=== PATIENT | female | born 1965 | race Caucasian/White ===

== ENCOUNTER 2023-05-14 08:55 | Outpatient (OUT) | payer OTHER, SELFPAY ==
[2023-05-14 09:44] LABS: BUN Creatinine Ratio 18.1; Calcium 8.3 mg/dL (8.5-10.1); Carbon Dioxide 23.5 mmol/L (21.0-32.0); Chloride 103 mmol/L (98-107); Estimated GFR (African America >60 (>=60); Estimated GFR (Non-African Ame >60 (>=60); Glucose 133 mg/dL (74-106); Potassium 5.5 mmol/L (3.5-5.1); Sodium 136 mmol/L (136-145)
== END 2023-05-14 08:56 | disposition home or self-care (01) ==
LOC: LAB 08:57
PROVIDERS: PCP Internal Medicine; Visit Provider Physician Assistant
DX: E87.1 Hypo-osmolality and hyponatremia (principal)
CPT/HCPCS: 36415; 80048

== ENCOUNTER 2023-05-28 08:38 | Outpatient (OUT) | payer OTHER, SELFPAY ==
[2023-05-28 10:20] LABS: BUN Creatinine Ratio 15.2; Calcium 9.3 mg/dL (8.5-10.1); Carbon Dioxide 26.6 mmol/L (21.0-32.0); Chloride 97 mmol/L (98-107); Estimated GFR (African America >60 (>=60); Estimated GFR (Non-African Ame >60 (>=60); Glucose 103 mg/dL (74-106); Potassium 4.6 mmol/L (3.5-5.1); Sodium 132 mmol/L (136-145)
== END 2023-05-28 08:39 | disposition home or self-care (01) ==
LOC: LAB 08:40
PROVIDERS: PCP Internal Medicine; Visit Provider Physician Assistant
DX: E87.5 Hyperkalemia (principal)
CPT/HCPCS: 36415; 80048

== ENCOUNTER 2023-07-17 18:45 | Emergency (ER) | payer OTHER, SELFPAY ==
[2023-07-17] VITALS (18 sets, daily range): BP systolic 165–214; BP diastolic 75–99; PULSE 72–87; RESP 14–25; TEMP 37; O2SAT 96–99; BMI 39.1
--- NOTE | 2023-07-17 19:21 | ECG_ITS ---
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
--- NOTE | 2023-07-17 19:23 | CT_ITS ---
The [address] [address] Patient Name: TERRANCE KAPADIA MRN: [id number] date: 1965 Sex: F Assigned Patient Location: ER Current Patient Location: ER Accession/Order Number: [id number] Exam Date: 07/17/2023 20:08 Report Date: 07/17/2023 20:26 At the request of: BHUMIKA LOBATO Procedure: CT head/brain wo con EXAMINATION: CT head/brain wo con HISTORY: Hypertension/headache - TECHNIQUE: CT head without contrast. All CT scans at this facility use dose modulation, iterative reconstruction, and/or weight based dosing when appropriate to reduce radiation dose to as low as reasonably achievable. COMPARISON: None. RESULT: Post-operative change: None. Acute change: No evidence of an acute intracranial process. Hemorrhage: No evidence of acute intracranial hemorrhage. Mass Lesion / Mass Effect: No evidence of an intracranial mass or extraaxial fluid collection. No significant mass effect. Chronic change: Scattered patchy foci of low attenuation are present within supratentorial white matter which is a nonspecific finding but likely represents mild microvascular ischemia. Atherosclerotic calcification of the carotid siphons and vertebrobasilar arteries. Parenchyma: Mild generalized volume loss. Ventricles: Ventricular enlargement concordant with the degree of parenchymal volume loss. Other: The calvarium, skull base, imaged paranasal sinuses, mastoids, orbits and extracranial soft tissues are unremarkable. CT/CT head/brain wo con IMPRESSION: 1. No acute intracranial abnormality; no acute infarct, intracranial hemorrhage or extra-axial collection. 2. Chronic microvascular ischemia and involutional changes. Electronically authenticated by: SHWETA BALBUENA Date: 07/17/2023 20:26
--- NOTE | 2023-07-17 19:25 | ED_ITS ---
HPI - General Adult General Chief complaint: Recheck/Abnormal Lab/Rx Stated complaint: HIGH BLOOD PRESSURE Time Seen by Provider: 07/17/23 19:11 Source: patient Mode of arrival: walk-in Limitations: no limitations History of Present Illness HPI narrative: patient is a 58-year-old female who presents to the Emergency Room for continued elevated blood pressure. Patient states for the last four days she has noticed increasing blood pressures, headache and blurry vision. She saw her PCP yesterday, outpatient labs showed hyponatremia. Patient was treated with [place] for pain in the left knee and low back and her PCP believed was the cause of her elevated blood pressure. She takes multiple blood pressure medications, none of these were adjusted in light of the high blood pressures. She did make her PCP aware yesterday of the headache and blurry vision. No other medications prior to arrival. She denies any loss of vision, chest pain, shortness of breath, upper respiratory symptoms. Related Data Home Medications Medication Instructions Recorded Confirmed alendronate 70 mg tablet 70 mg PO .weekly 07/17/23 07/17/23 amlodipine 5 mg tablet 5 mg PO DAILY 07/17/23 07/17/23 aspirin 325 mg tablet 325 mg PO DAILY 07/17/23 07/17/23 cholecalciferol (vitamin D3) 125 5,000 unit PO DAILY 07/17/23 07/17/23 mcg (5,000 unit) capsule clonidine HCl 0.1 mg tablet 0.3 mg PO Q8H 07/17/23 07/17/23 ferrous sulfate 325 mg (65 mg 325 mg PO DAILY 07/17/23 07/17/23 iron) tablet (FeroSul) folic acid 1 mg tablet 1 mg PO DAILY 07/17/23 07/17/23 hydrocodone 5 mg-acetaminophen 325 1 tab PO Q6H PRN pain 07/17/23 07/17/23 mg tablet levothyroxine 150 mcg tablet 150 mcg PO DAILY 07/17/23 07/17/23 losartan 100 mg tablet 100 mg PO DAILY 07/17/23 07/17/23 mecobalamin (vitamin B12) 1,000 1,000 mcg PO DAILY 07/17/23 07/17/23 mcg disintegrating tablet,sublingual omeprazole 40 mg capsule,delayed 40 mg PO DAILY 07/17/23 07/17/23 release oxycodone-acetaminophen 5 mg-325 1 tab PO Q6H PRN pain 07/17/23 07/17/23 mg tablet rosuvastatin 20 mg tablet 20 mg PO DAILY 07/17/23 07/17/23 tizanidine 4 mg tablet 4 mg PO Q8H 07/17/23 07/17/23 triamterene 37.5 1 tab PO DAILY 07/17/23 07/17/23 mg-hydrochlorothiazide 25 mg tablet venlafaxine 150 mg 150 mg PO DAILY 07/17/23 07/17/23 capsule,extended release 24 hr zolpidem 10 mg tablet 10 mg PO DAILY 07/17/23 07/17/23 Previous Rx's Medication Instructions Recorded ketorolac 10 mg tablet 10 mg PO TID PRN pain #6 tabs 07/17/23 ondansetron 4 mg disintegrating 4 mg PO Q6H PRN nausea and 07/17/23 tablet vomiting #12 tabs Allergies Allergy/AdvReac Type Severity Reaction Status Date / Time No Known Drug Allergies Allergy Verified 07/17/23 18:59 Review of Systems ROS Constitutional Denies: fever or chills Eyes Reports: change in vision and blurry vision Ears, nose, mouth, and throat Denies: throat pain Cardiovascular Denies: chest pain Respiratory Denies: shortness of breath or cough Gastrointestinal Reports: nausea; Denies: vomiting Musculoskeletal Reports: back pain and extremity pain Integumentary/Breast Denies: rash Neurological Reports: headache; Denies: numbness in extremities or weakness in extremities Endocrine Denies: excessive urination [facility] Social History Smoking status: Former smoker Exam Narrative Exam Narrative: Gen.: Awake, alert, in no distress; sitting upright with no photophobia Head: Normocephalic, atraumatic ENT: Moist mucous membranes; no nuchal rigidity or meningismus Respiratory: No respiratory distress, lungs clear bilaterally Cardio: Regular rate and rhythm Extremities: Moves extremities equally Psych: Normal mood and affect Neuro: No focal neuro deficit Skin: Warm, dry, intact Constitutional Vital Signs, click to edit/add: Last Vital Signs Temp 98.6 F 07/17/23 18:52 Pulse 73 07/17/23 20:45 Resp 15 07/17/23 20:45 BP 184/92 H 07/17/23 20:45 Pulse Ox 97 07/17/23 21:10 O2 Del Method Room Air 07/17/23 18:52 Course Vital Signs Vital signs: Vital Signs Temperature 98.6 F 07/17/23 18:52 Pulse Rate 87 07/17/23 18:52 Respiratory Rate 18 07/17/23 18:52 Blood Pressure 214/94 H 07/17/23 18:52 Pulse Oximetry 99 07/17/23 18:52 Oxygen Delivery Method Room Air 07/17/23 18:52 Temperature 98.6 F 07/17/23 18:52 Pulse Rate 73 07/17/23 20:45 Respiratory Rate 15 07/17/23 20:45 Blood Pressure 184/92 H 07/17/23 20:45 Pulse Oximetry 97 07/17/23 21:10 Oxygen Delivery Method Room Air 07/17/23 18:52 Medical Decision Making MDM Narrative Medical decision making narrative: patient medicated with IV fluids, Reglan, Benadryl, labetalol, Vasotec with improvement of blood pressure and headache. She has no focal neuro deficits in the Emergency Room, no EKG changes and CT of the brain is unremarkable. Blood pressure is 170/78 at reevaluation. Patient is on multiple medications for blood pressure, we'll defer to PCP for adjustment of these medications. She does have an upcoming appointment this week. Return to the Emergency Room if symptoms change or worsen. Medical Records Medical records reviewed: Yes I reviewed the patient's medical records Lab Data Lab results reviewed: Yes I reviewed the patient's lab results Labs: Lab Results 07/17/23 Range/Units 19:33 WBC 6.2 (4.0-11.0) 10^3/uL RBC 4.87 (4.20-5.40) 10^6/uL Hgb 14.5 (12.0-16.0) g/dL Hct 41.2 (36.0-48.0) % MCV 84.6 (81.0-99.0) fL MCH 29.8 (26.7-34.0) pg MCHC 35.2 (29.9-35.2) g/dL RDW 13.7 (11.0-15.0) % Plt Count 248 (150-450) 10^3/uL MPV 8.7 L (9.5-13.5) fL Neut % (Auto) 70.7 (43.0-75.0) % Lymph % (Auto) 18.0 L (20.5-60.0) % [place] % (Auto) 10.3 (1.7-12.0) % Eos % (Auto) 0.5 L (0.9-7.0) % Baso % (Auto) 0.3 (0.2-2.0) % Neut # (Auto) 4.4 (1.4-6.5) 10^3/uL Lymph # (Auto) 1.1 L (1.2-3.8) 10^3/uL [place] # (Auto) 0.6 (0.3-0.8) 10^3/uL Eos # (Auto) 0.0 (0.0-0.7) 10^3/uL Baso # (Auto) 0.0 (0.0-0.1) 10^3/uL Abs Immat Gran (auto) 0.01 (0.00-0.03) 10^3/uL Imm/Tot Granulo (auto) 0.2 (0.0-0.5) % Sodium 133 L (136-145) mmol/L Potassium 3.6 (3.5-5.1) mmol/L Chloride 100 (98-107) mmol/L Carbon Dioxide 23.3 (21.0-32.0) mmol/L Anion Gap 13.3 BUN 8.0 (7.0-18.0) mg/dL Creatinine 0.81 (0.55-1.02) mg/dL Est GFR ( Amer) >60 (>=60) Est GFR (Non-Af Amer) >60 (>=60) BUN/Creatinine Ratio 9.9 Glucose 115 H (74-106) mg/dL Calcium 8.5 (8.5-10.1) mg/dL Total Bilirubin 0.3 (0.2-1.0) mg/dL AST 26 (15-37) U/L ALT 47 (14-59) U/L Alkaline Phosphatase 72 (46-116) U/L Troponin I High Sens 10.7 (4.0-51.3) pg/mL Total Protein 7.7 (6.4-8.2) g/dL Albumin 4.1 (3.4-5.0) g/dL Globulin 3.6 g/dL Albumin/Globulin Ratio 1.1 ECG Data Attestation: I personally reviewed and interpreted this ECG as follows: (normal sinus rhythm at a rate of eighty-one, no acute ST elevation. Minimal ST depression noted, no ectopy. EKG reviewed by attending physician) Discharge Plan Discharge Chief Complaint: Recheck/Abnormal Lab/Rx Clinical Impression: Headache, Hypertension Patient Disposition: Home, Self-Care Time of Disposition Decision: 20:38 Condition: Good Prescriptions / Home Meds: New ketorolac 10 mg tablet 10 mg PO TID PRN (Reason: pain) Qty: 6 0RF ondansetron 4 mg tablet,disintegrating 4 mg PO Q6H PRN (Reason: nausea and vomiting) Qty: 12 0RF No Action alendronate 70 mg tablet 70 mg PO .weekly Rx Instructions: 30 min. before first meal amlodipine 5 mg tablet 5 mg PO DAILY aspirin 325 mg tablet 325 mg PO DAILY cholecalciferol (vitamin D3) 125 mcg (5,000 unit) capsule 5,000 unit PO DAILY clonidine HCl 0.1 mg tablet 0.3 mg PO Q8H ferrous sulfate [FeroSul] 325 mg (65 mg iron) tablet 325 mg PO DAILY folic acid 1 mg tablet 1 mg PO DAILY hydrocodone-acetaminophen 5-325 mg tablet 1 tab PO Q6H PRN (Reason: pain) Hold Instructions: discontinued levothyroxine 150 mcg tablet 150 mcg PO DAILY losartan 100 mg tablet 100 mg PO DAILY mecobalamin (vitamin B12) 1,000 mcg tablet,disintegrating 1,000 mcg PO DAILY omeprazole 40 mg capsule,delayed release(DR/EC) 40 mg PO DAILY oxycodone-acetaminophen 5-325 mg tablet 1 tab PO Q6H PRN (Reason: pain) rosuvastatin 20 mg tablet 20 mg PO DAILY tizanidine 4 mg tablet 4 mg PO Q8H triamterene-hydrochlorothiazid 37.5-25 mg tablet 1 tab PO DAILY zolpidem 10 mg tablet 10 mg PO DAILY venlafaxine 150 mg capsule,extended release 24hr 150 mg PO DAILY Instructions: Acute Headache (ED), Hypertension (ED) Stand Alone Forms: Portal Instructions Referrals: KIERSTEN BRISCOE [Primary Care Provider] - 1 week Discharge Date/Time: 07/17/23 20:58
[2023-07-17] MEDS: ENALAPRILAT DIHYDRATE 1.25 MG/ML VIAL IV (19:38)
[2023-07-17] MEDS: DIPHENHYDRAMINE HCL 50 MG/ML (1ML) VIAL 12.5 MG IV (19:38)
[2023-07-17] MEDS: METOCLOPRAMIDE HCL 10 MG/2 ML VIAL IVP (19:38)
[2023-07-17] MEDS: LABETALOL HCL 20 MG/4 ML SYRINGE 10 MG IVP (19:38)
[2023-07-17 19:53] LABS: Basophils Percent Auto 0.3 % (0.2-2.0); Eosinophils Percent Auto 0.5 % (0.9-7.0); Hematocrit 41.2 % (36.0-48.0); Hemoglobin 14.5 g/dL (12.0-16.0); Immature Granulocytes Abs Auto 0.01 10^3/uL (0.00-0.03); Immature Granulocytes Pct Auto 0.2 % (0.0-0.5); Lymphocytes Absolute Auto 1.1 10^3/uL (1.2-3.8); Mean Corpuscular HGB Conc 35.2 g/dL (29.9-35.2); Mean Corpuscular Hemoglobin 29.8 pg (26.7-34.0); Mean Corpuscular Volume 84.6 fL (81.0-99.0); Mean Platelet Volume 8.7 fL (9.5-13.5); Monocytes Absolute Auto 0.6 10^3/uL (0.3-0.8); Monocytes Percent Auto 10.3 % (1.7-12.0); Neutrophils Absolute Auto 4.4 10^3/uL (1.4-6.5); Neutrophils Percent Auto 70.7 % (43.0-75.0); Platelet Count 248 10^3/uL (150-450); Red Blood Count 4.87 10^6/uL (4.20-5.40); Red Cell Distribution Width 13.7 % (11.0-15.0); White Blood Count 6.2 10^3/uL (4.0-11.0)
[2023-07-17 19:58] LABS: Alanine Aminotransferase 47 U/L (14-59); Albumin Globulin Ratio 1.1; Albumin Level 4.1 g/dL (3.4-5.0); Alkaline Phosphatase 72 U/L (46-116); Anion Gap 13.3; Aspartate Amino Transferase 26 U/L (15-37); BUN Creatinine Ratio 9.9; Bilirubin Total 0.3 mg/dL (0.2-1.0); Calcium 8.5 mg/dL (8.5-10.1); Carbon Dioxide 23.3 mmol/L (21.0-32.0); Chloride 100 mmol/L (98-107); Estimated GFR (African America >60 (>=60); Estimated GFR (Non-African Ame >60 (>=60); Globulin 3.6 g/dL; Glucose 115 mg/dL (74-106); Potassium 3.6 mmol/L (3.5-5.1); Sodium 133 mmol/L (136-145); Total Protein 7.7 g/dL (6.4-8.2)
[2023-07-17 20:01] LABS: Troponin I High Sensitivity 10.7 pg/mL (4.0-51.3)
== END 2023-07-17 20:58 | disposition home or self-care (01) ==
PROVIDERS: Physician Assistant; Emergency Provider Internal Medicine; PCP Internal Medicine
DX: I10 Essential (primary) hypertension (principal); R51.9 Headache, unspecified; Z79.899 Other long term (current) drug therapy; Z79.82 Long term (current) use of aspirin; Z79.890 Hormone replacement therapy; Z87.891 Personal history of nicotine dependence
CPT/HCPCS: 36415; 70450; 80053; 84484; 85025; 93005; 96374; 96375; 99285

== ENCOUNTER 2023-10-30 14:36 | Outpatient (OUT) | payer OTHER, SELFPAY ==
--- NOTE | 2023-10-30 15:04 | MM_ITS ---
Patient Name: TERRANCE KAPADIA MR#: [id number] : 1965 Exam Date: 10/30/2023 Ordering Doctor: DR KIERSTEN BRISCOE M.D. RADIOLOGY REPORT PROCEDURE: MM TOMOSYNTHESIS SCREENING BI COMPARISON: MG MAMM SCREEN 3D [facility] CAD, 10/26/2022. MG MAMM SCREEN 3D [facility] CAD, 09/16/2021. MG MAMM SCREEN [facility] W CAD, 05/27/2020. MG MAMM [facility] SCRN W CAD DIG, 12/01/2008. INDICATIONS: screening Calculator Name NCI Breast Cancer Risk Assessment Tool 5 Year Breast Cancer Risk 1.90% Lifetime Breast Cancer Risk 11.10% Personal Breast Cancer No Personal Ovarian Cancer No Treatments None Family Cancers Grandmother-maternal with liver cancer at age ~66. LOCATION: [facility] BREAST COMPOSITION: Scattered areas fibroglandular density. FINDINGS: DIAGNOSTIC CATEGORY 2--BENIGN FINDING: RIGHT BREAST: No significant suspicious finding. Stable, chronic small mass versus lymph node anterior lower-inner quadrant. No significant change has occurred. LEFT BREAST: No significant suspicious finding. Stable, chronic small asymmetry within upper central breast with adjacent biopsy marker clip. No significant change has occurred. RECOMMENDATIONS: ROUTINE MAMMOGRAM AND CLINICAL EVALUATION IN 12 MONTHS. PLEASE NOTE: A NORMAL MAMMOGRAM DOES NOT EXCLUDE THE POSSIBILITY OF BREAST CANCER. A CLINICALLY SUSPICIOUS PALPABLE LUMP SHOULD BE BIOPSIED. Dictated by: Constantin Mclaughlin M.D. on 10/31/2023 at 14:16 Approved by: Constantin Mclaughlin M.D. on 10/31/2023 at 14:23
== END 2023-10-30 14:37 | disposition home or self-care (01) ==
LOC: MAMMO 14:36
PROVIDERS: PCP Internal Medicine; Visit Provider Internal Medicine
DX: Z12.31 Encounter for screening mammogram for malignant neoplasm of breast (principal); Z80.8 Family history of malignant neoplasm of other organs or systems
CPT/HCPCS: 77063; 77067

== ENCOUNTER 2024-01-02 09:22 | Outpatient (OUT) | payer OTHER, SELFPAY ==
--- NOTE | 2024-01-02 09:30 | US_ITS ---
[address] [address] Patient Name: TERRANCE KAPADIA MRN: [id number] date: 1965 Sex: F Assigned Patient Location: US Current Patient Location: US Accession/Order Number: [id number] Exam Date: 01/02/2024 09:32 Report Date: 01/02/2024 10:27 At the request of: MAKENZIE LANDRUM Procedure: US renal doppler EXAM: US renal doppler HISTORY: uncontrolled hypertension COMPARISON: None. TECHNIQUE: Grayscale, color and Doppler FINDINGS: The right kidney is normal in size and cortical echotexture with lobular contour measuring 12.8 x 4.9 x 4.9 cm. The cortex is thinned measuring 0.6 cm. No solid cortical mass, hydronephrosis or obstructing nephrolithiasis Right renal arteries: Proximal renal artery: 198/46 cm/s Mid renal artery: 137/36 cm/s Distal renal artery: 138/31 cm/s Superior arcuate: 52/16 cm/s Mid arcuate: 57/16 cm/s Inferior arcuate: 33/15 cm/s The left kidney is normal in size and cortical echotexture with lobular contour measuring 12.1 x 5.8 x 5.1 cm. The cortex is thinned measuring 0.9 cm. No solid cortical mass, hydronephrosis or obstructing nephrolithiasis Left renal arteries: Proximal renal artery: 126/25 cm/s Mid renal artery: 74/19 cm/s Distal renal artery: 60/16 cm/s Superior arcuate: 31/12 cm/s Mid arcuate: 40/10 cm/s Inferior arcuate: 46/13 cm/s Urinary bladder volume 45 mL Flow velocity in the aorta: 90/22 cm/s US/US renal doppler IMPRESSION: Elevated flow velocity in the right renal artery, consider renovascular hypertension Electronically authenticated by: MARIAH SAUCEDA Date: 01/02/2024 10:27
--- OUTSIDE RECORDS SUMMARY | 2024-01-02 09:40 | XMS_ITS | CCD ---
Author Name Unknown Address [address] [place] [address] Organization [facility] Care Team Providers Care Supervisor Gear Repair Name Role Phone NITO JEONG Primary Care Unavailable EBRAHEIM, LELE Admitting Unavailable NITO JEONG Referring Unavailable EBRAHEIM, LELE Attending Unavailable EBRAHEIM, LELE Attending Unavailable NITO JEONG Primary Care Unavailable EBHEIMGIANLUCAIL Admitting Unavailable NITO JEONG Referring Unavailable EBHEIMLELE Attending Unavailable NITO JEONG Referring Unavailable NITO JEONG Primary Care Unavailable EBRAHEIM, LELE Admitting Unavailable HEMMER, MISTY M Admitting Unavailable ZIEBER, DR TRUPTI Vicente Consulting Unavailable JEONG, DR BURCH Primary Care Unavailable HEMMERMISTY Attending Unavailable HEMMERMISTY Consulting Unavailable HEMMERMISTY Attending Unavailable HEMMERMISTY Consulting Unavailable HEMMER MISTY M Admitting Unavailable RACHNA, DR BURCH Primary Care Unavailable HEMMISTY LIU Attending Unavailable HEMALEXA MISTY M Admitting Unavailable RACHNA, DR BURCH Primary Care Unavailable RACHNA, DR BURCH Consulting Unavailable HEMMISTY LIU Consulting Unavailable MISC, DR VILLALTA Admitting Unavailable JEONG, DR BURCH Primary Care Unavailable MISC, DR VILLALTA Attending Unavailable MISC, DR VILLALTA Consulting Unavailable HEMMISTY LIU Attending Unavailable RACHNA, DR BURCH Primary Care Unavailable ZIEBER, DR TRUPTI Vicente Consulting Unavailable HEMMER, MISTY M Admitting Unavailable HEMMER MISTY M Consulting Unavailable HOBBSALICIA Attending Unavailable HOBBS, ALICIA Attending Unavailable HOBBS, ALICIA Attending Unavailable HOBBS, ALICIA Attending Unavailable FENG JOSE Referring Unavailable CHRIS SOLANO Referring Unavailable PETER, ALICIA Admitting Unavailable HOBBS, ALICIA Attending Unavailable CHRIS SOLANO Referring Unavailable HOBBS, CHRISTNINAER Referring Unavailable HOBBS, CHRISTNINAER Referring Unavailable HOBBS, CHRISTOPHER Referring Unavailable HOBBS, CHRISTOPHER Referring Unavailable PETER, CHRISTNINAER Referring Unavailable CHRIS SOLANO Attending Unavailable SELF, REFERRED Referring Unavailable HOBBS, ALICIA Attending Unavailable PETER, ERINER Referring Unavailable CHRIS SOLANO Attending Unavailable NITO JEONG Attending Unavailable MISTY LANDRUM Attending Unavailable MISTY LANDRUM Attending Unavailable NITO JEONG Attending Unavailable Nito Jeong MD Unavailable Nito Jeong MD Primary Care Provider [phone] Medications Current Medications Medication Drug Class(es) Dates Sig (Normalized) Sig (Original) alendronic acid 70 mg oral tablet (3 sources) Bisphosphonate Start: 3 alendronate (Fosamax) 70 MG tablet Indications: Osteoporosis of multiple sites (CMS/HCC) TAKE 1 TABLET BY MOUTH 30 MINUTES BEFORE first meal once a week 12 tablet 3 08/10/2023 Active amLODIPine 10 mg oral tablet (3 sources) Dihydropyridine Calcium Channel Yunier Start: 4 End: 5 take 1 tablet by mouth in the morning amLODIPine (Norvasc) 10 MG tablet Indications: Essential hypertension (CMS/HCC) Take 1 tablet (10 mg) by mouth in the morning. 30 tablet 11 11/26/2023 11/25/2024 Active calcium carbonate 500 mg oral tablet (3 sources) take 1 tablet by mouth twice daily at mealtime calcium carbonate (Os-Yang) 1250 (500 Ca) MG tablet Take 1,250 mg by mouth every 12 (twelve) hours. 1 tablet with meals twice daily. 0 Active carvedilol 25 mg oral tablet (3 sources) alpha-Adrenergic Yunier, beta-Adrenergic Yunier Start: 4 take 1 tablet by mouth in the morning carvedilol (Coreg) 25 MG tablet Indications: Essential hypertension (CMS/HCC) Take 1 tablet (25 mg) by mouth in the morning and 1 tablet (25 mg) in the evening. Take with meals. 60 tablet 2 11/15/2023 Active cholecalciferol 0.025 mg oral tablet (3 sources) Vitamin D take 1 tablet by mouth once daily cholecalciferol (Vitamin D3) 25 MCG (1000 UT) tablet Take 1,000 Units by mouth 1 (one) time each day at the same time. 0 Active ferrous sulfate 325 mg oral tablet (3 sources) Start: 3 take 1 tablet by mouth in the morning ferrous sulfate (FeroSul) 325 (65 Fe) MG tablet Indications: Abnormality of red blood cells Take 1 tablet (325 mg) by mouth in the morning. 90 tablet 3 05/21/2023 Active folic acid 1 mg oral tablet (3 sources) take 1 tablet by mouth in the morning folic acid (Folvite) 1 MG tablet Take 1,000 mcg by mouth in the morning. 0 Active hydroCHLOROthiazide 25 mg / olmesartan medoxomil 40 mg oral tablet (3 sources) Thiazide Diuretic, Angiotensin 2 Receptor Yunier Start: 3 End: 4 take 1 tablet by mouth in the morning olmesartan-hydroCHL OROthiazide (Benicar HCT) 40-25 MG tablet Indications: Essential hypertension (CMS/HCC) Take 1 tablet by mouth in the morning. 30 tablet 11 11/02/2023 11/01/2024 Active ibuprofen 800 mg oral tablet (3 sources) Nonsteroidal Anti-inflammatory Drug Start: 4 take 1 tablet by mouth in the morning, then take 1 tablet by mouth in the evening, then take 1 tablet by mouth at bedtime ibuprofen 800 MG tablet Indications: Lumbar radiculopathy Take 1 tablet (800 mg) by mouth in the morning and 1 tablet (800 mg) in the evening and 1 tablet (800 mg) before bedtime. 270 tablet 3 11/26/2023 Active levothyroxine sodium 0.15 mg oral tablet (3 sources) l-Thyroxine Start: 3 take 1 tablet by mouth once daily levothyroxine (Synthroid, Levoxyl) 150 MCG tablet Indications: Hypothyroidism, unspecified (CMS/HCC) TAKE 1 TABLET BY MOUTH EVERY DAY 90 tablet 3 10/22/2023 Active mecobalamin 1 mg sublingual tablet (3 sources) Start: 3 take 1 tablet under the tongue once daily B-12, Methylcobalamin, 1000 MCG sublingual tablet Indications: B12 deficiency DISSOLVE 1 (ONE) TABLET UNDER THE TONGUE ONCE DAILY 90 tablet 3 04/23/2023 Active omeprazole 40 mg delayed release oral capsule (3 sources) Proton Pump Inhibitor Start: 3 take 1 capsule by mouth once daily omeprazole (PriLOSEC) [address] capsule Indications: Gastroesophageal reflux disease, unspecified whether esophagitis present TAKE 1 CAPSULE BY MOUTH DAILY 90 capsule 3 07/12/2023 Active ondansetron 4 mg disintegrating oral tablet (1 source) Serotonin-3 Receptor Antagonist Start: 4 End: 4 take 1 tablet by mouth every eight hours as needed for nausea and vomiting and nausea and nausea ondansetron ODT (Zofran-ODT) 4 MG disintegrating tablet Indications: Nausea Take 1 tablet (4 mg) by mouth every 8 (eight) hours if needed for nausea or vomiting for up to 7 days 21 tablet 0 12/13/2023 12/20/2023 Active rosuvastatin calcium 20 mg oral tablet (3 sources) HMG-CoA Reductase Inhibitor Start: 3 take 1 tablet by mouth in the morning rosuvastatin (Crestor) 20 MG tablet Indications: Mixed hyperlipidemia (CMS/HCC) Take 1 tablet (20 mg) by mouth in the morning. 100 tablet 3 08/15/2023 Active spironolactone 25 mg oral tablet (3 sources) Aldosterone Antagonist Start: 4 take 1 tablet by mouth in the morning spironolactone (Aldactone) 25 MG tablet Indications: Essential hypertension (CMS/HCC) Take 1 tablet (25 mg) by mouth in the morning. 30 tablet 2 12/12/2023 Active Start: 12-12-2023 take 1 tablet by jesse th in the morning spironolactone (Aldactone) 25 MG tablet Indications: Essential hypertension (CMS/HCC) Take 1 tablet (25 mg) by mouth in the morning. 30 tablet 2 12/12/2023 Active tiZANidine 4 mg oral tablet (3 sources) Central alpha-2 Adrenergic Agonist take 1 tablet by mouth in the morning, then take 1 tablet by mouth in the evening, then take 1 tablet by mouth at bedtime tiZANidine (Zanaflex) 4 MG tablet Take 4 mg by mouth in the morning and 4 mg in the evening and 4 mg before bedtime. 0 Active traMADol hydrochloride 50 mg oral tablet (5 sources) Opioid Agonist Start: 4 take 2 tablets by mouth every six hours for pain traMADol (Ultram) 50 MG tablet Indications: Pain Take 2 tablets (100 mg) by mouth every 6 (six) hours if needed for moderate pain 240 tablet 0 12/12/2023 Active Start: 12-12-2023 take 2 tablets by mo uth every six hours for pain traMADol (Ultram) 50 MG tablet Indications: Pain Take 2 tablets (100 mg) by mouth every 6 (six) hours if needed for moderate pain 240 tablet 0 12/12/2023 Active Start: 10-08-2023 End: 12-12-2023 take 2 tablets by mouth every six hours for pain traMADol (Ultram) 50 MG tablet Indications: Pain Take 2 tablets (100 mg) by mouth every 6 (six) hours if needed for moderate pain 240 tablet 1 10/08/2023 12/12/2023 Discontinued (Reorder) 24 hr venlafaxine 150 mg extended release oral capsule (3 sources) Serotonin and Norepinephrine Reuptake Inhibitor Start: 10-22-2023 take 2 capsules by mouth once daily at mealtime venlafaxine XR (Effexor XR) 150 MG 24 hr capsule Indications: Generalized anxiety disorder (CMS/HCC) TAKE 2 CAPSULES BY MOUTH EVERY DAY WITH FOOD 180 capsule 3 10/22/2023 Active zolpidem tartrate 10 mg oral tablet (3 sources) gamma-Aminobutyric Acid-ergic Agonist Start: 11-26-2023 zolpidem (Ambien) 10 MG tablet Indications: Insomnia, unspecified Take 1 tablet (10 mg) by mouth as needed at bedtime for sleep 30 tablet 2 11/26/2023 Active Problems Active Problems Problem Classification Problem Date Documented Date Episodic/Chronic Anxiety disorders (3 sources) Generalized anxiety disorder; Translations: [Generalized anxiety disorder] Onset: 04-13-2023 04-13-2023 Chronic Disorders of lipid metabolism (3 sources) Mixed hyperlipidemia; Translations: [Mixed hyperlipidemia] Onset: 04-13-2023 04-13-2023 Chronic Esophageal disorders (3 sources) Gastroesophageal reflux disease; Translations: [Gastro-esophageal reflux disease without esophagitis] Onset: 04-13-2023 04-13-2023 Chronic Essential hypertension (7 sources) Hypertensive disorder; Translations: [Essential (primary) hypertension] Onset: 04-13-2023 12-12-2023 Chronic Immunizations and screening for infectious disease (2 sources) Needs influenza immunization; Translations: [Encounter for immunization] 12-12-2023 Episodic Joint disorders and dislocations; trauma-related (3 sources) Traumatic arthropathy-knee; Translations: [Traumatic arthropathy, left knee] Onset: 04-13-2023 04-13-2023 Chronic Miscellaneous mental health disorders (5 sources) Primary insomnia; Translations: [Primary insomnia] Onset: 04-13-2023 12-12-2023 Chronic Mood disorders (3 sources) Depressive disorder; Translations: [Depressive disorder] Onset: 04-13-2023 04-13-2023 Chronic Nausea and vomiting (1 source) Nausea; Translations: [Nausea] 12-13-2023 Episodic Nonspecific chest pain (2 sources) Chest pain; Translations: [Chest pain, unspecified] 12-12-2023 Episodic Osteoporosis (6 sources) Osteoporosis; Translations: [Age-related osteoporosis without current pathological fracture] Onset: 09-19-2021 04-13-2023 Chronic Other diseases of bladder and urethra (3 sources) Overactive bladder; Translations: [Overactive bladder] Onset: 04-13-2023 04-13-2023 Chronic Other hereditary and degenerative nervous system conditions (3 sources) Restless legs; Translations: [Restless legs syndrome] Onset: 04-13-2023 04-13-2023 Chronic Other inflammatory condition of skin (3 sources) Lupus erythematosus; Translations: [Discoid lupus erythematosus] Onset: 04-13-2023 04-13-2023 Chronic Other nervous system disorders (3 sources) Chronic pain; Translations: [Other chronic pain] Onset: 04-13-2023 04-13-2023 Chronic Other nervous system disorders (3 sources) Peripheral nerve disease ; Translations: [Polyneuropathy, unspecified] Onset: 04-13-2023 04-13-2023 Chronic Other nutritional; endocrine; and metabolic disorders (3 sources) Obese class II; Translations: [Obesity, unspecified] Onset: 04-13-2023 04-13-2023 Chronic Other nutritional; endocrine; and metabolic disorders (3 sources) Metabolic syndrome X; Translations: [Metabolic syndrome X] Onset: 04-13-2023 04-13-2023 Chronic Residual codes; unclassified (4 sources) Obstructive sleep apnea (adult) (pediatric); Translations: [OBSTRUCTIVE SLEEP APNEA] Onset: 12-20-2022 Chronic Residual codes; unclassified (1 source) Obstructive sleep apnea syndrome; Translations: [Obstructive sleep apnea (adult) (pediatric)] Onset: 12-20-2022 12-12-2023 Chronic Spondylosis; intervertebral disc disorders; other back problems (6 sources) Arthropathy of lumbar facet joint; Translations: [Spondylosis without myelopathy or radiculopathy, lumbar region] Onset: 04-13-2023 04-13-2023 Chronic Thyroid disorders (3 sources) Hypothyroidism; Translations: [Hypothyroidism, unspecified] Onset: 04-13-2023 04-13-2023 Chronic Unclassified (3 sources) COUGH, UNSPECIFIED; Translations: [COUGH, UNSPECIFIED] Onset: 01-05-2023 Past or Other Problems Problem Classification Problem Date Documented Da te Episodic/Chronic Coma; stupor; and brain damage (5 sources) Daytime somnolence; Translations: [Somnolence] Onset: 05-14-2023 12-12-2023 Episodic Diabetes mellitus without complication (3 sources) Impaired fasting glycemia; Translations: [Impaired fasting glucose] Onset: 04-13-2023 04-13-2023 Episodic Fluid and electrolyte disorders (7 sources) Hypo-osmolality and hyponatremia; Translations: [Hyponatremia] Onset: 03-28-2023 Episodic Fracture of lower limb (9 sources) Displaced comminuted fracture of left patella, subsequent encounter for closed fracture with delayed healing; Translations: [Displaced osteochondral fracture of left patella, subsequent encounter for closed fracture with routine healing] Onset: 07-21-2022 Episodic Nutritional deficiencies (3 sources) Cobalamin deficiency; Translations: [Deficiency of other specified B group vitamins] Onset: 04-13-2023 04-13-2023 Episodic Other acquired deformities (3 sources) Spondylolysis; Translations: [Spondylolysis, lumbar region] Onset: 04-13-2023 04-13-2023 Episodic Other acquired deformities (3 sources) Acquired spondylolisthesis; Translations: [Spondylolisthesis, site unspecified] Onset: 12-25-2016 07-16-2023 Episodic Other connective tissue disease (3 sources) Muscle pain; Translations: [Myalgia, unspecified site] Onset: 05-14-2023 05-14-2023 Episodic Other gastrointestinal disorders (3 sources) Stool DNA-based colorectal cancer screening positive; Translations: [Other fecal abnormalities] Onset: 04-13-2023 04-13-2023 Episodic Other gastrointestinal disorders (3 sources) Abnormal feces; Translations: [Other fecal abnormalities] Onset: 08-07-2019 07-16-2023 Episodic Other hematologic conditions (3 sources) Red blood cell finding; Translations: [Other abnormality of red blood cells] Onset: 04-13-2023 04-13-2023 Episodic Other lower respiratory disease (3 sources) Snoring; Translations: [Snoring] Onset: 05-14-2023 05-14-2023 Episodic Other non-traumatic joint disorders (2 sources) Pain in left knee; Translations: [Pain in left knee] Onset: 09-19-2022 Episodic Other nutritional; endocrine; and metabolic disorders (3 sources) Excessive thirst; Translations: [Polydipsia] Onset: 04-13-2023 04-13-2023 Episodic Other screening for suspected conditions (not mental disorders or infectious disease) (7 sources) Encounter for screening mammogram for malignant neoplasm of breast; Translations: [Mammography abnormal] Onset: 10-26-2022 Episodic Residual codes; unclassified (1 source) Family history of malignant neoplasm of other organs or systems; Translations: [FAM HX MALIG NEOPLASM OTH ORGN/SYS] Onset: 11-02-2022 Episodic Residual codes; unclassified (2 sources) Pain, unspecified; Translations: [Pain, unspecified] Onset: 02-12-2023 Episodic Residual codes; unclassified (3 sources) Insomnia; Translations: [Insomnia, unspecified] Onset: 04-13-2023 04-13-2023 Episodic Spondylosis; intervertebral disc disorders; other back problems (8 sources) Lumbar radiculopathy; Translations: [Radiculopathy, lumbar region] Onset: 04-13-2023 12-12-2023 Episodic Unclassified (1 source) COUGH, UNSPECIFIED; Translations: [COUGH, UNSPECIFIED] Onset: 01-01-2023 Results Test Name Value Interpretation Reference Range Facility Follow-Upon 08-29-2023 Follow-Up [id number] Jenni Khan 1965 F Date Provider Department Center 08/29/2023 WendieALICIA HOBBS [facility] Family History Problem Relation Age of Onset Anesthesia problems Mother Diabetes Mother Hypertension Mother Hyperlipidemia Mother Diabetes Father Hyperlipidemia Father Hypertension Father Family Status - Relation Status Age at Mother Alive Father Alive Level of Service:49194 [place] OFFICE/OUTPATIENT ESTABLISHED LOW MDM 20-29 MIN (GC) Reason for Visit and Comments: Follow-up [[id number]] [facility] Orders Onlyon 05-28-2023 Orders Only [id number] Jenni Khan 1965 Provider Department Center 05/28/202347267-ZCVACFIPBENJAMIN MACHADO [facility] Family History Problem Relation Age of Onset Anesthesia problems Mother Diabetes Mother Hypertension Mother Hyperlipidemia Mother Diabetes Father Hyperlipidemia Father Hypertension Father Family Status - Relation Status Age at Mother Alive Father Alive [facility] 36on 05-25-2023 36 Patient called in wanting to know if pain med can be sent in for her. Patient using [facility] in [place]. She is requesting gabapentin or tylenol 3 pain Normal [facility] Follow-Upon 05-25-2023 Follow-Up [id number] Jenni Khan 1965 Date Provider Department Center 05/25/2023 ALICIA ROOT MP Family History Problem Relation Age of Onset Anesthesia problems Mother Diabetes Mother Hypertension Mother Hyperlipidemia Mother Diabetes Father Hyperlipidemia Father Hypertension Father Family Status - Relation Status Age at Mother Alive Father Alive Level of Service:92381 [place] OFFICE/OUTPATIENT ESTABLISHED LOW MDM 20-29 MIN (GC) Reason for Visit and Comments: Follow-up [[id number]] [facility] Telephoneon 05-25-2023 Telephone [id number] Jenni Khan 1965 Provider Department Center 05/25/2023 ALICIA ROOT MP Family History Problem Relation Age of Onset Anesthesia problems Mother Diabetes Mother Hypertension Mother Hyperlipidemia Mother Diabetes Father Hyperlipidemia Father Hypertension Father Family Status - Relation Status Age at Mother Alive Father Alive [facility] OSMOLALITYon 04-03-2023 Osmolality [Osmolality] 274 mosm/kg Critically low 275-295 [facility] Comment on above: Performed By: #### O SMO #### [facility] [address] [place] [address] Dr. Celena Schroeder OSMOLALITY URINEon 3 Osmolality, Urine 525 mOsmol/kg Normal [facility] Comment on above: Result Comment: 24 h r : 300 - 900 Random: 50 - 1400 After 12hr fluid restriction: >850 Performed By: #### O SMOU #### [facility] [address] [address] [address] Celena Schroeder CREATININEon 03-28-2023 Creatinine [Mass/Vol] 0.99 mg/dL Normal 0.55-1.02 [facility] Comment on above: Performed By: #### C CON, NA #### [facility] [address] [address] [address] Celena Schroeder EGFR-AF BELGIAN >60 Normal >=60 [facility] Comment on above: Performed By: #### C CON, NA #### [facility] [address] [place] [address] Dr. Celena Schroeder EGFR-NON AF BELGIAN 58 mL/min/1.73m2 Critically low >=60 [facility] Comment on above: Performed By: #### C CON, NA #### [facility] [address] [address] [address] Celena Schroeder CREATININE URINEon 3 URINE CREAT 109.39 mg/dL Normal 20.00-300.00 [facility] Comment on above: Performed By: #### C REAU #### [facility] [address] [address] [address] Celena Schroeder NAon 03-28-2023 Sodium [Moles/Vol] 133 mmol/L Critically low 136-145 [facility] Comment on above: Performed By: #### C CON, NA #### [facility] [address] [place] [address] Dr. Celena Schroeder SODIUM RANDOM URINEon 2022 Sodium (U) [Moles/Vol] 51 mmol/L Normal 30-90 [facility] Comment on above: Performed By: #### N AU #### [facility] [address] [place] [address] Dr. Celena Schroeder Office Visiton 03-23-2023 Follow-up visit [id number] Bill,Jenni S 1965 Date Provider Department Center 03/23/2023 ALICIA ROOT MP OR[facility] MP[facility]THO Family History Problem Relation Age of Onset Anesthesia problems Mother Diabetes Mother Hypertension Mother Hyperlipidemia Mother Diabetes Father Hyperlipidemia Father Hypertension Father Family Status - Relation Status Age at Mother Alive Father Alive Level of Service:25734 [place] POSTOP FOLLOW UP VISIT RELATED TO ORIGINAL PX (GC) Reason for Visit and Comments: Follow-up [[id number]] [facility] 36on 03-19-2023 36 Patient wants a refi ll just to last her until her appt Sunday. [facility] Orders Onlyon 03-19-2023 Orders Only [id number] Bill,Jenni S 1965 Date Provider Department Center 03/19/2023 NORMA RODARTE MP ORTHO MPORTHO Family History Problem Relation Age of Onset Anesthesia problems Mother Diabetes Mother Hypertension Mother Hyperlipidemia Mother Diabetes Father Hyperlipidemia Father Hypertension Father Family Status - Relation Status Age at Mother Alive Father Alive [facility] Orders Onlyon 03-07-2023 Orders Only [id number] Bill,Jenni S 1965 Date Provider Department Center 03/07/2023 [facility] Problem Relation Age of Onset Anesthesia problems Mother Diabetes Mother Hypertension Mother Hyperlipidemia Mother Diabetes Father Hyperlipidemia Father Hypertension Father Family Status - Relation Status Age at Mother Alive Father Alive [facility] Telephoneon 03-07-2023 Telephone [id number] Bill,Jenni S 1965 Date Provider Department Center 03/07/2023 83NISH ORELLANA MP ORTHO MPORTHO Family History Problem Relation Age of Onset Anesthesia problems Mother Diabetes Mother Hypertension Mother Hyperlipidemia Mother Diabetes Father Hyperlipidemia Father Hypertension Father Family Status - Relation Status Age at Mother Alive Father Alive Reason for Visit and Comments: Follow-up [[id number]] - Patient called in wanting refill of norco. [facility] uses [facility] [place], [place]. [facility] Orders Onlyon 02-28-2023 Orders Only [id number] Bill,Jenni S 1965 F Date Provider Department Center 02/28/20232003-ALEXIS PATHAK [facility] PAT OR Medical C Family History Problem Relation Age of Onset Anesthesia problems Mother Diabetes Mother Hypertension Mother Hyperlipidemia Mother Diabetes Father Hyperlipidemia Father Hypertension Father Family Status - Relation Status Age at Mother Alive Father Alive [facility] Orders Onlyon 02-26-2023 Orders Only [id number] BillJenni S 1965 Provider Department Center 02/26/2023 ALICIA ROOT [facility] Family History Problem Relation Age of Onset Anesthesia problems Mother Diabetes Mother Hypertension Mother Hyperlipidemia Mother Diabetes Father Hyperlipidemia Father Hypertension Father Family Status - Relation Status Age at Mother Alive Father Alive [facility] Telephoneon 02-26-2023 Telephone [id number] Bill,Jenni S 1965 Provider Department Center 02/26/2023 ALICIA ROOT MP ORTHO MPORTHO Family History Problem Relation Age of Onset Anesthesia problems Mother Diabetes Mother Hypertension Mother Hyperlipidemia Mother Diabetes Father Hyperlipidemia Father Hypertension Father Family Status - Relation Status Age at Mother Alive Father Alive Reason for Visit and Comments: Med Refill [[id number]] - Pt is requesting a refill on [place]. Pharmacy [facility] [phone] [facility] Office Visiton 02-23-2023 Follow-up visit [id number] Bill,Jenni S 1965 Provider Department Center 02/23/2023 ALICIA ROOT MP ORTH[facility] MPORTMERCY Family History Problem Relation Age of Onset Anesthesia problems Mother Diabetes Mother Hypertension Mother Hyperlipidemia Mother Diabetes Father Hyperlipidemia Father Hypertension Father Family Status - Relation Status Age at Mother Alive Father Alive Level of Service:67007 [place] POSTOP FOLLOW UP VISIT RELATED TO ORIGINAL PX (GC) Reason for Visit and Comments: Follow-up [[id number]] [facility] 36on 02-21-2023 36 Resident called in. [facility] Orders Onlyon - Orders Only [id number] Bill,Jenni S 1965 Provider Department Center 02/21/2023 [id number] WEAVER MP ORTHO MPORTHO Family History Problem Relation Age of Onset Anesthesia problems Mother Diabetes Mother Hypertension Mother Hyperlipidemia Mother Diabetes Father Hyperlipidemia Father Hypertension Father Family Status - Relation Status Age at Mother Alive Father Alive [facility] 36on 02-20-2023 36 Patient called into the office requesting pain meds . [facility] 29on 02-12-2023 29 Addendum created 02/12/23 1421 by Tova Tam MD Review and Sign - Signed [facility] HPon 02-12-2023 HP History Of Present Illness Jenni Khan is a 58 y.o. female presenting with left patellar nounion. Past Medical History She has a past medical history of Anxiety, Arthritis, Depression, High cholesterol, Hypertension, Joint pain, and Pneumonia (01/01/2023). Surgical History She has a past surgical history that includes Knee surgery (Left); Hysterectomy; Ankle surgery (Left); and Cholecystectomy. Social History She reports that she has never smoked. She has never used smokeless tobacco. She reports that she does not drink alcohol and does not use drugs. Family History Family History Problem Relation Name Age of Onset Anesthesia problems Mother Diabetes Mother Hypertension Mother Hyperlipidemia Mother Diabetes Father Hyperlipidemia Father Hypertension Father Allergies Patient has no known allergies. Medications No medications prior to admission. Review of Systems Last Recorded Vitals Visit Vitals BP (!) 143/114 Pulse 88 Temp 36.1 ???C (97 ???F) Resp 24 Ht 1.651 m (5' 5 ) Wt 110 kg (242 lb 4.6 oz) SpO2 95% BMI 40.32 kg/m??? OB Status Postmenopausal Smoking Status Never BSA 2.25 m??? Physical Exam Relevant Lab Results Lab Results Component Value Date NA 136 12/22/2022 K 4.8 12/22/2022 CL 105 12/22/2022 CO2 26 12/22/2022 BUN 20 12/22/2022 CREATININE 0.82 12/22/2022 GLUCOSE 92 12/22/2022 CALCIUM 8.8 12/22/2022 ANIONGAP 10 12/22/2022 EGFR 80.2 12/22/2022 BCR 24.39 12/22/2022 Full motion. Skin intact. Pain to palpation. Relevant Imaging Results XR knee 1 or 2 views left Narrative: XR KNEE 1-2 VIEWS LEFT 03/23/2023 10:43 AM CLINICAL INDICATIONS: Patellar fracture follow-up COMPARISON: 02/23/2023 FINDINGS: Redemonstration of patellar fracture with plate and screw fixation as well as long screw. No interval change to hardware or fracture alignment. Suprapatellar soft tissue swelling. Redemonstration of chronic changes to the superior fibula. Developing region of osteopenia in the proximal tibia with surrounding sclerosis, increased from the prior exam, most clearly seen on the lateral view. Unchanged small increased fragment of the left patella laterally. Impression: No interval change to internally fixated patella fracture. Developing focal osteopenia with surrounding sclerosis of the proximal tibia. May represent healing nondisplaced fracture. Approved by:Renaldo Dewitt03/24/2023 1:30 PM. I, Kevin Tyler,have reviewed the image(s) and agree with the findings in this report. Electronically signed: Kevin Tyler. Assessment/Plan Active Problems: There are no active Hospital Problems. Patellar nonunion repair with autograft. 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 Priority Lab ID 1 Patella Bone TISSUE CULTURE AND ANAEROBIC CULTURE Alicia Hobbs MD 02/12/23 0825 Routine [id number], [id number] Description: NON-UNION SITE Implants Type Name Action Serial No. Plate ADAPT-PLATE,2.7M,12 HOLE,97M - [id number] Implanted Screw SCREW,CORTEX,2.7M,T8,22 M - [id number] Implanted Screw SCREW,2.7M,T8,48M - [id number] Implanted Screw SCREW,LOCKING,2.7M,16M - [id number] Implanted Screw SCREW,SLF-TPNG,CORTEX,2 .7M,10M - [id number] Implanted Staff: Drum Sprayer: Ruby Lovelace RN Scrub Person: Ann Jamil CST Indications: Jenni Khan is an 57 y.o. female who is having surgery for a right Procedure Details: The patient was seen in the preoperative area. The risks, benefits, complications, treatment options, non-operative alternatives, expected recovery and outcomes were discussed with the patient. The possibilities of reaction to medication, pulmonary aspiration, injury to surrounding structures, bleeding, recurrent infection, the need for additional procedures, failure to diagnose a condition, and creating a complication requiring transfusion or operation were discussed with the patient. The patient concurred with the proposed plan, giving informed consent. The site of surgery was properly noted/marked if necessary per policy. The patient has been actively warmed in preoperative area. Preoperative antibiotics have been ordered and given within 1 hours of incision. Venous thrombosis prophylaxis have been ordered including unilateral sequential compression device Patient was brought back to the operating room placed under excellent general anesthesia and then placed supine on the operating room table with a nonsterile tourniquet on the left thigh and an ipsilateral hip bump. The left lower extremity was then prepped and draped in usual sterile fashion, preoperative timeout was performed using 2 separate patient identifiers and the left knee was again confirmed by all surgeons. We began by exsanguinating the limb and inflating the tourniquet, and subsequently made an incision over her previous scar. After creating medial and lateral retinacular flaps we made an incision down through the tissue over top of the previous plate and developed flaps there as well. We are able to remove the plate without difficulty, and used x-ray to confirm that all screws and the plate were removed. At this time we began taking down her nonunion and used intraoperative fluoroscopy with an osteotome and a curette to debride all fibrous tissue in the fracture site. Once we confirmed this had good bleeding bone on both sides of the fracture and both medially and laterally, we began contouring her plate to fit over top of the patella. We turned attention to the anterior lateral tibia and made a small incision over Gurdy's tubercle and then created a window in the bone with the osteotome and subsequently harvested a large amount of proximal tibia cancellous bone graft. Once satisfied, we packed the bone graft into the fracture site deep just anterior to the cartilage, and then secured our plate over top. Then we placed lag screws going from inferior to superior and superior to inferior through the contoured ends of the 2.7 mm adaptation plate and had good compression by technique with excellent purchase of thse screws. After this the remainder of the holes were filled with a combination of cortical and locking screws, taking care to avoid the articular surface. Once happy with her fixation, we packed the remainder of the bone graft around the plate and deep into the fracture nonunion site after irrigating both wounds with normal saline. We then closed the cortical window on the anterior lateral tibia with an 0 Vicryl, as well as the retinacular tissue over the plate. The remainder the wounds were closed in a layered fashion, a sterile dressing was applied, and the patient was awoken from general anesthesia without complication. She was placed in a hinged knee brace and given a polar care. All counts were correct at the end of the case Findings: Patellar nonunion with intact miguel angel (more content not included)... Normal [facility] POCT GLUCOSE METER UNSOLICIT ED RESULTSon 02-12-2023 Glucose [Mass/Vol] 156 mg/dL High 70-105 [facility] Comment on above: Result Comment: [email or web address] Performed By: #### L [id number] ####[facility] ([facility])[address] [place] [address] Glucose [Mass/Vol] 97 mg/dL Normal 70-105 [facility] Comment on above: Result Comment: [email or web address] Performed By: #### L [id number] ####[facility] ([facility])[address] [place] [address] TISSUE CULTUREon 02-12-2023 Bacteria identified Cx Nom (Unsp spec) No growth at 5 days Normal [facility] Comment on above: Order Comment: Pre-o p diagnosis:s82.042k Performed By: #### L [id number] ####[facility] ([facility])[address] [place] [address] GRAM STAIN RESULT Normal [facility] Comment on above: Order Comment: Pre-o p diagnosis:s82.042k Result Comment: No p olymorphonuclear leukocytes seen No organisms seen Performed By: #### L [id number] ####[facility] ([facility])[address] [place] [address] MRSA NARES #1on 02-11-2023 MRSA NARES #1 Isolate 1 Staphylococcus aureus (MSSA) Light growth of ORGANISM 1 Staphylococcus aureus (MSSA) ANTIBIOTIC M.I.C RX STATUS Oxacillin <=0.25 S F Normal [facility] Comment on above: Performed By: #### M [id number] #### [facility] [address] [address] [address] Celena Schroeder 36on 02-07-2023 36 LVM to call let bala ent know that she needs it and the order was in the chart. Normal [facility] 36on 01-22-2023 36 Patient agreed. She will repeat MRSA swab at [facility] before the surgery. Normal [facility] Telephoneon 01-22-2023 Telephone [id number] Jenni Khan 1965 F Date Provider Department Center 01/22/2023 ALICIA ROOT MP ORTHO MPORTHO Family History Problem Relation Age of Onset Anesthesia problems Mother Diabetes Mother Hypertension Mother Hyperlipidemia Mother Diabetes Father Hyperlipidemia Father Hypertension Father Family Status - Relation Status Age at Mother Alive Father Alive [facility] 36on 01-19-2023 36 Patient left a messa ge she needs to reschedule her surgery at least one week out because her daughter is having a surgery and she needs to be able to help with the baby. I told her I would get a new date from you Sunday when you are back in town. Normal [facility] Anesthesiaon 01-08-2023 Anesthesia [id number] Jenni Khan 1965 F Date Provider Department Center 01/08/2023[facility] OR OR Medical C Family History Problem Relation Age of Onset Anesthesia problems Mother Diabetes Mother Hypertension Mother Hyperlipidemia Mother Diabetes Father Hyperlipidemia Father Hypertension Father Family Status - Relation Status Age at Mother Alive Father Alive Normal [facility] 36on 01-05-[address] Rosado's (anesiology) patient's surgery will be post poned for now due to recent lab testing and chest XR. Patient verbalized understanding. Normal [facility] Orders Onlyon 01-02-2023 Orders Only [id number] Jenni Khan Ruby 1965 F Date Provider Department Center 01/02/20232003-ALEXIS PATHAK [facility] PAT OR Medical C Family History Problem Relation Age of Onset Anesthesia problems Mother Diabetes Mother Hypertension Mother Hyperlipidemia Mother Diabetes Father Hyperlipidemia Father Hypertension Father Family Status - Relation Status Age at Mother Alive Father Alive Normal [facility] RESPIRATORY PANEL PLUSon Adenovirus Not detected Normal NOT DETECTED [facility] Comment on above: Performed By: #### R SPLUS #### [facility] [address] [place] [address] Dr. Celena Schroeder B. Parapertusis Not detected Normal NOT DETECTED [facility] Comment on above: Performed By: #### R SPLUS #### [facility] [address] [place] [address] Dr. Celena Doran. Pertussis Not detected Normal NOT DETECTED [facility] Comment on above: Performed By: #### R SPLUS #### [facility] [address] [place] [address] Dr. Celena Schroeder Chlamydia Pneumoniae Not detected Normal NOT DETECTED [facility] Comment on above: Performed By: #### R SPLUS #### [facility] [address] [place] [address] Dr. Celena Schroeder Coronavirus 229E Not detected Normal NOT DETECTED [facility] Comment on above: Performed By: #### R SPLUS #### [facility] [address] [place] [address] Dr. Celena Schroeder Coronavirus HKU1 Not detected Normal NOT DETECTED [facility] Comment on above: Performed By: #### R SPLUS #### [facility] [address] [place] [address] Dr. Celena Schroeder Coronavirus NL63 Not detected Normal NOT DETECTED [facility] Comment on above: Performed By: #### R SPLUS #### [facility] [address] [place] [address] Dr. Celena Schroeder Coronavirus OC43 Not detected Normal NOT DETECTED [facility] Comment on above: Performed By: #### R SPLUS #### [facility] [address] [address] [address] Celena Schroeder Influenza A H1 Not detected Normal NOT DETECTED [facility] Comment on above: Performed By: #### R SPLUS #### [facility] [address] [place] [address] Dr. Celena Schroeder Influenza A H1 2009 Not detected Normal NOT DETECTED [facility] Comment on above: Performed By: #### R SPLUS #### [facility] [address] [place] [address] Dr. Celena Schroeder Influenza A H3 Not detected Normal NOT DETECTED [facility] Comment on above: Performed By: #### R SPLUS #### [facility] [address] [place] [address] Dr. Celena Schroeder Influenza B Not detected Normal NOT DETECTED The [place] Comment on above: Performed By: #### R SPLUS #### [facility] [address] [place] [address] Dr. Celena Schroeder Metapneumovirus Detected Abnormal NOT DETECTED [facility] Comment on above: Performed By: #### R SPLUS #### [facility] [address] [place] [address] Dr. Celena Schroeder Mycoplas. Pneumoniae Not detected Normal NOT DETECTED [facility] Comment on above: Performed By: #### R SPLUS #### [facility] [address] [place] [address] Dr. Celena Schroeder Parainfluenza 1 Not detected Normal NOT DETECTED [facility] Comment on above: Performed By: #### R SPLUS #### [facility] [address] [place] [address] Dr. Celena Schroeder Parainfluenza 2 Not detected Normal NOT DETECTED [facility] Comment on above: Performed By: #### R SPLUS #### [facility] [address] [place] [address] Dr. Celena Schroeder Parainfluenza 3 Not detected Normal NOT DETECTED [facility] Comment on above: Performed By: #### R SPLUS #### [facility] [address] [place] [address] Dr. Celena Schroeder Parainfluenza 4 Not detected Normal NOT DETECTED [facility] Comment on above: Performed By: #### R SPLUS #### [facility] [address] [place] [address] Dr. Celena Schroeder Rhino/Enterovirus Not detected Normal NOT DETECTED [facility] Comment on above: Performed By: #### R SPLUS #### [facility] [address] [place] [address] Dr. Celena Schroeder RP2 Header 1 RESPIRATORY PANEL: VIRUSES Normal [facility] Comment on above: Performed By: #### R SPLUS #### [facility] [address] [place] [address] Dr. Celena Schroeder RP2 Header 2 RESPIRATORY PANEL: BACTERIA Normal [facility] Comment on above: Performed By: #### R SPLUS #### [facility] [address] [place] [address] Dr. Celena Schroeder RSV Not detected Normal NOT DETECTED [facility] Comment on above: Performed By: #### R SPLUS #### [facility] [address] [place] [address] Dr. Celena Schroeder SARS-CoV-2 (COVID-19) RNA AUTUMN+probe Ql (Unsp spec) Not detected Normal NOT DETECTED [facility] Comment on above: Performed By: #### R SPLUS #### [facility] [address] [place] [address] Dr. Celena Schroeder XR CHEST 2 Von 01-01-2023 XR CHEST 2 V EXAMINATION: XR CHES T 2 V HISTORY: Cough , preadmission testing COMPARISON: No relevant comparison available. FINDINGS: LUNGS: Subtle patchy opacities within left lung base. VASCULATURE: No increased pulmonary vasculature. PLEURA: No pneumothorax, effusion, or pleural thickening. CARDIAC: No cardiomegaly or cardiac silhouette abnormality. MEDIASTINUM: No visible mass or adenopathy. BONES: No fracture or visible bone lesion. OTHER: Negative. IMPRESSION: 1. Trace amount of left basilar atelectasis versus infiltrates. Electronically authenticated by: TRUPTI MCLAUGHLIN Date: 2023-01-01 14:56 Normal [facility] 36on 12-29-2022 36 c Normal [facility] C-REACTIVE PROTEINon 023 C REACTIVE PROTEIN (MG/L) IN SER/PLAS 2.6 mg/L Normal 0.0-7.0 [facility] Comment on above: Performed By: #### L [id number] ####[facility] ([facility])[address] [place] [address] CBC WITH AUTO DIFFERENTIALon 12-22-2022 Basophils (Bld) [#/Vol] 0.04 10*3/uL Normal 0.00-0.20 [facility] Comment on above: Performed By: #### L [id number] ####[facility] ([facility])[address] [place] [address] Basophils/100 WBC (Bld) 0.6 % Normal 0.0-1.0 [facility] Comment on above: Performed By: #### L [id number] ####[facility] ([facility])[address] [place] [address] Eosinophils (Bld) [#/Vol] 0.08 10*3/uL Normal 0.00-0.50 [facility] Comment on above: Performed By: #### L [id number] ####[facility] ([facility])[address] [place] [address] Eosinophils/100 WBC (Bld) 1.2 % Normal 0.0-6.0 [facility] Comment on above: Performed By: #### L [id number] ####[facility] ([facility])[address] [place] [address] Erythrocyte distribution width (RBC) [Ratio] 13.5 % Normal 11.5-15.0 [facility] Comment on above: Performed By: #### L [id number] ####[facility] ([facility])[address] [place] [address] ERYTHROCYTE MEAN CORPUSCULAR HEMOGLOBIN CONCENTRATION (G/DL) BY AUTOMATED 34.0 g/dL Normal 32.0-35.0 [facility] Comment on above: Performed By: #### L [id number] ####[facility] ([facility])[address] [place] [address] Hematocrit (Bld) [Volume fraction] 43.2 % Normal 36.0-48.0 [facility] Comment on above: Performed By: #### L [id number] ####[facility] ([facility])[address] [place] [address] Hemoglobin (Bld) [Mass/Vol] 14.7 g/dL Normal 12.0-15.0 [facility] Comment on above: Performed By: #### L [id number] ####[facility] ([facility])[address] [place] [address] Immature granulocytes (Bld) [#/Vol] 0.02 10*3/uL Normal 0.00-0.20 [facility] Comment on above: Performed By: #### L [id number] ####[facility] ([facility])[address] [place] [address] Immature granulocytes/100 WBC (Bld) 0.3 % Normal 0.0-1.0 [facility] Comment on above: Performed By: #### L [id number] ####[facility] ([facility])[address] [place] [address] Lymphocytes (Bld) [#/Vol] 1.53 10*3/uL Normal 1.20-4.00 [facility] Comment on above: Performed By: #### L [id number] ####[facility] ([facility])[address] [place] [address] Lymphocytes/100 WBC (Bld) 23.8 % Normal 20.0-45.0 [facility] Comment on above: Performed By: #### L [id number] ####[facility] ([facility])[address] [place] [address] MCH (RBC) [Entitic mass] 30.3 pg Normal 27.0-33.0 [facility] Comment on above: Performed By: #### L [id number] ####[facility] ([facility])[address] [place] [address] MCV (RBC) [Entitic vol] 89.1 fL Normal 82.0-98.0 [facility] Comment on above: Performed By: #### L [id number] ####[facility] ([facility])[address] [place] [address] Monocytes (Bld) [#/Vol] 0.74 10*3/uL Normal 0.10-1.00 [facility] Comment on above: Performed By: #### L [id number] ####[facility] ([facility])[address] [place] [address] Monocytes/100 WBC (Bld) 11.5 % Normal 5.0-12.0 [facility] Comment on above: Performed By: #### L [id number] ####[facility] ([facility])[address] [place] [address] Neutrophils (Bld) [#/Vol] 4.03 10*3/uL Normal 1.60-7.60 [facility] Comment on above: Performed By: #### L [id number] ####[facility] ([facility])[address] [place] [address] Neutrophils/100 WBC (Bld) 62.6 % Normal 40.0-72.0 [facility] Comment on above: Performed By: #### L [id number] ####[facility] ([facility])[address] [place] [address] NRBC (PER 100 WBCS) BY AUTOMATED COUNT 0.0 % Normal 0.0-0.0 [facility] Comment on above: Performed By: #### L [id number] ####[facility] ([facility])[address] [place] [address] PLATELETS (10*3/UL) IN BLOOD AUTOMATED COUNT 278 10*3/uL Normal 150-400 [facility] [facility] Comment on above: Performed By: #### L [id number] ####[facility] ([facility])[address] [place] [address] RBC (Bld) [#/Vol] 4.85 10*6/uL Normal 3.80-5.00 [facility] Comment on above: Performed By: #### L [id number] ####[facility] ([facility])[address] [place] [address] WBC (Bld) [#/Vol] 6.44 10*3/uL Normal 4.00-10.60 [facility] Comment on above: Performed By: #### L [id number] ####[facility] ([facility])[address] [place] [address] COMPREHENSIVE METABOLIC PANE Beltran 12-22-2022 Albumin [Mass/Vol] 4.3 g/dL Normal 3.5-5.7 [facility] Comment on above: Performed By: #### L [id number] ####[facility] ([facility])[address] [place] [address] ALP [Catalytic activity/Vol] 66 U/L Normal 34-104 [facility] Comment on above: Performed By: #### L [id number] ####[facility] ([facility])[address] [place] [address] ALT [Catalytic activity/Vol] 47 U/L Normal 7-52 [facility] Comment on above: Performed By: #### L [id number] ####[facility] ([facility])[address] [place] [address] Anion gap [Moles/Vol] 10 mmol/L Normal 7-20 [facility] Comment on above: Performed By: #### L [id number] ####[facility] ([facility])[address] [place] [address] AST [Catalytic activity/Vol] 30 U/L Normal 13-39 [facility] Comment on above: Performed By: #### L [id number] ####[facility] ([facility])[address] [place] [address] Bilirubin [Mass/Vol] 0.3 mg/dL Normal 0.3-1.0 [facility] Comment on above: Performed By: #### L [id number] ####[facility] ([facility])[address] [place] [address] Calcium [Mass/Vol] 8.8 mg/dL Normal 8.6-10.3 [facility] Comment on above: Performed By: #### L [id number] ####[facility] ([facility])[address] [place] [address] Chloride [Moles/Vol] 105 mmol/L Normal 98-107 [facility] Comment on above: Performed By: #### L [id number] ####[facility] ([facility])[address] [place] [address] CO2 [Moles/Vol] 26 mmol/L Normal 21-31 [facility] Comment on above: Performed By: #### L [id number] ####[facility] ([facility])[address] [place] [address] Creatinine [Mass/Vol] 0.82 mg/dL Normal 0.60-1.20 [facility] Comment on above: Performed By: #### L [id number] ####[facility] ([facility])[address] [place] [address] GLOMERULAR FILTRATION RATE ML/MIN/1.73 SQ M.PREDICTED 80.2 mL/min/1.73m*2 Normal >60.0 [facility] Comment on above: Result Comment: The [facility]???s estimated glomerular filtration rate (eGFR) will no longer include consideration of race in its calculation. The National Kidney Foundation???s eGFR Task Force developed new recommendations for the estimation of the glomerular filtration rate in the [place] They recommend immediate implementation of the new equation refit without the race variable in all laboratories because the calculation does not include race. In addition to not including race in the calculation and reporting, it included diversity in its development, and has acceptable performance characteristics and potential consequences that do not disproportionately affect any one group of individuals. Performed By: #### L [id number] ####[facility] ([facility])[address] [place] [address] Glucose [Mass/Vol] 92 mg/dL Normal 70-100 [facility] Comment on above: Performed By: #### L [id number] ####[facility] ([facility])[address] [place] [address] Potassium [Moles/Vol] 4.8 mmol/L Normal 3.5-5.1 [facility] Comment on above: Performed By: #### L [id number] ####[facility] ([facility])[address] [place] [address] Protein [Mass/Vol] 7.4 g/dL Normal 6.0-8.3 [facility] Comment on above: Performed By: #### L [id number] ####[facility] ([facility])[address] [place] [address] Sodium [Moles/Vol] 136 mmol/L Normal 136-145 [facility] Comment on above: Performed By: #### L [id number] ####[facility] ([facility])[address] [place] [address] Urea nitrogen [Mass/Vol] 20 mg/dL Normal 7-25 [facility] Comment on above: Performed By: #### L [id number] ####[facility] ([facility])[address] [place] [address] UREA NITROGEN/CREATININE (MASS RATIO) IN SER/PLAS 24.39 Normal [facility] Comment on above: Performed By: #### L [id number] ####[facility] ([facility])[address] [place] [address] Follow-Upon 12-22-2022 Follow-Up [id number] Jenni Khan 1965 F Date Provider Department Center 12/22/2022 421-ALICIA HOBBS MP ORTHO MPORTHO Family History Problem Relation Age of Onset Anesthesia problems Mother Diabetes Mother Hypertension Mother Hyperlipidemia Mother Diabetes Father Hyperlipidemia Father Hypertension Father Family Status - Relation Status Age at Mother Alive Father Alive Level of Service:44219 [place] OFFICE/OUTPATIENT ESTABLISHED MOD MDM 30-39 MIN (57,GC) Reason for Visit and Comments: Follow-up [368926] Normal [facility] Labon 12-22-2022 Lab [id number] Jenni Khan 1965 F Date Provider Department Center 12/22/2022 2244-[facility] MP LAB RESOURCE MP DRAW Medical Pavi Family History Problem Relation Age of Onset Anesthesia problems Mother Diabetes Mother Hypertension Mother Hyperlipidemia Mother Diabetes Father Hyperlipidemia Father Hypertension Father Family Status - Relation Status Age at Mother Alive Father Alive Normal [facility] MRSA/MSSA DNA NASALon 2022 MRSA DNA Negative Normal Negative, Invalid [facility] Comment on above: Performed By: #### L [id number] ####[facility] ([facility])[address] [place] [address] MSSA DNA Positive Abnormal Negative, Invalid [facility] Comment on above: Performed By: #### L [id number] ####[facility] ([facility])[address] [place] [address] SEDIMENTATION RATEon 023 SEDIMENTATION RATE, ERYTHROCYTE 7 mm/hr Normal <=20 [facility] Comment on above: Performed By: #### L [id number] ####[facility] ([facility])[address] [place] [address] VITAMIN D 25 HYDROXYon 12-22 CALCIDIOL (25 [place] VITAMIN D3) (NG/ML) IN SER/PLAS 30.9 ng/mL Normal 30.0-80.0 [facility] Comment on above: Result Comment: >80. 0 Toxicity possible Performed By: #### L [id number] ####[facility] ([facility])[address] [facility] [place] [place] [address] [place] KNEE LEFT WO IV CONTRASTo n 12-11-2022 CT KNEE LEFT WO IV CONTRAST CT KNEE LEFT WO IV CONTRAST 12/11/2022 5:28 PM CLINICAL INDICATIONS: Pain. Comminuted patellar fracture with nonunion. Knee pain. Prior surgery TECHNIQUE: Multidetector CT axial slices were obtained without IV contrast. Multiplanar reformats, MIP, volume rendered 3-D images were generated on a separate workstation and reviewed to further define anatomy and possible pathology. All CT scans at this facility use dose modulation, iterative reconstruction, and/or weight based dosing when appropriate to reduce radiation dose to as low as reasonably achievable COMPARISON: 11/24/2022 FINDINGS: Known history of the comminuted patellar fracture with nonunion. Imaging findings are not confirmed. There is nonunion along the lateral patellar fracture superiorly. There is also horizontal fracture extending through the mid patella with nonunion. Multiple inferior orthopedic screws appear to extend posterior to the articular surface cortex. Given the location these are of uncertain significance. No remodeling of the femur is appreciated. There is moderately large joint effusion noted. The quadriceps and patellar tendons are intact. The patellar tendon does appear to be quite thickened and compatible with tendinosis. Continued follow-up with orthopedics is suggested. Chronic changes in the distal femur are noted. No superimposed new femoral or proximal tibial fracture is appreciated. Given the presence of the knee effusion if there is concern for infection consider aspiration. 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 Please for to the above report for full description of findings Electronically signed: Dianne Lo. Normal [facility] Office Visiton 11-24-2022 Follow-up visit [id number] Jenni Khan 1965 F Date Provider Department Center 11/24/2022 490-CHRIS SOLANO MP ORTHO MPORTHO No family history on file Level of Service:53312 [place] OFFICE/OUTPATIENT ESTABLISHED LOW MDM 20-29 MIN Reason for Visit and Comments: Follow-up [[id number]] - Left knee with xr Normal [facility] MG MAMM SCREEN 3D MALCOM CADon 10-26-2022 MG MAMM SCREEN 3D MALCOM CAD Patient: JENNI KHAN. Exam Date: 10/26/2022 : 1965 Gender:F Ordering : DR MISTY LANDRUM PA Admission #: [id number] Family : Order #: [id number] CLICK HERE TO VIEW EXAM RADIOLOGY REPORT PROCEDURE: MAMMOGRAM SCREENING 3D BILATERAL CAD COMPARISON: MG MAMM SCREEN 3D MALCOM CAD, 09/16/2021. MG MAMM SCREEN MALCOM W CAD, 05/27/2020. INDICATIONS: Screening mammography Calculator Name NCI Breast Cancer Risk Assessment Tool 5 Year Breast Cancer Risk 1.80% Lifetime Breast Cancer Risk 11.40% Personal Breast Cancer No Personal Ovarian Cancer No Treatments None Family Cancers Grandmother-maternal with liver cancer at age 66. LOCATION: [facility] BREAST COMPOSITION: Scattered areas fibroglandular density. FINDINGS: DIAGNOSTIC CATEGORY 2--BENIGN FINDING: RIGHT BREAST: No significant suspicious finding. Stable, chronic small nodule versus lymph node within the anterior lower-inner quadrant. No significant change has occurred. LEFT BREAST: No significant suspicious finding. Stable small asymmetry with adjacent biopsy marker clip within upper inner quadrant. No significant change has occurred. RECOMMENDATIONS: ROUTINE MAMMOGRAM AND CLINICAL EVALUATION IN 12 MONTHS. PLEASE NOTE: A NORMAL MAMMOGRAM DOES NOT EXCLUDE THE POSSIBILITY OF BREAST CANCER. A CLINICALLY SUSPICIOUS PALPABLE LUMP SHOULD BE BIOPSIED. Dictated by: Trupti Mclaughlin M.D. on 10/26/2022 at 15:32 Approved by: Trupti Mclaughlin M.D. on 10/26/2022 at 15:34 Normal [facility] Follow-Upon 09-19-2022 Follow-Up [id number] Jenni Khan 1965 F Date Provider Department Center 09/19/2022 490-CHRIS SOLANO MP No family history on file Level of Service:87827 [place] OFFICE/OUTPATIENT ESTABLISHED LOW MDM 20-29 MIN Reason for Visit and Comments: Follow-up [898745] - Left knee follow up with review of xray Normal [facility] Orders Onlyon 09-18-2022 Orders Only [id number] Jenni Khan 1965 F Date Provider Department Center 09/18/2022 792-SHIRIN JACKSON MP ORTHO MPORTHO No family history on file Normal [facility] KNEE LEFT 1 OR 2 VWSon 06-19 KNEE LEFT 1 OR 2 VWS [facility] Department of Radiology [address] [place] [id number] ===== Patient Name: JENNI KHAN : 1965 Sex: F Age: Race: White Pt. Location: 84 Patient Status: O Ordered Date: 06/19/2022 10:00:00 AM Completed Date: 06/19/2022 10:09 AM Requesting Provider: LELE FORREST Attending Provider: LELE FORREST Report Copy To: Signs & Symptoms: Z48.89 Encounter for other specified surgical aftercare I10 History: Cecilia Comments: evauate Exam: KNEE LEFT 1 OR 2 VWS ===== KNEE LEFT 1 OR 2 VWS 06/19/2022 10:09 AM CLINICAL INDICATIONS: Z48.89 Encounter for other specified surgical aftercare I10 TECHNOLOGIST COMMENTS: s/p surgery 2 weeks ago QUESTION FOR THE RADIOLOGIST: evauate PROTOCOL: AP(PA) and Lateral views were obtained. COMPARISON: June 07, 2022 FINDINGS: Postoperative appearance of a fracture fixation of the comminuted patellar with a appropriate alignment of the major fragments and appropriate positioning of the patella within the patellofemoral articulation. IMPRESSION: Postoperative fixation in appropriate alignment/positioning of the fragmented patella fracture.. Electronically signed: Chepe Eldridge. Transcribed by: [email or web address], User Resident: Electronically Signed by: CHEPE ELDRIDGE @ 06/19/2022 03:06 PM Normal [facility] Comment on above: Order Comment: johnny magdaleno *ANAEROBIC CULTUREon 022 *ANAEROBIC CULTURE Clinical Report: (D) Specimen/Source: TISSUE/INTRAOP SPEC Collected: 06/07/2022 12:47 Status: Final Last Updated: 06/12/2022 08:57 (1) #1 LEFT PATELLA NONUNION CULT RES (Final) No Anaerobes Isolated 5 Days Normal [facility] Comment on above: Order Comment: #1 LE FT PATELLA NONUNION Performed By: #### 3 0312 #### [facility] [address] [place] [address], [facility] *TISSUE CULTUREon 06-07-2022 *TISSUE CULTURE Clinical Report: (D) Specimen/Source: TISSUE/INTRAOP SPEC Collected: 06/07/2022 12:47 Status: Final Last Updated: 06/12/2022 07:58 (1) #1 LEFT PATELLA NONUNION GRAM (Final) Rare Polys No Bacteria Seen CULT RES (Final) No Growth Day 5 Normal [facility] Comment on above: Order Comment: #1 LE FT PATELLA NONUNION Performed By: #### 3 0338 #### [facility] [address] [place] [address], [facility] BASIC METABOLIC PANELon 08 Calcium [Mass/Vol] 8.6 mg/dL Normal 8.6-10.3 [facility] Comment on above: Order Comment: No: D o not add to previous draw Performed By: #### 0 0071 ####[facility] [facility] [place] [address], [place] Chloride [Moles/Vol] 105 mmol/L Normal 98-107 [facility] Comment on above: Order Comment: No: D o not add to previous draw Performed By: #### 0 0071 ####[facility] [place] [address], [place] CO2 [Moles/Vol] 23 mmol/L Normal 21-31 [facility] Comment on above: Order Comment: No: D o not add to previous draw Performed By: #### 0 0071 ####[facility] [place] [address], [place] Creatinine [Mass/Vol] 0.72 mg/dL Normal 0.60-1.20 [facility] Comment on above: Order Comment: No: D o not add to previous draw Performed By: #### 0 0071 ####[facility] GFR/1.73 sq M.predicted among non-blacks MDRD (S/P/Bld) [Vol rate/Area] mL/min/{1.73_m2} Normal >60 [facility] Comment on above: Order Comment: No: D o not add to previous draw Result Comment: The [facility]'s estimated glomerular filtration rate (eGFR) will no longer include consideration of race in its calculation. The National Kidney Foundation's eGFR Task Force developed new recommendations for the estimation of the glomerular filtration rate in the [place] They recommend immediate implementation of the new equation refit without the race variable in all laboratories because the calculation does not include race. In addition to not including race in the calculation and reporting, it included diversity in its development, and has acceptable performance characteristics and potential consequences that do not disproportionately affect any one group of individuals. Performed By: #### 0 0071 ####[facility] [place] [address], [facility] Glucose [Mass/Vol] 104 mg/dL High 70-100 [facility] Comment on above: Order Comment: No: D o not add to previous draw Performed By: #### 0 0071 ####[facility] [place] [address], [facility] Potassium [Moles/Vol] 4.3 mmol/L Normal 3.5-5.1 [facility] Comment on above: Order Comment: No: D o not add to previous draw Performed By: #### 0 0071 ####[facility] [place] [address], [facility] Sodium [Moles/Vol] 134 mmol/L Low 136-145 [facility] Comment on above: Order Comment: No: D o not add to previous draw Performed By: #### 0 0071 ####[facility] Urea nitrogen [Mass/Vol] 11 mg/dL Normal 7-25 [facility] Comment on above: Order Comment: No: D o not add to previous draw Performed By: #### 0 0071 ####[facility] [place], [place] [address] [place] [address] KNEE LEFT 1 OR 2 [facility] 06-07 KNEE LEFT 1 OR 2 VWS [facility] Department of Radiology [address] [place] [address] ===== Patient Name: JENNI KHAN : 1965 Sex: F Age: Race: White Pt. Location: OUTP Patient Status: O Ordered Date: 06/06/2022 7:20:00 AM Completed Date: 06/07/2022 02:17 PM Requesting Provider: LELE FORREST Attending Provider: LELE FORREST Report Copy To: Signs & Symptoms: REVISION ORIF LT PATELLA History: Comments: REVISION ORIF LT PATELLA Exam: KNEE LEFT 1 OR 2 S ===== KNEE LEFT 1 OR 2 VWS 06/07/2022 2:17 PM CLINICAL INDICATIONS: REVISION ORIF LT PATELLA TECHNOLOGIST COMMENTS: 138 seconds of fluoro time with Dr. Forrest for ORIF left patella with bone graft from the femur QUESTION FOR THE RADIOLOGIST: REVISION ORIF LT PATELLA PROTOCOL: AP(PA) and Lateral views were obtained. COMPARISON: 04/26/2022 IMPRESSION: Fluoroscopy time is 138 seconds. Total of 14 images are submitted for review. These document placement of a plate and screw fixation as definitive fracture treatment of the patella. Please for any questions or concerns related to the procedure to the performing service Electronically signed: Dianne Lo. Transcribed by: [email or web address], User Resident: Electronically Signed by: DIANNE LO @ 06/08/2022 09:14 AM Normal [facility] Comment on above: Order Comment: IRINA ION ORIF LT PATELLA Operative Reporton 2 Operative Report MR#: [id number] 2 [facility] Pt. Name: Jenni Khan Room #: 6AB [id number] Discharge Date: Birthdate: 1965 OPERATIVE REPORT DATE OF SURGERY: 06/07/2022 SURGEON: Lele Forrest M.D. ASSISTANTS: 1. Randy Torres M.D. 2. Ronald Bautista M.D. PREOPERATIVE DIAGNOSIS: Left patella fracture with failure of fixation. POSTOPERATIVE DIAGNOSIS: Left patella fracture with failure of fixation. PROCEDURE PERFORMED: 1. Open reduction and internal fixation of left patella fracture. 2. Bone graft harvest from left distal femur. 3. Removal of left patella hardware. ANESTHESIA: General. BLOOD LOSS: Minimal. FLUIDS: Per anesthesia record. SPECIMENS: Soft tissue sent to pathology of the left patella. COMPLICATIONS: None. IMPLANTS: Arthrex patella hook plate with corresponding locking screws. INDICATIONS: The patient is a 57-year-old female known to the Orthopedic Service after undergoing a left patella minimally invasive screw fixation. Of note, the patient had a fracture in February, and followed up 2 months late to have this fixed. Surgery was attempted in a minimally invasive fashion to avoid all risks, and the patient went on to fail due to poor bone quality, and multiple other comorbidities. The patient was seen back in clinic, and risks and benefits were discussed. The patient elected to proceed with the procedure as mentioned above. PROCEDURE IN DETAIL: The patient was met in the preoperative area. Informed consent was obtained. At this time, all appropriate risks and benefits were discussed with the patient including, but not limited to infection, bleeding, pain, damage to surrounding structures, nonunion, malunion, revision surgery, failure of hardware, and anesthesia risks, and intraoperative fracture. The patient was taken back to the operative suite where general anesthesia was smoothly induced. The patient's left lower extremity was prepped and draped in standard sterile fashion. Appropriate surgical time-out was completed to confirm patient, procedure, laterality using 2 patient identifiers. We began our procedure by exsanguinating the left lower extremity, inflating the tourniquet to 300 mmHg. We began by making a standard midline incision over the left knee. Sharp knife was used for this. We then used Bovie electrocautery to carry ourselves down to the nonunion site. This fibrous tissue was then removed and which we encountered the screws. The screws were removed in their entirety as well, and the fracture was opened. All remaining fibrous tissue was removed and sent to pathology for cultures. The bone ends of the patella were freshened in attempts to have increase the chance of union. At this time, we then directed our attention to obtaining the distal femoral bone graft and [facility] bone graft harvest system was used, and biplanar fluoroscopy was used to confirm appropriate location of the grafting instrument. Once an appropriate amount of bone graft was taken, we then returned our attention to the patella fracture. A large Milligan clamp was placed in the superior and inferior portions of the patella, and the fracture was reduced. We then placed 2 K-wires across this fracture, and attempt to hold this reduction. Multiple attempts were made to obtain appropriate alignment of the cartilage surface so there was a large bony void present. Thus, reduction was difficult. After we felt we had appropriate reduction with K-wires. We then placed our large Arthrex patella plate over top and screwed it into position with corresponding locking screws. In an attempt for additional fixation, tension band construct was attempted, but we felt that given the compromise of the soft tissue anteriorly with the prominent hardware, we elected to remove this tension band after it was placed. Biplanar fluoroscopy was then taken to confirm appropriate fracture reduction, plate placement, and screw length. The wound was then copiously irrigated with Betadine and normal saline. The wound was closed using 0 Vicryl, 2-0 Vicryl, and 3-0 Novafil for the skin. The wounds were dressed with Xeroform, 4 x 4 fluffs, and an Phoenix wrap. The patient was then placed into a locked hinge knee brace and awoken from local general anesthesia, and transferred. The patient was transferred to the PACU for recovery. The patient tolerated procedure well. The patient will return to the floor to receive IV antibiotics. The patient will remain in strict nonweightbearing, and no bending to the left lower extremity. Dr. Forrest was present for all critical portions of the case and made all critical decisions regarding the patient's care. Electronically Signed by: Lele Forrest M.D. 06/14/2022 04:13 P Lele Forrest M.D. I was present for the delgadillo and critical portions and I was otherwise immediately available to as (more content not included)... Normal The [facility] TYPE AND SCREENon 06-07-2022 ABO INTERPRETATION A Normal The [facility] [place] Comment on above: Performed By: #### 6 [id number] #### [facility] [address] [place] [address], [facility] RH INTERPRETATION Positive Normal The [facility] Comment on above: Performed By: #### 6 2586 #### [facility] [address] [place] [address], [place] BASIC METABOLIC PANELon 08-0 Calcium [Mass/Vol] 8.7 mg/dL Normal 8.6-10.3 The [facility] [place] Comment on above: Order Comment: No: D o not add to previous draw Performed By: #### 0 0071 ####[facility] [place] [address], [place] Chloride [Moles/Vol] 103 mmol/L Normal 98-107 The [facility] Comment on above: Order Comment: No: D o not add to previous draw Performed By: #### 0 0071 ####[facility] [place] [address], [place] CO2 [Moles/Vol] 23 mmol/L Normal 21-31 The [facility] Comment on above: Order Comment: No: D o not add to previous draw Performed By: #### 0 0071 ####[facility] [facility] [place] [address], [facility] Creatinine [Mass/Vol] 0.80 mg/dL Normal 0.60-1.20 The [facility] Comment on above: Order Comment: No: D o not add to previous draw Performed By: #### 0 0071 ####[facility] [facility] [place] [address], [facility] GFR/1.73 sq M.predicted among non-blacks MDRD (S/P/Bld) [Vol rate/Area] mL/min/{1.73_m2} Normal >60 The [facility] Comment on above: Order Comment: No: D o not add to previous draw Result Comment: The [facility]'s estimated glomerular filtration rate (eGFR) will no longer include consideration of race in its calculation. The National Kidney Foundation's eGFR Task Force developed new recommendations for the estimation of the glomerular filtration rate in the [place] They recommend immediate implementation of the new equation refit without the race variable in all laboratories because the calculation does not include race. In addition to not including race in the calculation and reporting, it included diversity in its development, and has acceptable performance characteristics and potential consequences that do not disproportionately affect any one group of individuals. Performed By: #### 0 0071 ####[facility] [facility] [place] [address], [facility] Glucose [Mass/Vol] 83 mg/dL Normal 70-100 The [facility] [place] Comment on above: Order Comment: No: D o not add to previous draw Performed By: #### 0 0071 ####[facility] [facility] [place] [address], [facility] Potassium [Moles/Vol] 5.1 mmol/L Normal 3.5-5.1 The [facility] Comment on above: Order Comment: No: D o not add to previous draw Performed By: #### 0 0071 ####[facility] [facility] [place] [address], [facility] Sodium [Moles/Vol] 132 mmol/L Low 136-145 The [facility] [place] Comment on above: Order Comment: No: D o not add to previous draw Performed By: #### 0 0071 ####[facility] [facility] [place] [address], [facility] Urea nitrogen [Mass/Vol] 13 mg/dL Normal 7-25 The [facility] Comment on above: Order Comment: No: D o not add to previous draw Performed By: #### 0 0071 ####[facility] CBC COMPLETE BLOOD COUNTon 0 06-06-2022 Erythrocyte distribution width (RBC) [Ratio] 13.6 % Normal 11.5-15.0 [facility] Comment on above: Order Comment: No: D o not add to previous draw Performed By: #### 5 0608 #### [facility] [address] [place] [address], [facility] Hematocrit (Bld) [Volume fraction] 40.0 % Normal 36.0-45.0 The [facility] Comment on above: Order Comment: No: D o not add to previous draw Performed By: #### 5 0608 #### [facility] [address] [place] [address], [facility] Hemoglobin (Bld) [Mass/Vol] 13.7 g/dL Normal 12.0-15.0 The [facility] Comment on above: Order Comment: No: D o not add to previous draw Performed By: #### 5 0608 #### [facility] [address] [place] [id number], [facility] MCH (RBC) [Entitic mass] 30.2 pg Normal 27.0-33.0 The [facility] Comment on above: Order Comment: No: D o not add to previous draw Performed By: #### 5 0608 #### [facility] [address] MCHC (RBC) [Mass/Vol] 34.3 g/dL Normal 32.0-35.0 The [facility] Comment on above: Order Comment: No: D o not add to previous draw Performed By: #### 5 0608 #### [facility] [address] [place] [address], [facility] MCV (RBC) [Entitic vol] 88.1 fL Normal 82.0-98.0 The [facility] Comment on above: Order Comment: No: D o not add to previous draw Performed By: #### 5 0608 #### [facility] [address] Nucleated RBC/100 WBC (Bld) [Ratio] 0 % Normal 0-0 The [facility] Comment on above: Order Comment: No: D o not add to previous draw Performed By: #### 5 0608 #### [facility] [address] [place] [address], [facility] PLAT CNT 254 10*3/uL Normal 150-400 The [facility] Comment on above: Order Comment: No: D o not add to previous draw Performed By: #### 5 0608 #### [facility] [address] [facility] [place] [address], [facility] RBC (Bld) [#/Vol] 4.54 10*6/uL Normal 3.80-5.00 The [facility] Comment on above: Order Comment: No: D o not add to previous draw Performed By: #### 5 0608 #### [facility] [address] [place] [address], [facility] WBC (Bld) [#/Vol] 6.22 10*3/uL Normal 4.00-10.60 The [facility] Comment on above: Order Comment: No: D o not add to previous draw Performed By: #### 5 0608 #### [facility] [address] [facility]. [address] *MRSA/MSSA DNA NASALon 06-05 *MRSA/MSSA DNA NASAL Clinical Report: (D ) Specimen: NASAL SWAB Collected: 06/05/2022 11:22 Status: Final Last Updated: 06/05/2022 20:26 MSSA DNA (Final) Methicillin Susceptible Staphylococcus aureus DNA Detected MRSA DNA (Final) Negative Normal The [facility] Comment on above: Performed By: #### 3 1595 #### [facility] [address] [facility]. [address] APTTon 06-05-2022 aPTT Coag (Bld) [Time] 30.3 s Normal 25.0-35.0 The [facility] Comment on above: Result Comment: ALL RESULTS MUST BE INTERPRETED WITH RESPECT TO BLOOD DRAWING ARTIFACT OR DILUTION ERROR OF ANTICOAGULANT AT THE TIME OF SAMPLING. THE APTT SHOULD NOT BE USED TO MONITOR UNFRACTIONATED HEPARIN THERAPY, THIS LABORATORY NO LONGER HAS AN ESTABLISHED THERAPEUTIC RANGE BASED ON THE APTT. IT IS RECOMMENDED THAT THE UFH - HEPARIN ASSAY (ANTI-XA ACTIVITY) BE USED FOR THIS PURPOSE. Performed By: #### 5 9451, [id number] ####[facility] BASIC METABOLIC PANELon Calcium [Mass/Vol] 8.4 mg/dL Low 8.6-10.3 The [facility] [place] Comment on above: Performed By: #### 0 0071, [id number] ####[facility] [facility] [place] [address], [facility] Chloride [Moles/Vol] 101 mmol/L Normal 98-107 The [facility] Comment on above: Performed By: #### 0 0071, 63975 ####[facility] [facility] [place] [address], [facility] CO2 [Moles/Vol] 22 mmol/L Normal 21-31 The [facility] Comment on above: Performed By: #### 0 70, ####[facility] [place] [address], [facility] Creatinine [Mass/Vol] 0.81 mg/dL Normal 0.60-1.20 The [facility] Comment on above: Performed By: #### 0 007, [id number] ####[facility] [place] [address], [facility] GFR/1.73 sq M.predicted among non-blacks MDRD (S/P/Bld) [Vol rate/Area] mL/min/{1.73_m2} Normal >60 The [facility] Comment on above: Result Comment: The [facility]'s estimated glomerular filtration rate (eGFR) will no longer include consideration of race in its calculation. The National Kidney Foundation's eGFR Task Force developed new recommendations for the estimation of the glomerular filtration rate in the [place] They recommend immediate implementation of the new equation refit without the race variable in all laboratories because the calculation does not include race. In addition to not including race in the calculation and reporting, it included diversity in its development, and has acceptable performance characteristics and potential consequences that do not disproportionately affect any one group of individuals. Performed By: #### 0 70, ####[facility] [place] [address], [facility] Glucose [Mass/Vol] 104 mg/dL High 70-100 [facility] Comment on above: Performed By: #### 0 70, ####[facility] [facility] [place] [address], [facility] Potassium [Moles/Vol] 4.8 mmol/L Normal 3.5-5.1 The [facility] Comment on above: Performed By: #### 0 70, ####[facility] [place] [address], [facility] Sodium [Moles/Vol] 129 mmol/L Low 136-145 The [facility] Comment on above: Performed By: #### 0 0071, [id number] ####[facility] Urea nitrogen [Mass/Vol] 13 mg/dL Normal 7-25 [facility] Comment on above: Performed By: #### 0 0071, [id number] ####[facility] CBC W/DIFFon 06-05-2022 ABS IMM GRANS 0.0 10*3/uL Normal 0.0-0.2 The [facility] Comment on above: Performed By: #### 5 0103 #### [facility] [address] [place] [address], [facility] ABS NEUTROPHILS 4.9 10*3/uL Normal 1.6-7.6 The [facility] Comment on above: Performed By: #### 5 102 #### [facility] [address] [place] [address], [facility] Basophils (Bld) [#/Vol] 0.0 10*3/uL Normal 0.0-0.2 The [facility] Comment on above: Performed By: #### 5 3 #### [facility] [address] [place] [address], [facility] Basophils/100 WBC (Bld) 0.3 % Normal 0.0-1.0 The [facility] Comment on above: Performed By: #### 5 3 #### [facility] [address] [facility] [place] [address], [facility] Eosinophils (Bld) [#/Vol] 0.1 10*3/uL Normal 0.0-0.5 The [facility] Comment on above: Performed By: #### 5 102 #### [facility] [address] [facility] [place] [address], [facility] Eosinophils/100 WBC (Bld) 1.0 % Normal 0.0-6.0 The [facility] Comment on above: Performed By: #### 5 0103 #### [facility] [address] [facility] [address] Erythrocyte distribution width (RBC) [Ratio] 13.2 % Normal 11.5-15.0 The [facility] Comment on above: Performed By: #### 5 0103 #### [facility] [address] [place] [address], [facility] Hematocrit (Bld) [Volume fraction] 41.0 % Normal 36.0-45.0 The [facility] Comment on above: Performed By: #### 5 0103 #### [facility] [address] [facility] [address] Hemoglobin (Bld) [Mass/Vol] 13.6 g/dL Normal 12.0-15.0 The [facility] Comment on above: Performed By: #### 5 0103 #### [facility] [address] [facility] [place] [address], [facility] IMMATURE GRANS 0.4 % Normal 0.0-1.0 The [facility] Comment on above: Performed By: #### 5 0103 #### [facility] [address] [facility] [address], [facility] Lymphocytes (Bld) [#/Vol] 1.3 10*3/uL Normal 1.2-4.0 The [facility] Comment on above: Performed By: #### 5 0103 #### [facility] [address] [facility] [place] [address], [facility] Lymphocytes/100 WBC (Bld) 18.7 % Low 20.0-45.0 The [facility] Comment on above: Performed By: #### 5 3 #### [facility] [address] [place] [address], [facility] MCH (RBC) [Entitic mass] 29.5 pg Normal 27.0-33.0 The [facility] Comment on above: Performed By: #### 5 0103 #### [facility] [address] [facility] [place] [address], [facility] MCHC (RBC) [Mass/Vol] 33.2 g/dL Normal 32.0-35.0 The [facility] Comment on above: Performed By: #### 5 0103 #### [facility] [address] [facility] [place] [address], [facility] MCV (RBC) [Entitic vol] 88.9 fL Normal 82.0-98.0 The [facility] Comment on above: Performed By: #### 5 0103 #### [facility] [address] [facility] [place] [address], [facility] Monocytes (Bld) [#/Vol] 0.7 10*3/uL Normal 0.1-1.0 The [facility] Comment on above: Performed By: #### 5 0103 #### [facility] [address] [facility] [place] [address], [facility] MONOS 9.7 % Normal 5.0-12.0 The [facility] Comment on above: Performed By: #### 5 0103 #### [facility] [address] [facility] [place] [address], [facility] Neutrophils/100 WBC (Bld) 69.9 % Normal 40.0-72.0 The [facility] Comment on above: Performed By: #### 5 0103 #### [facility] [address] [facility] [place] [address], [facility] Nucleated RBC/100 WBC (Bld) [Ratio] 0 % Normal 0-0 The [facility] Comment on above: Performed By: #### 5 3 #### [facility] [address] [place] [address], [facility] PLAT CNT 263 10*3/uL Normal 150-400 The [facility] Comment on above: Performed By: #### 5 0103 #### [facility] [address] [facility] [address] RBC (Bld) [#/Vol] 4.61 10*6/uL Normal 3.80-5.00 The [facility] Comment on above: Performed By: #### 5 0103 #### [facility] [address] [facility] [place] [address], [facility] WBC (Bld) [#/Vol] 6.99 10*3/uL Normal 4.00-10.60 The [facility] Comment on above: Performed By: #### 5 0103 #### [facility] [address] POC SARS COV2 IDon 2 SARS-CoV-2 (COVID-19) RNA AUTUMN+probe Ql (Unsp spec) Negative Normal NEGATIVE The [facility] Comment on above: Result Comment: ID N OW COVID-19 assay performed on the ID NOW Instrument is a rapid molecular in vitro diagnostic test utilizing an isothermal nucleic acid amplification technology intended for the qualitative detection of nucleic acid from the SARS-CoV-2 virus in direct anterior nasal (nasal), nasopharyngeal or throat swabs from individuals who are suspected of COVID-19 by their healthcare provider within the first seven days of the onset of symptoms. Testing is limited to laboratories certified under the Clinical Laboratory Improvement Amendments of 1988 (CLIA), 42 U.S.C. ???263a,that meet the requirements to perform high, moderate, or waived complexity tests. The ID NOW COVID-19 assay is also authorized for use at the Point of Care (POC), i.e., in patient care settings operating under a CLIA Certificate of Waiver, Certificate of Compliance, or Certificate of Accreditation. Performed By: #### 3 1921 #### [facility] [address] PROTHROMBIN TIMEon 2 INR Coag (PPP) [Relative time] 0.97 {INR} Normal 0.91-1.16 The [facility] Comment on above: Result Comment: ACCC P RECOMMENDED INR FOR WARFARIN THERAPY ------- ------- CONDITION INR PROPHYLAXIS OF VENOUS THROMBOSIS 2-3 (HIGH-RISK SURGERY) TREATMENT OF VENOUS THROMBOSIS 2-3 TREATMENT OF PULMONARY EMBOLISM 2-3 PREVENTION OF SYSTEMIC EMBOLISM: 2-3 ACUTE MYOCARDIAL INFARCTION TISSUE HEART VALVES VALVULAR HEART DISEASE ATRIAL FIBRILLATION RECURRENT SYSTEMIC EMBOLISM MECHANICAL HEART VALVE 2.5-3.5 FROM: ORAL ANTICOAGULANTS. MECHANISM OF ACTION, CLINICAL EFFECTIVENESS, AND OPTIMAL THERAPEUTIC RANGE. CHEST 1995;108:231S-246S. Performed By: #### 5 6101, [id number] ####[facility] PT Coag (PPP) [Time] 12.9 s Normal 12.3-14.8 The [facility] Comment on above: Result Comment: ALL RESULTS MUST BE INTERPRETED WITH RESPECT TO BLOOD DRAWING ARTIFACT OR DILUTION ERROR OF ANTICOAGULANT AT THE TIME OF SAMPLING. Performed By: #### 5 6101, [id number] ####[facility] VITAMIN D 25-HYDROXYon 06-05 VITAMIN D 25-OH 23.9 ng/mL Low 30.0-80.0 The [facility] Comment on above: Result Comment: >80. 0 Toxicity possible Performed By: #### 0 0071, 20172 ####[facility] KNEE LEFT 1 OR 2 VWSon 04-26 KNEE LEFT 1 OR 2 S [facility] Department of Radiology [address] [place] [address] ===== Patient Name: JENNI KHAN : 1965 Sex: F Age: Race: White Pt. Location: Patient Status: O Ordered Date: 04/26/2022 9:55:00 AM Completed Date: 04/26/2022 10:24 AM Requesting Provider: LELE FORREST Attending Provider: LELE FORREST Report Copy To: NITO JEONG Signs & Symptoms: Z48.89 Encounter for other specified surgical aftercare I10 History: Cecilia Comments: Exam: KNEE LEFT 1 OR 2 VWS ===== KNEE LEFT 1 OR 2 VWS 04/26/2022 10:24 AM CLINICAL INDICATIONS: Z48.89. Pain. Encounter for other specified surgical aftercare I10 TECHNOLOGIST COMMENTS: History of left knee surgery 04/14/2022. Ortho follow up. PROTOCOL: AP(PA) and Lateral views were obtained. COMPARISON: 04/14/2022 IMPRESSION: Abnormal study. The patellar fracture components have changed in position. The inferior pole is inferiorly displaced. The alignment of the patella has changed since the fluoroscopic images. The screws themselves appear stable. Continued follow-up with orthopedics is required. No callus is seen Electronically signed: Dianne Lo. Transcribed by: [email or web address], User Resident: Electronically Signed by: DIANNE LO @ 04/26/2022 04:24 PM Normal The [facility] Operative Reporton 06-13-202 2 Operative Report MR#: [id number] S [facility] Pt. Name: Jenni Khan Room #: 0C Discharge 04/14/2022 Date: Birthdate: 1965 OPERATIVE REPORT DATE OF SURGERY: 04/14/2022 SURGEON: Lele Forrest M.D. ASSISTANTS: 1. Randy Torres MD. 2. Nilo Ruiz MD. 3. Ronald Mcmahon MD. PREOPERATIVE DIAGNOSIS: Left patella fracture. POSTOPERATIVE DIAGNOSIS: Left patella fracture. PROCEDURE PERFORMED: Closed reduction and minimal screw fixation of left patella fracture. ANESTHESIA: General. BLOOD LOSS: Minimal. FLUIDS: Per anesthesia record. SPECIMENS: None. COMPLICATIONS: None. IMPLANTS: Three 3.5 cannulated [employer] screws. INDICATIONS: The patient is a 57-year-old female, who arrived in the clinic, complains of left knee pain. The patient was 1st seen by her PCP and told that she sprained her knee and was told to follow up with Ortho in some time. Pain persisted that she came to our clinic and x-rays were taken that demonstrated a patella fracture. Risks and benefits were discussed. The patient elected to proceed with the procedure as mentioned above. PROCEDURE IN DETAIL: The patient was met in preoperative area. Informed consent obtained. Appropriate surgical site was marked. All questions raised by the patient were answered by attending physician as well as assistants present. Patient was taken back to the operative suite with left lower extremity had a nonsterile tourniquet applied. General anesthesia was smoothly induced. The patient's left lower extremity was then prepped and draped in standard sterile fashion. Appropriate surgical time-out was completed to confirm patient, procedure, laterality using 2-patient identifiers. We began our procedure by exsanguinating the left lower extremity, inflated the tourniquet to 300 mmHg. We then brought in biplanar fluoroscopy to assess the location of the fracture within the patella, a K-wire was inserted from the distal aspect of the distal pole of the patella part way into the distal fragment, and then this was joysticked into position and then the K-wire was passed to the proximal piece reducing the fracture. A large Milligan clamp was then used to increase the rigidity of our reduction as additional K-wires were passed. Upon passing, 3 total K-wires with the use of biplanar fluoroscopy were then inserted. Our cannulated screws over top of these via poke hole incisions. Once this was done, the K-wires were removed and biplanar fluoroscopy was taken to confirm appropriate fracture reduction as well as no evidence of screws that were too long or screw penetrance into the joint itself. The wound was then copiously irrigated with Betadine and normal saline. The wound was closed using 3-0 Novafil. The wound was dressed with Xeroform, 4 x 4 fluffs, and an Phoenix wrap. The patient was placed into a hinged knee brace locked in extension. The patient was awoken from general anesthesia, transferred to PACU for recovery. Patient tolerated the procedure well. PLAN: Patient discharged home today with appropriate pain medication as well as DVT prophylaxis. The patient will follow up in clinic in 10-[address] Forrest was present for all critical portions of the case and made all critical decisions regarding the patient's care. Electronically Signed by: Lele Forrest M.D. 04/25/2022 05:42 P Lele Forrest M.D. I was present for the delgadillo and critical portions and I was otherwise immediately available to assist. Date Dict: 04/16/2022/07:36 P/Randy Torres MD Date Trans: 04/16/2022 11:01 P/tamika [id number] cc: Nito Jeong M.D. [address] [place] [address] [place] [facility] KNEE LEFT 1 OR 2 [facility] 04-14 KNEE LEFT 1 OR 2 [facility] Department of Radiology [address] [place] [id number] ===== Patient Name: JENNI KHAN : 1965 Sex: F Age: Race: White Pt. Location: OUTP Patient Status: D Ordered Date: 04/14/2022 11:00:00 AM Completed Date: 04/14/2022 03:28 PM Requesting Provider: LELE FORREST Attending Provider: LELE FORREST Report Copy To: Signs & Symptoms: ORIF LEFT PATELLA History: Comments: ORIF LEFT PATELLA Exam: KNEE LEFT 1 OR 2 VWS ===== KNEE LEFT 1 OR 2 VWS CLINICAL INFORMATION: left knee patellar ORIF with Dr. Forrest. Fluoro time:47.1s Dose:2.63mGy 8 Images sent. ORIF LEFT PATELLA. COMPARISON: None. IMPRESSION: * Intraoperative fluoroscopy provided to the clinical service. Electronically signed: Nic Avalos. Transcribed by: [email or web address], User Resident: Electronically Signed by: NIC AVALOS @ 04/16/2022 06:51 PM Normal [facility] Comment on above: Order Comment: ORIF LEFT PATELLA POC GLUCOSE LABon 04-14-2022 Glucose [Mass/Vol] 87 mg/dL Normal 70-100 [facility] Comment on above: Performed By: #### [id number] #### [facility] [address] [place] [address], [facility] Comprehensive Metabolic Pane beltran 11-15-2021 Albumin [Mass/Vol] 4.8 g/dL Normal 3.6-5.1 Silke diaz [employer] [facility] Comment on above: Performed By: #### L IPD, CMP #### [facility] [address] [place], [place] [id number] Albumin/Globulin [Mass ratio] 1.9 {ratio} Normal 1.0-2.5 [facility] Comment on above: Performed By: #### L IPD, CMP #### [facility] [address] [place], [place] [id number] ALP [Catalytic activity/Vol] 135 U/L High 35-119 [facility] Specialist Comment on above: Performed By: #### L IPD, CMP #### [facility] [address] [place], [place] [id number] ALT [Catalytic activity/Vol] 38 U/L High 6-33 [facility] Specialist Comment on above: Result Comment: 10/05 Female reference range changed. Performed By: #### L IPD, CMP #### [facility] [address] [place], [place] [id number] Anion gap [Moles/Vol] 20 mmol/L Normal 12-20 [facility] Specialist Comment on above: Result Comment: Effe ctive 11/10/2019 reference range changed. Performed By: #### L IPD, CMP #### [facility] [address], [place] [id number] AST [Catalytic activity/Vol] 20 U/L Normal 9-34 [facility] Comment on above: Performed By: #### L IPD, CMP #### [facility] [address], [place] [id number] Bilirubin [Mass/Vol] 0.44 mg/dL Normal 0.30-1.20 [facility] Comment on above: Performed By: #### L IPD, CMP #### [facility] [address] [place], [place] [id number] BUN/CREA 23 Ratio High 6-22 [facility] Comment on above: Performed By: #### L IPD, CMP #### [facility] [address], [place] [id number] Calcium [Mass/Vol] 9.4 mg/dL Normal 8.6-10.2 [facility] Comment on above: Performed By: #### L IPD, CMP #### [facility] [address], [place] [id number] Chloride [Moles/Vol] 100 mmol/L Normal 98-107 [facility] Comment on above: Performed By: #### L IPD, CMP #### [facility] [address], [place] [id number] CO2 [Moles/Vol] 18 mmol/L Low 20-31 [facility] Specialist Comment on above: Performed By: #### L IPD, CMP #### [facility] [address], [place] [id number] Creatinine [Mass/Vol] 0.9 mg/dL Normal 0.6-1.4 [facility] Specialist Comment on above: Performed By: #### L IPD, CMP #### [facility] [address], [place] [id number] eGFRAA 79 mL/min/1.73m2 Normal >60 [facility] Comment on above: Performed By: #### L IPD, CMP #### [facility] [address] [place], [place] [id number] eGFRNAA 65 mL/min/1.73m2 Normal >60 [facility] Specialist Comment on above: Performed By: #### L IPD, CMP #### [facility] [address] [place], [place] [id number] Globulin (S) [Mass/Vol] 2.5 g/dL Normal 1.9-3.7 [facility] Comment on above: Performed By: #### L IPD, CMP #### [facility] [address] [place], [place] [id number] Glucose [Mass/Vol] 126 mg/dL High 65-99 [facility] Comment on above: Result Comment: For FASTING Glucose --- ADA reference ranges: Normal 65-99 mg/dl Prediabetes 100-125 Diabetes >/= 126 Performed By: #### L IPD, CMP #### [facility] [address] [place], [place] [id number] Potassium [Moles/Vol] 5.2 mmol/L Normal 3.5-5.5 [facility] Comment on above: Performed By: #### L IPD, CMP #### [facility] [address], [place] [id number] Protein [Mass/Vol] 7.3 g/dL Normal 6.1-8.1 [facility] Comment on above: Performed By: #### L IPD, CMP #### [facility] [address], [place] [id number] Sodium [Moles/Vol] 133 mmol/L Low 135-146 [facility] Comment on above: Performed By: #### L IPD, CMP #### [facility] [address], [place] [id number] Urea nitrogen [Mass/Vol] 21 mg/dL Normal 7-25 [facility] Specialist Comment on above: Performed By: #### L IPD, CMP #### [facility] [address] [place], [place] [id number] Lipid Panelon 11-15-2021 Cholesterol [Mass/Vol] 150 mg/dL Normal 125-200 [facility] Comment on above: Result Comment: Low risk < 200mg/dL Borderline risk 201-239 mg/dl High risk > or equal to 240 Performed By: #### L IPD, CMP #### [facility] [address] [place], [place] [id number] Cholesterol in HDL [Mass/Vol] 37 mg/dL Low >40 [facility] Specialist Comment on above: Result Comment: High Cardiovascular Risk HDL <40 mg/dL Low Cardiovascular Risk HDL > or equal to 60 mg/dl Performed By: #### L IPD, CMP #### [facility] [address] [place], [place] [id number] Cholesterol in LDL [Mass/Vol] 66 mg/dL Normal [facility] Comment on above: Result Comment: LDL ATP III CLASSIFICATION LDL less than 100 mg/dl Optimal LDL 100-129 mg/dl Near or above optimal LDL 130-159 Borderline high LDL 160-189 High LDL greater than 189 mg/dl Very High Performed By: #### L IPD, CMP #### [facility] [address] [place], [place] [id number] Cholesterol in VLDL [Mass/Vol] 47 mg/dL Normal [facility] Comment on above: Performed By: #### L IPD, CMP #### [facility] [address] [place], [place] [id number] Cholesterol.total/Ch olesterol in HDL [Mass ratio] 4 {ratio} Normal [facility] Comment on above: Performed By: #### L IPD, CMP #### [facility] [address], [place] [id number] Triglyceride [Mass/Vol] 237 mg/dL High 30-150 [facility] Comment on above: Result Comment: TRIG ATPIII CLASSIFICATIONS TRIG less than 150 mg/dl Normal TRIG 150-199 mg/dl Borderline High TRIG 200-500 mg/dl High TRIG greather than 500 mg/dl Very High Performed By: #### L IPD, CMP #### [facility] [address], [place] [id number] Vital Signs Date Time Vital Sign Value Performing Clinician Faci lity 12-12-2023 09:36-0500 Body mass index (BMI) [Ratio] 39.9 kg/m2 Misty Hemmer PA Work Phone: [facility] 12-12-2023 09:36-0500 Body weight 108.77 kg Misty Hemmer PA Work Phone: [facility] 12-12-2023 09:36-0500 Diastolic blood pressure 94 mm[Hg] Misty Hemmer PA Work Phone: [facility] 12-12-2023 09:36-0500 Heart rate 78 /min Misty Hemmer PA Work Phone: [facility] 12-12-2023 09:36-0500 Respiratory rate 16 /min Misty Hemmer PA Work Phone: [facility] 12-12-2023 09:36-0500 SaO2% (BldA) [Mass fraction] 99 % Misty Hemmer PA Work Phone: [facility] 12-12-2023 09:36-0500 Systolic blood pressure 162 mm[Hg] Misty Hemmer PA Work Phone: [facility] Healthcare Encounters Encounter Date Encounter Type Care Provider Facility Start: 12-13-2023 Telephone encounter Micaela moody HATCH BOSS Work Phone: [facility] Comment on above: Med Refill Start: 12-12-2023 End: 12-12-2023 ambulatory MISTY LANDRUM Not Available Start: 12-12-2023 End: 12-12-2023 Office outpatient visit 25 minutes Misty Landrum PA Work Phone: [facility] Comment on above: Uncontrolled hyperte nsion (CMS/HCC) (Primary Dx); Need for immunization against influenza; Essential hypertension (CMS/HCC); Chest pain, unspecified type; Lumbar radiculopathy; Primary insomnia; Daytime somnolence Start: 11-15-2023 End: 11-15-2023 ambulatory MISTY LANDRUM Not Available Start: 10-31-2023 End: 10-31-2023 ambulatory NITO JEONG Not Available Start: 10-08-2023 End: 10-08-2023 ambulatory NITO JEONG Not Available Start: 08-29-2023 End: 08-30-2023 ambulatory [facility] Start: 05-25-2023 End: 05-26-2023 ambulatory [facility] Start: 03-28-2023 End: 03-29-2023 ambulatory MISTY LANDRUM Facility:[facility] Start: 03-23-2023 End: 03-24-2023 ambulatory [facility] Start: 02-23-2023 End: 02-24-2023 ambulatory [facility] Start: 02-17-2023 Encounter for preprocedural laboratory examination DR DOCTOR BUSTILLO [facility] Start: 02-12-2023 ambulatory [facility] Start: 02-12-2023 End: 02-13-2023 ambulatory [facility] Start: 02-12-2023 End: 02-12-2023 ambulatory [facility] Start: 02-12-2023 End: 02-12-2023 Encounter for preprocedural laboratory examination [facility] Start: 02-08-2023 End: 02-09-[address] DOCTOR BUSTILLO Facility:[facility] Start: 02-08-2023 End: 02-09-2023 Encounter for preprocedural laboratory examination DR DOCTOR BUSTILLO Facility:[facility] Start: 01-01-2023 End: 01-02-2023 ambulatory MISTY LANDRUM Facility:[facility] Start: 12-[facility]-2022 [facility] Start: 12-22-2022 [facility] Start: 12-20-2022 End: 12-21-2022 ambulatory MISTY LANDRUM Facility:[facility] Start: 12-11-2022 End: 12-12-2022 ambulatory [facility] Start: 11-24-2022 End: 11-25-2022 ambulatory [facility] Start: 10-26-2022 End: 10-27-2022 ambulatory MISTY LANDRUM Facility:[facility] Start: 09-19-2022 End: 09-20-2022 ambulatory [facility] Start: 06-06-2022 End: 06-09-2022 ambulatory NITO JEONG Facility:[facility] Start: 05-12-2022 ambulatory Facility:Neela FERNANDES Start: 05-11-2022 ambulatory Facility:Neela FERNANDES Start: 04-26-2022 End: 05-01-2022 ambulatory LELE EBABDI Facility:[facility] Start: 04-14-2022 End: 04-15-2022 ambulatory LELE EBSEAN Facility:[facility] Procedures Date Procedure Procedure Detail Performing Clinician Start: 10-31-2023 Mammography Misty WILKERSON Work Phone: Start: 05-14-2023 H/O: hysterectomy History of hystere ctomy Misty WILKERSON Work Phone: Start: 06-07-2022 Antibody screen NITO JEONG Comment on above: Performed By: #### 6 [id number] #### [address] Start: 11-18-2019 Colonoscopy Misty WILKERSON Work Phone: Plan of Treatment Date Care Activity Detail Author Start: 11-18-2029 Screening for malignant neoplasm of colon [facility] Start: 10-31-2024 Screening for malignant neoplasm of breast Mammogram [facility] Start: 01-10-2024 End: 01-10-2024 Patient encounter procedure 01/10/2024 8:00 AM EST Office Visit [facility] [address] [facility] [address] [place] [id number] Misty Landrum PA [address] [facility] [address] [place] [address] [facility] Start: 12-19-2023 End: 12-12-2024 Basic metabolic 1998 panel - Serum or Plasma Basic metabolic panel Lab Routine Uncontrolled hypertension (CMS/HCC) Expected: 12/19/2023 (Approximate), Expires: 12/12/2024 [facility] Comment on above: Expected: 12/19/2023 (Approximate), Expires: 12/12/2024 Start: 12-14-2023 Medicare Annual Wellness (AWV) Medicare Annual Wellness (AWV) [facility] Start: 12-12-2023 End: 12-12-2024 US.doppler Renal artery Vascular US renal artery duplex complete Imaging Routine Uncontrolled hypertension (CMS/HCC) Expected: 12/12/2023, Expires: 12/12/2024 [facility] Work Phone: Comment on above: Expected: 12/12/2023 , Expires: 12/12/2024 Start: 07-26-2022 Screening for malignant neoplasm of colon FIT-DNA [facility] Start: 1965 Screening for malignant neoplasm of colon [facility] Immunizations Immunization Date Immunization Notes Care Provider Fa cility 12-12-2023 influenza, injectabl e, quadrivalent, preservative free Misty Hemalexa WILKERSON Work Phone: [facility] 10-18-2022 influenza, injectabl e, quadrivalent, preservative free Misty WILKERSON Work Phone: [facility] 09-05-2021 influenza, injectabl e, quadrivalent, contains preservative Misty Hemmer ROCK Work Phone: [facility] Payers Date Payer Category Payer Unknown [employer] [id number] 2023-Present [address] [place] [id number] 2020 Medicare [id number] 1965 Unknown [id number] 1965 Unknown [id number] 1965 Unknown [id number] 1965 Unknown [id number] 1965 Unknown [id number] 1965 Unknown [id number] 1965 Unknown [id number] 1965 Unknown [id number] [id number] 1965 Unknown [id number] [id number] 1965 Unknown [id number] [id number] 1965 Unknown [id number] [id number] 1965 Unknown [id number] [id number] 1965 Unknown [id number] 1965 Unknown [id number] Social History Date Type Detail Facility Start: 04-04-2023 Tobacco smoking status VAIS Never sm oked tobacco [facility] Start: 04-04-2023 Tobacco use and exposure Smoke less tobacco non-user [facility] Start: 12-12-2023 Alcohol intake Lifetime non-d antonietta (finding) [facility] Start: 07-15-2023 End: 12-12-2023 History of Social function [facility] Start: 07-15-2023 End: 12-12-2023 Humiliation, Afraid, Rape, and Kick questionnaire [HARK] [facility] Within the last year , have you been afraid of your partner or ex-partner? No [facility] Are you now , , , , never or living with a partner? [facility] How often to you hav e a drink containing alcohol? Never [facility] How many standard dr inks containing alcohol do you have on a typical day? Patient does not drink [facility] How hard is it for y ou to pay for the very basics like food, housing, medical care, and heating Not very hard [facility] Do you feel stress - tense, restless, nervous, or anxious, or unable to sleep at night because your mind is troubled all the time - these days [OSQ] To some extent [facility] (I/We) worried wheth er (my/our) food would run out before (I/we) got money to buy more. Sometimes true [facility] Start: 1965 Sex Assigned At Not on file [facility] Clinical Notes 09-18-2022 to 12-13-2023 Telephone Encounter - ROCK Horn - 12/13/2023 6:10 PM ESTTelephone Encounter - ROCK Horn - 12/13/2023 6:10 PM ESTTelephone Encounter - Micaela Wise LPN - 12/13/2023 4:00 PM EST Note Date & Type Note Facility 12-13-2023 Telephone encounter Note Abi sent. [facility] 12-13-2023 Miscellaneous Notes Abi sent. Pt is requesting a refill of her nausea meds. I do not see that she was ever on any meds for nausea. documented in this encounter [facility] 12-13-2023 Telephone encounter Note Pt is requesting a refill of her nausea meds. I do not see that she was ever on any meds for nausea. [facility] 12-12-2023 History of Presen t illness Narrative Subjective Patient ID: Jenni Khan is a 58 y.o. female who presents for follow up hypertension. Jenni is present today for follow up hypertension. Denies SOB, chest pain, blurry vision. Admits to headaches, nausea, chest heaviness off and on. Does check her BP's at home and running in the 160's/90's. She is currently on Olmesartan/hydrochlorothiazide and at her last o/v her Coreg was increased to 25 mg BID. Current Outpatient Medications on File Prior to Visit Medication Sig Dispense Refill alendronate (Fosamax) 70 MG tablet TAKE 1 TABLET BY MOUTH 30 MINUTES BEFORE first meal once a week 12 tablet 3 amLODIPine (Norvasc) 10 MG tablet Take 1 tablet (10 mg) by mouth in the morning. 30 tablet 11 B-12, Methylcobalamin, 1000 MCG sublingual tablet DISSOLVE 1 (ONE) TABLET UNDER THE TONGUE ONCE DAILY 90 tablet 3 calcium carbonate (Os-Yang) 1250 (500 Ca) MG tablet Take 1,250 mg by mouth every 12 (twelve) hours. 1 tablet with meals twice daily. carvedilol (Coreg) 25 MG tablet Take 1 tablet (25 mg) by mouth in the morning and 1 tablet (25 mg) in the evening. Take with meals. 60 tablet 2 cholecalciferol (Vitamin D3) 25 MCG (1000 UT) tablet Take 1,000 Units by mouth 1 (one) time each day at the same time. ferrous sulfate (FeroSul) 325 (65 Fe) MG tablet Take 1 tablet (325 mg) by mouth in the morning. 90 tablet 3 folic acid (Folvite) 1 MG tablet Take 1,000 mcg by mouth in the morning. ibuprofen 800 MG tablet Take 1 tablet (800 mg) by mouth in the morning and 1 tablet (800 mg) in the evening and 1 tablet (800 mg) before bedtime. 270 tablet 3 levothyroxine (Synthroid, Levoxyl) 150 MCG tablet TAKE 1 TABLET BY MOUTH EVERY DAY 90 tablet 3 olmesartan-hydroCHLOROthiazide (Benicar HCT) 40-25 MG tablet Take 1 tablet by mouth in the morning. 30 tablet 11 omeprazole (PriLOSEC) [address] capsule TAKE 1 CAPSULE BY MOUTH DAILY 90 capsule 3 rosuvastatin (Crestor) 20 MG tablet Take 1 tablet (20 mg) by mouth in the morning. 100 tablet 3 tiZANidine (Zanaflex) 4 MG tablet Take 4 mg by mouth in the morning and 4 mg in the evening and 4 mg before bedtime. venlafaxine XR (Effexor XR) 150 MG 24 hr capsule TAKE 2 CAPSULES BY MOUTH EVERY DAY WITH FOOD 180 capsule 3 zolpidem (Ambien) 10 MG tablet Take 1 tablet (10 mg) by mouth as needed at bedtime for sleep 30 tablet 2 [DISCONTINUED] traMADol (Ultram) 50 MG tablet Take 2 tablets (100 mg) by mouth every 6 (six) hours if needed for moderate pain 240 tablet 1 No current facility-administered medications on file prior to visit. No Known Allergies Social History Tobacco Use Smoking status: Never Smokeless tobacco: Never Substance Use Topics Alcohol use: Never Drug use: Never Family History Problem Relation Name Age of Onset Hypertension Mother Diabetes Mother Hypertension Father Diabetes Father Hypertension Maternal Grandmother Heart disease Maternal Grandmother Cancer Maternal Grandmother Hypertension Paternal Grandmother Heart disease Paternal Grandmother Liver cancer Paternal Grandfather Hypertension Paternal Grandfather Heart disease Paternal Grandfather Diabetes Paternal Grandfather Heart disease Sibling Cancer Sibling Past Medical History: Diagnosis Date Anxiety Arthritis Chronic low back pain Depression (CMS/HCC) Disease of thyroid gland (CMS/HCC) Fibromyalgia BROOKE (generalized anxiety disorder) (CMS/HCC) GERD (gastroesophageal reflux disease) Hypothyroidism (CMS/HCC) Insomnia Left patella fracture 04/2022 Lupus erythematosus (CMS/HCC) OAB (overactive bladder) Osteoarthritis of lumbar spine Osteoporosis (CMS/HCC) Past Surgical History: Procedure Laterality Date CHOLECYSTECTOMY 2007 COLONOSCOPY 2017 FOOT SURGERY Left 2004 HYSTERECTOMY 2009 KNEE SURGERY Left 02/12/2023 LUMBAR SPINE SURGERY 06/10/2020 Lumbar JANE's LUMBAR SPINE SURGERY 01/21/2019 Lumbar EPI OTHER SURGICAL HISTORY malcom L5 JANE's x3 09/23/2020 , 12/16/2020 and 03/08/2021 OTHER SURGICAL HISTORY 01/19/2020 L4-L5 JANE PATELLA FRACTURE SURGERY 06/07/2022 PATELLA SURGERY 04/14/2022 closed reduction and minimal screew fixation LT patella FX TOTAL KNEE ARTHROPLASTY 11/07/2022 left knee removal and replacement oh hardware Visit Vitals BP (!) 162/94 Pulse 78 Resp 16 Wt 239 lb 12.8 oz SpO2 99% BMI 39.90 kg/m Smoking Status Never BSA 2.24 m Review of Systems Constitutional: Positive for fatigue. Negative for chills and fever. Respiratory: Positive for shortness of breath. Negative for cough and wheezing. Cardiovascular: Positive for chest pain. Negative for palpitations and leg swelling. Gastrointestinal: Positive for nausea. Negative for abdominal pain, constipation, diarrhea and vomiting. Skin: Negative for rash. Psychiatric/Behavioral: Positive for sleep disturbance. Objective Physical Exam Constitutional: General: She is not in acute distress. Appearance: She is well-developed. She is obese. HENT: Head: Normocephalic and atraumatic. Eyes: General: No scleral icterus. Conjunctiva/sclera: Conjunctivae normal. Cardiovascular: Rate and Rhythm: Normal rate and regular rhythm. Heart sounds: Normal heart sounds. No murmur heard. Pulmonary: Effort: Pulmonary effort is normal. No respiratory distress. Breath sounds: Normal breath sounds. No wheezing, rhonchi or rales. Skin: General: Skin is warm and dry. Neurological: General: No focal deficit present. Mental Status: She is alert and oriented to person, place, and time. Psychiatric: Mood and Affect: Mood normal. Behavior: Behavior normal. Assessment/Plan Diagnoses and all orders for this visit: Uncontrolled hypertension (CMS/HCC) - Vascular US renal artery duplex complete; Future - Ambulatory referral to Cardiology; Future Will begin work up for potential secondary causes of her continued elevated BP. Renal US ordered. Will also provide pt with referral to Cardiology for further evaluation/work up. Need for immunization against influenza - influenza, injectable, quadrivalent, PF free ([id number]) (Fluzone / Fluarix / Alluria / Flulaval Quadrivalent) Provided pt with flu shot today, she tolerated this well. Essential hypertension (CMS/HCC) - spironolactone (Aldactone) 25 MG tablet; Take 1 tablet (25 mg) by mouth in the morning. BP remains elevated. Start Spironolactone. Continue other meds as prescribed. Will recheck BMP in 1-2 weeks to recheck electrolytes and kidney functions. Chest pain, unspecified type - Ambulatory referral to Cardiology; Future Pt has family h/o heart disease and has been having intermittent chest pain (unchanged) and uncontrolled BP. Referral placed to Cardiology. Lumbar radiculopathy - traMADol (Ultram) 50 MG tablet; Take 2 tablets (100 mg) by mouth every 6 (six) hours if needed for moderate pain Medication choice and dosage is appropriate for patient's current medical conditions. Patient will continue to be required to be seen in our office at least every three months for monitoring. At each follow up visit I will reassess the patient's need for the medication. Patient is to have this medication prescribed only through this office. Failure to follow the rules and regulations will result in tapering and discontinuation of medications if applicable. Patient verbalized understanding. OARRS Report was reviewed for this patient. Primary insomnia Currently on Ambien without significant benefit. Await sleep study results. May need to consider alternative medication. Daytime somnolence Called [facility] to request results of previous sleep study. If pt has sleep apnea that is uncontrolled, likely contributing to her elevated BP. Follow up in about 4 weeks (around 01/09/2024) for Hypertension. documented in this encounter 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 She localizes pain over the patella and over the medial and lateral joint line, she states this is not improved since last time that she was seen in the clinic. She is not currently in physical therapy, she has stopped taking ibuprofen per our recommendation and continue take Tylenol for pain control. She feels pain is worse with weightbearing. She is here for routine postoperative follow-up. Relevant past history includes prior left patella fracture ORIF with index procedure back in April [address] Forrest. This underwent revision ORIF in June 2022. She then had to undergo second revision on 02/12/2023 with harvest of the tibial autograft and revision ORIF with Dr. Hobbs. 05/25/23 Patient is presenting for evaluation of left patella fracture nonunion s/p multiple revision surgeries with most recent being 02/12/2023, now 3 months out. Patient states she was doing well up until approximately a few weeks ago when she started having a sharp burning sensation overlying the left patella. She is not taking anything for the pain. She is doing home PT and working on strength and range of motion. Denies numbness and tingling distal extremity. Denies any issues with the incision. 03/23/23 Jenni Khan is a 58 y.o. female presenting for evaluation of left patella fracture nonunion s/p multiple revision surgeries, most recently on 02/12/23, now 6 weeks out. Patient has been doing well. She continues to wear the hinged knee brace when ambulating, but she has been working more on the ROM. She has not done formal PT due to cost but has been doing exercises at home with her nieces who are nurses. She does report some tightness both medially and laterally but feels that her range of motion has been improving. Reports good and bad days with pain depending on her activity level. She takes Kelliher as needed. Denies any numbness and tingling. Denies any issues with the incision. Review of Systems unremarkable aside from what is noted in HPI Patient History Past Surgical History: Procedure Laterality Date ANKLE SURGERY Left CHOLECYSTECTOMY HYSTERECTOMY KNEE SURGERY Left Past Medical History: Diagnosis Date Anxiety Arthritis Depression High cholesterol Hypertension Joint pain Pneumonia 01/01/2023 Objective General: Body mass index is 39.11 kg/m???. No acute distress, comfortable Respiratory: Unlabored breathing with normal rate, no cough Cardiovascular: Warm well perfused extremities Psych: Appropriate mood behavior Focused examination of the left lower extremity: Incision over anterior knee doing well without any erythema, swelling, or drainage. TTP overlying patella and the medial and lateral joint line. Demonstrates active knee ROM from 0 to 120 degrees without discomfort. Motor intact in TA, GSC, EHL, FHL. 5/5 strength with knee extension. Sensation tact light touch in DP, SP, and tibial nerves distributions. Warm and well-perfused distally. Imaging personally reviewed: X-rays of the left knee obtained today 08/29/23 demonstrate maintained alignment of the left patella fracture with intact hardware. No evidence of hardware loosening or failure. Joint space narrowing noted in both lateral and medial compartments. Fracture line still clearly evident posteriorly but anteriorly there actually does appear to be some consolidation. Imaging was reviewed and interpreted by me, and findings were reviewed with the patient. Assessment/Plan Jenin Khan is a 58 y.o. year old female with Closed displaced comminuted fracture of left patella with delayed healing, subsequent encounter. s/p multiple revision surgeries with most recent being 02/12/2023 -Discussed with patient that though clinically she is still having pain from both her revised patellar fracture as well as her concomitant chronic arthritis, radiographically, she actually is still showing signs of slow healing of the anterior portion of her fracture line. Thus we would still like to give this some time to heal before we consider more advanced diagnostic measures. She is agreeable to that. -Did recommend some physical therapy to help with pain modalities as well as stretching and strengthening, she declined at this time and would like to just continue with home exercises. -Agree with continuing to hold off on the ibuprofen or any NSAIDs and continue with Tylenol for pain control. -Return to clinic in 3 months with repeat x-rays of the left knee at that time. If patient continues to have no consolidation of the posterior fracture line, at that point we will initiate a metabolic work-up and likely obtain a CT scan of the left knee. She is agreeable to that plan. -The patient understands and agrees to the management plan, and all patient questions have been answered to his/her satisfa (more content not included)... [facility] 05-25-2023 Note Orthopedic Surgery Subjective L patella nonunion 05/25/23 Patient is presenting for evaluation of left patella fracture nonunion s/p multiple revision surgeries with most recent being 02/12/2023, now 3 months out. Patient states she was doing well up until approximately a few weeks ago when she started having a sharp burning sensation overlying the left patella. She is not taking anything for the pain. She is doing home PT and working on strength and range of motion. Denies numbness and tingling distal extremity. Denies any issues with the incision. 03/23/23 Jenni Khan is a 58 y.o. female presenting for evaluation of left patella fracture nonunion s/p multiple revision surgeries, most recently on 02/12/23, now 6 weeks out. Patient has been doing well. She continues to wear the hinged knee brace when ambulating, but she has been working more on the ROM. She has not done formal PT due to cost but has been doing exercises at home with her nieces who are nurses. She does report some tightness both medially and laterally but feels that her range of motion has been improving. Reports good and bad days with pain depending on her activity level. She takes Kelliher as needed. Denies any numbness and tingling. Denies any issues with the incision. Review of Systems unremarkable aside from what is noted in HPI Patient History Past Surgical History: Procedure Laterality Date ANKLE SURGERY Left CHOLECYSTECTOMY HYSTERECTOMY KNEE SURGERY Left Past Medical History: Diagnosis Date Anxiety Arthritis Depression High cholesterol Hypertension Joint pain Pneumonia 01/01/2023 Objective General: There is no height or weight on file to calculate BMI. No acute distress, comfortable Respiratory: Unlabored breathing with normal rate, no cough Cardiovascular: Warm well perfused extremities Psych: Appropriate mood behavior Focused examination of the left lower extremity: Incision over anterior knee doing well without any erythema, swelling, or drainage. TTP overlying patella. Demonstrates active knee ROM from 0 to 120 degrees without discomfort. Motor intact in TA, GSC, EHL, FHL. 5/5 strength with knee extension. Sensation tact light touch in DP, SP, and tibial nerves distributions. Warm and well-perfused distally. Imaging personally reviewed: X-rays of the left knee obtained today demonstrate maintained alignment of the left patella fracture with intact hardware. No evidence of hardware loosening or failure. Fracture line still clearly evident. Assessment/Plan Jenni Khan is a 58 y.o. year old female with Closed displaced osteochondral fracture of left patella with routine healing. s/p multiple revision surgeries with most recent being 02/12/2023. - Discontinue Motrin, Tylenol as needed for pain - Continue working on left knee ROM and home exercises. Pt will call for formal PT referral. - Continue taking calcium and vitamin D3 supplementation. - Follow up in clinic in 3 months with repeat x-rays of the left knee at that time. We will consider comprehensive metabolic work-up at this time if apparent non-union. Facundo Nino MD Orthopaedic Surgery PGY-2 [facility] 05/25/23 11:00 AM [facility] 03-23-2023 Note Orthopedic Surgery Subjective Follow-up of the Left Knee 03/23/23 Jenni Khan is a 58 y.o. female presenting for evaluation of left patella fracture nonunion s/p multiple revision surgeries, most recently on 02/12/23, now 6 weeks out. Patient has been doing well. She continues to wear the hinged knee brace when ambulating, but she has been working more on the ROM. She has not done formal PT due to cost but has been doing exercises at home with her nieces who are nurses. She does report some tightness both medially and laterally but feels that her range of motion has been improving. Reports good and bad days with pain depending on her activity level. She takes Kelliher as needed. Denies any numbness and tingling. Denies any issues with the incision. Review of Systems unremarkable aside from what is noted in HPI Patient History Past Surgical History: Procedure Laterality Date ANKLE SURGERY Left CHOLECYSTECTOMY HYSTERECTOMY KNEE SURGERY Left Past Medical History: Diagnosis Date Anxiety Arthritis Depression High cholesterol Hypertension Joint pain Pneumonia 01/01/2023 Objective General: Body mass index is 39.11 kg/m???. No acute distress, comfortable Respiratory: Unlabored breathing with normal rate, no cough Cardiovascular: Warm well perfused extremities Psych: Appropriate mood behavior Focused examination of the left lower extremity: Incision over anterior knee doing well without any erythema, swelling, or drainage. Nontender to palpation throughout knee and lower leg. Demonstrates active knee ROM from 0 to 120 degrees without discomfort. Motor intact in TA, GSC, EHL, FHL. 5/5 strength with knee extension. Sensation tact light touch in DP, SP, and tibial nerves distributions. Warm and well-perfused distally. Imaging personally reviewed: X-rays of the left knee obtained today demonstrate maintained alignment of the left patella fracture with intact hardware. No evidence of hardware loosening or failure. Assessment/Plan Jenni Khan is a 58 y.o. year old female with Closed comminuted fracture of patella with nonunion, left Closed displaced osteochondral fracture of left patella with routine healing - OK to discontinue hinged knee brace at home. Recommend continuing to wear when out in public. - Continue working on left knee ROM and home exercises. - Continue taking calcium and vitamin D3 supplementation. - Follow up in clinic in 2 months with repeat x-rays of the left knee at that time. Bebe Phillips MD Orthopaedic Surgery Resident, PGY-2 By using the attestations below, the signing clinician agrees that I have read and verify that the documentation has been personally reviewed by me and ensure that the documentation accurately reflects the encounter. Office Visit Attestation GC: I personally saw this patient on the day of the encounter, performed the delgadillo portion(s) of the service and participated in the management and confirm the resident's documentation. Please note there may be an additional personal documentation from me. [facility] 02-23-2023 Note Orthopedic Surgery Subjective 02/12/2023 Patellar revision ORIF, with patellar plating - Left, Removal, Hardware, Patella - Left, and Proximal tibia bone graft - Left 02/23/23 Jenni presents today for first postoperative visit, she states that she has had some trouble with pain since surgery and has been taking Kelliher with mild relief. Denies any wound concerns or trouble with her incisions, and has been compliant with weightbearing restrictions and her hinged knee brace. No other complaints or concerns today. Patient History Past Surgical History: Procedure Laterality Date ANKLE SURGERY Left CHOLECYSTECTOMY HYSTERECTOMY KNEE SURGERY Left Past Medical History: Diagnosis Date Anxiety Arthritis Depression High cholesterol Hypertension Joint pain Pneumonia 01/01/2023 Objective Exam: - Incision clean, dry, and intact. No drainage or erythema - Reasonable post-surgical ROM, swelling, and tenderness - Sensation grossly intact distally - Brisk capillary refill Assessment/Plan Jenni Khan is a 57 y.o. year old female s/p Patellar revision ORIF, with patellar plating - Left, Removal, Hardware, Patella - Left, and Proximal tibia bone graft - Left (02/12/2023) -We discussed clinical and radiographic findings, overall were happy with her fixation but we will plan on keeping her locked in extension during weightbearing - Begin PT for PROM, ok to be 0-30 degrees and advance 10 degrees every week. -Return to clinic in 4 weeks with repeat x-rays of the left knee. Rene Ruiz MD Orthopedic Surgery, PGY-5 02/23/23 11:18 AM By using the attestations below, the signing clinician agrees that I have read and verify that the documentation has been personally reviewed by me and ensure that the documentation accurately reflects the encounter. GC: I personally saw this patient on the day of the encounter, performed the delgadillo portion(s) of the service and participated in the management and confirm the resident's documentation. Please note there may be an additional personal documentation from me. [facility] 02-12-2023 Note Patient: Jenni jonas Procedure Summary Date: 02/12/23 Room / Location: [facility] OPERATING ROOM 05 / [facility] Operating Room Anesthesia Start: 738 Anesthesia Stop: 1024 Procedures: Patellar revision ORIF, with patellar plating (Left: Knee) Removal, Hardware, Patella (Left: Knee) Proximal tibia bone graft (Left: Knee) Diagnosis: Closed displaced comminuted fracture of left patella with nonunion (s82.042k) Surgeons: Alicia Hobbs MD Responsible Provider: Tova Tam MD Anesthesia Type: general ASA Status: 3 Anesthesia Type: general Vitals Value Taken Time BP 175/75 02/12/23 1043 Temp 36.8 ???C (98.2 ???F) 02/12/23 1015 Pulse 82 02/12/23 1043 Resp 24 02/12/23 1043 SpO2 94 % 02/12/23 1043 Anesthesia Post Evaluation Patient location during evaluation: PACU Patient participation: complete - patient participated Level of consciousness: awake and alert Pain management: adequate Multimodal analgesia pain management approach Airway patency: patent Cardiovascular status: acceptable and stable Respiratory status: acceptable, room air, nonlabored ventilation and spontaneous ventilation Hydration status: acceptable Comments: Pt acceptable for discharge from PACU No notable events documented. [facility] 02-12-2023 Note Peripheral Block Patient location during procedure: pre-op Start time: 02/12/2023 7:14 AM End time: 02/12/2023 7:30 AM Reason for block: at surgeon's request and post-op pain management Staffing Performed: anesthesiologist and resident/BOTTOM PAINTER/CAA Anesthesiologist: Tova Tam MD Resident/BOTTOM PAINTER: Brannon Mooney MD Preanesthetic Checklist Completed: patient identified, IV checked, site marked, risks and benefits discussed, surgical consent, monitors and equipment checked, pre-op evaluation and timeout performed Peripheral Block Patient position: supine Prep: ChloraPrep Patient monitoring: continuous pulse ox Block type: adductor canal block Laterality: left Injection technique: single-shot Guidance: ultrasound guided Local infiltration: bupivicaine Infiltration strength: 0.5 % Dose: 30 mL Needle Needle gauge: 21 G Needle length: 4 in Needle localization: ultrasound guidance Medications Administered Bupivacaine HCl (Marcaine) 0.5 % (5 mg/mL) injection, 150 mg Assessment Injection assessment: negative aspiration for heme, no paresthesia on injection and incremental injection Heart rate change: no Slow fractionated injection: yes [facility] 02-12-2023 Note Airway Date/Time: 02/12/2023 7:44 AM Urgency: elective General Information and Staff Patient location during procedure: OR Anesthesiologist: Tova Tam MD Resident/BOTTOM PAINTER/CAA: Brannon Mooney MD Performed: other anesthesia staff and anesthesiologist Learner assisted: Giuliano Sellers Indications and Patient Condition Indications for airway management: anesthesia Spontaneous Ventilation: absent Sedation level: deep Preoxygenated: yes Mask difficulty assessment: 2 - vent by mask + OA or adjuvant +/- NMBA Final Airway Details Final airway type: endotracheal airway Successful airway: ETT Cuffed: yes Successful intubation technique: video laryngoscopy Facilitating devices/methods: intubating stylet Endotracheal tube insertion site: oral Blade: Marino Blade size: #3 ETT size (mm): 7.5 Cormack-Lehane Classification: grade I - full view of glottis Placement verified by: chest auscultation and capnometry Measured from: lips ETT to lips (cm): 23 Number of attempts at approach: 1 Number of other approaches attempted: 0 [facility] 02-12-2023 Note Subjective Pain about left patella. Had one fall since being seen last. No other acute issues. Objective Patient Vitals for the past 24 hrs: BP Temp Temp src Pulse Resp SpO2 Height Weight 02/12/23 0559 (!) 185/83 36.1 ???C (97 ???F) Temporal 78 16 100 % 1.651 m (5' 5 ) 110 kg (242 lb 4.6 oz) Physical Exam Lab Results Component Value Date NA 136 12/22/2022 K 4.8 12/22/2022 CL 105 12/22/2022 ANIONGAP 10 12/22/2022 BUN 20 12/22/2022 CREATININE 0.82 12/22/2022 CALCIUM 8.8 12/22/2022 Lab Results Component Value Date BILITOT 0.3 12/22/2022 ALKPHOS 66 12/22/2022 AST 30 12/22/2022 ALT 47 12/22/2022 PROT 7.4 12/22/2022 ALBUMIN 4.3 12/22/2022 Lab Results Component Value Date WBC 6.44 12/22/2022 RBC 4.85 12/22/2022 HGB 14.7 12/22/2022 HCT 43.2 12/22/2022 MCV 89.1 12/22/2022 MCH 30.3 12/22/2022 MCHC 34.0 12/22/2022 RDW 13.5 12/22/2022 NEUTOPHILPCT 62.6 12/22/2022 LYMPHOPCT 23.8 12/22/2022 MONOPCT 11.5 12/22/2022 EOSPCT 1.2 12/22/2022 BASOPCT 0.6 12/22/2022 NEUTROABS 4.03 12/22/2022 LYMPHSABS 1.53 12/22/2022 MONOSABS 0.74 12/22/2022 EOSABS 0.08 12/22/2022 BASOSABS 0.04 12/22/2022 PLT 278 12/22/2022 NRBC 0.0 12/22/2022 No results found for this or any previous visit from the past 1 day. Nutrition Screen Assessment/Plan Active Problems: There are no active Hospital Problems. Plan for revision ORIF today with proximal tibia bone graft NPO Consented Marked [facility] 02-12-2023 Note Patient: Jenni jonas Procedure Information Date/Time: 02/12/23729 Procedures: Patellar revision ORIF, with patellar plating (Left: Knee) Removal, Hardware, Patella (Left: Knee) Proximal tibia bone graft (Left: Knee) - C-ARM / 2.5 hours / [facility] / Synthes MINI NON LOCKING SET, NOTIFIED 02/08 ARACELI, ARTHREX PLATE AND SCREWS IN, NEED T10 SCREWDRIVER, HAVE CANNULATED SCREWS AVAILABLE Location: [facility] OPERATING ROOM 05 / [facility] Operating Room Surgeons: Alicia Hobbs MD Relevant Problems Anesthesia (within normal limits) Cardio Did not take her blood pressure medication this morning (+) Essential hypertension Endo (+) Hypothyroidism Nervous (+) Restless legs Endocrine/Metabolic (+) Obesity Other (+) Depressive disorder (+) Generalized anxiety disorder Clinical information reviewed: Tobacco Allergies Meds Med Hx Surg Hx OB Status Fam Hx Soc Hx Physical Exam Airway Mallampati: I TM distance: >3 FB Neck ROM: full Cardiovascular - normal exam Rhythm: regular Rate: normal Dental - normal exam (+) upper dentures Comments: Missing multiple teeth throughout. Partial upper dentures Pulmonary - normal exam Abdominal (+) obese Anesthesia Plan ASA 3 general (GETA with standard ASA monitoring. Pre op adductor canal block) The patient is not a current smoker. Patient was previously instructed to abstain from smoking on day of procedure. Patient did not smoke on day of procedure. intravenous induction Postoperative administration of opioids is intended. Trial extubation is planned. Anesthetic plan and risks discussed with patient. Use of blood products discussed with patient who consented to blood products. Plan discussed with attending. Additional Equipment Requests [facility] 12-22-2022 Note Subjective 12/22/22 Jenni Khan is a 57 y.o. year old female with a PMH of hypothyroidism, HTN, and a closed comminuted left patellar fracture s/p ORIF with revision. She presents with worsening left knee pain since she underwent ORIF of her left patella in 06/2022. Pain is throbbing and radiates to her left medial lower leg. 8/10 in severity. She takes motrin that provides no relief. She has been using a bone stimulator for several months. Denies fever, chills, tingling, or numbness. She does not smoke and has no history of diabetes or infection. 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 04/26/2022: ORIF left patella performed by Dr. Forrest 06/07/2022: ORIF left patella and bone graft harvest from distal femur due to loss of reduction. Performed by Dr. Forrest Patient History Past Surgical History: Procedure Laterality Date ANKLE SURGERY Left CHOLECYSTECTOMY HYSTERECTOMY KNEE SURGERY Left Past Medical History: Diagnosis Date High cholesterol Hypertension Objective General: Body mass index is 39.11 kg/m???. In noticeable pain, no acute distress Respiratory: Unlabored breathing with normal rate, no cough Cardiovascular: Warm well perfused extremities Psych: Appropriate mood and behavior Left knee Well healed surgical scar over anterior knee Tenderness over patella, and medial joint line. No erythema or swelling ROM: ROM limited d/t pain knee flexion to 75 degrees Knee extension to 5 degrees Imagin11/24/2022 CT knee left wo IV contrast FINDINGS: Known history of the comminuted patellar fracture with nonunion. Imaging findings are not confirmed. There is nonunion along the lateral patellar fracture superiorly. There is also horizontal fracture extending through the mid patella with nonunion. Multiple inferior orthopedic screws appear to extend posterior to the articular surface cortex. Given the location these are of uncertain significance. No remodeling of the femur is appreciated. There is moderately large joint effusion noted. The quadriceps and patellar tendons are intact. The patellar tendon does appear to be quite thickened and compatible with tendinosis. Continued follow-up with orthopedics is suggested. Chronic changes in the distal femur are noted. No superimposed new femoral or proximal tibial fracture is appreciated. Given the presence of the knee effusion if there is concern for infection consider aspiration. 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 Please for to the above report for full description of findings Electronically signed: Dianne Lo. Assessment/Plan Jenni Khan is a 57 y.o. year old female who presents with pain in the left knee. She sustained a left closed comminuted patellar fracture in 2021. She originally underwent ORIF in April 2022. A second revision ORIF was done in June 2022 due to loss of reduction and hardware failure. CT from 11/2022 demonstrated nonunion with multiple orthopedic screws extending through the posterior patella. There are no clinical signs of infection. Patient will undergo revision of the left patella with bone grafting and screw placement secured by cerclage wire to obtain compression. Bone graft will be obtained from the proximal left tibia possibly with [employer]itus system. Patient will undergo a nerve block prior to the procedure due to experiencing severe pain after prior surgery. - Labs: CRP, ESR, CBC w/ diff, CMP, Vit D, MRSA/MSSA DNA nasal - Schedule surgical revision of left patella plating and screws with proximal left tibia bone graft - Nerve block prior to procedure Gareth Palomo, MS3 [facility] 11-24-2022 Note Date of Surgery: ENOC E OF SURGERY: 06/07/2022 SURGEON: Lele Forrest M.D. ASSISTANTS: 1. Randy Torres M.D. 2. Ronald Bautista M.D. PREOPERATIVE DIAGNOSIS: Left patella fracture with failure of fixation. POSTOPERATIVE DIAGNOSIS: Left patella fracture with failure of fixation. PROCEDURE PERFORMED: 1. Open reduction and internal fixation of left patella fracture. 2. Bone graft harvest from left distal femur. 3. Removal of left patella hardware. ANESTHESIA: General. BLOOD LOSS: Minimal. FLUIDS: Per anesthesia record. SPECIMENS: Soft tissue sent to pathology of the left patella. COMPLICATIONS: None. IMPLANTS: Arthrex patella hook plate with corresponding locking screws. Location: left Quality: dull Severity: mild Context: dressing maintained clean, dry, intact Alleviating Factors: rest Aggravating Factors: movement of surgical site Associated Symptoms: no fever; no chills Notes: Jenni presents today reports anterior knee pain, worse with activity, better with rest. Pain is 7/10, aching, constant. She has been using a bone stimulator, for approximately 1 month. Knee Musculoskeletal Exam Gait Antalgic: left Limp: left Inspection Left Erythema: none Effusion: none Edema: none Ecchymosis: none Palpation Left Increased warmth: none Tenderness: present Lateral joint line: mild Medial joint line: mild Patella: moderate Range of Motion Left Active extension: 0 Active flexion: 105 Strength Left Extension: 5/5. Flexion: 5/5. Neurovascular Left Dorsalis pedis: 2+ Capillary refill: brisk General Constitutional: well-developed and well-nourished Psychiatric: normal mood and affect and no acute distress Neurological: alert and oriented x3 Skin: intact 1. Left knee pain, unspecified chronicity - XR knee 3 views left; Future 2. Closed comminuted fracture of patella with nonunion, left - CT knee left wo IV contrast; Future Plan: CT scan to evaluate healing of patella fracture F/U with Dr Hobbs after CT [facility] 09-19-2022 Note Date of Surgery: ENOC E OF SURGERY: 06/07/2022 SURGEON: Lele Forrest M.D. ASSISTANTS: 1. Randy Torres M.D. 2. Ronald Bautista M.D. PREOPERATIVE DIAGNOSIS: Left patella fracture with failure of fixation. POSTOPERATIVE DIAGNOSIS: Left patella fracture with failure of fixation. PROCEDURE PERFORMED: 1. Open reduction and internal fixation of left patella fracture. 2. Bone graft harvest from left distal femur. 3. Removal of left patella hardware. ANESTHESIA: General. BLOOD LOSS: Minimal. FLUIDS: Per anesthesia record. SPECIMENS: Soft tissue sent to pathology of the left patella. COMPLICATIONS: None. IMPLANTS: Arthrex patella hook plate with corresponding locking screws. Location: left Quality: dull Severity: mild Context: dressing maintained clean, dry, intact Alleviating Factors: rest Aggravating Factors: movement of surgical site Associated Symptoms: no fever; no chills Notes: Presents today in wheelchair she is now walking and performing Rom exercises. Pain is 5/10, aching, intermittent, better with rest worse with activity. Knee Musculoskeletal Exam Gait Antalgic: left Limp: left Inspection Left Erythema: none Effusion: none Edema: none Ecchymosis: none Palpation Left Increased warmth: none Tenderness: present Lateral joint line: mild Medial joint line: mild Patella: mild Range of Motion Left Active extension: 0 Active flexion: 105 Strength Left Extension: 5/5. Flexion: 5/5. Neurovascular Left Dorsalis pedis: 2+ Capillary refill: brisk General Constitutional: well-developed and well-nourished Psychiatric: normal mood and affect and no acute distress Neurological: alert and oriented x3 Skin: intact Plan: Seek insurance approval for bone stim Ok for WBAT F/U 6 wks repeat xrays [facility] 09-18-2022 Note Left Xr left knee [facility] Evaluation note Diagnosis Uncontrolled hypertension (CMS/HCC)- Primary Need for immunization against influenza Need for prophylactic vaccination and inoculation against influenza Essential hypertension (CMS/HCC) Unspecified essential hypertension Chest pain, unspecified type Lumbar radiculopathy Thoracic or lumbosacral neuritis or radiculitis, unspecified Primary insomnia Persistent disorder of initiating or maintaining sleep Daytime somnolence [facility] Diagnosis Nausea- Primary Nausea alone documented [facility] this encounter [facility]ative)* Consultation (Routine) - Pending Review Specialty Diagnoses / Procedures Referred By Marley blanco Referred To Contact Cardiology Diagnoses Uncontrolled hypertension (CMS/HCC) Chest pain, unspecified type Procedures [place] OFFICE/OUTPATIENT [facility] 60 MINUTES Misty Landrum PA [address] [facility] [address] [place] [address] Saw Billings MD [address] [place] [address] Referral ID Status Reason Start Date Expiration Date Visits Requested Visits Authorized [id number] Pending Review Specialty Services Required 12/12/2023 06/09/2024 1 1 [facility] Summary Purpose Family History No Family History Records FoundNo Family History Records FoundNo Family History Records FoundNo Family History Records FoundNo Family History Records FoundNo Family History Records Found Advance Directives No Advanced Directives Records FoundNo Advanced Directives Records FoundNo Advanced Directives Records FoundNo Advanced Directives Records FoundNo Advanced Directives Records FoundNo Advanced Directives Records Found Reason for Referral Specialty Diagnoses / Procedures Referred By Contac t Referred To Contact Diagnoses Nausea Misty Landrum PA [address] [facility] [address] [place] [address] Referral ID Status Reason Start Date Expiration Date Visits Re quested Visits Authorized [id number] Closed 1 1 Additional Source Comments INFORMATION SOURCE (unrecogn ized section and content) DATE CREATED AUTHOR 11/16/2021 [facility] Special[facility] DATE CREATED AUTHOR AUTHOR'S ORGANIZ ATION 05/23/2022 [facility] DATE CREATED AUTHOR AUTHOR'S ORGANIZ ATION 06/29/2022 [facility] DATE CREATED AUTHOR AUTHOR'S ORGANIZ ATION 04/13/2023 [facility] DATE CREATED AUTHOR AUTHOR'S ORGANIZ ATION 08/31/2023 [facility] DATE CREATED AUTHOR AUTHOR'S ORGANIZ ATION 12/13/2023 [facility] EPIC Care Teams (unrecognized sec tion and content) [employer]visor [employer] Relationship Specialty Start Date End Date Nito Jeong MD [address] [facility] [address] [place] [address] PCP - Devoted 11/05/21 Nito Jeong MD [address] [facility] [address] [place] [id number] PCP - General Internal Medicine 05/14/23 [employer] Relationship Specialty Start Date End Date Nito Jeong MD [address] [facility] [address] [place] [address] PCP - Devoted 11/05/21 Nito Jeong MD [address] [facility] [address] [place] [address] PCP - General Internal Medicine 05/14/23 Reason for Visit (unrecogniz ed section and content) Reason Onset Date Comments Med Refill 12/13/2023 FOR RECORDS PERTAINING TO PATIENTS WHO ARE OR HAVE BEEN ENROLLED IN A CHEMICAL DEPENDENCY/SUBSTANCEABUSE PROGRAM, SOME INFORMATION MAY BE OMITTED. This clinical summary was aggregated from multiple sources. Caution should be exercised in using it in the provision of clinical care. This summary normalizes information from multiple sources, and as a consequence, information in this document may materially change the coding, format and clinical context of patient data. In addition, data may be omitted in some cases. CLINICAL DECISIONS SHOULD BE BASED ON THE PRIMARY CLINICAL RECORDS. [email or web address] provides no warranty or guarantee of the accuracy or completeness of information in this document.
== END 2024-01-02 09:23 | disposition home or self-care (01) ==
LOC: US 09:22
PROVIDERS: PCP Physician Assistant; Visit Provider Physician Assistant
DX: I10 Essential (primary) hypertension (principal)
CPT/HCPCS: 76775; 93975

== ENCOUNTER 2024-01-14 09:04 | Outpatient (OUT) | payer OTHER, SELFPAY ==
--- OUTSIDE RECORDS SUMMARY | 2024-01-14 09:08 | XMS_ITS | CCD ---
Author Name Unknown Address [address] [place] [address] Organization [facility] Care Team Providers Care Vault Manager Name Role Phone NITO JEONG Primary Care Unavailable EBRAHEIM, LELE Admitting Unavailable NITO JEONG Referring Unavailable EBRAHEIM, LELE Attending Unavailable EBRAHEIM, LELE Attending Unavailable NITO JEONG Primary Care Unavailable EBRAHEIM, LELE Admitting Unavailable NITO JEONG Referring Unavailable EBRAHEIM, LELE Attending Unavailable NITO JEONG Referring Unavailable NITO JEONG Primary Care Unavailable EBRAHEIM, LELE Admitting Unavailable HEMMER MISTY M Admitting Unavailable ZIEBER, DR TRUPTI Vicente Consulting Unavailable RACHNA, DR BURCH Primary Care Unavailable HEMMISTY LIU Attending Unavailable HEMMERMISTY Consulting Unavailable HEMMISTY LIU Attending Unavailable HEMMERMISTY Consulting Unavailable DIALLO MISTY M Admitting Unavailable RACHNA, DR BURCH Primary Care Unavailable MISTY LANDRUM Attending Unavailable MISTY LANDRUM Admitting Unavailable RACHNA, DR BURCH Primary Care Unavailable DR NITO JEONG Consulting Unavailable HEMALEXA MISTY M Consulting Unavailable MISC, DR VILLALTA Admitting Unavailable RACHNA, DR BURCH Primary Care Unavailable MISC, DR VILLALTA Attending Unavailable MISC, DR VILLALTA Consulting Unavailable MISTY LANDRUM Attending Unavailable RACHNA, DR BURCH Primary Care Unavailable ZIEBER, DR TRUPTI Vicente Consulting Unavailable HEMMER, MISTY M Admitting Unavailable HEMMER MISTY M Consulting Unavailable GREENALICIA Attending Unavailable GREEN, ALICIA Attending Unavailable GREEN, ALICIA Attending Unavailable GREEN, ALICIA Attending Unavailable FENG JOSE Referring Unavailable CHRIS SOLANO Referring Unavailable ALICIA GREEN Admitting Unavailable GREEN, CHRISTOPHER Attending Unavailable CHRIS SOLANO Referring Unavailable GREEN, CHRISTOPHER Referring Unavailable GREEN, CHRISTOPHER Referring Unavailable GREEN, CHRISTOPHER Referring Unavailable GREEN, CHRISTOPHER Referring Unavailable GREEN, CHRISTOPHER Referring Unavailable CHRIS SOLANO Attending Unavailable SELF, REFERRED Referring Unavailable GREEN, CHRISTOPHER Attending Unavailable GREEN, CHRISTOPHER Referring Unavailable CHRIS SOLANO Attending Unavailable Nito Jeong MD Unavailable Nito Jeong MD Primary Care Provider [phone] Unavailable Primary Care Provider UnavailMisty Ellison Primary Care Provider [phone] NITO JEONG Attending Unavailable MISTY LANDRUM Attending Unavailable NITO JEONG Attending Unavailable MISTY LANDRUM Attending Unavailable MISTY LANDRUM Attending Unavailable Medications Current Medications Medication Drug Class(es) Dates [...] oral tablet (5 sources) Opioid Agonist Start: take 2 tablets by mouth every six [...] Interpretation Reference Range Facility Follow-Upon 08-29-2023 Follow-Up [id number] Jenni Kapadia 1965 F Date Provider Department Center 08/29/2023 ALICIA ROOT MP Family History Problem Relation Age of Onset Anesthesia problems Mother Diabetes Mother Hypertension Mother Hyperlipidemia Mother Diabetes Father Hyperlipidemia Father Hypertension Father Family Status - Relation Status Age at Mother Alive Father Alive Level of Service:88119 [place] OFFICE/OUTPATIENT ESTABLISHED LOW MDM 20-29 MIN (GC) Reason for Visit and Comments: Follow-up [009062] Normal [facility] Orders Onlyon 05-28-2023 Orders Only [id number] Jenni Kapadia 1965 F Date Provider Department Center 05/28/202373846-KZRRZMJIBENJAMIN MACHADO MP Family History Problem Relation Age of Onset Anesthesia problems Mother Diabetes Mother Hypertension Mother Hyperlipidemia Mother Diabetes Father Hyperlipidemia Father Hypertension Father Family Status - Relation Status Age at Mother Alive Father Alive [facility] 36on 05-25-2023 36 Patient called in wanting to know if pain med can be sent in for her. Patient using [facility] in [place]. She is requesting gabapentin or tylenol 3 pain Normal [facility] Follow-Upon 05-25-2023 Follow-Up [id number] Jenni Kapadia 1965 Provider Department Center 05/25/2023 ALICIA ROOT MP Family History Problem Relation Age of Onset Anesthesia problems Mother Diabetes Mother Hypertension Mother Hyperlipidemia Mother Diabetes Father Hyperlipidemia Father Hypertension Father Family Status - Relation Status Age at Mother Alive Father Alive Level of Service:40334 SC OFFICE/OUTPATIENT ESTABLISHED LOW MDM 20-29 MIN (GC) Reason for Visit and Comments: Follow-up [[id number]] [facility] Telephoneon 05-25-2023 Telephone [id number] Jenni Kapadia 1965 Date Provider Department Center 05/25/2023 ALICIA ROOT MP Family History Problem Relation Age of Onset Anesthesia problems Mother Diabetes Mother Hypertension Mother Hyperlipidemia Mother Diabetes Father Hyperlipidemia Father Hypertension Father Family Status - Relation Status Age at Mother Alive Father Alive Normal [facility] OSMOLALITYon 04-03-2023 Osmolality [Osmolality] 274 mosm/kg Critically low 275-295 [facility] Comment on above: Performed By: #### O SMO #### [facility] [address] [address] [address] Celena Schroeder OSMOLALITY URINEon 3 Osmolality, Urine 525 mOsmol/kg Normal [facility] Comment on above: Result Comment: 24 h r : 300 - 900 Random: 50 - 1400 After 12hr fluid restriction: >850 Performed By: #### O SMOU #### [facility] [address] [place] [address] Dr. Celena Schroeder CREATININEon 03-28-2023 Creatinine [Mass/Vol] 0.99 mg/dL Normal 0.55-1.02 [facility] Comment on above: Performed By: #### C CON, NA #### [facility] [address] [place] [address] Dr. Celena Schroeder EGFR-AF CENTRAL AFRICAN >60 Normal >=60 [facility] Comment on above: Performed By: #### C CON, NA #### [facility] [address] [place] [address] Dr. Celena Schroeder EGFR-NON AF CENTRAL AFRICAN 58 mL/min/1.73m2 Critically low >=60 [facility] Comment on above: Performed By: #### C CON, NA #### [facility] [address] [place] [address] Dr. Celena Schroeder CREATININE URINEon 3 URINE CREAT 109.39 mg/dL Normal 20.00-300.00 [facility] Comment on above: Performed By: #### C REAU #### [facility] [address] [place] [address] Dr. Celena Schroeder NAon 03-28-2023 Sodium [Moles/Vol] 133 mmol/L Critically low 136-145 [facility] Comment on above: Performed By: #### C CON, NA #### [facility] [address] [place] [address] Dr. Celena Schroeder SODIUM RANDOM URINEon 2022 Sodium (U) [Moles/Vol] 51 mmol/L Normal 30-90 [facility] Comment on above: Performed By: #### N AU #### [facility] [address] [address] [address] Celena Schroeder Office Visiton 03-23-2023 Follow-up visit [id number] Kang,Jenni S 1965 Provider Department Center 03/23/2023 ALICIA ROOT ORTHO MPORTHO Family History Problem Relation Age of Onset Anesthesia problems Mother Diabetes Mother Hypertension Mother Hyperlipidemia Mother Diabetes Father Hyperlipidemia Father Hypertension Father Family Status - Relation Status Age at Mother Alive Father Alive Level of Service:51916 [place] POSTOP FOLLOW UP VISIT RELATED TO ORIGINAL PX (GC) Reason for Visit and Comments: Follow-up [[id number]] [facility] 36on 03-19-2023 36 Patient wants a refi ll just to last her until her appt Sunday. Normal [facility] Orders Onlyon 03-19-2023 Orders Only [id number] KangJenni S 1965 Provider Department Center 03/19/2023 45224-MTWPIGNORMA WEAVER MP ORTHO MPORTHO Family History Problem Relation Age of Onset Anesthesia problems Mother Diabetes Mother Hypertension Mother Hyperlipidemia Mother Diabetes Father Hyperlipidemia Father Hypertension Father Family Status - Relation Status Age at Mother Alive Father Alive Normal [facility] Orders Onlyon 03-07-2023 Orders Only [id number] Kang,Jenni S 1965 Provider Department Center 03/07/2023 ALICIA ROOT [facility] Family History Problem Relation Age of Onset Anesthesia problems Mother Diabetes Mother Hypertension Mother Hyperlipidemia Mother Diabetes Father Hyperlipidemia Father Hypertension Father Family Status - Relation Status Age at Mother Alive Father Alive Normal [facility] Telephoneon 03-07-2023 Telephone [id number] Kang,Jenni S 1965 Date Provider Department Center 03/07/2023 83Juliette-NISH SETH ORTHO MPORTHO Family History Problem Relation Age of Onset Anesthesia problems Mother Diabetes Mother Hypertension Mother Hyperlipidemia Mother Diabetes Father Hyperlipidemia Father Hypertension Father Family Status - Relation Status Age at Mother Alive Father Alive Reason for Visit and Comments: Follow-up [388393] - Patient called in wanting refill of norco. [facility] [place], [place]. Normal [facility] Orders Onlyon 02-28-2023 Orders Only [id number] Kang,Jenni S 1965 Provider Department Center 02/28/20232003-ALEXIS PATHAK [facility] Family History Problem Relation Age of Onset Anesthesia problems Mother Diabetes Mother Hypertension Mother Hyperlipidemia Mother Diabetes Father Hyperlipidemia Father Hypertension Father Family Status - Relation Status Age at Mother Alive Father Alive [facility] Orders Onlyon 02-26-2023 Orders Only [id number] Kang,Jenni S 1965 Provider Department Center 02/26/2023 ALICIA ROOT [facility] Family History Problem Relation Age of Onset Anesthesia problems Mother Diabetes Mother Hypertension Mother Hyperlipidemia Mother Diabetes Father Hyperlipidemia Father Hypertension Father Family Status - Relation Status Age at Mother Alive Father Alive [facility] Telephoneon 02-26-2023 Telephone [id number] Kang,Jenni S 1965 Provider Department Center 02/26/2023 ALICIA ROOT ORTHO MPORTHO Family History Problem Relation Age of Onset Anesthesia problems Mother Diabetes Mother Hypertension Mother Hyperlipidemia Mother Diabetes Father Hyperlipidemia Father Hypertension Father Family Status - Relation Status Age at Mother Alive Father Alive Reason for Visit and Comments: Med Refill [[id number]] - Pt is requesting a refill [place]. Pharmacy [facility] [phone] [facility] Office Visiton 02-23-2023 Follow-up visit [id number] Kang,Jenni S 1965 Provider Department Center 02/23/2023 ALICIA ROOT ORTHO MPORTHO Family History Problem Relation Age of Onset Anesthesia problems Mother Diabetes Mother Hypertension Mother Hyperlipidemia Mother Diabetes Father Hyperlipidemia Father Hypertension Father Family Status - Relation Status Age at Mother Alive Father Alive Level of Service:42377 [place] POSTOP FOLLOW UP VISIT RELATED TO ORIGINAL PX (GC) Reason for Visit and Comments: Follow-up [[id number]] [facility] 36on 02-21-2023 36 Resident called in. [facility] Orders Onlyon 02-21-2023 Orders Only [id number] Kang,Jenni S 1965 F Date Provider Department Center 02/21/2023 [id number]-HHITZMNORMA GARCIA ORTHO MPORTHO Family History Problem Relation Age of Onset Anesthesia problems Mother Diabetes Mother Hypertension Mother Hyperlipidemia Mother Diabetes Father Hyperlipidemia Father Hypertension Father Family Status - Relation Status Age at Mother Alive Father Alive [facility] 36on 02-20-2023 36 Patient called into the office requesting pain meds . [facility] 29on 02-12-2023 29 Addendum created 02/12/23 1421 by Tova Tam MD Review and Sign - Signed [facility] HPon 02-12-2023 HP History Of Present Illness Jenni Kapadia is a 58 y.o. female presenting with [...] Problems. Patellar nonunion repair with autograft. 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 Priority Lab ID 1 Patella Bone TISSUE CULTURE AND ANAEROBIC CULTURE Alicia Green MD 02/12/23 0825 Routine [id number], [id number] Description: NON-UNION SITE Implants Type Name Action Serial No. Plate ADAPT-PLATE,2.7M,12 HOLE,97M - [id number] Implanted Screw SCREW,CORTEX,2.7M,T8,22 M - [id number] Implanted Screw SCREW,2.7M,T8,48M - [id number] Implanted Screw SCREW,LOCKING,2.7M,16M - [id number] Implanted Screw SCREW,SLF-TPNG,CORTEX,2 .7M,10M - [id number] Implanted Staff: Geothermal Operations Engineer: Ruby Lovelace RN Scrub Person: Ann Jamil CST Indications: Jenni Kapadia is an 57 y.o. female who is [...] miguel angel (more content not included)... Normal [facility] POCT GLUCOSE METER UNSOLICIT ED RESULTSon 02-12-2023 Glucose [Mass/Vol] 156 mg/dL High 70-105 [facility] Comment on above: Result Comment: [email or web address] Performed By: #### L [id number] ####[facility] ([employer])[address] [place] [address] Glucose [Mass/Vol] 97 mg/dL Normal 70-105 [facility] Comment on above: Result Comment: jhag eman Performed By: #### L [id number] ####[facility] ([employer])[address] [place] [address] TISSUE CULTUREon 02-12-2023 Bacteria identified Cx Nom (Unsp spec) No growth at 5 days Normal [facility] Comment on above: Order Comment: Pre-o p diagnosis:s82.042k Performed By: #### L [id number] ####[facility] ([facility])[address] [place] [address] GRAM STAIN RESULT Normal [facility] Comment on above: Order Comment: Pre-o p diagnosis:s82.042k Result Comment: No p olymorphonuclear leukocytes seen No organisms seen Performed By: #### L [id number] ####[facility] ([facility])[address] [place] [address] MRSA NARES #1on 02-11-2023 MRSA NARES #1 Isolate 1 Staphylococcus aureus (MSSA) Light growth of ORGANISM 1 Staphylococcus aureus (MSSA) ANTIBIOTIC M.I.C RX STATUS Oxacillin <=0.25 S F Normal [facility] Comment on above: Performed By: #### M RSAN1 #### [facility] [address] [address] [address] Celena Schroeder 36on 02-07-2023 36 LVM to call let bala ent know that she needs it and the order was in the chart. [facility] 36on 01-22-2023 36 Patient agreed. She will repeat MRSA swab at [facility] before the surgery. [facility] Telephoneon 01-22-2023 Telephone [id number] Jenni Kapadia 1965 F Date Provider Department Center 01/22/2023 ALICIA ROOT MP ORTHO MPORTHO Family History Problem Relation Age of Onset Anesthesia problems Mother Diabetes Mother Hypertension Mother Hyperlipidemia Mother Diabetes Father Hyperlipidemia Father Hypertension Father Family Status - Relation Status Age at Mother Alive Father Alive [facility] 36on 01-19-2023 36 Patient left a messa ge she needs to reschedule her surgery at least one week out because her daughter is having a surgery and she needs to be able to help with the baby. I told her I would get a new date from you Sunday when you are back in town. Normal [facility] Anesthesiaon 01-08-2023 Anesthesia [id number] Kang,Jenni S 1965 F Date Provider Department Center 01/08/2023 BRANNON CARIAS [facility] Medical C Family History Problem Relation Age of Onset Anesthesia problems Mother Diabetes Mother Hypertension Mother Hyperlipidemia Mother Diabetes Father Hyperlipidemia Father Hypertension Father Family Status - Relation Status Age at Mother Alive Father Alive Normal [facility] 36on 01-05-[address] Rosado's (anesiology) patient's surgery will be post poned for now due to recent lab testing and chest XR. Patient verbalized understanding. Normal [facility] Orders Onlyon 01-02-2023 Orders Only [id number] Kang,Jenni S 1965 F Date Provider Department Center 01/02/2023 ALEXIS DOVE [facility] Medical C Family History Problem Relation Age of Onset Anesthesia problems Mother Diabetes Mother Hypertension Mother Hyperlipidemia Mother Diabetes Father Hyperlipidemia Father Hypertension Father Family Status - Relation Status Age at Mother Alive Father Alive Normal [facility] RESPIRATORY PANEL PLUSon Adenovirus Not detected Normal NOT DETECTED [facility] Comment on above: Performed By: #### R SPLUS #### [facility] [address] [place] [address] Dr. Celena Dougherty Parapertusis Not detected Normal NOT DETECTED [facility] Comment on above: Performed By: #### R SPLUS #### [facility] [address] [place] [address] Dr. Celena Dougherty Pertussis Not detected Normal NOT DETECTED The [facility] Comment on above: Performed By: #### R SPLUS #### [facility] [address] [address] [address] Celena Schroeder Chlamydia Pneumoniae Not detected Normal NOT DETECTED [facility] Comment on above: Performed By: #### R SPLUS #### [facility] [address] [place] [address] Dr. Celena Schroeder Coronavirus 229E Not detected Normal NOT DETECTED [facility] Comment on above: Performed By: #### R SPLUS #### [facility] [address] [place] [address] Dr. Celena Schroeder Coronavirus HKU1 Not detected Normal NOT DETECTED [facility] Comment on above: Performed By: #### R SPLUS #### [facility] [address] [place] [address] Dr. Celena Schroeder Coronavirus NL63 Not detected Normal NOT DETECTED [facility] Comment on above: Performed By: #### R SPLUS #### [facility] [address] [place] [address] Dr. Celena Schroeder Coronavirus OC43 Not detected Normal NOT DETECTED [facility] Comment on above: Performed By: #### R SPLUS #### [facility] [address] [place] [address] Dr. Celena Schroeder Influenza A H1 Not detected Normal NOT DETECTED The [facility] Comment on above: Performed By: #### R SPLUS #### [facility] [address] [place] [address] Dr. Celena Schroeder Influenza A H1 2009 Not detected Normal NOT DETECTED [facility] Comment on above: Performed By: #### R SPLUS #### [facility] [address] [place] [address] Dr. Celena Schroeder Influenza A H3 Not detected Normal NOT DETECTED [facility] Comment on above: Performed By: #### R SPLUS #### [facility] [address] [place] [address] Dr. Celena Schroeder Influenza B Not detected Normal NOT DETECTED The [facility] Comment on above: Performed By: #### R SPLUS #### [facility] [address] [place] [address] Dr. Celena Schroeder Metapneumovirus Detected Abnormal NOT DETECTED [facility] Comment on above: Performed By: #### R SPLUS #### [facility] [address] [place] [address] Dr. Celena Schroeder Mycoplas. Pneumoniae Not detected Normal NOT DETECTED [facility] Comment on above: Performed By: #### R SPLUS #### [facility] [address] [place] [address] Dr. Celena Schroeder Parainfluenza 1 Not detected Normal NOT DETECTED [facility] Comment on above: Performed By: #### R SPLUS #### [facility] [address] [place] [address] Dr. Celena Schroeder Parainfluenza 2 Not detected Normal NOT DETECTED [facility] Comment on above: Performed By: #### R SPLUS #### [facility] [address] [place] [address] Dr. Celena Schroeder Parainfluenza 3 Not detected Normal NOT DETECTED [facility] Comment on above: Performed By: #### R SPLUS #### [facility] [address] [place] [address] Dr. Celena Schroeder Parainfluenza 4 Not detected Normal NOT DETECTED [facility] Comment on above: Performed By: #### R SPLUS #### [facility] [address] [place] [address] Dr. Celena Schroeder Rhino/Enterovirus Not detected Normal NOT DETECTED [facility] Comment on above: Performed By: #### R SPLUS #### [facility] [address] [place] [address] Dr. Celena Schroeder RP2 Header 1 RESPIRATORY PANEL: VIRUSES Normal [facility] Comment on above: Performed By: #### R SPLUS #### [facility] [address] [place] [address] Dr. Celena Schroeder RP2 Header 2 RESPIRATORY PANEL: BACTERIA Normal [facility] Comment on above: Performed By: #### R SPLUS #### [facility] [address] [place] [address] Dr. Celena Schroeder RSV Not detected Normal NOT DETECTED [facility] Comment on above: Performed By: #### R SPLUS #### [facility] [address] [place] [address] Dr. Celena Schroeder SARS-CoV-2 (COVID-19) RNA AUTUMN+probe Ql (Unsp spec) Not detected Normal NOT DETECTED [facility] Comment on above: Performed By: #### R SPLUS #### [facility] [address] [place] [address] Dr. Celena Schroeder XR CHEST 2 Von [...] atelectasis versus infiltrates. Electronically authenticated by: TRUPTI REEVES Date: 2023-01-01 14:56 Normal [facility] 36on 12-29-2022 36 c Normal [facility] C-REACTIVE PROTEINon 023 C REACTIVE PROTEIN (MG/L) IN SER/PLAS 2.6 mg/L Normal 0.0-7.0 [facility] Comment on above: Performed By: #### L [id number] ####[facility] ([facility])[address] [place] [address] CBC WITH AUTO DIFFERENTIALon 12-22-2022 Basophils (Bld) [#/Vol] 0.04 10*3/uL Normal 0.00-0.20 [facility] Comment on above: Performed By: #### L [id number] ####[facility] ([facility])[address] [place] [address] Basophils/100 WBC (Bld) 0.6 % Normal 0.0-1.0 [facility] Comment on above: Performed By: #### L [id number] ####[facility] [place] [address] Eosinophils (Bld) [#/Vol] 0.08 10*3/uL Normal 0.00-0.50 [facility] Comment on above: Performed By: #### L [id number] ####[facility] ([facility])[address] [place] [address] Eosinophils/100 WBC (Bld) 1.2 % Normal 0.0-6.0 [facility] Comment on above: Performed By: #### L [id number] ####[facility] CENTER)[address] [place] [address] Erythrocyte distribution width (RBC) [Ratio] 13.5 % Normal 11.5-15.0 [facility] Comment on above: Performed By: #### L [id number] ####[facility] ([facility])[address] [place] [address] ERYTHROCYTE MEAN CORPUSCULAR HEMOGLOBIN CONCENTRATION (G/DL) BY AUTOMATED 34.0 g/dL Normal 32.0-35.0 [facility] Comment on above: Performed By: #### L [id number] ####[facility] ([facility])[address] [place] [address] Hematocrit (Bld) [Volume fraction] 43.2 % Normal 36.0-48.0 [facility] Comment on above: Performed By: #### L [id number] ####[facility] ([facility])[address] [place] [address] Hemoglobin (Bld) [Mass/Vol] 14.7 g/dL Normal 12.0-15.0 [facility] Comment on above: Performed By: #### L [id number] ####[facility] ([facility])[address] [place] [address] Immature granulocytes (Bld) [#/Vol] 0.02 10*3/uL Normal 0.00-0.20 [facility] Comment on above: Performed By: #### L [id number] ####[facility] [place] [address] Immature granulocytes/100 WBC (Bld) 0.3 % Normal 0.0-1.0 [facility] Comment on above: Performed By: #### L [id number] ####[facility] ([facility])[address] [place] [address] Lymphocytes (Bld) [#/Vol] 1.53 10*3/uL Normal 1.20-4.00 [facility] Comment on above: Performed By: #### L [id number] ####[facility] ([facility])[address] [place] [address] Lymphocytes/100 WBC (Bld) 23.8 % Normal 20.0-45.0 [facility] Comment on above: Performed By: #### L [id number] ####[facility] ([facility])[address] [place] [address] MCH (RBC) [Entitic mass] 30.3 pg Normal 27.0-33.0 [facility] Comment on above: Performed By: #### L [id number] ####[facility] ([facility])[address] [place] [address] MCV (RBC) [Entitic vol] 89.1 fL Normal 82.0-98.0 [facility] Comment on above: Performed By: #### L [id number] ####[facility] ([facility])[address] [place] [address] Monocytes (Bld) [#/Vol] 0.74 10*3/uL Normal 0.10-1.00 [facility] Comment on above: Performed By: #### L [id number] ####[facility] ([facility])[address] [place], [place] [address] Monocytes/100 WBC (Bld) 11.5 % Normal 5.0-12.0 [facility] Comment on above: Performed By: #### L [id number] ####[facility] ([facility])[address] [place] [address] Neutrophils (Bld) [#/Vol] 4.03 10*3/uL Normal 1.60-7.60 [facility] Comment on above: Performed By: #### L [id number] ####[facility] ([facility])[address] [place] [address] Neutrophils/100 WBC (Bld) 62.6 % Normal 40.0-72.0 [facility] Comment on above: Performed By: #### L [id number] ####[facility] ([facility])[address] [place] [address] NRBC (PER 100 WBCS) BY AUTOMATED COUNT 0.0 % Normal 0.0-0.0 [facility] Comment on above: Performed By: #### L [id number] ####[facility] ([facility])[address] [place] [address] PLATELETS (10*3/UL) IN BLOOD AUTOMATED COUNT 278 10*3/uL Normal 150-400 [facility] Comment on above: Performed By: #### L [id number] ####[facility] ([facility])[address] [place] [address] RBC (Bld) [#/Vol] 4.85 10*6/uL Normal 3.80-5.00 [facility] Comment on above: Performed By: #### L [id number] ####[facility] ([facility])[address] [place], [place] [address] WBC (Bld) [#/Vol] 6.44 10*3/uL Normal 4.00-10.60 [facility] Comment on above: Performed By: #### L [id number] ####[facility] ([facility])[address], [place] [address] COMPREHENSIVE METABOLIC PANE Beltran 12-22-2022 Albumin [Mass/Vol] 4.3 g/dL Normal 3.5-5.7 [facility] Comment on above: Performed By: #### L [id number] ####[facility] ([facility])[address] [place] [address] ALP [Catalytic activity/Vol] 66 U/L Normal 34-104 [facility] Comment on above: Performed By: #### L [id number] ####[facility] ([facility])[address] [place] [address] ALT [Catalytic activity/Vol] 47 U/L Normal 7-52 [facility] Comment on above: Performed By: #### L [id number] ####[facility] ([facility])[address] [place] [address] Anion gap [Moles/Vol] 10 mmol/L Normal 7-20 [facility] Comment on above: Performed By: #### L [id number] ####[facility] ([facility])[address] [place] [address] AST [Catalytic activity/Vol] 30 U/L Normal 13-39 [facility] Comment on above: Performed By: #### L [id number] ####[facility] ([facility])[address] [place] [address] Bilirubin [Mass/Vol] 0.3 mg/dL Normal 0.3-1.0 [facility] Comment on above: Performed By: #### L [id number] ####[facility] ([facility])[address] [place] [address] Calcium [Mass/Vol] 8.8 mg/dL Normal 8.6-10.3 [facility] Comment on above: Performed By: #### L [id number] ####[facility] ([facility])[address] [place] [address] Chloride [Moles/Vol] 105 mmol/L Normal 98-107 [facility] Comment on above: Performed By: #### L [id number] ####[facility] ([facility])[address] [place] [address] CO2 [Moles/Vol] 26 mmol/L Normal 21-31 [facility] Comment on above: Performed By: #### L [id number] ####[facility] ([facility])[address] [place] [address] Creatinine [Mass/Vol] 0.82 mg/dL Normal 0.60-1.20 [facility] Comment on above: Performed By: #### L [id number] ####[facility] ([facility])[address] [place] [address] GLOMERULAR FILTRATION RATE ML/MIN/1.73 SQ M.PREDICTED 80.2 mL/min/1.73m*2 Normal >60.0 [facility] Comment on above: Result Comment: The [facility]???s estimated glomerular filtration rate (eGFR) will no [...] of individuals. Performed By: #### L [id number] ####[facility] ([facility])[address] [place] [address] Glucose [Mass/Vol] 92 mg/dL Normal 70-100 [facility] Comment on above: Performed By: #### L [id number] ####[facility] ([facility])[address] [place] [address] Potassium [Moles/Vol] 4.8 mmol/L Normal 3.5-5.1 [facility] Comment on above: Performed By: #### L [id number] ####[facility] ([facility])[address] [place] [address] Protein [Mass/Vol] 7.4 g/dL Normal 6.0-8.3 [facility] Comment on above: Performed By: #### L [id number] ####[facility] ([facility])[address] [place] [address] Sodium [Moles/Vol] 136 mmol/L Normal 136-145 [facility] Comment on above: Performed By: #### L [id number] ####[facility] [place] [address] Urea nitrogen [Mass/Vol] 20 mg/dL Normal 7-25 [facility] Comment on above: Performed By: #### L [id number] ####[facility] ([facility])[address] [place] [address] UREA NITROGEN/CREATININE (MASS RATIO) IN SER/PLAS 24.39 Normal [facility] Comment on above: Performed By: #### L [id number] ####[facility] [place] [address] Follow-Upon 12-22-2022 Follow-Up [id number] Jenni Kapadia Ruby 1965 F Date Provider Department Center 12/22/2022 Wendie-ALICIA GREEN MP ORTHO MPORTHO Family History Problem Relation Age of Onset Anesthesia problems Mother Diabetes Mother Hypertension Mother Hyperlipidemia Mother Diabetes Father Hyperlipidemia Father Hypertension Father Family Status - Relation Status Age at Mother Alive Father Alive Level of Service:94313 SC OFFICE/OUTPATIENT ESTABLISHED MOD MDM 30-39 MIN (57,GC) Reason for Visit and Comments: Follow-up [369983] Normal [facility] Labon 12-22-2022 Lab [id number] Jenni Kapadia Ruby 1965 F Date Provider Department Center 12/22/2022 2244-[facility] MP LAB RESOURCE MP DRAW Medical Pavi Family History Problem Relation Age of Onset Anesthesia problems Mother Diabetes Mother Hypertension Mother Hyperlipidemia Mother Diabetes Father Hyperlipidemia Father Hypertension Father Family Status - Relation Status Age at Mother Alive Father Alive Normal [facility] MRSA/MSSA DNA NASALon 2022 MRSA DNA Negative Normal Negative, Invalid [facility] Comment on above: Performed By: #### L [id number] ####[facility] ([facility])[address] [place] [address] MSSA DNA Positive Abnormal Negative, Invalid [facility] Comment on above: Performed By: #### L [id number] ####[facility] ([facility])[address] [place] [address] SEDIMENTATION RATEon 023 SEDIMENTATION RATE, ERYTHROCYTE 7 mm/hr Normal <=20 [facility] Comment on above: Performed By: #### L [id number] ####[facility] ([facility])[address] [place] [address] VITAMIN D 25 HYDROXYon 12-22 CALCIDIOL (25 [place] VITAMIN D3) (NG/ML) IN SER/PLAS 30.9 ng/mL Normal 30.0-80.0 [facility] Comment on above: Result Comment: >80. 0 Toxicity possible Performed By: #### L [id number] ####[facility] ([facility]NY[facility])[address] [place] [address] CT KNEE LEFT WO IV CONTRASTo n [...] full description of findings Electronically signed: Dianne Lopez. Normal [facility] Office Visiton 11-24-2022 Follow-up visit [id number] Jenni Kapadia 1965 F Date Provider Department Center 11/24/2022 490-CHRIS SOLANO MP ORTHO MPORTHO No family history on file Level of Service:69850 SC OFFICE/OUTPATIENT ESTABLISHED LOW MDM 20-29 MIN Reason for Visit and Comments: Follow-up [065090] - Left knee with xr Normal [facility] MG MAMM SCREEN 3D MALCOM CADon 10-26-2022 MG MAMM SCREEN 3D MALCOM CAD Patient: KANG, JENNI Beltran. Exam Date: 10/26/2022 : 1965 Gender:F Ordering : DR MISTY LANDRUM PA Admission #: [id number] Family : Order #: [id number] CLICK HERE TO VIEW EXAM RADIOLOGY REPORT [...] with liver cancer at age 67. LOCATION: [facility] BREAST COMPOSITION: Scattered areas fibroglandular density. [...] LUMP SHOULD BE BIOPSIED. Dictated by: Trupti Reeves M.D. on 10/26/2022 at 15:32 Approved by: Trupti Reeves M.D. on 10/26/2022 at 15:34 Normal [facility] Follow-Upon 09-19-2022 Follow-Up [id number] Jenni Kapadia 1965 F Date Provider Department Center 09/19/2022 490-CHRIS SOLANO MP ORTHO MPORTHO No family history on file Level of Service:29520 SC OFFICE/OUTPATIENT ESTABLISHED LOW MDM 20-29 MIN Reason for Visit and Comments: Follow-up [439796] - Left knee follow up with review of xray Normal [facility] Orders Onlyon 09-18-2022 Orders Only [id number] Jenni Kapadia 1965 F Date Provider Department Center 09/18/2022 792-SHIRIN JACKSON MP ORTHO MPORTHO No family history on file Normal [facility] KNEE LEFT 1 OR 2 VWSon 06-19 [facility] [address] [place] [id number] ===== Patient Name: JENNI KAPADIA : 1965 Sex: F Age: Race: White Pt. Location: Patient Status: O Ordered Date: 06/19/2022 10:00:00 AM Completed Date: 06/19/2022 10:09 AM Requesting Provider: LELE FORREST Attending Provider: LLEE FORREST Report Copy To: Signs & Symptoms: Z48.89 Encounter for other specified surgical aftercare I10 History: [facility] Comments: aleah Exam: KNEE LEFT 1 OR 2 S ===== KNEE LEFT 1 OR 2 VWS 06/19/2022 10:09 AM CLINICAL INDICATIONS: Z48.89 Encounter for other specified surgical aftercare I10 TECHNOLOGIST COMMENTS: s/p surgery 2 weeks ago QUESTION FOR THE RADIOLOGIST: aleah PROTOCOL: AP(PA) and Lateral views were obtained. COMPARISON: June 07, 2022 FINDINGS: Postoperative appearance of a fracture fixation of the comminuted patellar with a appropriate alignment of the major fragments and appropriate positioning of the patella within the patellofemoral articulation. IMPRESSION: Postoperative fixation in appropriate alignment/positioning of the fragmented patella fracture.. Electronically signed: Chepe Eldridge. Transcribed by: [email or web address], User Resident: Electronically Signed by: CHEPE ELDRIDGE @ 06/19/2022 03:06 PM Normal [facility] Comment on above: Order Comment: johnny magdaleno *ANAEROBIC CULTUREon 022 *ANAEROBIC CULTURE Clinical Report: (D) Specimen/Source: TISSUE/INTRAOP SPEC Collected: 06/07/2022 12:47 Status: Final Last Updated: 06/12/2022 08:57 (1) #1 LEFT PATELLA NONUNION CULT RES (Final) No Anaerobes Isolated 5 Days Normal [facility] Comment on above: Order Comment: #1 LE FT PATELLA NONUNION Performed By: #### 3 0312 #### [facility] [address] *TISSUE CULTUREon 06-07-2022 *TISSUE CULTURE Clinical Report: (D) Specimen/Source: TISSUE/INTRAOP SPEC Collected: 06/07/2022 12:47 Status: Final Last Updated: 06/12/2022 07:58 (1) #1 LEFT PATELLA NONUNION GRAM (Final) Rare Polys No Bacteria Seen CULT RES (Final) No Growth Day 5 Normal [facility] Comment on above: Order Comment: #1 LE FT PATELLA NONUNION Performed By: #### 3 0338 #### [facility] [address] [place] [address], [facility] BASIC METABOLIC PANELon Calcium [Mass/Vol] 8.6 mg/dL Normal 8.6-10.3 [facility] Comment on above: Order Comment: No: D o not add to previous draw Performed By: #### 0 0071 ####[facility] [place] [address], [facility] Chloride [Moles/Vol] 105 mmol/L Normal 98-107 [facility] Comment on above: Order Comment: No: D o not add to previous draw Performed By: #### 0 0071 ####[facility] [place] [address], [facility] CO2 [Moles/Vol] 23 mmol/L Normal 21-31 [facility] Comment on above: Order Comment: No: D o not add to previous draw Performed By: #### 0 0071 ####[facility] [facility] [place] [address], [facility] Creatinine [Mass/Vol] 0.72 mg/dL Normal 0.60-1.20 [facility] Comment on above: Order Comment: No: D o not add to previous draw Performed By: #### 0 0071 ####[facility] [facility] [place] [address], [facility] GFR/1.73 sq M.predicted among non-blacks MDRD (S/P/Bld) [Vol rate/Area] mL/min/{1.73_m2} Normal >60 [facility] Comment on above: Order Comment: No: D o not add to previous draw Result Comment: [facility]'s estimated glomerular filtration rate (eGFR) will no [...] Performed By: #### 0 0071 ####[facility] [facility] [place] [address], [facility] Glucose [Mass/Vol] 104 mg/dL High 70-[address] [facility] Comment on above: Order Comment: No: D o not add to previous draw Performed By: #### 0 0071 ####[facility] [facility] [place] [address], [place] Potassium [Moles/Vol] 4.3 mmol/L Normal 3.5-5.1 [facility] Comment on above: Order Comment: No: D o not add to previous draw Performed By: #### 0 0071 ####[facility] [facility] [place] [address], [place] Sodium [Moles/Vol] 134 mmol/L Low 136-[address] [facility] Comment on above: Order Comment: No: D o not add to previous draw Performed By: #### 0 0071 ####[facility] [facility] [address], [facility] Urea nitrogen [Mass/Vol] 11 mg/dL Normal 7-25 [facility] Comment on above: Order Comment: No: D o not add to previous draw Performed By: #### 0 0071 ####[facility] [facility] [place] [address], [facility] KNEE LEFT 1 OR 2 VWSon 06-07 KNEE LEFT 1 OR 2 VWS [facility] Department of Radiology [address] [place] [id number] ===== Patient Name: JENNI KAPADIA : 1965 Sex: F Age: Race: White [...] to the performing service Electronically signed: Dianne Lopez. Transcribed by: [email or web address], User Resident: Electronically Signed by: DIANNE LOPEZ @ 06/08/2022 09:14 AM Normal [facility] Comment on above: Order Comment: IRINA ION ORIF LT PATELLA Operative Reporton Operative Report MR#: [id number] 2 [facility] Pt. Name: Jenni Kapadia Room #: 6AB [id number] Discharge Date: Birthdate: 1965 OPERATIVE REPORT DATE [...] obtaining the distal femoral bone graft and [employer] bone graft harvest system was used, and [...] as (more content not included)... Normal [facility] TYPE AND SCREENon 06-07-2022 ABO INTERPRETATION A Normal [facility] Comment on above: Performed By: #### 6 2586 #### [facility] [address] RH INTERPRETATION Positive Normal [facility] Comment on above: Performed By: #### 6 2586 #### [facility] [address] BASIC METABOLIC PANELon 08- Calcium [Mass/Vol] 8.7 mg/dL Normal 8.6-10.[address] [facility] Comment on above: Order Comment: No: D o not add to previous draw Performed By: #### 0 0071 ####[facility] Chloride [Moles/Vol] 103 mmol/L Normal 98-107 [facility] Comment on above: Order Comment: No: D o not add to previous draw Performed By: #### 0 0071 ####[facility] [facility] [place] [address], [facility] CO2 [Moles/Vol] 23 mmol/L Normal 21-31 [facility] Comment on above: Order Comment: No: D o not add to previous draw Performed By: #### 0 0071 ####[facility] [facility] [place] [address], [facility] Creatinine [Mass/Vol] 0.80 mg/dL Normal 0.60-1.20 [facility] Comment on above: Order Comment: No: D o not add to previous draw Performed By: #### 0 0071 ####[place] [address] [place] [address], [facility] GFR/1.73 sq M.predicted among non-blacks MDRD (S/P/Bld) [Vol rate/Area] mL/min/{1.73_m2} Normal >60 [facility] Comment on above: Order Comment: No: D o not add to previous draw Result Comment: [facility]'s estimated glomerular filtration rate (eGFR) will no [...] Performed By: #### 0 0071 ####[facility] [facility] [place] [address], [facility] Glucose [Mass/Vol] 83 mg/dL Normal 70-100 [facility] Comment on above: Order Comment: No: D o not add to previous draw Performed By: #### 0 0071 ####[facility] [facility] [place] [address], [facility] Potassium [Moles/Vol] 5.1 mmol/L Normal 3.5-5.1 [facility] Comment on above: Order Comment: No: D o not add to previous draw Performed By: #### 0 0071 ####[facility] [id number], [facility] Sodium [Moles/Vol] 132 mmol/L Low 136-[address] [facility] Comment on above: Order Comment: No: D o not add to previous draw Performed By: #### 0 0071 ####[facility] [place] [address], [facility] Urea nitrogen [Mass/Vol] 13 mg/dL Normal 7-25 [facility] Comment on above: Order Comment: No: D o not add to previous draw Performed By: #### 0 0071 ####[facility] [facility] CBC COMPLETE BLOOD COUNTon 0 - Erythrocyte distribution width (RBC) [Ratio] 13.6 % Normal 11.5-15.0 [facility] Comment on above: Order Comment: No: D o not add to previous draw Performed By: #### 5 0608 #### [facility] [address] [place] [id number], [facility] Hematocrit (Bld) [Volume fraction] 40.0 % Normal 36.0-45.0 [facility] Comment on above: Order Comment: No: D o not add to previous draw Performed By: #### 5 0608 #### [facility] [address] [place] [id number], [facility] Hemoglobin (Bld) [Mass/Vol] 13.7 g/dL Normal 12.0-15.0 [facility] Comment on above: Order Comment: No: D o not add to previous draw Performed By: #### 5 0608 #### [facility] [address] [place] [address], [facility] MCH (RBC) [Entitic mass] 30.2 pg Normal 27.0-33.0 [facility] Comment on above: Order Comment: No: D o not add to previous draw Performed By: #### 5 0608 #### [facility] [address] [place] [id number], [facility] MCHC (RBC) [Mass/Vol] 34.3 g/dL Normal 32.0-35.0 [facility] Comment on above: Order Comment: No: D o not add to previous draw Performed By: #### 5 0608 #### [facility] [address] [facility] [place] [address], [facility] MCV (RBC) [Entitic vol] 88.1 fL Normal 82.0-98.0 [facility] Comment on above: Order Comment: No: D o not add to previous draw Performed By: #### 5 0608 #### [facility] [address] [place] [address], [facility] Nucleated RBC/100 WBC (Bld) [Ratio] 0 % Normal 0-0 [facility] Comment on above: Order Comment: No: D o not add to previous draw Performed By: #### 5 0608 #### [facility] [address] [place] [id number], [facility] PLAT CNT 254 10*3/uL Normal 150-400 [facility] Comment on above: Order Comment: No: D o not add to previous draw Performed By: #### 5 0608 #### [facility] [address] [place] [id number], [facility] RBC (Bld) [#/Vol] 4.54 10*6/uL Normal 3.80-5.00 [facility] Comment on above: Order Comment: No: D o not add to previous draw Performed By: #### 5 0608 #### [facility] [address] [place] WBC (Bld) [#/Vol] 6.22 10*3/uL Normal 4.00-10.60 [facility] Comment on above: Order Comment: No: D o not add to previous draw Performed By: #### 5 0608 #### [facility] [address] *MRSA/MSSA DNA NASALon 06-05 *MRSA/MSSA DNA NASAL Clinical Report: (D ) Specimen: NASAL SWAB Collected: 06/05/2022 11:22 Status: Final Last Updated: 06/05/2022 20:26 MSSA DNA (Final) Methicillin Susceptible Staphylococcus aureus DNA Detected MRSA DNA (Final) Negative Normal [facility] Comment on above: Performed By: #### 3 1595 #### [facility] [address] APTTon 06-05-2022 aPTT Coag (Bld) [Time] 30.3 s Normal 25.0-35.0 [facility] Comment on above: Result Comment: ALL RESULTS [...] FOR THIS PURPOSE. Performed By: #### 5 6101, [id number] ####[facility] BASIC METABOLIC PANELon Calcium [Mass/Vol] 8.4 mg/dL Low 8.6-10.3 [facility] Comment on above: Performed By: #### 0 353, [id number] ####[facility] Chloride [Moles/Vol] 101 mmol/L Normal 98-107 [facility] Comment on above: Performed By: #### 0 70, ####[facility]3000 [facility] [place] [address], [facility] CO2 [Moles/Vol] 22 mmol/L Normal 21-31 [facility] Comment on above: Performed By: #### 0 70, ####[facility] [facility] [place] [address], [facility] Creatinine [Mass/Vol] 0.81 mg/dL Normal 0.60-1.20 [facility] Comment on above: Performed By: #### 0 70, ####[facility] [facility] [place] [address], [facility] GFR/1.73 sq M.predicted among non-blacks MDRD (S/P/Bld) [Vol rate/Area] mL/min/{1.73_m2} Normal >60 [facility] Comment on above: Result Comment: [facility]'s estimated glomerular filtration rate (eGFR) will no [...] Performed By: #### 0 70, ####[facility] [facility] [place] [address], [facility] Glucose [Mass/Vol] 104 mg/dL High 70-100 [facility] Comment on above: Performed By: #### 0 70, ####[facility] [facility] [place] [address], [facility] Potassium [Moles/Vol] 4.8 mmol/L Normal 3.5-5.1 [facility] Comment on above: Performed By: #### 0 70, [id number] ####[facility] [place] [address], [facility] Sodium [Moles/Vol] 129 mmol/L Low 136-145 [facility] Comment on above: Performed By: #### 0 70, 82557 ####[facility] Urea nitrogen [Mass/Vol] 13 mg/dL Normal 7-25 [facility] Comment on above: Performed By: #### 0 70, 55553 ####[facility] CBC W/DIFFon 06-05-2022 ABS IMM GRANS 0.0 10*3/uL Normal 0.0-0.2 [facility] Comment on above: Performed By: #### 5 102 #### [facility] 3000 [facility]. [address] ABS NEUTROPHILS 4.9 10*3/uL Normal 1.6-7.6 [facility] Comment on above: Performed By: #### 5 102 #### [facility] [address] [place] [address], [facility] Basophils (Bld) [#/Vol] 0.0 10*3/uL Normal 0.0-0.2 [facility] Comment on above: Performed By: #### 5 102 #### [facility] [address] [place] [address], [facility] Basophils/100 WBC (Bld) 0.3 % Normal 0.0-1.0 [facility] Comment on above: Performed By: #### 5 102 #### [facility] [address] [facility] [place] [address], [facility] Eosinophils (Bld) [#/Vol] 0.1 10*3/uL Normal 0.0-0.5 [facility] Comment on above: Performed By: #### 5 0103 #### [facility] [address] [facility] [place] [address], [facility] Eosinophils/100 WBC (Bld) 1.0 % Normal 0.0-6.0 [facility] Comment on above: Performed By: #### 5 0103 #### [facility] [address] [facility] [address] Erythrocyte distribution width (RBC) [Ratio] 13.2 % Normal 11.5-15.0 [facility] Comment on above: Performed By: #### 5 0103 #### [facility] [address] [facility] [place] [address], [facility] Hematocrit (Bld) [Volume fraction] 41.0 % Normal 36.0-45.0 [facility] Comment on above: Performed By: #### 5 0103 #### [facility] [address] [facility] [place] [address], [facility] Hemoglobin (Bld) [Mass/Vol] 13.6 g/dL Normal 12.0-15.0 [facility] Comment on above: Performed By: #### 5 0103 #### [facility] [address] [facility] [place] [address], [facility] IMMATURE GRANS 0.4 % Normal 0.0-1.0 The [facility] Comment on above: Performed By: #### 5 0103 #### [facility] [address] [facility] [place] [address], [facility] Lymphocytes (Bld) [#/Vol] 1.3 10*3/uL Normal 1.2-4.0 [facility] Comment on above: Performed By: #### 5 0103 #### [facility] [address] [place] [address], [facility] Lymphocytes/100 WBC (Bld) 18.7 % Low 20.0-45.0 [facility] Comment on above: Performed By: #### 5 0103 #### [facility] [address] [place] [address], [facility] MCH (RBC) [Entitic mass] 29.5 pg Normal 27.0-33.0 [facility] Comment on above: Performed By: #### 5 3 #### [facility] [address] [facility] [place] [address], [facility] MCHC (RBC) [Mass/Vol] 33.2 g/dL Normal 32.0-35.0 [facility] Comment on above: Performed By: #### 5 3 #### [facility] [address] [facility] [place] [address], [facility] MCV (RBC) [Entitic vol] 88.9 fL Normal 82.0-98.0 [facility] Comment on above: Performed By: #### 5 3 #### [facility] [address] [facility] [place] [address], [facility] Monocytes (Bld) [#/Vol] 0.7 10*3/uL Normal 0.1-1.0 [facility] Comment on above: Performed By: #### 5 3 #### [facility] [address] [facility] [place] [address], [facility] MONOS 9.7 % Normal 5.0-12.0 [facility] Comment on above: Performed By: #### 5 3 #### [facility] [address] [facility] [place] [address], [facility] Neutrophils/100 WBC (Bld) 69.9 % Normal 40.0-72.0 [facility] Comment on above: Performed By: #### 5 3 #### [facility] [address] [place] [address], [facility] Nucleated RBC/100 WBC (Bld) [Ratio] 0 % Normal 0-0 [facility] Comment on above: Performed By: #### 5 3 #### [facility] [address] [facility] [address], [facility] PLAT CNT 263 10*3/uL Normal 150-400 [facility] Comment on above: Performed By: #### 5 0103 #### [facility] 3000 [facility]. [address] RBC (Bld) [#/Vol] 4.61 10*6/uL Normal 3.80-5.00 [facility] Comment on above: Performed By: #### 5 0103 #### [facility] [address] [facility] [place] [address], [facility] WBC (Bld) [#/Vol] 6.99 10*3/uL Normal 4.00-10.60 [facility] Comment on above: Performed By: #### 5 0103 #### [facility] [address] POC SARS COV2 IDon 2 SARS-CoV-2 (COVID-19) RNA AUTUMN+probe Ql (Unsp spec) Negative Normal NEGATIVE [facility] Comment on above: Result Comment: ID N [...] By: #### 3 1921 #### [facility] [address] PROTHROMBIN TIMEon INR Coag (PPP) [Relative time] 0.97 {INR} Normal 0.91-1.16 [facility] Comment on above: Result Comment: [facility] P RECOMMENDED INR FOR WARFARIN THERAPY ------- [...] CHEST 1995;108:231S-246S. Performed By: #### 5 6101, [id number] ####[facility] PT Coag (PPP) [Time] 12.9 s Normal 12.3-14.8 [facility] Comment on above: Result Comment: ALL RESULTS MUST BE INTERPRETED WITH RESPECT TO BLOOD DRAWING ARTIFACT OR DILUTION ERROR OF ANTICOAGULANT AT THE TIME OF SAMPLING. Performed By: #### 5 6101, 20857 ####[facility] VITAMIN D 25-HYDROXYon 06-05 VITAMIN D 25-OH 23.9 ng/mL Low 30.0-80.0 [facility] Comment on above: Result Comment: >80. 0 Toxicity possible Performed By: #### 0 4891, 44774 ####[facility] [facility] [address] KNEE LEFT 1 OR 2 VWSon 04-26 KNEE LEFT 1 OR 2 VWS [facility] Department of Radiology [address] [place] [id number] ===== Patient Name: JENNI KAPADIA : 1965 Sex: F Age: Race: White Pt. Location: Patient Status: O Ordered Date: 04/26/2022 9:55:00 AM Completed Date: 04/26/2022 10:24 AM Requesting Provider: LELE FORREST Attending Provider: LELE FORREST Report Copy To: NITO JEONG Signs & Symptoms: Z48.89 Encounter for other specified surgical aftercare I10 History: [facility] Comments: Exam: KNEE LEFT 1 OR 2 S [...] No callus is seen Electronically signed: Dianne Lopez. Transcribed by: [email or web address], User Resident: Electronically Signed by: DIANNE LOPEZ @ 04/26/2022 04:24 PM Normal [facility] Operative Reporton 2 Operative Report MR#: [id number] S [facility] Pt. Name: Jenni Kapadia Room #: 0C Discharge 04/14/2022 Date: Birthdate: [...] Torres MD Date Trans: 04/16/2022 11:01 P/tamika [id number] cc: Nito Jeong M.D. 3 [facility] [address] Normal [facility] KNEE LEFT 1 OR 2 [facility] 04-14 KNEE LEFT 1 OR 2 [facility] Department of Radiology [address] [place] [id number] ===== Patient Name: JENNI KAPADIA : 1965 Sex: F Age: Race: White [...] to the clinical service. Electronically signed: Nic Allred. Transcribed by: [email or web address], User Resident: Electronically Signed by: NIC ALLRED @ 04/16/2022 06:51 PM Normal [facility] Comment on above: Order Comment: ORIF LEFT PATELLA POC GLUCOSE LABon 04-14-2022 Glucose [Mass/Vol] 87 mg/dL Normal 70-[address] [facility] Comment on above: Performed By: #### 8 5499 #### [facility] [address] [place] [address], [place] Comprehensive Metabolic Pane beltran 11-15-2021 Albumin [Mass/Vol] 4.8 g/dL Normal 3.6-5.1 Silke diaz [employer] Comment on above: Performed By: #### L IPD, CMP #### [facility] [address] [place], [place] [id number] Albumin/Globulin [Mass ratio] 1.9 {ratio} Normal 1.0-2.5 [facility] Comment on above: Performed By: #### L IPD, CMP #### [facility] [address] [place], [place] [id number] ALP [Catalytic activity/Vol] 135 U/L High 35-119 [facility] Comment on above: Performed By: #### L IPD, CMP #### [facility] [address] [place], [place] [id number] ALT [Catalytic activity/Vol] 38 U/L High 6-[address] [facility] Comment on above: Result Comment: 10/05 Female reference range changed. Performed By: #### L IPD, CMP #### [facility] [address] [place], [place] [id number] Anion gap [Moles/Vol] 20 mmol/L Normal 12-20 [facility] Comment on above: Result Comment: Effe ctive 11/10/2019 reference range changed. Performed By: #### L IPD, CMP #### [facility] [address] [place], [place] [id number] AST [Catalytic activity/Vol] 20 U/L Normal 9-34 [facility] Comment on above: Performed By: #### L IPD, CMP #### [facility] [address] [place], [place] [id number] Bilirubin [Mass/Vol] 0.44 mg/dL Normal 0.30-1.20 [facility] Comment on above: Performed By: #### L IPD, CMP #### [facility] [address] [place], [place] [id number] BUN/CREA 23 Ratio High 6-22 [facility] Comment on above: Performed By: #### L IPD, CMP #### [facility] [address] [place], [place] [id number] Calcium [Mass/Vol] 9.4 mg/dL Normal 8.6-10.2 [facility] Comment on above: Performed By: #### L IPD, CMP #### [facility] [address] [place], [place] [id number] Chloride [Moles/Vol] 100 mmol/L Normal 98-107 [facility] Comment on above: Performed By: #### L IPD, CMP #### [facility] [address] [place], [place] [id number] CO2 [Moles/Vol] 18 mmol/L Low 20-31 [facility] Comment on above: Performed By: #### L IPD, CMP #### [facility] [address] [place], [place] [id number] Creatinine [Mass/Vol] 0.9 mg/dL Normal 0.6-1.4 [facility] Comment on above: Performed By: #### L IPD, CMP #### [facility] [address] [place], [place] [id number] eGFRAA 79 mL/min/1.73m2 Normal >[address] [facility] Comment on above: Performed By: #### L IPD, CMP #### [facility] [address] [place], [place] [id number] eGFRNAA 65 mL/min/1.73m2 Normal >[address] [facility] Comment on above: Performed By: #### L IPD, CMP #### [facility] [address] [place], [place] [id number] Globulin (S) [Mass/Vol] 2.5 g/dL Normal 1.9-3.[address] [facility] Comment on above: Performed By: #### L IPD, CMP #### [facility] [address] [place], [place] [id number] Glucose [Mass/Vol] 126 mg/dL High 65-99 [facility] Comment on above: Result Comment: For FASTING Glucose --- ADA reference ranges: Normal 65-99 mg/dl Prediabetes 100-125 Diabetes >/= 126 Performed By: #### L IPD, CMP #### [facility] [address] [place], [place] [id number] Potassium [Moles/Vol] 5.2 mmol/L Normal 3.5-5.5 [facility] Comment on above: Performed By: #### L IPD, CMP #### [facility] [address] [place], [place] [id number] Protein [Mass/Vol] 7.3 g/dL Normal 6.1-8.1 Silke rn [employer] Comment on above: Performed By: #### L IPD, CMP #### [facility] [address] [place], [place] [id number] Sodium [Moles/Vol] 133 mmol/L Low 135-146 Silke rn [employer] Comment on above: Performed By: #### L IPD, CMP #### [facility] [address] [place], [place] [id number] Urea nitrogen [Mass/Vol] 21 mg/dL Normal 7-25 [facility] [employer] Comment on above: Performed By: #### L IPD, CMP #### [facility] [address] [place], [place] [id number] Lipid Panelon 11-15-2021 Cholesterol [Mass/Vol] 150 mg/dL Normal 125-200 [facility] [employer] Comment on above: Result Comment: Low risk < 200mg/dL Borderline risk 201-239 mg/dl High risk > or equal to 240 Performed By: #### L IPD, CMP #### [facility] [address] [place], [place] [id number] Cholesterol in HDL [Mass/Vol] 37 mg/dL Low >40 [facility] [employer] Comment on above: Result Comment: High Cardiovascular Risk HDL <40 mg/dL Low Cardiovascular Risk HDL > or equal to 60 mg/dl Performed By: #### L IPD, CMP #### [facility] [address] [place], [place] [id number] Cholesterol in LDL [Mass/Vol] 66 mg/dL Normal [facility] Special[facility] Comment on above: Result Comment: LDL ATP III CLASSIFICATION LDL less than 100 mg/dl Optimal LDL 100-129 mg/dl Near or above optimal LDL 130-159 Borderline high LDL 160-189 High LDL greater than 189 mg/dl Very High Performed By: #### L IPD, CMP #### [facility] [address] [place], [place] [id number] Cholesterol in VLDL [Mass/Vol] 47 mg/dL Normal [facility] [employer] Comment on above: Performed By: #### L IPD, CMP #### [facility] [address] [place], [place] [id number] Cholesterol.total/Ch olesterol in HDL [Mass ratio] 4 {ratio} Normal [facility] [employer] Comment on above: Performed By: #### L IPD, CMP #### [facility] [address] [place], [place] [id number] Triglyceride [Mass/Vol] 237 mg/dL High 30-150 [facility] [employer] Comment on above: Result Comment: TRIG ATPIII CLASSIFICATIONS TRIG less than 150 mg/dl Normal TRIG 150-199 mg/dl Borderline High TRIG 200-500 mg/dl High TRIG greather than 500 mg/dl Very High Performed By: #### L IPD, CMP #### [facility] [address] [place], [place] [id number] Vital Signs Date Time Vital Sign Value Performing Clinician Harpreet franklin 12-12-2023 09:36-0500 Body mass index (BMI) [Ratio] 39.9 kg/m2 Misty Hemmer PA Work Phone: [facility] 12-12-2023 09:36-0500 Body weight 108.77 kg Misty Hemmer PA Work Phone: [facility] 12-12-2023 09:36-0500 Diastolic blood pressure 94 mm[Hg] Misty Hemmer PA Work Phone: [facility] 12-12-2023 09:36-0500 Heart rate 78 /min Misty Hemmer PA Work Phone: [facility] 12-12-2023 09:36-0500 Respiratory rate 16 /min Misty Hemmer PA Work Phone: [facility] 12-12-2023 09:36-0500 SaO2% (BldA) [Mass fraction] 99 % Misty Hemmer PA Work Phone: [facility] 12-12-2023 09:36-0500 Systolic blood pressure 162 mm[Hg] Misty Hemmer PA Work Phone: [facility] Healthcare Encounters Encounter Date Encounter Type Care Provider Facility Start: 01-10-2024 End: 01-10-2024 ambulatory MISTY LANDRUM Not Available Start: 01-08-2024 Telephone encounter [facility] Start: 01-07-2024 Telephone encounter Rita [facility] Start: 01-02-2024 Telephone encounter [facility] Start: 12-13-2023 Telephone encounter Micaela moody [employer] ASSISTANT Work Phone: [facility] Comment on above: Med Refill Start: 12-12-2023 [...] Not Available Start: 08-29-2023 End: 08-30-2023 ambulatory [facility] Start: 05-25-2023 End: 05-26-2023 ambulatory [facility] Start: 03-28-2023 End: 03-29-2023 ambulatory MISTY LANDRUM Facility: Start: 03-23-2023 End: 03-24-2023 ambulatory [facility] Start: 02-23-2023 End: 02-24-2023 ambulatory [facility] Start: 02-17-2023 [facility]: 02-12-2023 ambulatory [facility] Start: 02-12-2023 End: 02-13-2023 ambulatory [facility] Start: 02-12-2023 End: 02-12-2023 ambulatory [facility] Start: 02-12-2023 End: 02-12-2023 Encounter for preprocedural laboratory examination [facility] Start: 02-08-2023 End: 02-09-[address] DOCTOR BUSTILLO Facility:[facility] Start: 02-08-2023 End: 02-09-2023 Encounter for preprocedural laboratory examination DR DOCTOR BUSTILLO Facility:[facility] Start: 01-01-2023 End: 01-02-2023 ambulatory MISTY LANDRUM Facility:[facility] Start: 12-22-2022 ambulatory [facility] Start: 12-22-2022 ambulatory [facility] Start: 12-20-2022 End: 12-21-2022 ambulatory MISTY LANDRUM Facility:[facility] Start: 12-11-2022 End: 12-12-2022 ambulatory [facility] Start: 11-24-2022 End: 11-25-2022 ambulatory [facility] Start: 10-26-2022 End: 10-27-2022 ambulatory MISTY LANDRUM Facility: Start: 09-19-2022 End: 09-20-2022 ambulatory [facility] Start: 06-06-2022 End: 06-09-2022 ambulatory NITO JEONG Facility:[facility] Start: 05-12-2022 ambulatory Facility:[facility]NA[facility] Start: 05-11-2022 ambulatory Facility:[facility]NAND[facility] Start: 04-26-2022 End: 05-01-2022 ambulatory LELE EBABDI Facility:[facility] Start: 04-14-2022 End: 04-15-2022 ambulatory LELE EBHEIM Facility:[facility] Procedures Date Procedure Procedure Detail Performing Clinician Start: 10-31-2023 Mammography Misty griffiths PA Work Phone: Start: 05-14-2023 H/O: hysterectomy History of hystere ctomy Misty WILKERSON Work Phone: Start: 06-07-2022 Antibody screen NITO JEONG Comment on above: Performed By: #### 6 2586 #### [facility] [address] [place] [address], [facility] Start: 11-18-2019 Colonoscopy Misty WILKERSON Work Phone: Plan of Treatment Date Care Activity Detail Author Start: 11-18-2029 Screening for malign ant neoplasm of colon [facility] Start: 10-31-2024 Screening for malign ant neoplasm of breast Mammogram [facility] Start: 01-10-2024 End: 01-10-2024 Patient encounter procedure 01/10/2024 8:00 AM EST Office Visit [facility] [address] [place] [place] [id number] Misty Landrum PA [address] [facility] [address] [place] [address] [facility] Start: 12-19-2023 End: 12-12-2024 Basic metabolic 1998 panel - Serum or Plasma Basic metabolic panel Lab Routine Uncontrolled hypertension (CMS/HCC) Expected: 12/19/2023 (Approximate), Expires: 12/12/2024 [facility] Comment on above: Expected: 12/19/2023 (Approximate), Expires: 12/12/2024 Start: 12-14-2023 Medicare Annual Well ness (AWV) Medicare Annual Wellness (AWV) [facility] Start: 12-12-2023 End: 12-12-2024 US.doppler Renal artery Vascular US renal artery duplex complete Imaging Routine Uncontrolled hypertension (CMS/HCC) Expected: 12/12/2023, Expires: 12/12/2024 [facility] Work Phone: Comment on above: Expected: 12/12/2023 , Expires: 12/12/2024 Start: 07-06-2023 Influenza vaccination Influenza Vacc ine [facility] Start: 07-26-2022 Screening for malign ant neoplasm of colon FIT-DNA [facility] Start: 02-26-2016 Administration of varicella zoster vaccine Zoster (Shingles) Vaccine (1 of 2) [facility] Start: 1987 Screening for malign ant neoplasm of cervix Pap Smear [facility] Start: 1985 DTaP,Tdap and Td Vac cines (1 - Tdap) DTaP,Tdap and Td Vaccines (1 - Tdap) [facility] Start: 02-26-1984 Adult BMI Screening Adult BMI Screen ing [facility] Start: 1978 Depression Screening Depression Scre ening [facility] Start: 1978 Tobacco Screening Tobacco Screening [facility] Start: 1966 Screening for malign ant neoplasm of colon [facility] Immunizations Immunization Date Immunization Notes Care Provider Fa cility 12-12-2023 influenza, injectabl e, quadrivalent, preservative free Misty WILKERSON Work Phone: [facility] 10-18-2022 influenza, injectabl e, quadrivalent, preservative free Misty WILKERSON Work Phone: [facility] 09-05-2021 influenza, injectabl e, quadrivalent, contains preservative Misty Hemalexa WILKERSON Work Phone: [facility] Payers Date Payer Category Payer Unknown [employer] [id number] 2023-Present [address] [place] [address] [id number] 2020 Medicare [id number] 2015 Medicare [employer] MEDICARE [employer] [id number] 2015-Present [phone] [address] [address] [place] [address] [id number] 1966 Unknown [id number] [id number] 1966 Unknown [id number] 2.16.840.1.823729.3.579.2.594 1966 Unknown [id number] 2.16.840.1.590014.3.579.2.647 1966 Unknown [id number] 2.16.840.1.286792.3.579.2.647 1966 Unknown [id number] 2.16.840.1.745459.3.579.2.647 1966 Unknown [id number] 2.16.840.1.387451.3.579.2.593 1966 Unknown [id number] 2.16.840.1.590220.3.579.2.593 1966 Unknown [id number] 2.16.840.1.412538.3.579.2.593 1966 Unknown [id number] 2.16.840.1.769899.3.579.2.593 1966 Unknown [id number] 2.16.840.1.591521.3.579.2.593 1966 Unknown [id number] 2.16.840.1.139961.3.579.2.1259 1966 Unknown [id number] 2.16.840.1.093777.3.579.2.1259 1966 Unknown [id number] 2.16.840.1.543390.3.579.2.1259 1966 Unknown [id number] 2.16.840.1.384636.3.579.2.1259 1966 Unknown [id number] 2.16.840.1.215306.3.579.2.1259 Social History Date Type Detail Facility Start: 04-04-2023 Tobacco smoking status [facility] Never smoked tobacco [facility] Start: 04-04-2023 Tobacco use and exposure Smokeless tobacco non-user [facility] Start: 12-12-2023 Alcohol intake Lifetime non-drinker (finding) [facility] Start: 12-16-2020 End: 07-15-2023 History of Social function [facility] Start: 12-16-2020 End: 07-15-2023 Humiliation, Afraid, Rape, and Kick questionnaire [HARK] [facility] Within the last year , have [...] 1965 Sex Assigned At Not on file [facility] Tobacco smoking stat [facility] Tobacco smoking consumption unknown [facility] Clinical Notes 09-18-2022 to 01-08-2024 Telephone Encounter - Rita Hussein - 01/08/2024 11:01 AM ESTTelephone Encounter - Rita Hussein - 01/08/2024 11:01 AM ESTTelephone Encounter - Rita Hussein - 01/07/2024 11:08 AM EST Note Date & Type Note Facility 01-08-2024 Miscellaneous Notes T/C to PCP office, spoke with Nery letting them know we have been unsuccessful in reaching the patient after four attempts and mailed a letter requesting she call to schedule her PPC appt. documented in this encounter [facility] 01-08-2024 Telephone encounter Note T/C to PCP office, spoke with Nery letting them know we have been unsuccessful in reaching the patient after four attempts and mailed a letter requesting she call to schedule her PPC appt. [facility] 01-07-2024 Miscellaneous Notes TC to pt to schedule [facility] PPC appt. Phone just rings and then goes to a busy signal. documented in this encounter [facility] 01-07-2024 Telephone encounter Note TC to pt to schedule [facility] PPC appt. Phone just rings and then goes to a busy signal. [facility] 01-02-2024 Miscellaneous Notes Referral received from Misty Landrum to schedule pt for a [facility] [facility] referral, phoned pt and phone just rings and then goes busy. documented in this encounter [facility] 01-02-2024 Telephone encounter Note Referral received from Misty Landrum to schedule pt for a [facility] referral, phoned pt and phone just rings and then goes busy. [facility] 12-13-2023 Telephone encounter Note Abi sent. [facility] 12-13-2023 Miscellaneous Notes Abi sent. Pt is requesting a refill of her nausea meds. I do not see that she was ever on any meds for nausea. documented in this encounter [facility] 12-13-2023 Telephone encounter Note Pt is requesting a refill of her nausea meds. I do not see that she was ever on any meds for nausea. [facility] 12-12-2023 History of Presen t illness Narrative Subjective Patient ID: Jenni Kapadia is a 58 y.o. female who presents [...] Past Surgical History: Procedure Laterality Date CHOLECYSTECTOMY 2008 COLONOSCOPY 2017 FOOT SURGERY Left 2004 HYSTERECTOMY [...] influenza - influenza, injectable, quadrivalent, PF free ([id number]) (Fluzone / Fluarix / Alluria / Flulaval [...] to consider alternative medication. Daytime somnolence Called [facility] to request results of previous sleep study. If pt has sleep apnea that is uncontrolled, likely contributing to her elevated BP. Follow up in about 4 weeks (around 01/09/2024) for Hypertension. documented in this encounter [facility] 08-29-2023 Note Orthopedic Surgery Subjective LEFT patella [...] tibial autograft and revision ORIF with Dr. Green. 05/25/23 Patient is presenting for evaluation of [...] any issues with the incision. 03/23/23 Jenni Kapadia is a 58 y.o. female presenting for [...] depending on her activity level. She takes [place] as needed. Denies any numbness and tingling. [...] findings were reviewed with the patient. Assessment/Plan Jenni Kapadia is a 58 y.o. year old female [...] to his/her satisfa (more content not included)... [facility] 05-25-2023 Note Orthopedic Surgery Subjective L patella [...] any issues with the incision. 03/23/23 Jenni Kapadia is a 58 y.o. female presenting for [...] depending on her activity level. She takes [place] as needed. Denies any numbness and tingling. [...] Fracture line still clearly evident. Assessment/Plan Jenni Kapadia is a 58 y.o. year old female [...] non-union. Facundo Nino MD Orthopaedic Surgery PGY-2 [facility] 05/25/23 11:00 AM [facility] 03-23-2023 Note Orthopedic Surgery Subjective Follow-up of the Left Knee 03/23/23 Jenni Kapadia is a 58 y.o. female presenting for [...] depending on her activity level. She takes [place] as needed. Denies any numbness and tingling. [...] of hardware loosening or failure. Assessment/Plan Jenni Kapadia is a 58 y.o. year old female [...] be an additional personal documentation from me. [facility] 02-23-2023 Note Orthopedic Surgery Subjective 02/12/2023 Patellar revision ORIF, with patellar plating - Left, Removal, Hardware, Patella - Left, and Proximal tibia bone graft - Left 02/23/23 Jenni presents today for first postoperative visit, she states that she has had some trouble with pain since surgery and has been taking [place] with mild relief. Denies any wound concerns [...] distally - Brisk capillary refill Assessment/Plan Jenni Kapadia is a 57 y.o. year old female [...] be an additional personal documentation from me. 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 [facility] 02-12-2023 Note Peripheral Block Patient location during procedure: pre-op Start time: 02/12/2023 7:14 AM End time: 02/12/2023 7:30 AM Reason for block: at surgeon's request and post-op pain management Staffing Performed: anesthesiologist and resident/TYPE DISK QUALITY CONTROL SUPERVISOR/CAA Anesthesiologist: Tova Tam MD Resident/TYPE DISK QUALITY CONTROL SUPERVISOR: Brannon Mooney MD Preanesthetic Checklist Completed: patient [...] rate change: no Slow fractionated injection: yes [facility] 02-12-2023 Note Airway Date/Time: 02/12/2023 7:44 AM Urgency: elective General Information and Staff Patient location during procedure: OR Anesthesiologist: Tova Tam MD Resident/TYPE DISK QUALITY CONTROL SUPERVISOR/CAA: Brannon Mooney MD Performed: other anesthesia staff [...] 1 Number of other approaches attempted: 0 [facility] 02-12-2023 Note Subjective Pain about left patella. [...] proximal tibia bone graft NPO Consented Marked [facility] 02-12-2023 Note Patient: Jenni jonas Procedure Information Date/Time: 02/12/23729 Procedures: Patellar revision ORIF, with patellar plating (Left: Knee) Removal, Hardware, Patella (Left: Knee) Proximal tibia bone graft (Left: Knee) - C-ARM / 2.5 hours / [facility] / Synthes MINI NON LOCKING SET, NOTIFIED / ARACELI, ARTHREX PLATE AND SCREWS IN, NEED T10 SCREWDRIVER, HAVE CANNULATED SCREWS AVAILABLE Location: [facility] OPERATING ROOM 05 / [facility] Operating Room Surgeons: Alicia Green MD Relevant Problems Anesthesia (within normal limits) [...] Plan discussed with attending. Additional Equipment Requests [facility] 12-22-2022 Note Subjective 12/22/22 Jenni Kapadia is a 57 y.o. year old female [...] full description of findings Electronically signed: Dianne Lopez. Assessment/Plan Jenni Kapadia is a 57 y.o. year old female [...] block prior to procedure Gareth Palomo, MS3 [facility] 11-24-2022 Note Date of Surgery: ENOC E [...] healing of patella fracture F/U with Dr Green after CT [facility] 09-19-2022 Note Date of Surgery: ENOC E [...] for WBAT F/U 6 wks repeat xrays [facility] 09-18-2022 Note Left Xr left knee [facility] Evaluation note Diagnosis Uncontrolled hypertension (CMS/HCC)- Primary [...] Nausea alone documented in this encounter [facility]InstructionsNot on filedocumented in this encounterProEast Liverpool City HospitalReason for referral (narrative)* Consultation (Routine) - Pending Review Specialty Diagnoses / Procedures Referred By Marley blanco Referred To Contact Cardiology Diagnoses Uncontrolled hypertension (CMS/HCC) Chest pain, unspecified type Procedures SC OFFICE/OUTPATIENT [facility] HIGH MDM 60 MINUTES Misty Landrum PA [address] [facility] [address] [place] [address] Saw Billings MD [address] [place] [address] Referral ID Status Reason Start Date Expiration Date Visits Requested Visits Authorized [id number] Pending Review Specialty Services Required 12/12/2023 06/09/2024 [...] Contact Diagnoses Nausea Misty Landrum PA [address] [facility] [address] [place] [address] Referral ID Status Reason Start Date Expiration Date Visits Re quested Visits Authorized [id number] Closed 1 1 Additional Source Comments INFORMATION SOURCE (unrecogn ized section and content) DATE CREATED AUTHOR 11/16/2021 [facility] dical Specialist DATE CREATED AUTHOR AUTHOR'S ORGANIZ ATION 05/23/2022 [facility] DATE CREATED AUTHOR AUTHOR'S ORGANIZ ATION 06/29/2022 [facility] DATE CREATED AUTHOR AUTHOR'S ORGANIZ ATION 04/13/2023 [facility] DATE CREATED AUTHOR AUTHOR'S ORGANIZ ATION 08/31/[address] [facility] DATE CREATED AUTHOR AUTHOR'S ORGANIZ ATION 01/11/2024 [facility] dical Specialists EPIC Care Teams (unrecognized sec tion and content) Vault Manager Relationship Specialty Start Date End Date Nito Jeong MD [address] [facility] [address] [place] [address] PCP - Devoted 11/05/21 Nito Jeong MD [address] [facility] [address] [place] [address] PCP - General Internal Medicine 05/14/23 Vault Manager Relationship Specialty Start Date End Date Nito Jeong MD [address] [facility] [address] [place] [address] PCP - [facility] 11/05/21 Nito Jeong MD [address] [facility] [address] [place] [address] PCP - General Internal Medicine 05/14/23 Vault Manager Relationship Specialty Start Date End Date Misty Landrum PA [address] [facility] [address] [place] [address] PCP - General Physician Concrete Pump Operator Helper 01/08/24 Reason for Visit (unrecogniz ed section and [...] BE BASED ON THE PRIMARY CLINICAL RECORDS. [employer] provides no warranty or guarantee of the accuracy or completeness of information in this document.
== END 2024-01-14 09:05 | disposition home or self-care (01) ==
LOC: SLEEP 09:04
PROVIDERS: PCP Physician Assistant; Visit Provider Physician Assistant
DX: G47.33 Obstructive sleep apnea (adult) (pediatric) (principal)
CPT/HCPCS: 95806

== ENCOUNTER 2024-09-05 12:53 | Outpatient (OUT) | payer OTHER, SELFPAY ==
--- OUTSIDE RECORDS SUMMARY | 2024-09-05 13:15 | XMS_ITS | CCD ---
Author Organization [facility] Care Team Providers Care Administration Dean Name Role Phone NITO JEONG Primary Care Unavailable EBRAHEIM, LELE Admitting Unavailable NITO JEONG Referring Unavailable EBRAHEIM, LELE Attending Unavailable EBRAHEIM, LELE Attending Unavailable NITO JEONG Primary Care Unavailable EBRAHEIM, LELE Admitting Unavailable NITO JEONG Referring Unavailable EBRAHEIM, LELE Attending Unavailable NITO JEONG Referring Unavailable NITO JEONG Primary Care Unavailable EBRAHEIM, LELE Admitting Unavailable HEMMISTY LIU M Admitting Unavailable ZIEBER, DR TRUPTI Vicente Consulting Unavailable JEONG, DR BURCH Primary Care Unavailable HEMMER, MISTY Person Attending Unavailable HEMMERMISTY Consulting Unavailable HEMMERMISTY Attending Unavailable HEMMERMISTY Consulting Unavailable HEMMER, MISTY M Admitting Unavailable JEONG, DR BURCH Primary Care Unavailable HEMMER, MISTY Person Attending Unavailable HEMMER, MISTY M Admitting Unavailable JEONG, DR BURCH Primary Care Unavailable JEONG, DR BURCH Consulting Unavailable HEMMERMISTY Consulting Unavailable MISC, DR VILLALTA Admitting Unavailable JEONG, DR BURCH Primary Care Unavailable MISC, DR VILLALTA Attending Unavailable MISC, DR VILLALTA Consulting Unavailable HEMMERMISTY Attending Unavailable JEONG, DR BURCH Primary Care Unavailable ZIEBER, DR TRUPTI Vicente Consulting Unavailable HEMMER, MISTY Raza Admitting Unavailable HEMMER, MISTY Person Consulting Unavailable GREEN, ALICIA Attending Unavailable GREEN, ALICIA Attending Unavailable GREEN, ALICIA Attending Unavailable GREEN, ALICIA Attending Unavailable FENG JOSE Referring Unavailable XIOMARACHRIS Referring Unavailable GREEN, ALICIA Admitting Unavailable GREEN, ALICIA Attending Unavailable XIOMARA, CHRIS Referring Unavailable GREEN, CHRISTNINAER Referring Unavailable GREEN, CHRISTNINAER Referring Unavailable GREEN, CHRISTNINAER Referring Unavailable GREEN, CHRISTNINAER Referring Unavailable GREEN, ALICIA Referring Unavailable CHRIS SOLANO Attending Unavailable SELF, REFERRED Referring Unavailable PETER, ALICIA Attending Unavailable PETER, ALICIA Referring Unavailable CHRIS SOLANO Attending Unavailable Nito Jeong MD Unavailable Nito Jeong MD Primary Care Provider [phone] Unavailable Primary Care Provider Unavailabl e Hemmer Misty WILKERSON Primary Care Provider Deena MCKENZIE Admitting Unavailable Deena MCKENZIE Attending Unavailable HEMMER, MISTY Primary Care Unavailable MADDY TRUJILLO Attending Unavailable HEMMERMISTY Referring Unavailable HEMMER, [facility] Primary Care Unavailable KATTAMADDY Vicente Attending Unavailable KATTARDAVIDRA R Referring Unavailable HEMMER, [facility] Primary Care Unavailable KATTARMADDY Attending Unavailable KATTARDAVIDRA R Referring Unavailable HEMMER, [facility] Primary Care Unavailable KATTAMADDY Vicente Attending Unavailable KATTARDAVIDRA R Referring Unavailable HEMMER, [facility] Primary Care Unavailable SAGETAMADDY Vicente Attending Unavailable SAGETARJADYNMADDY R Referring Unavailable HEMMER, [facility] Primary Care Unavailable URIEL ISBELL Referring Unavailable HEMMER, [facility] Primary Care Unavailable KATTARDAVIDRA Cinthia Attending Unavailable KATTAR MADDY R Referring Unavailable HEMMER, [facility] Primary Care Unavailable SAGETARMADDY Attending Unavailable SAGETARDAVIDRA R Referring Unavailable HEMMER, [facility] Primary Care Unavailable HEMMER, MISTY Referring Unavailable HEMMER, [facility] Primary Care Unavailable JAG ESCAMILLA Attending Unavailable HEMMISTY LIU Referring Unavailable HEMMER, MISTY Primary Care Unavailable NITO JEONG Attending Unavailable HEMMISYT LIU Attending Unavailable NITO JEONG Attending Unavailable HEMMISTY LIU Attending Unavailable HEMMISTY LIU Attending Unavailable HEMMISTY LIU Attending Unavailable HEMMISTY LIU Attending Unavailable HEMMISTY LIU Attending Unavailable Medications Current Medications Medication Drug Class(es) Dates Sig (Normalized) Sig (Original) acetaminophen 325 mg / HYDROcodone bitartrate 5 mg oral tablet (6 sources) Opioid Agonist Start: 08-14-2024 End: 09-18-2024 take 1 tablet by mouth every six hours for pain HYDROcodone-acetami nophen ([place]) 5-325 MG tablet Indications: Osteoarthritis of lumbosacral spine with radiculopathy Take 1 tablet by mouth every 6 (six) hours if needed for severe pain 120 tablet 08/19/2024 09/18/2024 Active alendronic acid 70 mg oral tablet (10 sources) Bisphosphonate Start: 08-10-2023 alendronate (Fosamax) 70 MG tablet Indications: Osteoporosis of multiple sites (CMS/HCC) TAKE 1 TABLET BY MOUTH 30 MINUTES BEFORE first meal once a week 12 tablet 3 08/10/2023 Active amLODIPine 10 mg oral tablet (10 sources) Dihydropyridine Calcium Channel Yunier Start: 11-26-2023 End: 11-25-2024 take 1 tablet by mouth in the morning amLODIPine (Norvasc) 10 MG tablet Indications: Essential hypertension (CMS/HCC) Take 1 tablet (10 mg) by mouth in the morning. 100 tablet 3 07/25/2024 Active aspirin 81 mg delayed release oral tablet (7 sources) Platelet Aggregation Inhibitor, Nonsteroidal Anti-inflammatory Drug Start: 05-30-2024 take 1 tablet by mouth in the morning aspirin (Aspirin Low Dose) 81 MG EC tablet Indications: Nonrheumatic aortic valve insufficiency Take 1 tablet (81 mg) by mouth in the morning. 90 tablet 3 05/30/2024 Active calcium carbonate 500 mg oral tablet (10 sources) take 1 tablet by mouth twice daily at mealtime calcium carbonate (Os-Yang) 1250 (500 Ca) MG tablet Take 1,250 mg by mouth every 12 (twelve) hours. 1 tablet with meals twice daily. Active carvedilol 25 mg oral tablet (10 sources) alpha-Adrenergic Yunier, beta-Adrenergic Yunier Start: 01-28-2024 take 1 tablet by mouth once daily at mealtime carvedilol (Coreg) 25 MG tablet Indications: Essential hypertension (CMS/HCC) take 1 tablet by mouth every morning and evening with meals 200 tablet 3 01/28/2024 Active Start: 11-15-2023 take 1 tablet by jesse th in the morning carvedilol (Coreg) 25 MG tablet Indications: Essential hypertension (CMS/HCC) Take 1 tablet (25 mg) by mouth in the morning and 1 tablet (25 mg) in the evening. Take with meals. 60 tablet 2 11/15/2023 Active cholecalciferol 0.025 mg oral tablet (10 sources) Vitamin D Start: 07-25-2024 take 1 tablet by mouth once daily cholecalciferol (Vitamin D3) 25 MCG (1000 UT) tablet Indications: Vitamin D deficiency Take 1 tablet (25 mcg) by mouth 1 (one) time each day at the same time 100 tablet 3 07/25/2024 Active take 1 tablet by mouth once jacqueline y cholecalciferol (Vitamin D3) 25 MCG (1000 UT) tablet Take 1,000 Units by mouth 1 (one) time each day at the same time. 0 Active cloNIDine hydrochloride 0.1 mg oral tablet (8 sources) Central alpha-2 Adrenergic Agonist Start: 07-25-2024 End: 08-19-2024 take 1 tablet by mouth in the morning cloNIDine (Catapres) 0.1 MG tablet Indications: Essential hypertension (CMS/HCC) Take 1 tablet (0.1 mg) by mouth in the morning and 1 tablet (0.1 mg) before bedtime. 180 tablet 3 08/19/2024 Active clopidogrel 75 mg oral tablet (7 sources) P2Y12 Platelet Inhibitor take 1 tablet by mouth in the morning clopidogrel (Plavix) 75 MG tablet Take 75 mg by mouth in the morning. Active famotidine 20 mg oral tablet (1 source) Histamine-2 Receptor Antagonist Start: 08-20-2024 take 1 tablet by mouth once daily famotidine (Pepcid) 20 MG tablet Indications: Gastroesophageal reflux disease without esophagitis Take 1 tablet (20 mg) by mouth Daily 30 tablet 1 08/20/2024 Active ferrous sulfate 325 mg oral tablet (10 sources) Start: 07-25-2024 take 1 tablet by mouth in the morning ferrous sulfate (FeroSul) 325 (65 Fe) MG tablet Indications: Abnormality of red blood cells Take 1 tablet (325 mg) by mouth in the morning. 180 tablet 1 07/25/2024 Active Start: 05-21-2023 take 1 tablet by jesse th in the morning ferrous sulfate (FeroSul) 325 (65 Fe) MG tablet Indications: Abnormality of red blood cells Take 1 tablet (325 mg) by mouth in the morning. 90 tablet 3 05/21/2023 Active folic acid 1 mg oral tablet (10 sources) Start: 07-25-2024 take 1 tablet by mouth once daily folic acid (Folvite) 1 MG tablet Indications: B12 deficiency Take 1 tablet (1,000 mcg) by mouth Daily 80 tablet 1 07/25/2024 Active take 1 tablet by mouth in the mo rning folic acid (Folvite) 1 MG tablet Take 1,000 mcg by mouth in the morning. 0 Active hydroCHLOROthiazide 25 mg / olmesartan medoxomil 40 mg oral tablet (10 sources) Thiazide Diuretic, Angiotensin 2 Receptor Yunier Start: 11-02-2023 End: 11-01-2024 take 1 tablet by mouth in the morning olmesartan-hydroCHLOROthiazide (BENIcar HCT) 40-25 MG tablet Indications: Essential hypertension (CMS/HCC) Take 1 tablet by mouth in the morning. 100 tablet 3 07/25/2024 Active ibuprofen 800 mg oral tablet (7 sources) Nonsteroidal Anti-inflammat ory Drug Start: 05-30-2024 End: 08-14-2024 take 1 tablet by mouth in the morning, then take 1 tablet by mouth in the evening, then take 1 tablet by mouth at bedtime ibuprofen 800 MG tablet Indications: Lumbar radiculopathy Take 1 tablet (800 mg) by mouth in the morning and 1 tablet (800 mg) in the evening and 1 tablet (800 mg) before bedtime. 270 tablet 3 05/30/2024 08/14/2024 Discontinued (Side effects) Start: 11-26-2023 take 1 tablet by jesse th in the morning, then take 1 tablet by mouth in the evening, then take 1 tablet by mouth at bedtime ibuprofen 800 MG tablet Indications: Lumbar radiculopathy Take 1 tablet (800 mg) by mouth in the morning and 1 tablet (800 mg) in the evening and 1 tablet (800 mg) before bedtime. 270 tablet 3 11/26/2023 Active levothyroxine sodium 0.2 mg oral tablet (9 sources) l-Thyroxine Start: 04-30-2024 take 1 tablet by mouth once daily levothyroxine (Synthroid) 200 MCG tablet Indications: Acquired hypothyroidism (CMS/HCC) Take 1 tablet (200 mcg) by mouth Daily 30 tablet 1 04/30/2024 Active Start: 10-22-2023 take 1 tablet by jesse th once daily levothyroxine (Synthroid, Levoxyl) 150 MCG tablet Indications: Hypothyroidism, unspecified (CMS/HCC) TAKE 1 TABLET BY MOUTH EVERY DAY 90 tablet 3 10/22/2023 Active mecobalamin 1 mg sublingual tablet (10 sources) Start: 07-25-2024 take 1 tablet under the tongue once daily B-12, Methylcobalamin, 1000 MCG sublingual tablet Indications: B12 deficiency Place 1 tablet under the tongue Daily 90 tablet 3 07/25/2024 Active Start: 04-23-2023 take 1 tablet under the tongue once daily B-12, Methylcobalamin, 1000 MCG sublingual tablet Indications: B12 deficiency DISSOLVE 1 (ONE) TABLET UNDER THE TONGUE ONCE DAILY 90 tablet 3 04/23/2023 Active nitroglycerin 0.4 mg sublingual tablet (7 sources) Nitrate Vasodilator Start: 03-27-2024 nitroglycerin (Nitrostat) 0.[address] 0.4 mg under the tongue every 5 (five) minutes if needed for chest pain ER if no resolution after third dose 03/27/2024 Active omeprazole 40 mg delayed release oral capsule (7 sources) Proton Pump Inhibitor Start: 05-30-2024 End: 08-14-2024 take 1 capsule by mouth once daily omeprazole (PriLOSEC) [address] capsule Indications: Gastroesophageal reflux disease, unspecified whether esophagitis present Take 1 capsule (40 mg) by mouth Daily Do not crush or chew. 90 capsule 3 05/30/2024 08/14/2024 Discontinued (Ineffective) Start: 07-12-2023 take 1 capsule by mo uth once daily omeprazole (PriLOSEC) [address] capsule Indications: Gastroesophageal reflux disease, unspecified whether esophagitis present TAKE 1 CAPSULE BY MOUTH DAILY 90 capsule 3 07/12/2023 Active ondansetron 4 mg disintegrating oral tablet (9 sources) Serotonin-3 Receptor Antagonist Start: 08-12-2024 End: 08-29-2024 take 1 tablet by mouth every eight hours for nausea ondansetron ODT (Zofran-ODT) 4 MG disintegrating tablet Indications: Nausea and vomiting, unspecified vomiting type Take 1 tablet (4 mg) by mouth every 8 (eight) hours if needed for nausea or vomiting for up to 7 days 21 tablet 08/22/2024 08/29/2024 Active Start: 12-13-2023 End: 12-20-2023 take 1 tablet by mouth every eight hours as needed for nausea and vomiting and nausea and nausea ondansetron ODT (Zofran-ODT) 4 MG disintegrating tablet Indications: Nausea Take 1 tablet (4 mg) by mouth every 8 (eight) hours if needed for nausea or vomiting for up to 7 days 21 tablet 0 12/13/2023 12/20/2023 Active pantoprazole 40 mg delayed release oral tablet (5 sources) Proton Pump Inhibitor Start: 08-14-2024 take 1 tablet by mouth before mealtime pantoprazole (Protonix) 40 MG EC tablet Indications: Gastroesophageal reflux disease without esophagitis Take 1 tablet (40 mg) by mouth in the morning. Take before meals. Do not crush, chew, or split.. 90 tablet 3 08/14/2024 Active pregabalin 150 mg oral capsule (7 sources) Start: 07-10-2024 take 1 capsule by mouth in the morning pregabalin (Lyrica) 150 MG capsule Indications: Other chronic pain Take 1 capsule (150 mg) by mouth in the morning and 1 capsule (150 mg) before bedtime. 60 capsule 2 07/10/2024 Active rosuvastatin calcium 20 mg oral tablet (10 sources) HMG-CoA Reductase Inhibitor Start: 07-25-2024 take 1 tablet by mouth once daily rosuvastatin (Crestor) 20 MG tablet Indications: Mixed hyperlipidemia (CMS/HCC) Take 1 tablet (20 mg) by mouth Daily 100 tablet 3 07/25/2024 Active Start: 08-15-2023 take 1 tablet by jesse th in the morning rosuvastatin (Crestor) 20 MG tablet Indications: Mixed hyperlipidemia (CMS/HCC) Take 1 tablet (20 mg) by mouth in the morning. 100 tablet 3 08/15/2023 Active spironolactone 25 mg oral tablet (3 sources) Aldosterone Antagonist Start: 12-12-2023 take 1 tablet by mouth in the [...] 12/12/2023 Active tiZANidine 4 mg oral tablet (10 sources) Central alpha-2 Adrenergic Agonist Start: 07-10-2024 take 1 tablet by mouth in the morning, then take 1 tablet by mouth in the evening, then take 1 tablet by mouth at bedtime tiZANidine (Zanaflex) 4 MG tablet Indications: Primary insomnia Take 1 tablet (4 mg) by mouth in the morning and 1 tablet (4 mg) in the evening and 1 tablet (4 mg) before bedtime. 360 tablet 3 07/10/2024 Active take 1 tablet by jesse th in the morning, then take 1 tablet by mouth in the evening, then take 1 tablet by mouth at bedtime tiZANidine (Zanaflex) 4 MG tablet Take 4 mg by mouth in the morning and 4 mg in the evening and 4 mg before bedtime. 0 Active traMADol hydrochloride 50 mg oral tablet (9 sources) Opioid Agonist Start: 07-25-2024 End: 08-14-2024 take 2 tablets by mouth every six hours for pain traMADol (Ultram) 50 MG tablet Indications: Pain Take 2 tablets (100 mg) by mouth every 6 (six) hours if needed for moderate pain 240 tablet 07/25/2024 08/14/2024 Discontinued (Ineffective) Start: 10-08-2023 End: 12-12-2023 take 2 tablets by mouth every six hours for pain traMADol (Ultram) 50 MG tablet Indications: Pain Take 2 tablets (100 mg) by mouth every 6 (six) hours if needed for moderate pain 240 tablet 0 12/12/2023 Active 24 hr venlafaxine 150 mg extended release oral capsule (10 sources) Serotonin and Norepinephrine Reuptake Inhibitor Start: 10-22-2023 take 2 capsules by mouth once daily at mealtime venlafaxine XR (Effexor XR) 150 MG 24 hr capsule Indications: Generalized anxiety disorder (CMS/HCC) TAKE 2 CAPSULES BY MOUTH EVERY DAY WITH FOOD 180 capsule 3 10/22/2023 Active zolpidem tartrate 10 mg oral tablet (10 sources) gamma-Aminobutyric Acid-ergic Agonist Start: 07-10-2024 zolpidem (Ambien) 10 MG tablet Indications: Insomnia, unspecified Take 1 tablet (10 mg) by mouth as needed at bedtime for sleep 30 tablet 2 07/10/2024 Active Start: 11-26-2023 zolpidem (Ambi en) 10 MG tablet Indications: Insomnia, unspecified Take 1 tablet (10 mg) by mouth as needed at bedtime for sleep 30 tablet 2 11/26/2023 Active Problems Active Problems Problem Classification Problem Date Documented Da te Episodic/Chronic Abdominal pain (2 sources) Epigastric pain; Translations: [Epigastric pain] 08-14-2024 Episodic Anxiety disorders (10 sources) Generalized anxiety disorder; Translations: [Generalized anxiety disorder] Onset: 3 04-13-2023 Chronic Conduction disorders (8 sources) Left bundle-branch block, unspecified; Translations: [Left bundle branch block] Onset: 4 04-14-2024 Chronic Coronary atherosclerosis and other heart disease (9 sources) Coronary arteriosclerosis; Translations: [Atherosclerotic heart disease of [place] coronary artery without angina pectoris] Onset: 4 04-14-2024 Chronic Coronary atherosclerosis and other heart disease (1 source) Presence of coronary angioplasty implant and graft; Translations: [Presence of coronary angioplasty implant and graft] Onset: Episodic Disorders of lipid metabolism (18 sources) Mixed hyperlipidemia; Translations: [Mixed hyperlipidemia] Onset: 3 04-13-2023 Chronic Esophageal disorders (12 sources) Gastroesophageal reflux disease; Translations: [Gastro-esophageal reflux disease without esophagitis] Onset: 3 04-13-2023 Chronic Essential hypertension (18 sources) Hypertensive disorder; Translations: [Essential (primary) hypertension] Onset: 3 12-12-2023 Chronic Headache; including migraine (7 sources) New daily persistent headache; Translations: [New daily persistent headache (NDPH)] Onset: 4 08-14-2024 Chronic Heart valve disorders (7 sources) Aortic incompetence, non-rheumatic ; Translations: [Nonrheumatic aortic (valve) insufficiency] Onset: 4 04-14-2024 Chronic Heart valve disorders (1 source) Cardiac murmur, unspecified; Translations: [Cardiac murmur, unspecified] Onset: 4 Episodic Immunizations and screening for infectious disease (2 sources) Needs influenza immunization; Translations: [Encounter for immunization] 12-12-2023 Episodic Joint disorders and dislocations; trauma-related (12 sources) Traumatic arthropathy-knee; Translations: [Traumatic arthropathy, left knee] Onset: 3 04-13-2023 Chronic Miscellaneous mental health disorders (12 sources) Primary insomnia; Translations: [Primary insomnia] Onset: 3 12-12-2023 Chronic Mood disorders (10 sources) Depressive disorder; Translations: [Depressive disorder] Onset: 3 04-13-2023 Chronic Nausea and vomiting (3 sources) Nausea; Translations: [Nausea] 12-13-2023 Episodic Osteoporosis (20 sources) Osteoporosis; Translations: [Age-related osteoporosis without current pathological fracture] Onset: 1 Resolved: 4 04-13-2023 Chronic Other circulatory disease (1 source) Peripheral vascular angioplasty status with implants and grafts; Translations: [Peripheral vascular angioplasty status with implants and grafts] Onset: 4 Chronic Other diseases of bladder and urethra (10 sources) Overactive bladder; Translations: [Overactive bladder] Onset: 3 04-13-2023 Chronic Other gastrointestinal disorders (2 sources) Dark stools; Translations: [Other fecal abnormalities] 08-14-2024 Episodic Other hereditary and degenerative nervous system conditions (10 sources) Restless legs; Translations: [Restless legs syndrome] Onset: 3 04-13-2023 Chronic Other inflammatory condition of skin (10 sources) Lupus erythematosus; Translations: [Discoid lupus erythematosus] Onset: 3 04-13-2023 Chronic Other lower respiratory disease (1 source) Shortness of breath; Translations: [Shortness of breath] Onset: 4 Episodic Other nervous system disorders (10 sources) Chronic pain; Translations: [Other chronic pain] Onset: 3 04-13-2023 Chronic Other nervous system disorders (10 sources) Peripheral nerve disease ; Translations: [Polyneuropathy, unspecified] Onset: 3 04-13-2023 Chronic Other nutritional; endocrine; and metabolic disorders (10 sources) Metabolic syndrome X; Translations: [Metabolic syndrome X] Onset: 3 04-13-2023 Chronic Other nutritional; endocrine; and metabolic disorders (7 sources) Severe obesity; Translations: [Class 3 severe obesity with serious comorbidity and body mass index (BMI) of 40.0 to 44.9 in adult] Onset: 4 07-15-2024 Chronic Other nutritional; endocrine; and metabolic disorders (2 sources) Obesity caused by energy imbalance; Translations: [Morbid (severe) obesity due to excess calories] 08-14-2024 Chronic Other nutritional; endocrine; and metabolic disorders (2 sources) Body mass index 40+ - severely obese; Translations: [Body mass index (BMI) 40.0-44.9, adult] 08-14-2024 Chronic Residual codes; unclassified (4 sources) Obstructive sleep apnea (adult) (pediatric); Translations: [OBSTRUCTIVE SLEEP APNEA] Onset: 3 Chronic Residual codes; unclassified (8 sources) Obstructive sleep apnea syndrome; Translations: [Obstructive sleep apnea (adult) (pediatric)] Onset: 3 12-12-2023 Chronic Residual codes; unclassified (1 source) Family history of ischemic heart disease and other diseases of the circulatory system; Translations: [Family history of ischemic heart disease and other diseases of the circulatory system] Onset: 4 Episodic Spondylosis; intervertebral disc disorders; other back problems (20 sources) Arthropathy of lumbar facet joint; Translations: [Spondylosis without myelopathy or radiculopathy, lumbar region] Onset: 3 04-13-2023 Chronic Thyroid disorders (10 sources) Hypothyroidism; Translations: [Hypothyroidism, unspecified] Onset: 3 04-13-2023 Chronic Unclassified (3 sources) COUGH, UNSPECIFIED; Translations: [COUGH, UNSPECIFIED] Onset: 3 Unclassified (1 source) Abnormal Stress test, Chest pain Onset: 4 Unclassified (1 source) New Patient Onset: 4 Past or Other Problems Problem Classification Problem Date Documented Da te Episodic/Chronic Coma; stupor; and brain damage (12 sources) Daytime somnolence; Translations: [Somnolence] Onset: 05-14-2023 12-12-2023 Episodic Diabetes mellitus without complication (10 sources) Impaired fasting glycemia; Translations: [Impaired fasting glucose] Onset: 04-13-2023 04-13-2023 Episodic Fluid and electrolyte disorders (14 sources) Hypo-osmolality and hyponatremia; Translations: [Hyponatremia] Onset: 03-28-2023 Episodic Fracture of lower limb (16 sources) Displaced comminuted fracture of left patella, subsequent encounter for closed fracture with delayed healing; Translations: [Displaced osteochondral fracture of left patella, subsequent encounter for closed fracture with routine healing] Onset: 07-21-2022 Resolved: 01-10-2024 Episodic Nonspecific chest pain (18 sources) Chest pain; Translations: [Chest pain, unspecified] Onset: 02-08-2024 12-12-2023 Episodic Nutritional deficiencies (10 sources) Cobalamin deficiency; Translations: [Deficiency of other specified B group vitamins] Onset: 04-13-2023 04-13-2023 Episodic Other acquired deformities (10 sources) Spondylolysis; Translations: [Spondylolysis, lumbar region] Onset: 04-13-2023 04-13-2023 Episodic Other acquired deformities (10 sources) Acquired spondylolisthesis; Translations: [Spondylolisthesis, site unspecified] Onset: 12-25-2016 07-16-2023 Episodic Other connective tissue disease (10 sources) Muscle pain; Translations: [Myalgia, unspecified site] Onset: 05-14-2023 05-14-2023 Episodic Other gastrointestinal disorders (10 sources) Stool DNA-based colorectal cancer screening positive; Translations: [Other fecal abnormalities] Onset: 04-13-2023 04-13-2023 Episodic Other gastrointestinal disorders (10 sources) Abnormal feces; Translations: [Other fecal abnormalities] Onset: 08-07-2019 Resolved: 01-10-2024 07-16-2023 Episodic Other hematologic conditions (10 sources) Red blood cell finding; Translations: [Other abnormality of red blood cells] Onset: 04-13-2023 04-13-2023 Episodic Other lower respiratory disease (10 sources) Snoring; Translations: [Snoring] Onset: 05-14-2023 05-14-2023 Episodic Other lower respiratory disease (7 sources) Dyspnea; Translations: [Shortness of breath] Onset: 02-08-2024 04-14-2024 Episodic Other non-traumatic joint disorders (2 sources) Pain in left knee; Translations: [Pain in left knee] Onset: 09-19-2022 Episodic Other nutritional; endocrine; and metabolic disorders (10 sources) Obese class II; Translations: [Obesity, unspecified] Onset: 04-13-2023 Resolved: 07-15-2024 04-13-2023 Chronic Other nutritional; endocrine; and metabolic disorders (10 sources) Excessive thirst; Translations: [Polydipsia] Onset: 04-13-2023 04-13-2023 Episodic Other screening for suspected conditions (not mental disorders or infectious disease) (20 sources) Encounter for screening mammogram for malignant neoplasm of breast; Translations: [Mammography abnormal] Onset: 10-26-2022 Episodic Residual codes; unclassified (1 source) Family history of malignant neoplasm of other organs or systems; Translations: [FAM HX MALIG NEOPLASM OTH ORGN/SYS] Onset: 11-02-2022 Episodic Residual codes; unclassified (2 sources) Pain, unspecified; Translations: [Pain, unspecified] Onset: 02-12-2023 Episodic Residual codes; unclassified (10 sources) Insomnia; Translations: [Insomnia, unspecified] Onset: 04-13-2023 04-13-2023 Episodic Residual codes; unclassified (7 sources) FH: premature coronary heart disease; Translations: [Family history of ischemic heart disease and other diseases of the circulatory system] Onset: 02-08-2024 04-14-2024 Episodic Spondylosis; intervertebral disc disorders; other back problems (20 sources) Lumbar radiculopathy; Translations: [Radiculopathy, lumbar region] Onset: 04-13-2023 12-12-2023 Episodic Unclassified (1 source) COUGH, UNSPECIFIED; Translations: [COUGH, UNSPECIFIED] Onset: 01-01-2023 Results Test Name Value Interpretation Reference Range Facility ACT Diatomaceous earth induc ed (Bld)on 03-03-2024 [facility]CHRN CLOT TIME LR >400 High 89-169 [facility] Comment on above: Performed By: #### 8 0658-8 #### [facility] ([id number]) [address] [place] [address] HMCHRN CLOT TIME LR 276 sec High 89-169 [facility] Comment on above: Performed By: #### 8 0658-8 #### [facility] ([id number]) [address] [place] [address] BASIC METABOLIC PANLon 02-27 Anion gap [Moles/Vol] 10 mmol/L Normal 5-15 [facility] Comment on above: Performed By: #### B SHANELLE CBCPaola #### [facility] ([id number]) [address] [place] [address] Calcium [Mass/Vol] 9.0 mg/dL Normal 8.5-10.5 [facility] Comment on above: Performed By: #### B DONNY TIMMONS #### [facility] ([id number]) [address] [facility] [address] [place] [address] Chloride [Moles/Vol] 103 mmol/L Normal 98-109 [facility] Comment on above: Performed By: #### B DONNY TIMMONS #### [facility] ([id number]) [address], [address] [place] [address] CO2 [Moles/Vol] 24 mmol/L Normal 22-32 [facility] Comment on above: Performed By: #### B DONNY TIMMONS #### [facility] ([id number]) [address] [place] [address] Creatinine [Mass/Vol] 0.70 mg/dL Normal 0.40-1.00 [facility] Comment on above: Result Comment: METH OD TRACEABLE TO IDMS STANDARD Performed By: #### B DONNY TIMMONS #### [facility] ([id number]) [address] [address] [place] [address] eGFR (CKD-EPI) NON-RACE DEPENDENT >90 Normal >59 [facility] Comment on above: Result Comment: Reported eGFR is based on the CKD-EPI 2020 equation that does not use a race coefficient. Performed By: #### B SHANELLE CBCA #### [facility] ([id number]) [address] [place] [address] Glucose [Mass/Vol] 118 mg/dL High 65-99 [facility] Comment on above: Performed By: #### B SHANELLE CBCA #### [facility] ([id number]) [address] [place] [address] Potassium [Moles/Vol] 4.5 mmol/L Normal 3.5-5.0 [facility] Comment on above: Performed By: #### B SHANELLE CBCA #### [facility] ([id number]) [address], [address] [place] [address] Sodium [Moles/Vol] 137 mmol/L Normal 134-146 [facility] Comment on above: Performed By: #### B SHANELLE CBCA #### [facility] ([id number]) [address] [place] [address] Urea nitrogen [Mass/Vol] 9 mg/dL Normal 5-23 [facility] Comment on above: Performed By: #### B SHANELLE CBCA #### [facility] ([id number]) [address] [place] [address] CBC AND AUTO DIFFon 04-25-20 24 ABSOLUTE BASOPHIL 0.0 X10E9/L Normal 0.0-0.2 [facility] Comment on above: Performed By: #### B SHANELLE CBCA #### [facility] ([id number]) [address], [address] [place] [address] ABSOLUTE NEUTROPHIL 3.5 X10E9/L Normal 1.5-6.6 [facility] Comment on above: Performed By: #### B SHANELLE, CBCA #### [facility] ([id number]) [address], [address] [place] [address] Basophils/100 WBC (Bld) 0.4 % Normal [facility] Comment on above: Performed By: #### B MP, CBCA #### [facility] ([id number]) [address] [facility] [address] [place] [address] Eosinophils (Bld) [#/Vol] 0.1 10*3/uL Normal 0.0-0.4 [facility] Comment on above: Performed By: #### B MP, CBCA #### [facility] ([id number]) [address] [facility] [address] [place] [address] Eosinophils/100 WBC (Bld) 1.0 % Normal [facility] Comment on above: Performed By: #### B MP, CBCA #### [facility] ([id number]) [address] [address] [place] [address] Erythrocyte distribution width (RBC) [Ratio] 13.7 % Normal 11.5-15.0 [facility] Comment on above: Performed By: #### B MP, CBCA #### [facility] ([id number]) [address] [address] [place] [address] Hematocrit (Bld) [Volume fraction] 38.2 % Normal 35-47 [facility] Comment on above: Performed By: #### B SHANELLE, CBCA #### [facility] ([id number]) [address] [address] [place] [address] Hemoglobin (Bld) [Mass/Vol] 12.9 g/dL Normal 11.7-15.5 [facility] Comment on above: Performed By: #### B MP, CBCA #### [facility] ([id number]) [address] [address] [place] [address] Lymphocytes (Bld) [#/Vol] 1.1 10*3/uL Normal 1.0-3.5 [facility] Comment on above: Performed By: #### B MP, CBCA #### [facility] ([id number]) [address] [place] [address] Lymphocytes/100 WBC (Bld) 20.2 % Normal [facility] Comment on above: Performed By: #### B MP, CBCA #### [facility] ([id number]) [address] [place] [address] MCH (RBC) [Entitic mass] 30.6 pg Normal 27-34 [facility] Comment on above: Performed By: #### B MP, CBCA #### [facility] ([id number]) [address], [address] [place] [address] MCHC (RBC) [Mass/Vol] 33.8 g/dL Normal 32-36 [facility] Comment on above: Performed By: #### B MP, CBCA #### [facility] ([id number]) [address] [place] [address] MCV (RBC) [Entitic vol] 91 fL Normal 80-100 [facility] Comment on above: Performed By: #### B MP, CBCA #### [facility] ([id number]) [address] [place] [address] Monocytes (Bld) [#/Vol] 0.8 10*3/uL Normal 0-0.9 [facility] Comment on above: Performed By: #### B MP, CBCA #### [facility] ([id number]) [address] [place] [address] Monocytes/100 WBC (Bld) 15.0 % Normal [facility] Comment on above: Performed By: #### B MP, CBCA #### [facility] ([id number]) [address] [place] [address] Neutrophils/100 WBC (Bld) 63.4 % Normal [facility] Comment on above: Performed By: #### B MP, CBCA #### [facility] ([id number]) [address] [place] [address] Platelet mean volume (Bld) [Entitic vol] 7.0 fL Normal 7-12 [facility] Comment on above: Performed By: #### B MP, CBCA #### [facility] ([id number]) [address] [address] Platelets (Bld) [#/Vol] 247 10*3/uL Normal 150-450 [facility] Comment on above: Performed By: #### B MP, CBCA #### [facility] ([id number]) [address] [address] [place] [address] RBC COUNT 4.21 X10E12/L Normal 3.80-5.20 [facility] Comment on above: Performed By: #### B MP, CBCA #### [facility] ([id number]) [address] [address] [place] [address] WBC (Bld) [#/Vol] 5.6 10*3/uL Normal 4.0-11.0 [facility] Comment on above: Performed By: #### B MP, CBCA #### [facility] ([id number]) [address] [facility] [address] [place] [address] Follow-Upon 08-29-2023 Follow-Up [id number] Jenni Kapadia 1965 Provider Department Center 08/29/2023 ALICIA ROOT MP ORTHO MPORTHO Family History Problem Relation Age of Onset Anesthesia problems Mother Diabetes Mother Hypertension Mother Hyperlipidemia Mother Diabetes Father Hyperlipidemia Father Hypertension Father Family Status - Relation Status Age at Mother Alive Father Alive Level of Service:20832 DE OFFICE/OUTPATIENT ESTABLISHED LOW MDM 20-29 MIN (GC) Reason for Visit and Comments: Follow-up [919411] Normal [facility] Orders Onlyon 05-28-2023 Orders Only [id number] Jenni Kapadia 1965 F Date Provider Department Center 05/28/202364302-MOKWQEKBBENJAMIN MACHADO MP ORTHO KATIUSKAHO Family History Problem Relation Age of Onset Anesthesia problems Mother Diabetes Mother Hypertension Mother Hyperlipidemia Mother Diabetes Father Hyperlipidemia Father Hypertension Father Family Status - Relation Status Age at Mother Alive Father Alive Normal [facility] 36on 05-25-2023 36 Patient called in wanting to know if pain med can be sent in for her. Patient using [facility] in [place] She is requesting gabapentin or tylenol 3 pain Normal [facility] Follow-Upon 05-25-2023 Follow-Up [id number] Jenni Kapadia S 1965 Date Provider Department Center 05/25/2023 ALICIA ROOT MP Family History Problem Relation Age of Onset Anesthesia problems Mother Diabetes Mother Hypertension Mother Hyperlipidemia Mother Diabetes Father Hyperlipidemia Father Hypertension Father Family Status - Relation Status Age at Mother Alive Father Alive Level of Service:11029 DE OFFICE/OUTPATIENT ESTABLISHED LOW MDM 20-29 MIN () Reason for Visit and Comments: Follow-up [357089] [facility] Telephoneon 05-25-2023 Telephone [id number] Jenni Kapadia S 1965 Provider Department Center 05/25/2023 ALICIA ROOT MP Family History Problem Relation Age of Onset Anesthesia problems Mother Diabetes Mother Hypertension Mother Hyperlipidemia Mother Diabetes Father Hyperlipidemia Father Hypertension Father Family Status - Relation Status Age at Mother Alive Father Alive Normal [facility] OSMOLALITYon 04-03-2023 Osmolality [Osmolality] 274 mosm/kg Critically low 275-295 [facility] Comment on above: Performed By: #### O SMO #### [facility] [address] [address] [address] Celena Schroeder OSMOLALITY URINEon Osmolality, Urine 525 mOsmol/kg [facility] Comment on above: Result Comment: 24 h r : 300 - 900 Random: 50 - 1400 After 12hr fluid restriction: >850 Performed By: #### O SMOU #### [facility] [address] [address] [address] Celena Schroeder CREATININEon 03-28-2023 Creatinine [Mass/Vol] 0.99 mg/dL Normal 0.55-1.02 [facility] Comment on above: Performed By: #### C CON, NA #### [facility] [address] [place] [address] Dr. Celena Schroeder EGFR-AF BELIZEAN >60 Normal >=60 [facility] Comment on above: Performed By: #### C CON, NA #### [facility] [address] [place] [address] Dr. Celena Schroeder EGFR-NON AF BELIZEAN 58 mL/min/1.73m2 Critically low >=60 [facility] Comment on above: Performed By: #### C CON, NA #### [facility] [address] [place] [address] Dr. Celena Schroeder CREATININE URINEon 3 URINE CREAT 109.39 mg/dL Normal 20.00-300.00 [facility] Comment on above: Performed By: #### Efraín OLIVARES #### [facility] [address] [place] [address] Dr. Celena Schroeder NAon 03-28-2023 Sodium [Moles/Vol] 133 mmol/L Critically low 136-145 [facility] Comment on above: Performed By: #### C CON, NA #### [facility] [address] [place] [address] Dr. Celena Schroeder SODIUM RANDOM URINEon 2022 Sodium (U) [Moles/Vol] 51 mmol/L Normal 30-90 [facility] Comment on above: Performed By: #### N AU #### [facility] [address] [place] [address] Dr. Celena Schroeder Office Visiton 03-23-2023 Follow-up visit [id number] Jenni Kapadia 1965 F Date Provider Department Center 03/23/2023 ALICIA ROOT MP ORTHO MPOHO Family History Problem Relation Age of Onset Anesthesia problems Mother Diabetes Mother Hypertension Mother Hyperlipidemia Mother Diabetes Father Hyperlipidemia Father Hypertension Father Family Status - Relation Status Age at Mother Alive Father Alive Level of Service:40590 DE POSTOP FOLLOW UP VISIT RELATED TO ORIGINAL PX (GC) Reason for Visit and Comments: Follow-up [[id number]] [facility] 36on 03-19-2023 36 Patient wants a refi ll just to last her until her appt Sunday. Normal [facility] Orders Onlyon 03-19-2023 Orders Only [id number] Bill,Jenni S 1965 F Date Provider Department Center 03/19/2023 [id number]-UZMWAGNORMA WEAVER MP ORTHO MPORTHO Family History Problem Relation Age of Onset Anesthesia problems Mother Diabetes Mother Hypertension Mother Hyperlipidemia Mother Diabetes Father Hyperlipidemia Father Hypertension Father Family Status - Relation Status Age at Mother Alive Father Alive [facility] Orders Onlyon 03-07-2023 Orders Only [id number] Bill,Jenni S 1965 Date Provider Department Center 03/07/2023 WendieALICIA GREEN [facility] [place] [facility] Family History Problem Relation Age of Onset Anesthesia problems Mother Diabetes Mother Hypertension Mother Hyperlipidemia Mother Diabetes Father Hyperlipidemia Father Hypertension Father Family Status - Relation Status Age at Mother Alive Father Alive [facility] Telephoneon 03-07-2023 Telephone [id number] Bill,Jenni S 1965 F Date Provider Department Center 03/07/2023 832-NISH SETH MP ORTHO MPORTHO Family History Problem Relation Age of Onset Anesthesia problems Mother Diabetes Mother Hypertension Mother Hyperlipidemia Mother Diabetes Father Hyperlipidemia Father Hypertension Father Family Status - Relation Status Age at Mother Alive Father Alive Reason for Visit and Comments: Follow-up [871230] - Patient called in wanting refill of norco. [facility] [place] [place]. Normal [facility] Orders Onlyon 02-28-2023 Orders Only [id number] Bill,Jenni S 1965 F Date Provider Department Center 02/28/2023 Rony-[facility] PATH[facility] Medical Family History Problem Relation Age of Onset Anesthesia problems Mother Diabetes Mother Hypertension Mother Hyperlipidemia Mother Diabetes Father Hyperlipidemia Father Hypertension Father Family Status - Relation Status Age at Mother Alive Father Alive [facility] Orders Onlyon 02-26-2023 Orders Only [id number] Bill,Jenni S 1965 F Date Provider Department Center 02/26/2023 421ALICIA GREEN [facility] [place] [facility] Family History Problem Relation Age of Onset Anesthesia problems Mother Diabetes Mother Hypertension Mother Hyperlipidemia Mother Diabetes Father Hyperlipidemia Father Hypertension Father Family Status - Relation Status Age at Mother Alive Father Alive [facility] Telephoneon 02-26-2023 Telephone [id number] Jenni Kapadia Ruby 1965 Provider Department Center 02/26/2023 ALICIA ROOT MP Family History Problem Relation Age of Onset Anesthesia problems Mother Diabetes Mother Hypertension Mother Hyperlipidemia Mother Diabetes Father Hyperlipidemia Father Hypertension Father Family Status - Relation Status Age at Mother Alive Father Alive Reason for Visit and Comments: Med Refill [[id number]] - Pt is requesting a refill on [place]. Pharmacy is [facility] [phone] [facility] Office Visiton 02-23-2023 Follow-up visit [id number] Vu Kapadiapaola Beltran 1965 Provider Department Center 02/23/2023 ALICIA ROOT MP Family History Problem Relation Age of Onset Anesthesia problems Mother Diabetes Mother Hypertension Mother Hyperlipidemia Mother Diabetes Father Hyperlipidemia Father Hypertension Father Family Status - Relation Status Age at Mother Alive Father Alive Level of Service:90848 DE POSTOP FOLLOW UP VISIT RELATED TO ORIGINAL PX (GC) Reason for Visit and Comments: Follow-up [412574] [facility] 36on 02-21-2023 36 Resident called in. [facility] Orders Onlyon 02-21-2023 Orders Only [id number] Vu Kapadiapaola Beltran 1965 Provider Department Center 02/21/2023 [id number]-NYLNQLNORMA WEAVER MP ORTHO JOSI Family History Problem Relation Age of Onset Anesthesia problems Mother Diabetes Mother Hypertension Mother Hyperlipidemia Mother Diabetes Father Hyperlipidemia Father Hypertension Father Family Status - Relation Status Age at Mother Alive Father Alive [facility] 36on 02-20-2023 36 Patient called into the office requesting pain meds . [facility] 29on 02-12-2023 29 Addendum created 02/12/23 1421 by Tova Tam MD Review and Sign - Signed [facility] HPon 02-12-2023 HP History Of [...] Problems. Patellar nonunion repair with autograft. 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 Priority Lab ID 1 Patella Bone TISSUE CULTURE AND ANAEROBIC CULTURE Alicia Green MD 02/12/23 0825 Routine [id number], [id number] Description: NON-UNION SITE Implants Type Name Action Serial No. Plate ADAPT-PLATE,2.7M,12 HOLE,97M - [id number] Implanted Screw SCREW,CORTEX,2.7M,T8,22 M - [id number] Implanted Screw SCREW,2.7M,T8,48M - [id number] Implanted Screw SCREW,LOCKING,2.7M,16M - [id number] Implanted Screw SCREW,SLF-TPNG,CORTEX,2 .7M,10M - [id number] Implanted Staff: Design Analyst: Ruby Lovelace RN Scrub Person: Ann Jamil, [facility] Indications: Jenni Kapadia is an 57 y.o. [...] miguel angel (more content not included)... Normal [facility] POCT GLUCOSE METER UNSOLICIT ED RESULTSon 02-12-2023 Glucose [Mass/Vol] 156 mg/dL High 70-105 [facility] Comment on above: Result Comment: [email or web address] Performed By: #### L [id number] ####[facility] ([address] [place] [address] Glucose [Mass/Vol] 97 mg/dL Normal 70-105 [facility] Comment on above: Result Comment: jhag eman Performed By: #### L [id number] ####[facility] ([facility] [place] [address] TISSUE CULTUREon 02-12-2023 Bacteria identified Cx Nom (Unsp spec) No growth at 5 days Normal [facility] Comment on above: Order Comment: Pre-o p diagnosis:s82.042k Performed By: #### L [id number] ####[facility] ([facility] [place] [address] GRAM STAIN RESULT Normal [facility] Comment on above: Order Comment: Pre-o p diagnosis:s82.042k Result Comment: No p olymorphonuclear leukocytes seen No organisms seen Performed By: #### L [id number] ####[facility] ([facility] [place] [address] MRSA NARES #1on 02-11-2023 MRSA NARES #1 Isolate 1 Staphylococcus aureus (MSSA) Light growth of ORGANISM 1 Staphylococcus aureus (MSSA) ANTIBIOTIC M.I.C RX STATUS Oxacillin <=0.25 S F Normal [facility] Comment on above: Performed By: #### M RSAN1 #### [facility] [address] [place], [place] [address] Dr. Celena Schroeder 3602-07-2023 36 LVM to call let bala ent know that she needs it and the order was in the chart. [facility] 3601-22-2023 36 Patient agreed. She will repeat MRSA swab at [facility] before the surgery. [facility] Telephoneon 01-22-2023 Telephone [id number] Jenni Kapadia 1965 F Date Provider Department Center 01/22/2023 ALICIA ROOT MP [facility] Family History Problem Relation Age of Onset Anesthesia problems Mother Diabetes Mother Hypertension Mother Hyperlipidemia Mother Diabetes Father Hyperlipidemia Father Hypertension Father Family Status - Relation Status Age at Mother Alive Father Alive [facility] 3601-19-2023 36 Patient left a messa ge she needs to reschedule her surgery at least one week out because her daughter is having a surgery and she needs to be able to help with the baby. I told her I would get a new date from you Sunday when you are back in town. [facility] Anesthesiaon 01-08-2023 Anesthesia [id number] Jenni Kapadia 1965 F Date Provider Department Center 01/08/2023 [facility] Family History Problem Relation Age of Onset Anesthesia problems Mother Diabetes Mother Hypertension Mother Hyperlipidemia Mother Diabetes Father Hyperlipidemia Father Hypertension Father Family Status - Relation Status Age at Mother Alive Father Alive [facility] 3601-05-[address] Rosado's (anesiology) patient's surgery will be post poned for now due to recent lab testing and chest XR. Patient verbalized understanding. [facility] Orders Onlyon 01-02-2023 Orders Only [id number] Jenni Kapadia 1965 F Date Provider Department Center 01/02/2023 Rony-[facility]IS PATHAK [facility] Medical C Family History Problem Relation Age of Onset Anesthesia problems Mother Diabetes Mother Hypertension Mother Hyperlipidemia Mother Diabetes Father Hyperlipidemia Father Hypertension Father Family Status - Relation Status Age at Mother Alive Father Alive Normal [facility] RESPIRATORY PANEL PLUSon Adenovirus Not detected Normal NOT DETECTED [facility] Comment on above: Performed By: #### R SPLUS #### [facility] [address] [place] [address] Dr. Celena Doran. Parapertusis Not detected Normal NOT DETECTED [facility] Comment on above: Performed By: #### R SPLUS #### [facility] [address] [place] [address] Dr. Celena Doran. Pertussis Not detected Normal NOT DETECTED The [facility] Comment on above: Performed By: #### R SPLUS #### [facility] [address] [place] [address] Dr. Celena Schroeder Chlamydia Pneumoniae Not detected Normal NOT DETECTED The [facility] Comment on above: Performed By: #### R SPLUS #### [facility] [address] [place] [address] Dr. Celena Schroeder Coronavirus 229E Not detected Normal NOT DETECTED The [facility] Comment on above: Performed By: #### R SPLUS #### [facility] [address] [place] [address] Dr. Celena Schroeder Coronavirus HKU1 Not detected Normal NOT DETECTED The [facility] Comment on above: Performed By: #### R SPLUS #### [facility] [address] [place] [address] Dr. Celena Schroeder Coronavirus NL63 Not detected Normal NOT DETECTED The [facility] Comment on above: Performed By: #### R SPLUS #### [facility] [address] [place] [address] Dr. Celena Schroeder Coronavirus OC43 Not detected Normal NOT DETECTED The [facility] Comment on above: Performed By: #### R SPLUS #### [facility] [address] [address] [address] Celena Schroeder Influenza A H1 Not detected Normal NOT DETECTED [facility] Comment on above: Performed By: #### R SPLUS #### [facility] [address] [place] [address] Dr. Celena Schroeder Influenza A H1 2009 Not detected Normal NOT DETECTED [facility] Comment on above: Performed By: #### R SPLUS #### [facility] [address] [address] [address] Celena Schroeder Influenza A H3 Not detected Normal NOT DETECTED The [facility] Comment on above: Performed By: #### R SPLUS #### [facility] [address] [place] [address] Dr. Celena Schroeder Influenza B Not detected Normal NOT DETECTED The [facility] Comment on above: Performed By: #### R SPLUS #### [facility] [address] [place] [address] Dr. Celena Schroeder Metapneumovirus Detected Abnormal NOT DETECTED The [facility] Comment on above: Performed By: #### R SPLUS #### [facility] [address] [place] [address] Dr. Celena Schroeder Mycoplas. Pneumoniae Not detected Normal NOT DETECTED The [facility] Comment on above: Performed By: #### R SPLUS #### [facility] [address] [place] [address] Dr. Celena Schroeder Parainfluenza 1 Not detected Normal NOT DETECTED [facility] Comment on above: Performed By: #### R SPLUS #### [facility] [address] [place] [address] Dr. Celena Schroeder Parainfluenza 2 Not detected Normal NOT DETECTED [facility] Comment on above: Performed By: #### R SPLUS #### [facility] [address] [place] [address] Dr. Celena Schroeder Parainfluenza 3 Not detected Normal NOT DETECTED [facility] Comment on above: Performed By: #### R SPLUS #### [facility] [address] [place] [address] Dr. Celena Schroeder Parainfluenza 4 Not detected Normal NOT DETECTED [facility] Comment on above: Performed By: #### R SPLUS #### [facility] [address] [address] [address] Celena Schroeder Rhino/Enterovirus Not detected Normal NOT DETECTED [facility] Comment on above: Performed By: #### R SPLUS #### [facility] [address] [address] [address] Celena Schroeder RP2 Header 1 RESPIRATORY PANEL: VIRUSES Normal [facility] Comment on above: Performed By: #### R SPLUS #### [facility] [address] [address] [address] Celena Schroeder RP2 Header 2 RESPIRATORY PANEL: BACTERIA Normal [facility] Comment on above: Performed By: #### R SPLUS #### [facility] [address] [place] [address] Dr. Celena Schroeder RSV Not detected Normal NOT DETECTED [facility] Comment on above: Performed By: #### R SPLUS #### [facility] [address] [place] [address] Dr. Celena Schroeder SARS-CoV-2 (COVID-19) RNA AUTUMN+probe Ql (Unsp spec) Not detected Normal NOT DETECTED [facility] Comment on above: Performed By: #### R SPLUS #### [facility] [address] [place] [address] Dr. Celena Schroeder XR CHEST 2 Von [...] by: TRUPTI REEVES Date: 2023-01-01 14:56 Normal [facility] 36on 12-29-2022 36 c Normal [facility] C-REACTIVE PROTEINon 023 C REACTIVE PROTEIN (MG/L) IN SER/PLAS 2.6 mg/L Normal 0.0-7.0 [facility] Comment on above: Performed By: #### L [id number] ####[facility] [place] [address] CBC WITH AUTO DIFFERENTIALon 12-22-2022 Basophils (Bld) [#/Vol] 0.04 10*3/uL Normal 0.00-0.20 [facility] Comment on above: Performed By: #### L [id number] ####[facility] ([facility])[address] [place] [address] Basophils/100 WBC (Bld) 0.6 % Normal 0.0-1.0 [facility] Comment on above: Performed By: #### L [id number] ####[facility] ([facility])[address] [place] [address] Eosinophils (Bld) [#/Vol] 0.08 10*3/uL Normal 0.00-0.50 [facility] Comment on above: Performed By: #### L [id number] ####[facility] ([facility])[address] [place] [address] Eosinophils/100 WBC (Bld) 1.2 % Normal 0.0-6.0 [facility] Comment on above: Performed By: #### L [id number] ####[facility] ([facility])[address] [place] [address] Erythrocyte distribution width (RBC) [Ratio] 13.5 % Normal 11.5-15.0 [facility] Comment on above: Performed By: #### L [id number] ####[facility] ([facility])[address] [place] [address] ERYTHROCYTE MEAN CORPUSCULAR HEMOGLOBIN CONCENTRATION (G/DL) BY AUTOMATED 34.0 g/dL Normal 32.0-35.0 [facility] Comment on above: Performed By: #### L [id number] ####[facility] ([facility])[address] [place] [address] Hematocrit (Bld) [Volume fraction] 43.2 % Normal 36.0-48.0 [facility] Comment on above: Performed By: #### L [id number] ####[facility] ([facility])[address] [place] [address] Hemoglobin (Bld) [Mass/Vol] 14.7 g/dL Normal 12.0-15.0 [facility] Comment on above: Performed By: #### L [id number] ####[facility] ([facility])[address] [place] [address] Immature granulocytes (Bld) [#/Vol] 0.02 10*3/uL Normal 0.00-0.20 [facility] Comment on above: Performed By: #### L [id number] ####[facility] ([facility])[address] [place] [address] Immature granulocytes/100 WBC (Bld) 0.3 % Normal 0.0-1.0 [facility] Comment on above: Performed By: #### L [id number] ####[facility] ([facility])[address] [place] [address] Lymphocytes (Bld) [#/Vol] 1.53 10*3/uL Normal 1.20-4.00 [facility] Comment on above: Performed By: #### L [id number] ####[facility] ([facility])[address] [place] [address] Lymphocytes/100 WBC (Bld) 23.8 % Normal 20.0-45.0 [facility] Comment on above: Performed By: #### L [id number] ####[facility] ([facility])[address] [place] [address] MCH (RBC) [Entitic mass] 30.3 pg Normal 27.0-33.0 [facility] Comment on above: Performed By: #### L [id number] ####[facility] ([facility])[address] [place] [address] MCV (RBC) [Entitic vol] 89.1 fL Normal 82.0-98.0 [facility] Comment on above: Performed By: #### L [id number] ####[facility] ([facility])[address] [place] [address] Monocytes (Bld) [#/Vol] 0.74 10*3/uL Normal 0.10-1.00 [facility] Comment on above: Performed By: #### L [id number] ####[facility] ([facility])[address] [place] [address] Monocytes/100 WBC (Bld) 11.5 % Normal 5.0-12.0 [facility] Comment on above: Performed By: #### L [id number] ####[facility] ([facility])[address] [place] [address] Neutrophils (Bld) [#/Vol] 4.03 10*3/uL Normal 1.60-7.60 [facility] Comment on above: Performed By: #### L [id number] ####[facility] ([facility])[address] [place] [address] Neutrophils/100 WBC (Bld) 62.6 % Normal 40.0-72.0 [facility] Comment on above: Performed By: #### L [id number] ####[facility] ([facility])[address] [place] [address] NRBC (PER 100 WBCS) BY AUTOMATED COUNT 0.0 % Normal 0.0-0.0 [facility] Comment on above: Performed By: #### L [id number] ####[facility] ([facility])[address] [place] [address] PLATELETS (10*3/UL) IN BLOOD AUTOMATED COUNT 278 10*3/uL Normal 150-400 [facility] Comment on above: Performed By: #### L [id number] ####[facility] ([facility])[address] [place] [address] RBC (Bld) [#/Vol] 4.85 10*6/uL Normal 3.80-5.00 [facility] Comment on above: Performed By: #### L [id number] ####[facility] ([facility])[address] [place] [address] WBC (Bld) [#/Vol] 6.44 10*3/uL Normal 4.00-10.60 [facility] Comment on above: Performed By: #### L [id number] ####[facility] ([facility])[address] [place] [address] COMPREHENSIVE METABOLIC PANE Beltran 12-22-2022 Albumin [Mass/Vol] 4.3 g/dL Normal 3.5-5.7 [facility] Comment on above: Performed By: #### L [id number] ####[facility] ([facility])[address] [place] [address] ALP [Catalytic activity/Vol] 66 U/L Normal 34-104 [facility] Comment on above: Performed By: #### L [id number] ####[facility] ([facility])[address] [place] [address] ALT [Catalytic activity/Vol] 47 U/L Normal 7-52 [facility] Comment on above: Performed By: #### L [id number] ####[facility] ([facility])[address] [place] [address] Anion gap [Moles/Vol] 10 mmol/L Normal 7-20 [facility] Comment on above: Performed By: #### L [id number] ####[facility] ([facility])[address] [place] [address] AST [Catalytic activity/Vol] 30 U/L Normal 13-39 [facility] Comment on above: Performed By: #### L [id number] ####[facility] ([facility])[address] [place] [address] Bilirubin [Mass/Vol] 0.3 mg/dL Normal 0.3-1.0 [facility] Comment on above: Performed By: #### L [id number] ####[facility] ([facility])[address] [place] [address] Calcium [Mass/Vol] 8.8 mg/dL Normal 8.6-10.3 [facility] Comment on above: Performed By: #### L [id number] ####[facility] ([facility])[address] [place] [address] Chloride [Moles/Vol] 105 mmol/L Normal 98-107 [facility] Comment on above: Performed By: #### L [id number] ####[facility] [place] [address] CO2 [Moles/Vol] 26 mmol/L Normal 21-31 [facility] Comment on above: Performed By: #### L [id number] ####[facility] [place] [address] Creatinine [Mass/Vol] 0.82 mg/dL Normal 0.60-1.20 [facility] Comment on above: Performed By: #### L [id number] ####[facility] ([facility])[address] [place] [address] GLOMERULAR FILTRATION RATE ML/MIN/1.73 SQ M.PREDICTED 80.2 mL/min/1.73m*2 Normal >60.0 [facility] Comment on above: Result Comment: The [facility]???s estimated glomerular filtration rate (eGFR) will no [...] of individuals. Performed By: #### L [id number] ####[facility] ([facility])[address] [place] [address] Glucose [Mass/Vol] 92 mg/dL Normal 70-100 [facility] Comment on above: Performed By: #### L [id number] ####[facility] ([facility])[address] [place] [address] Potassium [Moles/Vol] 4.8 mmol/L Normal 3.5-5.1 [facility] Comment on above: Performed By: #### L [id number] ####[facility] ([facility])[address] [place] [address] Protein [Mass/Vol] 7.4 g/dL Normal 6.0-8.3 [facility] Comment on above: Performed By: #### L [id number] ####[facility] ([facility])[address] [place] [address] Sodium [Moles/Vol] 136 mmol/L Normal 136-145 [facility] Comment on above: Performed By: #### L [id number] ####[facility] ([facility])[address] [place] [address] Urea nitrogen [Mass/Vol] 20 mg/dL Normal 7-25 [facility] Comment on above: Performed By: #### L [id number] ####[facility] ([facility])[address] [place] [address] UREA NITROGEN/CREATININE (MASS RATIO) IN SER/PLAS 24.39 Normal [facility] Comment on above: Performed By: #### L [id number] ####[facility] ([facility])[address] [place] [address] Follow-Upon 12-22-2022 Follow-Up [id number] Jenni Kapadia 1965 F Date Provider Department Center 12/22/2022 ALICIA ROOT MP ORTHO MPORTHO Family History Problem Relation Age of Onset Anesthesia problems Mother Diabetes Mother Hypertension Mother Hyperlipidemia Mother Diabetes Father Hyperlipidemia Father Hypertension Father Family Status - Relation Status Age at Mother Alive Father Alive Level of Service:07657 DE OFFICE/OUTPATIENT ESTABLISHED MOD MDM 30-39 MIN (57,GC) Reason for Visit and Comments: Follow-up [491429] Normal [facility] Labon 12-22-2022 Lab [id number] Jenni Kapadia 1965 F Date Provider Department Center 12/22/2022 2[facility] MP LAB RESOURCE MP DRAW Medical Pavi Family History Problem Relation Age of Onset Anesthesia problems Mother Diabetes Mother Hypertension Mother Hyperlipidemia Mother Diabetes Father Hyperlipidemia Father Hypertension Father Family Status - Relation Status Age at Mother Alive Father Alive Normal [facility] MRSA/MSSA DNA NASALon 2022 MRSA DNA Negative Normal Negative, Invalid [facility] Comment on above: Performed By: #### L [id number] ####[facility] ([facility])[address] [place] [address] MSSA DNA Positive Abnormal Negative, Invalid [facility] Comment on above: Performed By: #### L [id number] ####[facility] ([facility])[address] [place] [address] SEDIMENTATION RATEon 023 SEDIMENTATION RATE, ERYTHROCYTE 7 mm/hr Normal <=20 [facility] Comment on above: Performed By: #### L [id number] ####[facility] ([facility])[address] [place] [address] VITAMIN D 25 HYDROXYon 12-22 CALCIDIOL (25 [place] VITAMIN D3) (NG/ML) IN SER/PLAS 30.9 ng/mL Normal 30.0-80.0 [facility] Comment on above: Result Comment: >80. 0 Toxicity possible Performed By: #### L [id number] ####[facility] ([facility])[address] [place] [address] CT KNEE LEFT WO IV CONTRASTo n [...] of findings Electronically signed: Dianne Lopez. Normal [facility] Office Visiton 11-24-2022 Follow-up visit [id number] Jenni Kapadia 1965 F Date Provider Department Center 11/24/2022 490-CHRIS SOLANO MP ORTHO MPORTHO No family history on file Level of Service:98124 DE OFFICE/OUTPATIENT ESTABLISHED LOW MDM 20-29 MIN Reason for Visit and Comments: Follow-up [729929] - Left knee with xr Normal [facility] MG MAMM SCREEN 3D MALCOM CADon 10-26-2022 MG MAMM SCREEN 3D MALCOM CAD Patient: JENNI KAPADIA. Exam Date: 10/26/2022 : 1965 Gender:F Ordering : DR MISTY LANDRUM PA Admission #: [id number] Family : Order #: [id number] CLICK HERE TO VIEW EXAM RADIOLOGY REPORT [...] liver cancer at age 67. LOCATION: The [facility] BREAST COMPOSITION: Scattered areas fibroglandular density. FINDINGS: [...] Reeves M.D. on 10/26/2022 at 15:34 Normal [facility] Follow-Upon 09-19-2022 Follow-Up [id number] Vu Kapadiapaola Beltran 1965 Date Provider Department Center 09/19/2022 Teja-CHRIS SOLANO MP ORTHO MPORTHO No family history on file Level of Service:17208 DE OFFICE/OUTPATIENT ESTABLISHED LOW [facility] 20-29 MIN Reason for Visit and Comments: Follow-up [[id number]] - Left knee follow up with review of xray Normal [facility] Orders Onlyon 09-18-2022 Orders Only [id number] Jenni Kapadia Ruby 1965 Provider Department Center 09/18/2022 Anaya-SHIRIN JACKSON MP ORTHO MPORTHO No family history on file Normal [facility] KNEE LEFT 1 OR 2 VWSon 06-19 KNEE LEFT 1 OR 2 VWS [facility] Department of Radiology [address] [place] [id number] ===== Patient Name: JENNI KAPADIA : 1965 Sex: F Age: Race: White Pt. Location: Patient Status: O Ordered Date: 06/19/2022 10:00:00 AM Completed Date: 06/19/2022 10:09 AM Requesting Provider: LELE FORREST Attending Provider: LELE FORREST Report Copy To: Signs & Symptoms: Z48.89 Encounter for other specified surgical aftercare I10 History: Jerome Comments: evauate Exam: KNEE LEFT 1 OR [...] fracture.. Electronically signed: Chepe Eldridge. Transcribed by: [email or web address], User Resident: Electronically Signed by: CHEPE ELDRIDGE @ 06/19/2022 03:06 PM Normal [facility] Comment on above: Order Comment: johnny magdaleno *ANAEROBIC CULTUREon 022 *ANAEROBIC CULTURE Clinical Report: (D) Specimen/Source: TISSUE/INTRAOP SPEC Collected: 06/07/2022 12:47 Status: Final Last Updated: 06/12/2022 08:57 (1) #1 LEFT PATELLA NONUNION CULT RES (Final) No Anaerobes Isolated 5 Days Normal [facility] Comment on above: Order Comment: #1 LE FT PATELLA NONUNION Performed By: #### 3 0312 #### [place] [address], [facility] *TISSUE CULTUREon 06-07-2022 *TISSUE CULTURE Clinical Report: (D) Specimen/Source: TISSUE/INTRAOP SPEC Collected: 06/07/2022 12:47 Status: Final Last Updated: 06/12/2022 07:58 (1) #1 LEFT PATELLA NONUNION GRAM (Final) Rare Polys No Bacteria Seen CULT RES (Final) No Growth Day 5 Normal [facility] Comment on above: Order Comment: #1 LE FT PATELLA NONUNION Performed By: #### 3 [id number] #### [facility] [address] BASIC METABOLIC PANELon 08-0 Calcium [Mass/Vol] 8.6 mg/dL Normal 8.6-10.3 [facility] Comment on above: Order Comment: No: D o not add to previous draw Performed By: #### 0 0071 ####[facility] [place] [address], [facility] Chloride [Moles/Vol] 105 mmol/L Normal 98-107 [facility] Comment on above: Order Comment: No: D o not add to previous draw Performed By: #### 0 0071 ####[facility] [place] [address], [facility] CO2 [Moles/Vol] 23 mmol/L Normal 21-31 [facility] Comment on above: Order Comment: No: D o not add to previous draw Performed By: #### 0 0071 ####[facility] [place] [address], [facility] Creatinine [Mass/Vol] 0.72 mg/dL Normal 0.60-1.20 [facility] Comment on above: Order Comment: No: D o not add to previous draw Performed By: #### 0 0071 ####[facility] GFR/1.73 sq M.predicted among non-blacks MDRD (S/P/Bld) [Vol rate/Area] mL/min/{1.73_m2} Normal >60 [facility] Comment on above: Order Comment: No: D o not add to previous draw Result Comment: The [facility]'s estimated glomerular filtration rate (eGFR) will no [...] of individuals. Performed By: #### 0 0071 ####[facility] [place] [address], [facility] Glucose [Mass/Vol] 104 mg/dL High 70-100 [facility] Comment on above: Order Comment: No: D o not add to previous draw Performed By: #### 0 0071 ####[facility] [facility] [place] [address], [facility] Potassium [Moles/Vol] 4.3 mmol/L Normal 3.5-5.1 [facility] Comment on above: Order Comment: No: D o not add to previous draw Performed By: #### 0 0071 ####[facility] [place] [address], [facility] Sodium [Moles/Vol] 134 mmol/L Low 136-145 [facility] Comment on above: Order Comment: No: D o not add to previous draw Performed By: #### 0 0071 ####[facility] [place] [address], [facility] Urea nitrogen [Mass/Vol] 11 mg/dL Normal 7-25 [facility] Comment on above: Order Comment: No: D o not add to previous draw Performed By: #### 0 0071 ####[facility] [place] [address], [place] KNEE LEFT 1 OR 2 [facility] 06-07 KNEE LEFT 1 OR 2 S [facility] Department of Radiology [address] [place] [address] ===== Patient Name: JENNI KAPADIA : 1965 Sex: F Age: Race: White Pt. Location: OUTP Patient Status: O Ordered Date: 06/06/2022 7:20:00 AM Completed Date: 06/07/2022 02:17 PM Requesting Provider: LELE FORREST Attending Provider: LELE FORREST Report Copy To: Signs & Symptoms: REVISION ORIF LT PATELLA History: Comments: REVISION ORIF LT PATELLA Exam: KNEE LEFT 1 OR 2 [facility] ===== KNEE LEFT 1 OR 2 [facility] 06/07/2022 2:17 PM CLINICAL INDICATIONS: REVISION ORIF [...] service Electronically signed: Dianne Lopez. Transcribed by: [email or web address], User Resident: Electronically Signed by: DIANNE LOPEZ @ 06/08/2022 09:14 AM Normal The [facility] Comment on above: Order Comment: IRINA ION ORIF LT PATELLA Operative Reporton 2 Operative Report MR#: [id number] 2 [facility] Pt. Name: Jenni Kapadia Room #: [id number] Discharge Date: Birthdate: 1965 OPERATIVE REPORT DATE [...] obtaining the distal femoral bone graft and [employer] bone graft harvest system was used, and [...] as (more content not included)... Normal The [facility] TYPE AND SCREENon 06-07-2022 ABO INTERPRETATION A Normal The [facility] Comment on above: Performed By: #### 6 2586 #### [facility] [address] [place] [address], [facility] RH INTERPRETATION Positive Normal The [facility] Comment on above: Performed By: #### 6 2586 #### [facility] [address] [place] [address], [place] BASIC METABOLIC PANELon Calcium [Mass/Vol] 8.7 mg/dL Normal 8.6-10.3 The [facility] Comment on above: Order Comment: No: D o not add to previous draw Performed By: #### 0 0071 ####[facility] [place] [address], [place] Chloride [Moles/Vol] 103 mmol/L Normal 98-107 The [facility] Comment on above: Order Comment: No: D o not add to previous draw Performed By: #### 0 0071 ####[facility] [place] [address], [place] CO2 [Moles/Vol] 23 mmol/L Normal 21-31 The [facility] Comment on above: Order Comment: No: D o not add to previous draw Performed By: #### 0 0071 ####[facility] [place] [address], [place] Creatinine [Mass/Vol] 0.80 mg/dL Normal 0.60-1.20 The [facility] Comment on above: Order Comment: No: D o not add to previous draw Performed By: #### 0 0071 ####[facility] [place] [address], [facility] GFR/1.73 sq M.predicted among non-blacks MDRD (S/P/Bld) [Vol rate/Area] mL/min/{1.73_m2} Normal >60 The [facility] Comment on above: Order Comment: No: D o not add to previous draw Result Comment: The [facility]'s estimated glomerular filtration rate (eGFR) will no [...] of individuals. Performed By: #### 0 0071 ####[facility] [place] [address], [facility] Glucose [Mass/Vol] 83 mg/dL Normal 70-100 The [facility] Comment on above: Order Comment: No: D o not add to previous draw Performed By: #### 0 0071 ####[facility] [place] [address], [facility] Potassium [Moles/Vol] 5.1 mmol/L Normal 3.5-5.1 The [facility] Comment on above: Order Comment: No: D o not add to previous draw Performed By: #### 0 0071 ####[facility] [place] [address], [facility] Sodium [Moles/Vol] 132 mmol/L Low 136-145 [facility] Comment on above: Order Comment: No: D o not add to previous draw Performed By: #### 0 0071 ####[facility] [place] [address], [facility] Urea nitrogen [Mass/Vol] 13 mg/dL Normal 7-25 The [facility] Comment on above: Order Comment: No: D o not add to previous draw Performed By: #### 0 0071 ####[facility] [id number], [facility] CBC COMPLETE BLOOD COUNTon 0 06-06-2022 Erythrocyte distribution width (RBC) [Ratio] 13.6 % Normal 11.5-15.0 The [facility] Comment on above: Order Comment: No: D o not add to previous draw Performed By: #### 5 0608 #### [facility] [address] [place] [address], [facility] Hematocrit (Bld) [Volume fraction] 40.0 % Normal 36.0-45.0 The [facility] Comment on above: Order Comment: No: D o not add to previous draw Performed By: #### 5 0608 #### [facility] [address] [place] [address], [facility] Hemoglobin (Bld) [Mass/Vol] 13.7 g/dL Normal 12.0-15.0 The [facility] Comment on above: Order Comment: No: D o not add to previous draw Performed By: #### 5 0608 #### [facility] [address] [place] [address], [facility] MCH (RBC) [Entitic mass] 30.2 pg Normal 27.0-33.0 The [facility] Comment on above: Order Comment: No: D o not add to previous draw Performed By: #### 5 0608 #### [facility] [address] [place] [address], [facility] MCHC (RBC) [Mass/Vol] 34.3 g/dL Normal 32.0-35.0 The [facility] Comment on above: Order Comment: No: D o not add to previous draw Performed By: #### 5 0608 #### [facility] [address] [place] [address], [facility] MCV (RBC) [Entitic vol] 88.1 fL Normal 82.0-98.0 The [facility] Comment on above: Order Comment: No: D o not add to previous draw Performed By: #### 5 0608 #### [facility] [address] [facility] [place] [address], [facility] Nucleated RBC/100 WBC (Bld) [Ratio] 0 % Normal 0-0 The [facility] Comment on above: Order Comment: No: D o not add to previous draw Performed By: #### 5 0608 #### [facility] [address] [place] [address], [facility] PLAT CNT 254 10*3/uL Normal 150-400 The [facility] Comment on above: Order Comment: No: D o not add to previous draw Performed By: #### 5 0608 #### [facility] [address] [place] [address], [facility] RBC (Bld) [#/Vol] 4.54 10*6/uL Normal 3.80-5.00 The [facility] Comment on above: Order Comment: No: D o not add to previous draw Performed By: #### 5 0608 #### [facility] [address] [place] [address], [facility] WBC (Bld) [#/Vol] 6.22 10*3/uL Normal 4.00-10.60 The [facility] Comment on above: Order Comment: No: D o not add to previous draw Performed By: #### 5 0608 #### [facility] [address] *MRSA/MSSA DNA NASALon 06-05 *MRSA/MSSA DNA NASAL Clinical Report: (D ) Specimen: NASAL SWAB Collected: 06/05/2022 11:22 Status: Final Last Updated: 06/05/2022 20:26 MSSA DNA (Final) Methicillin Susceptible Staphylococcus aureus DNA Detected MRSA DNA (Final) Negative Normal The [facility] Comment on above: Performed By: #### 3 1595 #### [facility] [address] APTTon 06-05-2022 aPTT Coag (Bld) [Time] 30.3 s Normal 25.0-35.0 The [facility] Comment on above: Result Comment: ALL RESULTS [...] THIS PURPOSE. Performed By: #### 5 6101, 78789 ####[facility] BASIC METABOLIC PANELon Calcium [Mass/Vol] 8.4 mg/dL Low 8.6-10.3 [facility] Comment on above: Performed By: #### 0 007, [id number] ####[facility] Chloride [Moles/Vol] 101 mmol/L Normal 98-107 The [facility] Comment on above: Performed By: #### 0 70, 03982 ####[facility] CO2 [Moles/Vol] 22 mmol/L Normal 21-31 [facility] Comment on above: Performed By: #### 0 007, 58605 ####[facility] Creatinine [Mass/Vol] 0.81 mg/dL Normal 0.60-1.20 The [facility] Comment on above: Performed By: #### 0 007, 35575 ####[facility] [place] [address], [facility] GFR/1.73 sq M.predicted among non-blacks MDRD (S/P/Bld) [Vol rate/Area] mL/min/{1.73_m2} Normal >60 The [facility] Comment on above: Result Comment: The [facility]'s estimated glomerular filtration rate (eGFR) will no [...] group of individuals. Performed By: #### 0 007, 85602 ####[facility] [place] [address], [facility] Glucose [Mass/Vol] 104 mg/dL High 70-100 [facility] Comment on above: Performed By: #### 0 007, 79041 ####[facility] [place] [address], [facility] Potassium [Moles/Vol] 4.8 mmol/L Normal 3.5-5.1 The [facility] Comment on above: Performed By: #### 0 70, 62990 ####[facility] [place] [address], [facility] Sodium [Moles/Vol] 129 mmol/L Low 136-145 The [facility] Comment on above: Performed By: #### 0 007, 71649 ####[facility] [place] [address], [facility] Urea nitrogen [Mass/Vol] 13 mg/dL Normal 7-25 The [facility] Comment on above: Performed By: #### 0 007, 54839 ####[facility] CBC W/DIFFon 06-05-2022 ABS IMM GRANS 0.0 10*3/uL Normal 0.0-0.2 The [facility] Comment on above: Performed By: #### 5 0103 #### [facility] [address] [place] [address], [facility] ABS NEUTROPHILS 4.9 10*3/uL Normal 1.6-7.[address] [facility] Comment on above: Performed By: #### 5 0103 #### [facility] [address] [place] [address], [facility] Basophils (Bld) [#/Vol] 0.0 10*3/uL Normal 0.0-0.2 The [facility] Comment on above: Performed By: #### 5 0103 #### [facility] [address] [place] [address], [facility] Basophils/100 WBC (Bld) 0.3 % Normal 0.0-1.0 The [facility] Comment on above: Performed By: #### 5 0103 #### [facility] [address] [place] [address], [facility] Eosinophils (Bld) [#/Vol] 0.1 10*3/uL Normal 0.0-0.5 The [facility] Comment on above: Performed By: #### 5 0103 #### [facility] [address] [facility] [place] [address], [facility] Eosinophils/100 WBC (Bld) 1.0 % Normal 0.0-6.0 The [facility] Comment on above: Performed By: #### 5 0103 #### [facility] [address] [place] [address], [facility] Erythrocyte distribution width (RBC) [Ratio] 13.2 % Normal 11.5-15.0 The [facility] Comment on above: Performed By: #### 5 0103 #### [facility] [address] [facility] [place] [address], [facility] Hematocrit (Bld) [Volume fraction] 41.0 % Normal 36.0-45.0 The [facility] Comment on above: Performed By: #### 3 #### [facility] [address] [facility] [place] [address], [facility] Hemoglobin (Bld) [Mass/Vol] 13.6 g/dL Normal 12.0-15.0 The [facility] Comment on above: Performed By: #### 3 #### [facility] [address] [place] [address], [facility] IMMATURE GRANS 0.4 % Normal 0.0-1.0 The [facility] Comment on above: Performed By: #### 102 #### [facility] [address] [facility]. [address] Lymphocytes (Bld) [#/Vol] 1.3 10*3/uL Normal 1.2-4.0 The [facility] Comment on above: Performed By: #### 102 #### [facility] [address] [place] [address], [facility] Lymphocytes/100 WBC (Bld) 18.7 % Low 20.0-45.0 The [facility] Comment on above: Performed By: #### 5 3 #### [facility] [address] [place] [address], [facility] MCH (RBC) [Entitic mass] 29.5 pg Normal 27.0-33.0 The [facility] Comment on above: Performed By: #### 3 #### [facility] [address] [facility] [place] [address], [facility] MCHC (RBC) [Mass/Vol] 33.2 g/dL Normal 32.0-35.0 The [facility] Comment on above: Performed By: #### 3 #### [facility] [address] [place] [address], [facility] MCV (RBC) [Entitic vol] 88.9 fL Normal 82.0-98.0 The [facility] Comment on above: Performed By: #### 5 3 #### [facility] [address] [place] [address], [facility] Monocytes (Bld) [#/Vol] 0.7 10*3/uL Normal 0.1-1.0 The [facility] Comment on above: Performed By: #### 102 #### [facility] [address] [facility] [place] [address], [facility] MONOS 9.7 % Normal 5.0-12.0 The [facility] Comment on above: Performed By: #### 102 #### [facility] [address] [place] [address], [facility] Neutrophils/100 WBC (Bld) 69.9 % Normal 40.0-72.0 The [facility] Comment on above: Performed By: #### 102 #### [facility] [address] [facility] [place] [address], [facility] Nucleated RBC/100 WBC (Bld) [Ratio] 0 % Normal 0-0 The [facility] Comment on above: Performed By: #### 3 #### [facility] [address] [place] [address], [facility] PLAT CNT 263 10*3/uL Normal 150-400 The [facility] Comment on above: Performed By: #### 102 #### [facility] [address] [facility] [place] [address], [facility] RBC (Bld) [#/Vol] 4.61 10*6/uL Normal 3.80-5.00 The [facility] Comment on above: Performed By: #### 3 #### [facility] [address] WBC (Bld) [#/Vol] 6.99 10*3/uL Normal 4.00-10.60 [facility] Comment on above: Performed By: #### 5 0103 #### [facility] [address] POC SARS COV2 IDon 2 SARS-CoV-2 (COVID-19) RNA AUTUMN+probe Ql (Unsp spec) Negative Normal NEGATIVE The [facility] Comment on above: Result Comment: ID N [...] Accreditation. Performed By: #### 3 1921 #### [facility] [address] PROTHROMBIN TIMEon 2 INR Coag (PPP) [Relative time] 0.97 {INR} Normal 0.91-1.16 The [facility] Comment on above: Result Comment: ACCC P [...] CHEST 1995;108:[id number]-[id number]. Performed By: #### 5 6101, 80777 ####[facility] PT Coag (PPP) [Time] 12.9 s Normal 12.3-14.8 [facility] Comment on above: Result Comment: ALL RESULTS MUST BE INTERPRETED WITH RESPECT TO BLOOD DRAWING ARTIFACT OR DILUTION ERROR OF ANTICOAGULANT AT THE TIME OF SAMPLING. Performed By: #### 5 6101, 82133 ####[facility] VITAMIN D 25-HYDROXYon 06-05 VITAMIN D 25-OH 23.9 ng/mL Low 30.0-80.0 [facility] Comment on above: Result Comment: >80. 0 Toxicity possible Performed By: #### 0 0071, 72948 ####[facility] [place] [address] KNEE LEFT 1 OR 2 Son 04-26 KNEE LEFT 1 OR 2 S [facility] Department of Radiology [address] [place] [address] ===== Patient Name: JENNI KAPADIA : 1965 Sex: F Age: Race: White Pt. Location: 84 Patient Status: O Ordered Date: 04/26/2022 9:55:00 [...] seen Electronically signed: Dianne Lopez. Transcribed by: [email or web address], User Resident: Electronically Signed by: DIANNE LOPEZ @ 04/26/2022 04:24 PM Normal The [facility] Operative Reporton 2 Operative Report MR#: [id number] S [facility] Pt. Name: Jenni Kapadia Room #: 0C [...] Torres MD Date Trans: 04/16/2022 11:01 P/tamika [id number] cc: Nito Jeong M.D. [address] [place] [address] Normal The [facility] KNEE LEFT 1 OR 2 [facility] 04-14 KNEE LEFT 1 OR 2 S [facility] Department of Radiology [address] [place] [id number] ===== Patient Name: JENNI KAPADIA : 1965 Sex: F Age: Race: White Pt. Location: [facility] Patient Status: D Ordered Date: 04/14/2022 11:00:00 [...] service. Electronically signed: Nic Allred. Transcribed by: [email or web address], User Resident: Electronically Signed by: NIC ALLRED @ 04/16/2022 06:51 PM Normal [facility] Comment on above: Order Comment: ORIF LEFT PATELLA POC GLUCOSE LABon 04-14-2022 Glucose [Mass/Vol] 87 mg/dL Normal 70-100 [facility] Comment on above: Performed By: #### 8 5499 #### [facility] [address] [place] [address] Comprehensive Metabolic Pane beltran 11-15-2021 Albumin [Mass/Vol] 4.8 g/dL Normal 3.6-5.1 [facility] Comment on above: Performed By: #### L IPD, CMP #### [facility] [address] [place], [place] [id number] Albumin/Globulin [Mass ratio] 1.9 {ratio} Normal 1.0-2.5 [facility] Comment on above: Performed By: #### L BHUPENDRA, CMP #### [facility] [address] [place] [id number] ALP [Catalytic activity/Vol] 135 U/L High 35-119 [facility] Comment on above: Performed By: #### L IPD, CMP #### [facility] [address] [place], [place] [id number] ALT [Catalytic activity/Vol] 38 U/L High 6-[address] [facility] Specialist Comment on above: Result Comment: 10/05 Female reference range changed. Performed By: #### L IPD, CMP #### [facility] [address] [place], [place] [id number] Anion gap [Moles/Vol] 20 mmol/L Normal 12-[address] [facility] Specialist Comment on above: Result Comment: Effe ctive 11/10/2019 reference range changed. Performed By: #### L IPD, CMP #### [facility] [address] [place], [place] [id number] AST [Catalytic activity/Vol] 20 U/L Normal 9-[address] [facility] Specialist Comment on above: Performed By: #### L IPD, CMP #### [facility] [address] [place], [place] [id number] Bilirubin [Mass/Vol] 0.44 mg/dL Normal 0.30-1.20 [facility] Comment on above: Performed By: #### L IPD, CMP #### [facility] [address] [place], [place] [id number] BUN/CREA 23 Ratio High 6-22 [facility] Comment on above: Performed By: #### L IPD, CMP #### [facility] [address] [place], [place] [id number] Calcium [Mass/Vol] 9.4 mg/dL Normal 8.6-10.2 [facility] Comment on above: Performed By: #### L IPD, CMP #### [facility] [address] [place], [place] [id number] Chloride [Moles/Vol] 100 mmol/L Normal 98-107 [facility] Comment on above: Performed By: #### L IPD, CMP #### [facility] [address] [place], [place] [id number] CO2 [Moles/Vol] 18 mmol/L Low 20-[address] [facility] Specialist Comment on above: Performed By: #### L IPD, CMP #### [facility] [address] [place], [place] [id number] Creatinine [Mass/Vol] 0.9 mg/dL Normal 0.6-1.4 [place] [facility] Comment on above: Performed By: #### L IPD, CMP #### [facility] [address] [place], [place] [id number] eGFRAA 79 mL/min/1.73m2 Normal >60 [facility] Comment on above: Performed By: #### L IPD, CMP #### [facility] [address] [place], [place] [id number] eGFRNAA 65 mL/min/1.73m2 Normal >60 [facility] Comment on above: Performed By: #### L IPD, CMP #### [facility] [address] [place], [place] [id number] Globulin (S) [Mass/Vol] 2.5 g/dL Normal 1.9-3.7 [facility] Comment on above: Performed By: #### L IPD, CMP #### [facility] [address] [place], [place] [id number] Glucose [Mass/Vol] 126 mg/dL High 65-99 [facility] Comment on above: Result Comment: For FASTING Glucose --- ADA reference ranges: Normal 65-99 mg/dl Prediabetes 100-125 Diabetes >/= 126 Performed By: #### L IPD, CMP #### [facility] [address] [place], [place] [id number] Potassium [Moles/Vol] 5.2 mmol/L Normal 3.5-5.5 [facility] Comment on above: Performed By: #### L IPD, CMP #### [facility] [address] [place], [place] [id number] Protein [Mass/Vol] 7.3 g/dL Normal 6.1-8.1 [facility] Comment on above: Performed By: #### L IPD, CMP #### [facility] [address], [place] [id number] Sodium [Moles/Vol] 133 mmol/L Low 135-146 [facility] Comment on above: Performed By: #### L IPD, CMP #### [facility] [address] [place], [place] [id number] Urea nitrogen [Mass/Vol] 21 mg/dL Normal 7-25 [facility] Comment on above: Performed By: #### L IPD, CMP #### [facility] [address], [place] [id number] Lipid Panelon 11-15-2021 Cholesterol [Mass/Vol] 150 mg/dL Normal 125-[address] [facility] Specialist Comment on above: Result Comment: Low risk < 200mg/dL Borderline risk 201-239 mg/dl High risk > or equal to 240 Performed By: #### L IPD, CMP #### [facility] [address] [place], [place] [id number] Cholesterol in HDL [Mass/Vol] 37 mg/dL Low >40 [facility] Comment on above: Result Comment: High Cardiovascular Risk HDL <40 mg/dL Low Cardiovascular Risk HDL > or equal to 60 mg/dl Performed By: #### L IPD, CMP #### [facility] [address] [place], [place] [id number] Cholesterol in LDL [Mass/Vol] 66 mg/dL Normal [facility] Comment on above: Result Comment: LDL ATP III CLASSIFICATION LDL less than 100 mg/dl Optimal LDL 100-129 mg/dl Near or above optimal LDL 130-159 Borderline high LDL 160-189 High LDL greater than 189 mg/dl Very High Performed By: #### L IPD, CMP #### [facility] [address], [place] [id number] Cholesterol in VLDL [Mass/Vol] 47 mg/dL Normal [facility] Comment on above: Performed By: #### L IPD, CMP #### [facility] [address] [place] [id number] Cholesterol.total/Ch olesterol in HDL [Mass ratio] 4 {ratio} Normal [facility] Comment on above: Performed By: #### L IPD, CMP #### [facility] [address], [place] [id number] Triglyceride [Mass/Vol] 237 mg/dL High 30-150 [facility] Comment on above: Result Comment: TRIG ATPIII CLASSIFICATIONS TRIG less than 150 mg/dl Normal TRIG 150-199 mg/dl Borderline High TRIG 200-500 mg/dl High TRIG greather than 500 mg/dl Very High Performed By: #### L IPD, CMP #### [facility] [address], [place] [id number] Vital Signs Date Time Vital Sign Value Performing Clinician Harpreet franklin 08-14-2024 09:01-0400 Diastolic blood pressure 92 mm[Hg] Misty Hemmer PA Work Phone: [facility] 08-14-2024 09:01-0400 Systolic blood pressure 160 mm[Hg] Misty Hemmer PA Work Phone: [facility] 08-14-2024 08:17-0400 Body height 165.1 cm Misty Hemmer PA Work Phone: [facility] 08-14-2024 08:17-0400 Body mass index (BMI) [Ratio] 40 kg/m2 Misty Hemmer PA Work Phone: [facility] 08-14-2024 08:17-0400 Body temperature 97.3 [degF] Misty Hemmer PA Work Phone: [facility] 08-14-2024 08:17-0400 Body weight 109.05 kg Misty Hemmer PA Work Phone: [facility] 08-14-2024 08:17-0400 Heart rate 80 /min Misty Hemmer PA Work Phone: [facility] 08-14-2024 08:17-0400 Respiratory rate 16 /min Misty Hemmer PA Work Phone: [facility] 08-14-2024 08:17-0400 SaO2% (BldA) [Mass fraction] 99 % Misty Hemmer PA Work Phone: [facility] 12-12-2023 09:36-0500 Body mass index (BMI) [Ratio] 39.9 kg/m2 Misty Hemmer PA Work Phone: [facility] 12-12-2023 09:36-0500 Body weight 108.77 kg Misty Hemmer PA Work Phone: [facility] 12-12-2023 09:36-0500 Diastolic blood pressure 94 mm[Hg] Misty Hemmer PA Work Phone: [facility] 12-12-2023 09:36-0500 Heart rate 78 /min Misty Landrum PA Work Phone: [facility] 12-12-2023 09:36-0500 Respiratory rate 16 /min Misty Landrum PA Work Phone: [facility] 12-12-2023 09:36-0500 SaO2% (BldA) [Mass fraction] 99 % Misty Landrum PA Work Phone: [facility] 12-12-2023 09:36-0500 Systolic blood pressure 162 mm[Hg] Misty Landrum PA Work Phone: [facility] Encounters Encounter Date Encounter Type Care Provider Facility Start: 08-21-2024 End: 08-22-2024 Refill Misty Landrum PA Work Phone: [facility] Comment on above: Nausea and vomiting, unspecified vomiting type Start: 08-19-2024 End: 08-19-2024 Refill Nito Jeong MD Work Phone: [facility] Comment on above: Essential hypertensi on (CMS/HCC) Start: 08-19-2024 End: 08-19-2024 Refill Misty Landrum PA Work Phone: [facility] Comment on above: 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 Start: 08-14-2024 End: 08-14-2024 Bamboo flowsheet Misty Landrum PA Work Phone: [facility] Start: 08-14-2024 End: 08-14-2024 Bamboo flowsheet Misty Landrum PA Work Phone: [facility] Start: 08-14-2024 End: 08-14-2024 ambulatory MISTY LANDRUM Not Available Start: 08-14-2024 End: 08-14-2024 Office outpatient visit 25 minutes Misty Landrum PA Work Phone: [facility] Comment on above: Dark stools (Primary Dx); Epigastric pain; Essential hypertension (CMS/HCC); Traumatic arthritis of left knee; Gastroesophageal reflux disease without esophagitis; Osteoarthritis of lumbosacral spine with radiculopathy; Coronary artery disease involving [place] coronary artery of [place] heart without angina pectoris ([facility]); New persistent daily headache; Morbid (severe) obesity due to excess calories ([facility]); Body mass index (BMI) 40.0-44.9, adult ([facility]) Start: 08-12-2024 End: 08-12-2024 Telephone encounter Misty WILKERSON Work Phone: [facility] Start: 07-15-2024 End: 07-15-2024 ambulatory MISTY Raza DIALLO Not Available Start: 04-14-2024 End: 04-14-2024 ambulatory MISTY Person DIALLO Not Available Start: 03-27-2024 End: 03-27-2024 [facility] Start: 03-10-2024 End: 03-10-2024 ambulatory MISTY LANDRUM [facility] Start: 03-03-2024 End: 03-03-2024 [facility] Start: 02-29-2024 End: 03-01-2024 ambulatory [facility] Start: 02-28-2024 End: 02-29-2024 ambulatory URIEL [facility] Start: 02-19-2024 End: 02-20-2024 ambulatory [facility] Start: 02-19-2024 End: 02-19-2024 ambulatory [facility] Start: 02-08-2024 End: 02-08-2024 ambulatory [facility] Start: 02-07-2024 Telephone encounter Ruby Brown CMA [facility] Start: 02-04-2024 Chart abstracting Maddy sumner MD Work Phone: [facility] Start: 01-10-2024 End: 01-10-2024 ambulatory MISTY LANDRUM Not Available Start: 01-08-2024 Telephone encounter Rita Grovesoh [facility] Start: 01-07-2024 Telephone encounter Rita Carlson [facility] Start: 01-02-2024 Telephone encounter Ruby Parham [facility] Start: 12-13-2023 Telephone encounter Micaela moody [employer]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: [facility] Comment on above: Med Refill Start: 12-12-2023 End: 12-12-2023 Office outpatient visit 25 minutes Misty Landrum PA Work Phone: [facility] Comment on above: Uncontrolled hyperte nsion (CMS/HCC) (Primary Dx); Need for immunization against influenza; Essential hypertension (CMS/HCC); Chest pain, unspecified type; Lumbar radiculopathy; Primary insomnia; Daytime somnolence Start: 12-12-2023 End: 12-12-2023 ambulatory MISTY LANDRUM Not Available Start: 11-15-2023 End: 11-15-2023 ambulatory MISTY LANDRUM Not Available Start: 10-31-2023 End: 10-31-2023 ambulatory NITO JEONG Not Available Start: 10-08-2023 End: 10-08-2023 ambulatory NITO JEONG Not Available Start: 08-29-2023 End: 08-30-2023 ambulatory [facility] Start: 05-25-2023 End: 05-26-2023 ambulatory [facility] Start: 03-28-2023 End: 03-29-2023 ambulatory MISTY LANDRUM Facility: Start: 03-23-2023 End: 03-24-2023 ambulatory [facility] Start: 02-23-2023 End: 02-24-2023 ambulatory [facility] Start: 02-17-2023 Encounter for [facility]procedural [facility] Start: 02-12-2023 ambulatory [facility] Start: 02-12-2023 End: 02-13-2023 ambulatory [facility] Start: 02-12-2023 End: 02-12-2023 ambulatory [facility] Start: 02-12-2023 End: 02-12-2023 Encounter for preprocedural laboratory examination [facility] Start: 02-08-2023 End: 02-09-[address] DOCTOR BUSTILLO Facility:[facility] Start: 02-08-2023 End: 02-09-2023 Encounter for preprocedural laboratory examination DR DOCTOR BUSTILLO Facility:[facility] Start: 01-01-2023 End: 01-02-2023 ambulatory MISTY LANDRUM Facility:[facility] Start: 12-22-2022 ambulatory [facility] Start: 12-22-2022 ambulatory [facility] Start: 12-20-2022 End: 12-21-2022 ambulatory MISTY LANDRUM Facility:[facility] Start: 12-11-2022 End: 12-12-2022 ambulatory [facility] Start: 11-24-2022 End: 11-25-2022 ambulatory [facility] Start: 10-26-2022 End: 10-27-2022 ambulatory MISTY LANDRUM Facility: Start: 09-19-2022 End: 09-20-2022 ambulatory [facility] Start: 06-06-2022 End: 06-09-2022 ambulatory NITO JEONG Facility:[facility] Start: 05-12-2022 ambulatory Facility:Ne[facility] FERNAND[facility] Start: 05-11-2022 ambulatory Facility:Neela FERNANDES Start: 04-26-2022 End: 05-01-2022 ambulatory LELE FORREST Facility:[facility] Start: 04-14-2022 End: 04-15-2022 ambulatory LELE FORREST Facility:[facility] Procedures Date Procedure Procedure Detail Performing Clinician Start: 03-27-2024 Follow-up visit Follow-up JAG LAINEZ Start: 10-31-2023 Mammography Misty griffiths PA Work Phone: Start: 05-14-2023 H/O: hysterectomy History of hystere ctomy Misty Landrum PA Work Phone: Start: 06-07-2022 Antibody screen NITO JEONG Comment on above: Performed By: #### [id number] #### [facility] [address] [place] [address], [facility] Start: 11-18-2019 Colonoscopy Misty WILKERSON Work Phone: Plan of Treatment Date Care Activity Detail Author Start: 11-18-2029 Screening for malign ant neoplasm of colon [facility] Start: 01-09-2025 Medicare Annual Well ness (AWV) Medicare Annual Wellness (AWV) [facility] Start: 10-31-2024 Screening for malign ant neoplasm of breast Mammogram [facility] Start: 10-14-2024 End: 10-14-2024 Patient encounter procedure 10/14/2024 8:00 AM EST Office Visit [facility] [address] [place] [address] Misty Landrum PA [address] [place] [address] [facility] Start: 07-06-2024 Influenza vaccination Influenza Vacc ine [facility] Start: 02-08-2024 End: 02-08-2024 Patient encounter procedure 02/08/2024 10:30 AM EDT Office Visit [facility] [address] [place] [id number] Maddy Trujillo MD [address] [place] [address] [facility] Start: 01-10-2024 End: 01-10-2024 Patient encounter procedure 01/10/2024 8:00 AM EST Office Visit [facility] [address] [place] [address] Misty Landrum PA [address] [place] [address] [facility] Start: 12-19-2023 End: 12-12-2024 Basic metabolic 1998 panel - Serum or Plasma Basic metabolic panel Lab Routine Uncontrolled hypertension (CMS/HCC) Expected: 12/19/2023 (Approximate), Expires: 12/12/2024 [facility] Comment on above: Expected: 12/19/2023 (Approximate), Expires: 12/12/2024 Start: 12-14-2023 Medicare Annual Well ness (AWV) Medicare Annual Wellness (AWV) [facility] Start: 12-12-2023 End: 12-12-2024 US.doppler Renal artery Vascular US renal artery duplex complete Imaging Routine Uncontrolled hypertension (CMS/HCC) Expected: 12/12/2023, Expires: 12/12/2024 [facility] Work Phone: Comment on above: Expected: 12/12/2023 , Expires: 12/12/2024 Start: 07-06-2023 Influenza vaccination Influenza Vacc ine [facility] Start: 07-26-2022 Screening for malign ant neoplasm of colon FIT-DNA [facility] Start: 02-26-2016 Administration of varicella zoster vaccine Zoster (Shingles) Vaccine (1 of 2) [facility] Start: 1987 Screening for malign ant neoplasm of cervix Pap Smear [facility] Start: 1985 DTaP,Tdap and Td Vac cines (1 - Tdap) DTaP,Tdap and Td Vaccines (1 - Tdap) [facility] Start: 02-26-1984 Adult BMI Screening Adult BMI Screen ing [facility] Start: 1978 Depression Screening Depression Scre ening [facility] Start: 1978 Tobacco Screening Tobacco Screening [facility] Start: 1966 Screening for malign ant neoplasm of colon [facility] Immunizations Immunization Date Immunization Notes Care Provider Fa cility 12-12-2023 influenza, injectabl e, quadrivalent, preservative free Misty WILKERSON Work Phone: [facility] 12-12-2023 influenza virus vaccine, unspecified formulation Maddy Trujillo MD Work Phone: [facility] 10-18-2022 influenza, injectabl e, quadrivalent, preservative free Misty WILKERSON Work Phone: [facility] 09-05-2021 influenza, injectabl e, quadrivalent, contains preservative Misty WILKERSON Work Phone: [facility] Payers Date Payer Category Payer Medicare (Managed Care) [facility] [id number] 2022 Unknown [id number] 2020 Medicare [id number] 2015 Medicare [employer] MEDICARE [place] [id number] 2015-Present [phone] [address] [address] [place] [address] [id number]. [id number] 1966 Unknown [id number] 2.16.840.1.479687.3.579. 2.594 1966 Unknown [id number] 2.16.840.1.630854.3.579. 2.594 1966 Unknown [id number] 2.16.840.1.632602.3.579. 2.647 1966 Unknown [id number] 2.16.840.1.431150.3.579. 2.647 1966 Unknown [id number] 2.16.840.1.269982.3.579. 2.647 1966 Unknown [id number] 2.16.840.1.363826.3.579. 2.593 1966 Unknown [id number] 2.16.840.1.603573.3.579. 2.593 1966 Unknown [id number] 2.16.840.1.701310.3.579. 2. 1966 Unknown [id number] 2.16.840.1.876503.3.579. 2.59 1966 Unknown [id number] 2.16.840.1.410455.3.579. 2. 1966 Unknown [id number] 2.16.840.1.212492.3.579. 2.1285 1966 Unknown [id number] 2.16840.1.916295.3.579. 2.1285 1966 Unknown [id number] 2.840.1.858490.3.579. 2.1285 1966 Unknown [id number] 2.840.1.981237.3.579. 2.1285 1966 Unknown [id number] 2.840.1.348385.3.579. 2.1285 1966 Unknown [id number] 2.16840.1.469583.3.579. 2.1285 1966 Unknown [id number] 2.840.1.420420.3.579. 2.1285 1966 Unknown [id number] 2.16840.1.041111.3.579. 2.1285 1966 Unknown [id number] 2.16840.1.940181.3.579. 2.1285 1966 Unknown [id number] 2.16840.1.660972.3.579. 2.1285 1966 Unknown [id number] 2.16840.1.762878.3.579. 2.1285 1966 Unknown [id number] 2.16840.1.856362.3.579. 2.1286 1966 Unknown [id number] 2.16.840.1.487142.3.579. 2.1258 1966 Unknown [id number] 2.16.840.1.534886.3.579. 2.9 1966 Unknown [id number] 2.16.840.1.023162.3.579. 2.1258 1966 Unknown [id number] 2.16.840.1.840198.3.579. 2.1258 1966 Unknown [id number] 2.16.840.1.409067.3.579. 2.1258 1966 Unknown [id number] 2.16.840.1.635947.3.579. 2.9 1966 Unknown [id number] 2.16.840.1.016283.3.579. 2.1258 1966 Unknown [id number] 2.16.840.1.097769.3.579. 2.1259 Social History Date Type Detail Facility Start: 04-04-2023 End: 02-04-2024 Tobacco smoking status [facility] Never smoked tobacco [facility] Start: 04-04-2023 Tobacco use and exposure Smokeless tobacco non-user [facility] Start: 12-12-2023 End: 08-14-2024 Alcohol intake Lifetime non-drinker (finding) [facility] Start: 07-15-2023 End: 08-13-2024 History of Social function [facility] Start: 07-15-2023 End: 08-13-2024 Humiliation, Afraid, Rape, and Kick questionnaire [HARK] [...] medical care, and heating Not very hard [facility] Do you feel stress - tense, restless, nervous, or anxious, or unable to sleep at night because your mind is troubled all the time - these days [OSQ] To some extent [facility] (I/We) worried wheth er (my/our) food would run out before (I/we) got money to buy more. Sometimes true [facility] Start: 1965 Sex Assigned At Not on file [facility] Tobacco smoking stat [facility] Tobacco smoking consumption unknown [facility] (I/We) worried wheth er (my/our) food would run out before (I/we) got money to buy more. Never true [facility] Clinical Notes 09-18-2022 to 08-22-2024 Telephone Encounter - ROCK Horn - 08/22/2024 9:25 AM EDTTelephone Encounter - ROCK Horn - 08/22/2024 9:25 AM EDTTelephone Encounter - ROCK Horn - 08/19/2024 2:29 PM EDT Note Date & Type Note Facility 08-22-2024 Telephone encounter Note Abi sent [facility] 08-22-2024 Miscellaneous Notes Abi sent documented in this encounter [facility] 08-19-2024 Telephone encounter Note OARRS reviewed, Rx sent into patient's pharmacy. [facility] 08-19-2024 Miscellaneous Notes OARRS reviewed, Rx sent into patient's pharmacy. documented in this encounter [facility] 08-19-2024 Telephone encounter Note Clonidine sent. [facility] 08-19-2024 Miscellaneous Notes Clonidine sent. documented in this encounter [facility] 08-14-2024 History of Presen t illness Narrative Images from the original note were not included. HPI Headache Additional comments: These have been off/on for 5-6 months, but over the past month it has been a constant pressure above her eyes. Denies sinus issues just pressure above her eyes. Has been taking motrin and it eases the pain but does not go away. Last edited by Micaela Wise LPN on 08/14/2024 8:17 AM. Subjective Patient ID: Jenni Kapadia is a 59 y.o. female who presents for abdominal pain. Jenni is present today for evaluation of abdominal pain. Admits it has been going on for a couple of months and over the last 3-4 weeks has gotten worse. Is a 10/10 at its worst. Pain is located in the middle of her stomach and describes it as a burning sensation and makes her feel nauseated. She has tried Tums, Pepcid, Maalox and not helping and it hurts all the time. States she does take the Motrin three times a day every day. States it is the only thing that helps even a little with her knee and back pain. Does admit to some dark stools, does feel that this is new. Does taken an iron supplement. Deals with some constipation. Does not drink much water, a few bottles. Goes back in October for second Shingles shot. Current Outpatient Medications on File Prior to Visit Medication Sig Dispense Refill alendronate (Fosamax) 70 MG tablet TAKE 1 TABLET BY MOUTH 30 MINUTES BEFORE first meal once a week 12 tablet 3 amLODIPine (Norvasc) 10 MG tablet Take 1 tablet (10 mg) by mouth in the morning. 100 tablet 3 aspirin (Aspirin Low Dose) 81 MG EC tablet Take 1 tablet (81 mg) by mouth in the morning. 90 tablet 3 B-12, Methylcobalamin, [address] 1 tablet under the tongue Daily 90 tablet 3 calcium carbonate (Os-Yang) 1250 (500 Ca) MG tablet Take 1,250 mg by mouth every 12 (twelve) hours. 1 tablet with meals twice daily. carvedilol (Coreg) 25 MG tablet take 1 tablet by mouth every morning and evening with meals 200 tablet 3 cholecalciferol (Vitamin D3) 25 MCG (1000 UT) tablet Take 1 tablet (25 mcg) by mouth 1 (one) time each day at the same time 100 tablet 3 cloNIDine (Catapres) 0.1 MG tablet Take 1 tablet (0.1 mg) by mouth in the morning and 1 tablet (0.1 mg) before bedtime. 60 tablet 2 clopidogrel (Plavix) 75 MG tablet Take 75 mg by mouth in the morning. ferrous sulfate (FeroSul) 325 (65 Fe) MG tablet Take 1 tablet (325 mg) by mouth in the morning. 180 tablet 1 folic acid (Folvite) 1 MG tablet Take 1 tablet (1,000 mcg) by mouth Daily 80 tablet 1 levothyroxine (Synthroid) 200 MCG tablet Take 1 tablet (200 mcg) by mouth Daily 30 tablet 1 nitroglycerin (Nitrostat) 0.[address] 0.4 mg under the tongue every 5 (five) minutes if needed for chest pain ER if no resolution after third dose olmesartan-hydroCHLOROthiazide (BENIcar HCT) 40-25 MG tablet Take 1 tablet by mouth in the morning. 100 tablet 3 ondansetron ODT (Zofran-ODT) 4 MG disintegrating tablet Take 1 tablet (4 mg) by mouth every 8 (eight) hours if needed for nausea or vomiting for up to 7 days 21 tablet 0 pregabalin (Lyrica) 150 MG capsule Take 1 capsule (150 mg) by mouth in the morning and 1 capsule (150 mg) before bedtime. 60 capsule 2 rosuvastatin (Crestor) 20 MG tablet Take 1 tablet (20 mg) by mouth Daily 100 tablet 3 tiZANidine (Zanaflex) 4 MG tablet Take 1 tablet (4 mg) by mouth in the morning and 1 tablet (4 mg) in the evening and 1 tablet (4 mg) before bedtime. 360 tablet 3 venlafaxine XR (Effexor XR) 150 MG 24 hr capsule TAKE 2 CAPSULES BY MOUTH EVERY DAY WITH FOOD 180 capsule 3 zolpidem (Ambien) 10 MG tablet Take 1 tablet (10 mg) by mouth as needed at bedtime for sleep 30 tablet 2 [DISCONTINUED] ibuprofen 800 MG tablet Take 1 tablet (800 mg) by mouth in the morning and 1 tablet (800 mg) in the evening and 1 tablet (800 mg) before bedtime. 270 tablet 3 [DISCONTINUED] omeprazole (PriLOSEC) [address] capsule Take 1 capsule (40 mg) by mouth Daily Do not crush or chew. 90 capsule 3 [DISCONTINUED] traMADol (Ultram) 50 MG tablet Take 2 tablets (100 mg) by mouth every 6 (six) hours if needed for moderate pain 240 tablet 0 No current facility-administered medications on file prior to visit. I have reviewed and reconciled the history and medication list with the patient today. No Known Allergies Social History Tobacco Use Smoking status: Never Smokeless tobacco: Never Vaping Use Vaping status: Never Used Substance Use Topics Alcohol use: Never Drug [...] Date Anxiety Arthritis Chronic low back pain Closed displaced osteochondral fracture of left patella with routine healing Depression (CMS/HCC) Disease of thyroid gland (CMS/HCC) Fibromyalgia BROOKE (generalized anxiety disorder) (CMS/HCC) GERD (gastroesophageal reflux disease) Hypothyroidism (CMS/HCC) Insomnia Left patella fracture 04/2022 Lupus erythematosus (CMS/HCC) OAB (overactive bladder) Osteoarthritis of lumbar spine Osteoporosis (CMS/HCC) Past Surgical History: Procedure Laterality Date CARDIAC SURGERY 02/2024 stent placement CHOLECYSTECTOMY 2007 COLONOSCOPY 2017 FOOT SURGERY Left [...] replacement oh hardware Visit Vitals BP (!) 160/98 Pulse 80 Temp 97.3 F Resp 16 Ht 5' 5 Wt 240 lb 6.4 oz SpO2 99% BMI 40.00 kg/m Smoking Status Never BSA 2.24 m Review of Systems Constitutional: Negative for chills, fatigue and fever. Respiratory: Negative for cough, shortness of breath and wheezing. Cardiovascular: Negative for chest pain, palpitations and leg swelling. Gastrointestinal: Positive for abdominal pain, constipation and nausea. Negative for diarrhea and vomiting. Bloating, dark stools Musculoskeletal: Positive for arthralgias and back pain. Skin: Negative for rash. Neurological: Positive for headaches. Objective Physical Exam Constitutional: General: She is not in acute distress. Appearance: She is well-developed. She is obese. Comments: Appears uncomfortable, frequently changing positions HENT: Head: Normocephalic and atraumatic. Eyes: General: No scleral icterus. Conjunctiva/sclera: Conjunctivae normal. Cardiovascular: Rate and Rhythm: Normal rate and regular rhythm. Heart sounds: Normal heart sounds. No murmur heard. Pulmonary: Effort: Pulmonary effort is normal. No respiratory distress. Breath sounds: Normal breath sounds. No wheezing, rhonchi or rales. Abdominal: General: Abdomen is protuberant. Bowel sounds are normal. Palpations: Abdomen is soft. Tenderness: There is abdominal tenderness (Marked) in the epigastric area. Skin: General: Skin is warm and dry. Neurological: General: No focal deficit present. Mental Status: She is alert and oriented to person, place, and time. Psychiatric: Mood and Affect: Mood normal. Behavior: Behavior normal. Assessment/Plan Diagnoses and all orders for this visit: Dark stools - Ambulatory referral to Gastroenterology; Future Provided pt with a referral to GI for EGD due to potential ulcer formation. Epigastric pain - Ambulatory referral to Gastroenterology; Future If sudden worsening pt can go to ER. Otherwise proceed with EGD. Essential hypertension (CMS/HCC) BP remains elevated on recheck. Has been running in the 150's/90's at home. She admits to being in more pain lately. Will have her recheck her BP at home once she has been on the new pain medication for a day or two. If improved she can call and LM with her BP reading, if remains elevated, she will reach out to Cardiology for instructions. Traumatic arthritis of left knee Due to current stomach issues, will have her stop the Motrin at this time. Gastroesophageal reflux disease without esophagitis - pantoprazole (Protonix) 40 MG EC tablet; Take 1 tablet (40 mg) by mouth in the morning. Take before meals. Do not crush, chew, or split.. Will have patient change from Omeprazole to Pantoprazole. Osteoarthritis of lumbosacral spine with radiculopathy - HYDROcodone-acetaminophen ([place]) 5-325 MG tablet; Take 1 tablet by mouth every 6 (six) hours if needed for severe pain for up to 5 days Tramadol was ineffective for patient. Will have her try [place] at this time. Reviewed potential s/e. OARRS report generated and reviewed. Will continue to monitor routinely in the office. Coronary artery disease involving [place] coronary artery of [place] heart without angina pectoris (CMS/HCC) Patient will keep upcoming appt with Cardiology on 09/26/2024. Per pt, they have discussed taking her off of the Aspirin in the past. In light of current symptoms I agree this should be considered. New persistent daily headache Encouraged pt to increase her water intake. If her headaches do not improve with improved BP control, pain control, and increasing water intake, would plan on considering imaging for further evaluation. Follow up for Appointment As Scheduled. documented in this encounter [facility] 08-12-2024 Telephone encounter Note Abi sent in for pt. [facility] 08-12-2024 Miscellaneous Notes Abi sent in for pt. Pt called wanting to find out if something could be called into the pharm for her for nausea and vomiting documented in this encounter [facility] 08-12-2024 Telephone encounter Note Pt called wanting to find out if something could be called into the pharm for her for nausea and vomiting [facility] 02-07-2024 Miscellaneous Notes Left message for patient to remind them to bring their most current medication list with them to their appointment. documented in this encounter [facility] 02-07-2024 Telephone encounter Note Left message for patient to remind them to bring their most current medication list with them to their appointment. [facility] 01-08-2024 Miscellaneous Notes T/C to PCP office, spoke with Nery letting them know we have been unsuccessful in reaching the patient after four attempts and mailed a letter requesting she call to schedule her PPC appt. documented in this encounter [facility] 01-08-2024 Telephone encounter Note T/C to PCP office, spoke with Nery letting them know we have been unsuccessful in reaching the patient after four attempts and mailed a letter requesting she call to schedule her PPC appt. [facility] 01-07-2024 Miscellaneous Notes TC to pt to schedule [facility]TRASONOGRAPHER PPC appt. Phone just rings and then goes to a busy signal. documented in this encounter [facility] 01-07-2024 Telephone encounter Note TC to pt to schedule ULTRASONOGRAPHER PPC appt. Phone just rings and then goes to a busy signal. [facility] 01-02-2024 Miscellaneous Notes Referral received from Misty Landrum to schedule pt for a ULTRASONOGRAPHER referral, phoned pt and phone just rings and then goes busy. documented in this encounter [facility] 01-02-2024 Telephone encounter Note Referral received from Misty Landrum to schedule pt for a ULTRASONOGRAPHER referral, phoned pt and phone just rings and then goes busy. [facility] 12-13-2023 Telephone encounter Note Abi sent. [facility] 12-13-2023 Miscellaneous Notes Abi sent. Pt is requesting a refill of her nausea meds. I do not see that she was ever on any meds for nausea. documented in this encounter [facility] 12-13-2023 Telephone encounter Note Pt is requesting a refill of her nausea meds. I do not see that she was ever on any meds for nausea. [facility] 12-12-2023 History of Presen t illness Narrative [...] influenza - influenza, injectable, quadrivalent, PF free ([id number]) (Fluzone / Fluarix / Alluria / Flulaval [...] consider alternative medication. Daytime somnolence Called [facility] to request results of previous sleep study. If pt has sleep apnea that is uncontrolled, likely contributing to her elevated BP. Follow up in about 4 weeks (around 01/09/2024) for Hypertension. documented in this encounter [facility] 08-29-2023 Note Orthopedic Surgery Subjective LEFT patella [...] depending on her activity level. She takes [place] as needed. Denies any numbness and tingling. [...] to his/her satisfa (more content not included)... [facility] 05-25-2023 Note Orthopedic Surgery Subjective L patella [...] depending on her activity level. She takes [place] as needed. Denies any numbness and tingling. [...] non-union. Facundo Nino MD Orthopaedic Surgery PGY-2 [facility] 05/25/23 11:00 AM [facility] 03-23-2023 Note Orthopedic Surgery Subjective Follow-up of [...] depending on her activity level. She takes [place] as needed. Denies any numbness and tingling. [...] be an additional personal documentation from me. [facility] 02-23-2023 Note Orthopedic Surgery Subjective 02/12/2023 Patellar revision ORIF, with patellar plating - Left, Removal, Hardware, Patella - Left, and Proximal tibia bone graft - Left 02/23/23 Jenni presents today for first postoperative visit, she states that she has had some trouble with pain since surgery and has been taking [place] with mild relief. Denies any wound concerns [...] be an additional personal documentation from me. [facility] 02-12-2023 Note Patient: Jenni jonas Procedure Summary Date: 02/12/23 Room / Location: [facility] OPER[facility] 05 / [facility] Operating Room Anesthesia Start: 0739 Anesthesia Stop: [...] discharge from PACU No notable events documented. [facility] 02-12-2023 Note Peripheral Block Patient location during procedure: pre-op Start time: 02/12/2023 7:14 AM End time: 02/12/2023 7:30 AM Reason for block: at surgeon's request and post-op pain management Staffing Performed: anesthesiologist and resident/VENDING ROUTE DRIVER/CAA Anesthesiologist: Tova Tam MD Resident/VENDING ROUTE DRIVER: Brannon Mooney MD Preanesthetic Checklist Completed: patient [...] rate change: no Slow fractionated injection: yes [facility] 02-12-2023 Note Airway Date/Time: 02/12/2023 7:44 AM Urgency: elective General Information and Staff Patient location during procedure: OR Anesthesiologist: Tova Tam MD Resident/VENDING ROUTE DRIVER/CAA: Brannon Mooney MD Performed: other anesthesia staff [...] 1 Number of other approaches attempted: 0 [facility] 02-12-2023 Note Subjective Pain about left patella. [...] proximal tibia bone graft NPO Consented Marked [facility] 02-12-2023 Note Patient: Jenni jonas Procedure Information Date/Time: 02/12/23 0730 Procedures: Patellar revision ORIF, with patellar plating (Left: Knee) Removal, Hardware, Patella (Left: Knee) Proximal tibia bone graft (Left: Knee) - C-ARM / 2.5 hours / [facility] / [employer] MINI NON LOCKING SET, NOTIFIED 02/08 ARACELI, ARTHREX PLATE AND SCREWS IN, NEED T10 SCREWDRIVER, HAVE CANNULATED SCREWS AVAILABLE Location: [facility]PER[facility] 05 / [facility] Operating Room Surgeons: Alicia Green MD Relevant [...] Plan discussed with attending. Additional Equipment Requests [facility] 12-22-2022 Note Subjective 12/22/22 Jenni Kapadia is [...] block prior to procedure Gareth Palomo, MS3 [facility] 11-24-2022 Note Date of Surgery: ENOC [...] fracture F/U with Dr Green after CT [facility] 09-19-2022 Note Date of Surgery: ENOC E [...] for WBAT F/U 6 wks repeat xrays [facility] 09-18-2022 Note Left Xr left knee [facility] Evaluation note Diagnosis Uncontrolled hypertension (CMS/HCC)- Primary [...] Nausea alone [facility] Diagnosis Nausea and vomiting, unspecified vomiting type- Primary [facility] Diagnosis Dark stools- Primary Nonspecific abnormal finding in stool contents Epigastric pain Abdominal pain, epigastric Essential hypertension (CMS/HCC) Unspecified essential hypertension Traumatic arthritis of left knee Gastroesophageal reflux disease without esophagitis Esophageal reflux Osteoarthritis of lumbosacral spine with radiculopathy Coronary artery disease involving [place] coronary artery of [place] heart without angina pectoris (CMS/HCC) New persistent daily headache New daily persistent headache Morbid (severe) obesity due to excess calories (CMS/HCC) Body mass index (BMI) 40.0-44.9, adult (CMS/HCC) [facility] Diagnosis Essential hypertension (CMS/HCC)- Primary Unspecified essential hypertension Primary insomnia Persistent disorder of initiating or maintaining sleep Lumbar radiculopathy Thoracic or lumbosacral neuritis or radiculitis, unspecified Nonrheumatic aortic valve insufficiency Essential hypertension (CMS/HCC) Unspecified essential hypertension [facility] Diagnosis Essential hypertension (CMS/HCC)- Primary Unspecified essential hypertension Primary insomnia Persistent disorder of initiating or maintaining sleep Lumbar radiculopathy Thoracic or lumbosacral neuritis or radiculitis, unspecified Nonrheumatic aortic valve insufficiency Osteoarthritis of lumbosacral spine with radiculopathy documented in this encounter [facility]* Diagnosis Essential hypertension (CMS/HCC)- Primary Unspecified essential hypertension Primary insomnia Persistent disorder of initiating or maintaining sleep Lumbar radiculopathy Thoracic or lumbosacral neuritis or radiculitis, unspecified Nonrheumatic aortic valve insufficiency Nausea and vomiting, unspecified vomiting type documented in this encounter [facility] HealthcareInstructionsNot on filedocumented in this encounterProMedica Health SystemInstructionsNot on filedocumented in this encounterProMedioh Health SystemInstructionsNot on filedocumented in this encounterProGeorgetown Behavioral Hospital SystemReason for referral (narrative)* Consultation (Routine) - Pending Review Specialty Diagnoses / Procedures Referred By Contac t Referred To Contact Cardiology Diagnoses Uncontrolled hypertension (CMS/HCC) Chest pain, unspecified type Procedures DE OFFICE/OUTPATIENT [facility] 60 MINUTES Misty Landrum PA [address] [address] Saw Billings MD [address] [place] [phone] Referral ID Status Reason Start Date Expiration Date Visits Requested Visits Authorized [id number] Pending Review Specialty Services Required 12/12/2023 06/09/2024 1 1 [facility] Consultation (Routine) - Pending Review Specialty Diagnoses / Procedures Referred By Contac t Referred To Contact Gastroenterology Diagnoses Dark stools Epigastric pain Procedures DE OFFICE/OUTPATIENT [facility] 60 MINUTES Misty Landrum PA [address] [address] Referral ID Status Reason Start Date Expiration Date Visits Requested Visits Authorized [id number] Pending Review Specialty Services Required 02/10/2025 1 1 [facility] Summary Purpose Family [...] Contact Diagnoses Nausea Misty Landrum PA 112 [facility] [address] [place] [address] Referral ID Status Reason Start Date Expiration Date Visits Re quested Visits Authorized [id number] Closed 1 1 Specialty Diagnoses / Procedures Referred By Contac t Referred To Contact Diagnoses Nausea and vomiting, unspecified vomiting type Misty Landrum PA 112 [facility] [address] [place] [address] Referral ID Status Reason Start Date Expiration Date V isits Requested Visits Authorized [id number] Pending Review 1 1 Additional Source Comments INFORMATION SOURCE (unrecogn ized section and content) DATE CREATED AUTHOR 11/16/2021 [facility] dical Specialist DATE CREATED AUTHOR AUTHOR'S ORGANIZ ATION 05/23/2022 [facility] DATE CREATED AUTHOR AUTHOR'S ORGANIZ ATION 06/29/2022 [facility] DATE CREATED AUTHOR AUTHOR'S ORGANIZ ATION 04/13/2023 [facility] DATE CREATED AUTHOR AUTHOR'S ORGANIZ ATION 08/31/2023 [facility] DATE CREATED AUTHOR AUTHOR'S ORGANIZ ATION 03/07/2024 [facility] DATE CREATED AUTHOR AUTHOR'S ORGANIZ ATION 03/29/2024 [facility] DATE CREATED AUTHOR AUTHOR'S ORGANIZ ATION 08/16/2024 [facility] dical Specialists EPIC Care Teams (unrecognized sec tion and content) Administration Dean Relationship Specialty Start Date End Date Nito Jeong MD [address] [place] [address] PCP - [facility] 11/05/21 Nito Jeong MD [address] [place] [address] PCP - General Internal Medicine 05/14/23 Administration Dean Relationship Specialty Start Date End Date Nito Jeong MD [address] [place] [address] PCP - [facility] 11/05/21 Nito Jeong MD [address] [place] [address] PCP - General Internal Medicine 05/14/23 Administration Dean Relationship Specialty Start Date End Date Misty Landrum PA [address] [place] [address] PCP - General Physician [employer] 01/08/24 Administration Dean Relationship Specialty Start Date End Date Misty Landrum PA [address] [place] [address] PCP - General Physician Figure Skater 01/08/24 Administration Dean Relationship Specialty Start Date End Date Misty Landrum PA [address] [place] [address] PCP - General Physician [employer] Skater 01/08/24 Administration Dean Relationship Specialty Start Date End Date Nito Jeong MD [address] [place] [address] PCP - [facility] 11/05/21 Nito Jeong MD [address] [place] [address] PCP - General Internal Medicine 05/14/23 Administration Dean Relationship Specialty Start Date End Date Nito Jeong MD [address] [place] [address] PCP - [facility] 11/05/21 Nito Jeong MD [address] [place] [address] PCP - General Internal Medicine 05/14/23 Administration Dean Relationship Specialty Start Date End Date Nito Jeong MD [address] [place] [address] PCP - [facility] 11/05/21 Nito Jeong MD [address] [place] [address] PCP - General Internal Medicine 05/14/23 Administration Dean Relationship Specialty Start Date End Date Nito Jeong MD [address] [place] [address] PCP - [facility] 11/05/21 Nito Jeong MD [address] [place] [address] PCP - General Internal Medicine 05/14/23 Reason for Visit (unrecogniz ed section and content) Reason Onset Date Comments Med Refill 12/13/2023 Reason Comments Headache These have been off/ on for 5-6 months, but over the past month it has been a constant pressure above her eyes. Denies sinus issues just pressure above her eyes. Has been taking motrin and it eases the pain but does not go away. Reason Comments Med Change Request Reason Onset Date Comments Med Refill 08/19/2024 Reason Onset Date Comments Med Refill 08/21/2024 FOR RECORDS PERTAINING TO PATIENTS WHO ARE [...] BE BASED ON THE PRIMARY CLINICAL RECORDS. [facility]. provides no warranty or guarantee of the accuracy or completeness of information in this document.
--- NOTE | 2024-09-05 13:19 | XR_ITS ---
The [address] [address] Patient Name: TERRANCE KAPADIA MRN: [id number] date: 1965 Sex: F Assigned Patient [facility]: [facility] Current Patient Location: Accession/Order Number: [id number] Exam Date: 09/05/2024 13:22 Report Date: 09/06/2024 07:56 At the request of: MAKENZIE LANDRUM Procedure: XR knee LT 4V PROCEDURE: XR knee LT 4V HISTORY: traumatic arthritis of left knee ; pain since falling one month ago; remote history of patella fracture and repair COMPARISON: None. FINDINGS: BONES:Remote patella fracture and hardware repair; no appreciable hardware fracture. A portion of the prior fracture line is still visible. Small periarticular degenerative osteophytes and suspected slight joint space narrowing of all 3 compartments. SOFT TISSUES:No visible soft tissue swelling. EFFUSION:None visible. OTHER: Negative. XR/XR knee LT 4V IMPRESSION: 1. No appreciable acute abnormality. 2. Mild degenerative joint disease of the knee. 3. Prior patella fracture repair; no appreciable hardware failure. Electronically authenticated by: TRUPTI REEVES Date: 09/06/2024 07:56
[2024-09-05 13:23] LABS: Basophils Percent Auto 0.5 % (0.2-2.0); Eosinophils Percent Auto 0.7 % (0.9-7.0); Hematocrit 45.4 % (36.0-48.0); Hemoglobin 15.4 g/dL (12.0-16.0); Immature Granulocytes Abs Auto 0.01 10^3/uL (0.00-0.03); Immature Granulocytes Pct Auto 0.2 % (0.0-0.5); Lymphocytes Absolute Auto 1.4 10^3/uL (1.2-3.8); Lymphocytes Percent Auto 23.4 % (20.5-60.0); Mean Corpuscular HGB Conc 33.9 g/dL (29.9-35.2); Mean Corpuscular Hemoglobin 28.4 pg (26.7-34.0); Mean Corpuscular Volume 83.6 fL (81.0-99.0); Mean Platelet Volume 8.4 fL (9.5-13.5); Monocytes Absolute Auto 0.6 10^3/uL (0.3-0.8); Neutrophils Absolute Auto 3.9 10^3/uL (1.4-6.5); Neutrophils Percent Auto 65.2 % (43.0-75.0); Platelet Count 249 10^3/uL (150-450); Red Blood Count 5.43 10^6/uL (4.20-5.40); Red Cell Distribution Width 13.2 % (11.0-15.0); White Blood Count 5.9 10^3/uL (4.0-11.0)
[2024-09-05 13:54] LABS: Anion Gap 17.2; BUN Creatinine Ratio 19.8; Calcium 9.1 mg/dL (8.5-10.1); Carbon Dioxide 24.1 mmol/L (21.0-32.0); Chloride 98 mmol/L (98-107); Estimated GFR (African America >60 (>=60 mL/min/1.73m^2); Estimated GFR (Non-African Ame 60 (>=60 mL/min/1.73m^2); Glucose 91 mg/dL (74-106); Potassium 4.3 mmol/L (3.5-5.1); Sodium 135 mmol/L (136-145); TSH W/ REFLEX FT4 2.108 uIU/mL (0.358-3.740)
[2024-09-05 14:00] LABS: Percent Iron Saturation 23.4 %
[2024-09-06 10:08] LABS: Transferrin 269 mg/dL (192-364)
== END 2024-09-05 12:54 | disposition home or self-care (01) ==
LOC: RAD 12:57
PROVIDERS: PCP Physician Assistant; Visit Provider Physician Assistant
DX: M12.562 Traumatic arthropathy, left knee (principal); I10 Essential (primary) hypertension; E87.1 Hypo-osmolality and hyponatremia; R71.8 Other abnormality of red blood cells; R53.82 Chronic fatigue, unspecified; E03.9 Hypothyroidism, unspecified
CPT/HCPCS: 36415; 73564; 80048; 83540; 83550; 84443; 84466; 85025

== ENCOUNTER 2024-11-14 10:06 | Outpatient (OUT) | payer OTHER, SELFPAY ==
--- NOTE | 2024-11-14 10:09 | MM_ITS ---
Patient Name: TERRANCE KAPADIA MR#: [id number] : 1965 Exam Date: 11/14/2024 Ordering Doctor: DR MAKENZIE WILKERSON RADIOLOGY REPORT PROCEDURE: MM TOMOSYNTHESIS SCREENING BI COMPARISON: MM TOMOSYNTHESIS SCREENING BI, 10/30/2023. MG MAMM SCREEN 3D [facility] CAD, 10/26/2022. MG MAMM SCREEN 3D [facility] CAD, 09/16/2021. MG MAMM [facility] SCRN W CAD DIG, 12/01/2008. INDICATIONS: Screening Calculator Name NCI Breast Cancer Risk Assessment Tool 5 Year Breast Cancer Risk 1.90% Lifetime Breast Cancer Risk 10.90% Personal Breast Cancer No Personal Ovarian Cancer No Treatments None Family Cancers Grandmother-maternal with liver cancer at age ~66. LOCATION: [facility] BREAST COMPOSITION: There are scattered areas of fibroglandular density. FINDINGS: DIAGNOSTIC CATEGORY 2--BENIGN FINDING: RIGHT BREAST: No significant suspicious finding. Stable, chronic subareolar lymph node. No significant change has occurred. LEFT BREAST: No significant suspicious finding. Stable biopsy marker in scarring 12 o'clock mid breast. No significant change has occurred. RECOMMENDATIONS: ROUTINE MAMMOGRAM AND CLINICAL EVALUATION IN 12 MONTHS. PLEASE NOTE: A NORMAL MAMMOGRAM DOES NOT EXCLUDE THE POSSIBILITY OF BREAST CANCER. A CLINICALLY SUSPICIOUS PALPABLE LUMP SHOULD BE BIOPSIED. Dictated by: Constantin Mclaughlin M.D. on 11/14/2024 at 15:10 Approved by: Constantin Mclaughlin M.D. on 11/14/2024 at 15:12
== END 2024-11-14 10:07 | disposition home or self-care (01) ==
LOC: MAMMO 10:06
PROVIDERS: PCP Physician Assistant; Visit Provider Physician Assistant
DX: Z12.31 Encounter for screening mammogram for malignant neoplasm of breast (principal); Z80.8 Family history of malignant neoplasm of other organs or systems
CPT/HCPCS: 77063; 77067

== ENCOUNTER 2025-02-19 09:16 | Emergency (ER) | payer OTHER, SELFPAY ==
[2025-02-19 09:26] VITALS: BP 119/60; PULSE 61; TEMP 36.6; O2SAT 99; BMI 33.8
--- OUTSIDE RECORDS SUMMARY | 2025-02-19 09:30 | XMS_ITS | CCD ---
Author Organization [facility] CliniSyla Care Team Providers Care Chemical Dependency Counselor Name Role Phone NITO JEONG Primary Care [...] DR BURCH Primary Care Unavailable HEMMER, MISTY M Attending Unavailable HEMMERMISTY Consulting Unavailable HEMMER, MISTY Person Attending Unavailable HEMMER, MISTY Person Consulting Unavailable HEMMER, MISTY M Admitting Unavailable JEONG, DR BURCH Primary Care Unavailable HEMMER, MISTY Person Attending Unavailable HEMMER, MISTY M Admitting Unavailable JEONG, DR BURCH Primary Care Unavailable JEONG, DR BURCH Consulting Unavailable HEMMER, MISTY M Consulting Unavailable MISC, DR VILLALTA Admitting Unavailable JEONG, DR BURCH Primary Care Unavailable MISC, DR VILLALTA Attending Unavailable MISC, DR VILLALTA Consulting Unavailable HEMMISTY LIU Attending Unavailable JEONG, DR BURCH Primary Care Unavailable ZIEBER, DR TRUPTI Vicente Consulting Unavailable HEMMER, MISTY M Admitting Unavailable HEMMER, MISTY M Consulting Unavailable GREEN, ALICIA Attending Unavailable GREEN, ALICIA Attending Unavailable GREEN, ERINER Attending Unavailable GREEN, ERINER Attending Unavailable FENG JOSE Referring Unavailable XIOMARACHRIS Referring Unavailable GREEN, CHRISTOPHER Admitting Unavailable GREEN, CHRISTNINAER Attending Unavailable XIOMARA, CHRIS Referring Unavailable GREEN, CHRISTOPHER Referring Unavailable GREEN, CHRISTOPHER Referring Unavailable GREEN, CHRISTOPHER Referring Unavailable GREEN, CHRISTOPHER Referring Unavailable GREEN, CHRISTOPHER Referring Unavailable XIOMARACHRIS Attending Unavailable SELF, REFERRED Referring Unavailable ALICIA GREEN Attending Unavailable ALICIA GREEN Referring Unavailable CHRIS SOLANO Attending Unavailable Nito Jeong MD Unavailable Nito Jeong MD Primary Care Provider Deena HUNT Admitting Unavailable [facility]ena [facility]T [facility]available MADDY TRUJILLO R Attending Unavailable HEMMERBEEN Referring Unavailable HEMMER, [facility] Primary Care Unavailable KATTAR MADDY R Attending Unavailable KATTAR, MADDY R Referring Unavailable HEMMER, [facility] Primary Care Unavailable KATTAR MADDY R Attending Unavailable KATTAR MADDY R Referring Unavailable HEMMER, [facility] Primary Care Unavailable KATTAR MADDY R Attending Unavailable KATTAR, MADDY R Referring Unavailable HEMMER, [facility] Primary Care Unavailable KATTAR MADDY R Attending Unavailable KATTAR, MADDY R Referring Unavailable HEMMER, [facility] Primary Care Unavailable URIEL ISBELL Referring Unavailable HEMMER, [facility] Primary Care Unavailable KATTAR MADDY R Attending Unavailable KATTAR MADDY R Referring Unavailable HEMMER, [facility] Primary Care Unavailable KATTAR MADDY R Attending Unavailable KATTAR, MADDY R Referring Unavailable HEMMER, [facility] Primary Care Unavailable HEMMER, MISTY Referring Unavailable HEMMER, [facility] Primary Care Unavailable JAG MAYBERRY Attending Unavailable HEMMISTY LIU Referring Unavailable HEMMER, [facility] Primary Care Unavailable Asaad, Imad Attending Unavailable Nito Jeong [facility] Care Unavailable Asaad, Imad Admitting Unavailable Asaad, Imad Attending Unavailable Nito Jeong [facility] Care Unavailable Asaad, Imad Admitting Unavailable Hemmer Misty WILKERSON Primary Care Provider Unavailable Primary Care Provider Unavailabl e MISTY LANDRUM Attending Unavailable MISTY LANDRUM Attending Unavailable HEMMISTY LIU Attending Unavailable HEMMISTY LIU Attending Unavailable HEMMISTY LIU Attending Unavailable HEMMISTY LIU Attending Unavailable HEMMISTY LIU Attending Unavailable Medications Current Medications Medication Drug Class(es) Dates Sig (Normalized) Sig (Original) acetaminophen 325 mg / HYDROcodone bitartrate 7.5 mg oral tablet (20 sources) Opioid Agonist Start: 10-08-2024 take 1 tablet by mouth twice daily as needed Hydrocodone-Aceta minophen 7.5-325 mg tablet Active 1 TAB PO Twice daily as needed October 08, 2024 1:00am Start: 09-05-2024 End: 03-13-2025 take 1 tablet by mouth every six hours for pain HYDROcodone-acetaminophen ([place]) 7.5-32 5 MG tablet Indications: Osteoarthritis of lumbosacral spine with radiculopathy , Other chronic pain Take 1 tablet by mouth every 6 (six) hours if needed for severe pain 120 tablet 02/11/2025 03/13/2025 Active Start: 08-14-2024 End: 09-18-2024 take 1 tablet by mouth every six hours for pain HYDROcodone-acetaminophen ([place]) 5-325 MG tablet Indications: Osteoarthritis of lumbosacral spine with radiculopathy Take 1 tablet by mouth every 6 (six) hours if needed for severe pain 120 tablet 08/19/2024 09/05/2024 Discontinued (Dose adjustment) alendronic acid 70 mg oral tablet (20 sources) Bisphosphonate Start: 09-15-2024 take 1 tablet by mouth in the morning alendronate (Fosamax) 70 MG tablet Indications: Osteoporosis of multiple sites (CMS/HCC) Take 1 tablet (70 mg) by mouth every 7 (seven) days Take in the morning with a full glass of water, on an empty stomach, and do not take anything else by mouth or lie down for the next 30 min. 12 tablet 3 09/15/2024 Active Start: 08-10-2023 alendronate (F osamax) 70 MG tablet Indications: Osteoporosis of multiple sites (CMS/HCC) TAKE 1 TABLET BY MOUTH 30 MINUTES BEFORE first meal once a week 12 tablet 3 08/10/2023 Active amLODIPine 10 mg oral tablet (20 sources) Dihydropyridine Calcium Channel Yunier Start: 11-26-2023 End: 11-25-2024 take 1 tablet by mouth once daily Amlodipine 10 mg tablet Active 10 MG PO Daily January 30, 2024 12:00am amoxicillin 875 mg / clavulanate 125 mg oral tablet (5 sources) Penicillin-class Antibacterial Start: 01-06-2025 End: 01-13-2025 take 1 tablet by mouth in the morning amoxicillin-clav ulanate (Augmentin) 875-125 MG tablet Indications: Acute non-recurrent frontal sinusitis Take 1 tablet (875 mg) by mouth in the morning and 1 tablet (875 mg) in the evening. Take with meals. Do all this for 7 days. 14 tablet 01/06/2025 01/13/2025 Active aspirin 81 mg delayed release oral tablet (20 sources) Platelet Aggregation Inhibitor, Nonsteroidal Anti-inflammatory Drug Start: 03-03-2024 take 1 tablet by mouth once daily Aspirin 81 mg tablet,delayed release (DR/EC) Active 81 MG PO Daily August 28, 2024 12:00am calcium carbonate 500 mg oral tablet (20 sources) take 1 tablet by mouth twice daily at mealtime calcium carbonate (Os-Kristal) 1250 (500 Ca) MG tablet Take 1,250 mg by mouth every 12 (twelve) hours. 1 tablet with meals twice daily. Active take 1 tablet by jesse th once daily at breakfast calcium carbonate (OS-KRISTAL) 600 mg elemental (1,500 mg) tablet Take 1 tablet (600 mg total) by mouth daily with breakfast. Active carvedilol 25 mg oral tablet (20 sources) alpha-Adrenergic Yunier, beta-Adrenergic Yunier Start: 01-30-2024 take 1 tablet by mouth twice daily Carvedilol 25 mg tablet Active 25 MG PO Twice daily January 30, 2024 12:00am Start: 11-15-2023 take 1 tablet by jesse th in the morning carvedilol (Coreg) 25 MG tablet Indications: Essential hypertension (CMS/HCC) Take 1 tablet (25 mg) by mouth in the morning and 1 tablet (25 mg) in the evening. Take with meals. 200 tablet 3 02/09/2025 Active cholecalciferol 0.025 mg oral tablet (20 sources) Vitamin D Start: 07-25-2024 take 1 tablet by mouth once daily cholecalciferol (Vitamin D3) 25 MCG (1000 UT) tablet Indications: Vitamin D deficiency Take 1 tablet (25 mcg) by mouth 1 (one) time each day at the same time 100 tablet 3 07/25/2024 Active take 1 tablet by mouth in the mo rning cholecalciferol 1,000 units tablet Take 1 tablet (1,000 Units total) by mouth in the morning. Active take 1 tablet by mouth once jacqueline y cholecalciferol (Vitamin D3) 25 MCG (1000 UT) tablet Take 1,000 Units by mouth 1 (one) time each day at the same time. Active cloNIDine hydrochloride 0.3 mg oral tablet (20 sources) Central alpha-2 Adrenergic Agonist Start: 01-12-2025 take 1 tablet by mouth in the morning cloNIDine (Catapres) 0.3 MG tablet Indications: Essential hypertension (CMS/HCC) Take 1 tablet (0.3 mg) by mouth in the morning and 1 tablet (0.3 mg) before bedtime. 180 tablet 3 01/12/2025 Active Start: 09-29-2024 take 1 tablet by jesse th at bedtime cloNIDine (Catapres) 0.2 MG tablet Indications: Essential hypertension (CMS/HCC) TAKE 1 TABLET BY MOUTH IN THE MORNING AND BEFORE BEDTIME 180 tablet 1 09/29/2024 Active Start: 09-05-2024 take 1 tablet by jesse th in the morning cloNIDine (Catapres) 0.2 MG tablet Indications: Essential hypertension (CMS/HCC) Take 1 tablet (0.2 mg) by mouth in the morning and 1 tablet (0.2 mg) before bedtime. 60 tablet 2 09/05/2024 Active Start: 03-13-2024 End: 09-05-2024 take 1 tablet by mouth in the morning cloNIDine (Catapres) 0.1 MG tablet Indications: Essential hypertension (CMS/HCC) Take 1 tablet (0.1 mg) by mouth in the morning and 1 tablet (0.1 mg) before bedtime. 180 tablet 3 08/19/2024 09/05/2024 Discontinued (Reorder) Start: 01-30-2024 take 1 tablet by jesse th once daily Clonidine Hcl 0.1 mg tablet Active 0.1 MG PO Daily January 30, 2024 12:00am clopidogrel 75 mg oral tablet (20 sources) [id number] Platelet Inhibitor Start: 02-11-2025 take 1 tablet by mouth in the morning clopidogreL (PLAVIX) 75 mg tablet Take 1 tablet (75 mg total) by mouth in the morning. 90 tablet 1 02/11/2025 Active Start: 03-03-2024 End: 02-10-2025 take 1 tablet by mouth once daily Clopidogrel 75 mg tablet Active 75 MG PO Daily August 28, 2024 12:00am famotidine 20 mg oral tablet (20 sources) Histamine-2 Receptor Antagonist Start: 08-20-2024 End: 09-11-2024 take 1 tablet by mouth once daily Famotidine (Pepcid) 20 mg tablet Active 20 MG PO Daily August 28, 2024 12:00am ferrous sulfate 325 mg oral tablet (20 sources) Start: 07-25-2024 take 1 tablet by mouth in the morning ferrous sulfate (FeroSul) 325 (65 Fe) MG tablet Indications: Abnormality of red blood cells Take 1 tablet (325 mg) by mouth in the morning. 180 tablet 1 07/25/2024 Active Start: 05-21-2024 take 1 tablet by jesse th once daily in the morning ferrous sulfate (FeroSul) 325 (65 Fe) MG tablet Indications: Abnormality of red blood cells take 1 tablet by mouth every morning 180 tablet 1 05/21/2024 Active Start: 05-21-2023 take 1 tablet by jesse th in the morning ferrous sulfate (FeroSul) 325 (65 Fe) MG tablet Indications: Abnormality of red blood cells Take 1 tablet (325 mg) by mouth in the morning. 90 tablet 3 05/21/2023 Active Start: 01-16-2020 take 1 tablet by jesse th once daily Ferrous Sulfate 325 mg (65 mg iron) tablet Active 1 TAB PO Daily January 16, 2020 12:00am take 1 tablet by jesse th once daily at breakfast ferrous sulfate 325 (65 FE) mg EC tablet Take 1 tablet (325 mg total) by mouth daily with breakfast. Active folic acid 1 mg oral tablet (20 sources) Start: 01-30-2024 End: 08-28-2024 take 1 tablet by mouth once daily folic acid (Folvite) 1 MG tablet Indications: B12 deficiency TAKE 1 TABLET BY MOUTH EVERY DAY 80 tablet 1 01/26/2025 Active hydroCHLOROthiazide 12.5 mg / olmesartan medoxomil 40 mg oral tablet (20 sources) Thiazide Diuretic, Angiotensin 2 Receptor Yunier Start: 01-30-2024 take 1 tablet by mouth once daily Olmesartan-Hydroc hlorothiazide 40-12.5 mg tablet Active 1 TAB PO Daily January 30, 2024 12:00am Start: 11-02-2023 End: 11-01-2024 take 1 tablet by mouth in the morning olmesartan-hydroCHLOROthiazide (BENIcar HCT) 40-25 MG tablet Indications: Essential hypertension (CMS/HCC) Take 1 tablet by mouth in the morning. 100 tablet 3 07/25/2024 Active take 1 tablet by jesse th once in the morning olmesartan-hydroCHLOROthiazide (BENICAR HCT) 40-25 mg per tablet Take 1 tablet by mouth in the morning. Active ibuprofen 800 mg oral tablet (20 sources) Nonsteroidal Anti-inflammatory Drug Start: 11-24-2024 take 1 tablet by mouth in the morning, then take 1 tablet by mouth in the evening, then take 1 tablet by mouth at bedtime ibuprofen 800 MG tablet Take 800 mg by mouth in the morning and 800 mg in the evening and 800 mg before bedtime. 11/24/2024 Active Start: 08-23-2024 End: 09-05-2024 take 1 tablet by mouth in the morning, then take 1 tablet by mouth in the evening, then take 1 tablet by mouth at bedtime ibuprofen 800 MG tablet Take 800 mg by mouth in the morning and 800 mg in the evening and 800 mg before bedtime. 08/23/2024 09/05/2024 Discontinued (Other) Start: 05-30-2024 End: 08-14-2024 take 1 tablet [...] before bedtime. 270 tablet 3 11/26/2023 Active Start: 01-16-2020 End: 08-28-2024 take 1 tablet by mouth three times daily Ibuprofen 800 mg tablet Discontinued 1 TAB PO Three times daily January 16, 2020 12:00am August 28, 2024 1:43pm levothyroxine sodium 0.2 mg oral tablet (20 sources) l-Thyroxine Start: 04-30-2024 take 1 tablet by mouth once daily levothyroxine (Synthroid) 200 MCG tablet Indications: Acquired hypothyroidism (CMS/HCC) Take 1 tablet (200 mcg) by mouth Daily 30 tablet 1 04/30/2024 Active Start: 01-30-2024 take 1 tablet by jesse th once daily Levothyroxine 175 mcg tablet Active 175 MCG PO Daily January 30, 2024 12:00am Start: 10-22-2023 take 1 tablet by jesse th once daily levothyroxine (Synthroid, Levoxyl) 150 MCG tablet Indications: Hypothyroidism, unspecified (CMS/HCC) TAKE 1 TABLET BY MOUTH EVERY DAY 90 tablet 3 10/22/2023 Active mecobalamin 1 mg sublingual tablet (20 sources) Start: 07-25-2024 take 1 tablet under the tongue once daily B-12, Methylcobalamin, 1000 MCG sublingual tablet Indications: B12 deficiency Place 1 tablet under the tongue Daily 90 tablet 3 07/25/2024 Active Start: 01-19-2020 End: 01-19-2020 Mecobalamin (Vitamin B12) 1, 000 mcg tablet,disintegrating Discontinued January 19, 2020 12:00am January 19, 2020 12:16pm Start: 01-16-2020 take 1 tablet under the tongue once daily B-12, Methylcobalamin, 1000 MCG sublingual tablet Indications: B12 deficiency DISSOLVE 1 (ONE) TABLET UNDER THE TONGUE ONCE DAILY 90 tablet 3 04/23/2023 Active meloxicam 15 mg oral tablet (4 sources) Nonsteroidal Anti-inflammatory Drug Start: 01-12-2025 take 1 tablet by mouth once daily meloxicam (Mobic) 15 MG tablet Indications: Arthropathy of lumbar facet joint Take 1 tablet (15 mg) by mouth Daily 30 tablet 5 01/12/2025 Active nitroglycerin 0.4 mg sublingual tablet (20 sources) Nitrate Vasodilator Start: 12-09-2024 nitroglycerin (Nitrostat) 0.4 MG SL tablet Indications: Chest pain, unspecified type Place 1 tablet (0.4 mg) under the tongue every 5 (five) minutes if needed for chest pain ER if no resolution after third dose 25 tablet 3 12/09/2024 Active Start: 03-27-2024 nitroglycerin (NITROSTAT) 0.4 MG SL tablet 1 under the tongue as needed for angina, may repeat q5mins for up three doses 25 tablet 3 03/27/2024 Active Start: 03-27-2024 nitroglycerin (Nitrostat) 0.[address] 0.4 mg under the tongue every 5 (five) minutes if needed for chest pain ER if no resolution after third dose 03/27/2024 Active omeprazole 40 mg delayed release oral capsule (20 sources) Proton Pump Inhibitor Start: 02-13-2025 Omeprazole 40 mg capsule,delayed release(DR/EC) Active 40 MG PO Twice daily 60 February 13, 2025 12:00am Take 1 capsule orally 30 minutes before morning meal and 30 minutes before evening meal. Start: 01-16-2020 End: 08-28-2024 take 1 capsule by mouth once daily omeprazole (PriLOSEC) [address] capsule Indications: Gastroesophageal reflux disease, unspecified whether esophagitis present Take 1 capsule (40 mg) by mouth Daily Do not crush or chew. 90 capsule 3 05/30/2024 08/14/2024 Discontinued (Ineffective) Ondansetron (20 sources) Serotonin-3 Receptor Antagonist Start: 02-13-2025 zofran Active PO Feb 12:00am Start: 10-20-2024 End: 01-13-2025 take 1 tablet by mouth every eight hours for nausea ondansetron ODT (Zofran-ODT) 4 MG disintegrating tablet Indications: Nausea and vomiting, unspecified vomiting type Take 1 tablet (4 mg) by mouth every 8 (eight) hours if needed for nausea or vomiting 21 tablet 2 01/12/2025 Active Start: 09-22-2024 take 1 tablet by jesse th every eight hours as needed for nausea and vomiting ondansetron ODT (Zofran-ODT) 4 MG disintegrating tablet Indications: Nausea and vomiting, unspecified vomiting type TAKE 1 TABLET (4 MG) BY MOUTH EVERY 8 HOURS NEEDED FOR NAUSEA AND VOMITING 21 tablet 10/07/2024 Active Start: 09-05-2024 End: 09-19-2024 take 1 tablet by mouth every eight hours as needed for nausea ondansetron ODT (Zofran-ODT) 4 MG disintegrating tablet Indications: Nausea and vomiting, unspecified vomiting type TAKE 1 TABLET BY MOUTH EVERY 8 HOURS NEEDED FOR NAUSEA OR FOR VOMITING FOR UP TO 7 DAYS 21 tablet 09/05/2024 09/19/2024 Discontinued (Reorder) Start: 08-12-2024 End: 08-29-2024 take 1 tablet [...] days 21 tablet 0 12/13/2023 12/20/2023 Active pregabalin 150 mg oral capsule (20 sources) Start: 07-10-2024 End: 02-04-2025 take 1 capsule by mouth in the morning pregabalin (Lyrica) 150 MG capsule Indications: Other chronic pain Take 1 capsule (150 mg) by mouth in the morning and 1 capsule (150 mg) before bedtime. 60 capsule 2 02/04/2025 Active Start: 01-19-2020 take 2 capsules by m outh three times daily Pregabalin (Lyrica) 150 mg Capsule Active 300 MG PO Three times daily January 19, 2020 12:00am promethazine hydrochloride 25 mg oral tablet (2 sources) Phenothiazine Start: 12-09-2024 End: 12-16-2024 take 1 tablet by mouth every six hours for nausea promethazine (Phenergan) 25 MG tablet Indications: Nausea and vomiting, unspecified vomiting type Take 1 tablet (25 mg) by mouth every 6 (six) hours if needed for nausea or vomiting for up to 7 days 30 tablet 12/09/2024 12/16/2024 Active rosuvastatin calcium 20 mg oral tablet (20 sources) HMG-CoA Reductase Inhibitor Start: 08-15-2023 take 1 tablet by mouth once daily Rosuvastatin 20 mg tablet Active 20 MG PO Daily January 30, 2024 12:00am spironolactone 25 mg oral tablet (3 sources) [...] 12/12/2023 Active tiZANidine 4 mg oral tablet (20 sources) Central alpha-2 Adrenergic Agonist Start: 01-16-2020 End: 07-10-2024 take 1 tablet by mouth in [...] Active take 1 tablet by jesse th every eight hours as needed tiZANidine (ZANAFLEX) 4 mg tablet Take 1 tablet (4 mg total) by mouth every 8 (eight) hours as needed for muscle spasms. Active traMADol hydrochloride 50 mg oral tablet (20 sources) Opioid Agonist Start: 07-25-2024 take 2 tablets by mouth every six hours for pain traMADol (Ultram) 50 MG tablet Indications: Pain Take 2 tablets (100 mg) by mouth every 6 (six) hours if needed for moderate pain 240 tablet 07/25/2024 Active Start: 05-30-2024 End: 08-14-2024 take 2 tablets by mouth every six hours for pain traMADol (Ultram) 50 MG tablet Indications: Pain Take 2 tablets (100 mg) by mouth every 6 (six) hours if needed for moderate pain 240 tablet 07/25/2024 08/14/2024 Discontinued (Ineffective) Start: 01-16-2020 End: 08-28-2024 take 2 tablets by mouth every six hours for pain traMADol (Ultram) 50 MG tablet Indications: Pain Take 2 tablets (100 mg) by mouth every 6 (six) hours if needed for moderate pain 240 tablet 0 12/12/2023 Active 24 hr venlafaxine 150 mg extended release oral capsule (20 sources) Serotonin and Norepinephrine Reuptake Inhibitor Start: 10-20-2024 take 2 capsules by mouth once daily venlafaxine XR (Effexor XR) 150 MG 24 hr capsule Indications: Generalized anxiety disorder (CMS/HCC) Take 2 capsules (300 mg) by mouth Daily 180 capsule 3 10/20/2024 Active Start: 01-30-2024 take 1 capsule by mo uth twice daily Venlafaxine (Effexor Xr) 150 mg capsule,extended release 24hr Active 150 MG PO Twice daily January 30, 2024 12:00am Start: 10-22-2023 take 2 capsules by m outh once daily at mealtime venlafaxine XR (Effexor XR) 150 MG 24 hr capsule Indications: Generalized anxiety disorder (CMS/HCC) TAKE 2 CAPSULES BY MOUTH EVERY DAY WITH FOOD 180 capsule 3 10/22/2023 Active Start: 01-19-2020 End: 01-30-2024 take 1 capsule by mouth once daily Venlafaxine (Effexor Xr) 150 mg Capsule,Extended Release 24hr Discontinued 150 MG PO Daily January 19, 2020 12:00am January 30, 2024 10:15am take 2 capsules by m outh every twenty-four hours in the morning venlafaxine XR (EFFEXOR-XR) 150 mg 24 hr capsule Take 2 capsules (300 mg total) by mouth in the morning. Active zolpidem tartrate 12.5 mg extended release oral tablet (20 sources) gamma-Aminobutyric Acid-ergic Agonist Start: 10-14-2024 End: 01-12-2025 zolpidem CR (Ambien CR) 12.5 MG ER tablet Indications: Primary insomnia Take 1 tablet (12.5 mg) by mouth as needed at bedtime for sleep Do not crush, chew, or split. 30 tablet 5 01/12/2025 Active Start: 11-26-2023 End: 02-13-2025 take 1 tablet by mouth at bedtime as needed Zolpidem 10 mg tablet Discontinued 10 MG PO Bedtime as needed for insomnia January 30, 2024 12:00am February 13, 2025 9:43am Completed/Discontinued Medications Medication Drug Class(es) Dates Sig (Normalized) Sig (Original) benzonatate 200 mg oral capsule (1 source) Non-narcotic Antitussive Start: 01-16-2020 End: 01-19-2020 take 1 capsule by mouth once daily Benzonatate 200 mg capsule Discontinued 1 CAP PO Daily January 16, 2020 12:00am January 19, 2020 12:13pm gabapentin 300 mg oral capsule (1 source) Anti-epileptic Agent Start: 01-16-2020 End: 01-30-2024 take 3 capsules by mouth three times daily Gabapentin 300 mg capsule Discontinued 3 CAP PO Three times daily January 16, 2020 12:00am January 30, 2024 10:14am nystatin [id number] unt/ml oral suspension (1 source) Polyene Antifungal Start: 01-16-2020 End: 01-19-2020 Nystatin 100,000 unit/mL suspension Discontinued SUSPENSION January 16, 2020 12:00am January 19, 2020 12:14pm pantoprazole 40 mg delayed release oral tablet (20 sources) Proton Pump Inhibitor Start: 08-28-2024 End: 10-08-2024 take 1 tablet by mouth once daily Pantoprazole 40 mg tablet,delayed release (DR/EC) Discontinued 40 MG PO Daily August 28, 2024 12:00am October 08, 2024 10:51am Start: 08-14-2024 End: 10-14-2024 take 1 tablet by mouth twice daily Pantoprazole 40 mg tablet,delayed release (DR/EC) Active 40 MG PO Twice daily 180 90 October 08, 2024 10:49am predniSONE 5 mg oral tablet (1 source) Start: 01-16-2020 End: 01-19-2020 Prednisone 5 mg tablet Discontinued TABLET January 16, 2020 12:00am January 19, 2020 12:14pm risperiDONE 4 mg oral tablet (2 sources) Atypical Antipsychotic Start: 01-16-2020 End: 01-30-2024 take 1 tablet by mouth twice daily Risperidone 0.25 mg tablet Discontinued 1 TAB PO Twice daily January 16, 2020 12:00am January 30, 2024 10:15am Start: 01-16-2020 End: 01-30-2024 take 1 tablet by mouth once daily at bedtime Risperidone 4 mg tablet Discontinued 1 TAB PO Daily at bedtime January 16, 2020 12:00am January 30, 2024 10:15am traZODone hydrochloride 100 mg oral tablet (1 source) Serotonin Reuptake Inhibitor Start: 01-16-2020 End: 01-30-2024 take 1 tablet by mouth once daily at bedtime Trazodone 100 mg tablet Discontinued 100 MG PO Daily at bedtime January 16, 2020 12:00am January 30, 2024 10:15am Problems Active Problems Problem Classification Problem Date Documented Da te Episodic/Chronic Abdominal pain (3 sources) Epigastric pain; Translations: [Epigastric pain] Onset: 4 08-14-2024 Episodic Anxiety disorders (20 sources) Generalized anxiety disorder; Translations: [Generalized anxiety disorder] Onset: 3 04-13-2023 Chronic Conduction disorders (20 sources) Left bundle-branch block, unspecified; Translations: [Left bundle branch block] Onset: 4 04-14-2024 Chronic Coronary atherosclerosis and other heart disease (20 sources) Coronary arteriosclerosis; Translations: [Atherosclerotic heart disease of [place] coronary artery without angina pectoris] Onset: 4 04-14-2024 Chronic Coronary atherosclerosis and other heart disease (1 source) Presence of coronary angioplasty implant and graft; Translations: [Presence of coronary angioplasty implant and graft] Onset: Episodic Disorders of lipid metabolism (20 sources) Mixed hyperlipidemia; Translations: [Mixed hyperlipidemia] Onset: 3 04-13-2023 Chronic Esophageal disorders (20 sources) Gastroesophageal reflux disease; Translations: [Gastro-esophageal reflux disease without esophagitis] Onset: 3 04-13-2023 Chronic Essential hypertension (20 sources) Hypertensive disorder; Translations: [Essential (primary) hypertension] Onset: 3 12-12-2023 Chronic Gastritis and duodenitis (16 sources) Chronic gastritis; Translations: [Unspecified chronic gastritis without bleeding] Onset: 4 10-14-2024 Chronic Gastritis and duodenitis (18 sources) Duodenitis; Translations: [Duodenitis without bleeding] Onset: 4 Resolved: 5 10-14-2024 Episodic Gastrointestinal hemorrhage (1 source) Melena; Translations: [Melena] Onset: 4 Episodic Heart valve disorders (20 sources) Aortic incompetence, non-rheumatic ; Translations: [Nonrheumatic aortic (valve) insufficiency] Onset: 4 04-14-2024 Chronic Immunizations and screening for infectious disease (2 sources) Needs influenza immunization; Translations: [Encounter for immunization] 12-12-2023 Episodic Joint disorders and dislocations; trauma-related (20 sources) Traumatic arthropathy-knee; Translations: [Traumatic arthropathy, left knee] Onset: 3 04-13-2023 Chronic Malaise and fatigue (2 sources) Fatigue; Translations: [Chronic fatigue, unspecified] 09-05-2024 Chronic Miscellaneous mental health disorders (20 sources) Primary insomnia; Translations: [Primary insomnia] Onset: 3 12-12-2023 Chronic Mood disorders (20 sources) Depressive disorder; Translations: [Depressive disorder] Onset: 3 04-13-2023 Chronic Nausea and vomiting (7 sources) Nausea; Translations: [Nausea] 12-13-2023 Episodic Osteoporosis (20 sources) Osteoporosis; Translations: [Age-related osteoporosis without current pathological fracture] Onset: 1 Resolved: 4 04-13-2023 Chronic Other circulatory disease (1 source) Peripheral vascular angioplasty status with implants and grafts; Translations: [Peripheral vascular angioplasty status with implants and grafts] Onset: 4 Chronic Other diseases of bladder and urethra (20 sources) Overactive bladder; Translations: [Overactive bladder] Onset: 3 04-13-2023 Chronic Other gastrointestinal disorders (17 sources) Celiac disease; Translations: [Celiac disease] Onset: 4 10-14-2024 Chronic Other gastrointestinal disorders (1 source) Celiac disease; Translations: [Celiac disease] 02-13-2025 Chronic Other gastrointestinal disorders (2 sources) Dark stools; Translations: [Other fecal abnormalities] 08-14-2024 Episodic Other hereditary and degenerative nervous system conditions (20 sources) Restless legs; Translations: [Restless legs syndrome] Onset: 3 04-13-2023 Chronic Other inflammatory condition of skin (20 sources) Lupus erythematosus; Translations: [Discoid lupus erythematosus] Onset: 3 04-13-2023 Chronic Other lower respiratory disease (1 source) Shortness of breath; Translations: [Shortness of breath] Onset: 4 Episodic Other nervous system disorders (20 sources) Chronic pain; Translations: [Other chronic pain] Onset: 3 04-13-2023 Chronic Other nervous system disorders (20 sources) Peripheral nerve disease ; Translations: [Polyneuropathy, unspecified] Onset: 3 04-13-2023 Chronic Other nutritional; endocrine; and metabolic disorders (20 sources) Metabolic syndrome X; Translations: [Metabolic syndrome X] Onset: 3 04-13-2023 Chronic Other nutritional; endocrine; and metabolic disorders (20 sources) Severe obesity; Translations: [Class 3 severe [...] mass index (BMI) 40.0-44.9, adult] 08-14-2024 Chronic Other upper respiratory infections (2 sources) Acute frontal sinusitis; Translations: [Acute frontal sinusitis, unspecified] 01-06-2025 Episodic Peripheral and visceral atherosclerosis (1 source) Renal artery stenosis; Translations: [Atherosclerosis of renal artery] 01-30-2024 Chronic Residual codes; unclassified (4 sources) Obstructive sleep apnea (adult) (pediatric); Translations: [OBSTRUCTIVE SLEEP APNEA] Onset: 3 Chronic Residual codes; unclassified (20 sources) Obstructive sleep apnea syndrome; Translations: [Obstructive [...] region] Onset: 3 04-13-2023 Chronic Thyroid disorders (20 sources) Hypothyroidism; Translations: [Hypothyroidism, unspecified] Onset: 3 04-13-2023 Chronic Unclassified (3 sources) COUGH, UNSPECIFIED; Translations: [COUGH, UNSPECIFIED] Onset: 3 Unclassified (1 source) Abnormal Stress test, Chest pain Onset: 4 Unclassified (1 source) New Patient Onset: 4 Past or Other Problems Problem Classification Problem Date Documented Da te Episodic/Chronic Coma; stupor; and brain damage (20 sources) Daytime somnolence; Translations: [Somnolence] Onset: 05-14-2023 12-12-2023 Episodic Diabetes mellitus without complication (20 sources) Impaired fasting glycemia; Translations: [Impaired fasting glucose] Onset: 04-13-2023 04-13-2023 Episodic Fluid and electrolyte disorders (20 sources) Hypo-osmolality and hyponatremia; Translations: [Hyponatremia] Onset: 03-28-2023 Episodic Fracture of lower limb (20 sources) Displaced comminuted fracture of left patella, subsequent encounter for closed fracture with delayed healing; Translations: [Displaced osteochondral fracture of left patella, subsequent encounter for closed fracture with routine healing] Onset: 07-21-2022 Resolved: 01-10-2024 Episodic Headache; including migraine (20 sources) New daily persistent headache; Translations: [New daily persistent headache (NDPH)] Onset: 08-14-2024 Resolved: 09-05-2024 08-14-2024 Chronic Headache; including migraine (20 sources) Chronic daily headache; Translations: [Chronic daily headache] Onset: 09-05-2024 09-05-2024 Episodic Heart valve disorders (10 sources) Cardiac murmur, unspecified; Translations: [Heart murmur] Onset: 02-08-2024 Resolved: 03-27-2024 02-08-2024 Episodic Mood disorders (4 sources) Mood disorders Onset: 01-06-2025 01-12-2025 Nonspecific chest pain (20 sources) Chest pain; Translations: [Chest pain, unspecified] Onset: 02-08-2024 Resolved: 01-12-2025 12-12-2023 Episodic Nutritional deficiencies (20 sources) Cobalamin deficiency; Translations: [Deficiency of other specified B group vitamins] Onset: 04-13-2023 04-13-2023 Episodic Other acquired deformities (20 sources) Spondylolysis; Translations: [Spondylolysis, lumbar region] Onset: 04-13-2023 04-13-2023 Episodic Other acquired deformities (20 sources) Acquired spondylolisthesis; Translations: [Spondylolisthesis, site unspecified] Onset: 12-25-2016 07-16-2023 Episodic Other connective tissue disease (20 sources) Muscle pain; Translations: [Myalgia, unspecified site] Onset: 05-14-2023 05-14-2023 Episodic Other gastrointestinal disorders (20 sources) Stool DNA-based colorectal cancer screening positive; Translations: [Other fecal abnormalities] Onset: 04-13-2023 04-13-2023 Episodic Other gastrointestinal disorders (20 sources) Abnormal feces; Translations: [Other fecal abnormalities] Onset: 08-07-2019 Resolved: 01-10-2024 07-16-2023 Episodic Other hematologic conditions (20 sources) Red blood cell finding; Translations: [Other abnormality of red blood cells] Onset: 04-13-2023 04-13-2023 Episodic Other lower respiratory disease (20 sources) Snoring; Translations: [Snoring] Onset: 05-14-2023 Resolved: 01-12-2025 05-14-2023 Episodic Other lower respiratory disease (20 sources) Dyspnea; Translations: [Shortness of breath] Onset: 02-08-2024 04-14-2024 Episodic Other non-traumatic joint disorders (2 sources) Pain in left knee; Translations: [Pain in left knee] Onset: 09-19-2022 Episodic Other nutritional; endocrine; and metabolic disorders (20 sources) Obese class II; Translations: [Obesity, unspecified] Onset: 04-13-2023 Resolved: 07-15-2024 04-13-2023 Chronic Other nutritional; endocrine; and metabolic disorders (20 sources) Excessive thirst; Translations: [Polydipsia] Onset: 04-13-2023 Resolved: 01-12-2025 04-13-2023 Episodic Other screening for suspected conditions (not mental disorders or infectious disease) (20 sources) Encounter for screening mammogram for malignant neoplasm of breast; Translations: [Mammography abnormal] Onset: 10-26-2022 Resolved: 03-27-2024 Episodic Residual codes; unclassified (1 source) Family history of malignant neoplasm of other organs or systems; Translations: [FAM HX MALIG NEOPLASM OTH ORGN/SYS] Onset: 11-02-2022 Episodic Residual codes; unclassified (2 sources) Pain, unspecified; Translations: [Pain, unspecified] Onset: 02-12-2023 Episodic Residual codes; unclassified (20 sources) Insomnia; Translations: [Insomnia, unspecified] Onset: 04-13-2023 04-13-2023 Episodic Residual codes; unclassified (20 sources) FH: premature coronary heart disease; Translations: [Family history of ischemic heart disease and other diseases of the circulatory system] Onset: 02-08-2024 04-14-2024 Episodic Spondylosis; intervertebral disc disorders; other back problems (20 sources) Lumbar radiculopathy; Translations: [Radiculopathy, lumbar region] Onset: 04-13-2023 12-12-2023 Episodic Unclassified (1 source) COUGH, UNSPECIFIED; Translations: [COUGH, UNSPECIFIED] Onset: 01-01-2023 Results Test Name Value Interpretation Reference Range Facility CBC (INCLUDES DIFF/PLT)on Basophils (Bld) [#/Vol] 0.022 10*3/uL Normal 0-200 [facility] Comment on above: Performed By: #### 3 9913, 810, 2989 #### [facility] [address], [address] [place] [id number] [employer]umping Station Engineer: Francisco J Gonzales MD #### [id number] #### [facility] [address] Pumping Station Engineer: Staci rTivedi Basophils/100 WBC (Bld) 0.4 % Normal [facility] Comment on above: Performed By: #### 3 5611, 408, 4820 #### [facility] [address], [address] [place] [address] Pumping Station Engineer: Francisco J Gonzales MD #### [id number], [id number] #### [facility] [address] Pumping [employer] Engineer: Staci Trivedi Eosinophils (Bld) [#/Vol] 0.073 10*3/uL Normal 15-500 [facility] Comment on above: Performed By: #### 3 6127, 496, 7600 #### [facility] [address], [address] [place] [address] Pumping Station Engineer: Francisco J Gonzales MD #### [id number], [id number] #### [facility] [address] Pumping [employer] Engineer: Staci Trivedi Eosinophils/100 WBC (Bld) 1.3 % Normal [facility] Comment on above: Performed By: #### 3 6127, 496, 7600 #### [facility] [address], [address] [place] [address] Pumping Station Engineer: Francisco J Gonzales MD #### [id number], [id number] #### [facility] [address] Pumping Station Engineer: Staci Trivedi Erythrocyte distribution width (RBC) [Ratio] 14.8 % Normal 11.0-15.0 [facility] Comment on above: Performed By: #### 3 6127, 496, 7600 #### [facility] [place] [address] [address] , [address] [place] [address] Pumping Station Engineer: Francisco J Gonzales MD #### [id number], [id number] #### [facility] [address] Pumping [employer] Engineer: Staci Trivedi Hematocrit (Bld) [Volume fraction] 43.2 % Normal 35.0-45.0 [facility] Comment on above: Performed By: #### 3 6127, 496, 7600 #### [facility] [place] [address] [address] , [address] [place] [address] Pumping Station Engineer: Francisco J Gonzales MD #### [id number], [id number] #### [place] [address] Pumping Station Engineer: Staci Trivedi Hemoglobin (Bld) [Mass/Vol] 14.4 g/dL Normal 11.7-15.5 [facility] Comment on above: Performed By: #### 3 6127, 496, 9380 #### [facility] [place] [address] [address] , [address] [place] [address] Pumping Station Engineer: Francisco J Gonzales MD #### [id number], [id number] #### [facility] [address] Pumping Station Engineer: Staci Trivedi Lymphocytes (Bld) [#/Vol] 1.361 10*3/uL Normal 850-3900 [facility] Comment on above: Performed By: #### 3 6127, 496, 3300 #### [facility] [address], [address] [place] [address] Pumping Station Engineer: Francisco J Gonzales MD #### [id number], [id number] #### [facility] [address] Pumping Station Engineer: Staci Trivedi Lymphocytes/100 WBC (Bld) 24.3 % Normal [facility] Comment on above: Performed By: #### 3 6127, 496, 7600 #### [facility] [place] [address] [address], [address] [place] [address] Pumping Station Engineer: Francisco J Gonzales MD #### [id number], [id number] #### [facility] [address] [place], [place] [id number] Pumping Station Engineer: Staci Trivedi MCH (RBC) [Entitic mass] 28.7 pg Normal 27.0-33.0 [facility] Comment on above: Performed By: #### 3 6127, 496, 7600 #### [facility] [place] [address] [address] , [address] [place] [address] Pumping Station Engineer: Francisco J Gonzales MD #### [id number], [id number] #### [place] [address] Pumping Station Engineer: Staci Trivedi MCHC (RBC) [Mass/Vol] 33.3 g/dL Normal 32.0-36.0 [facility] Comment on above: Result Comment: For adults, a slight decrease in the calculated MCHC value (in the range of 30 to 32 g/dL) is most likely not clinically significant; however, it should be interpreted with caution in correlation with other red cell parameters and the patient's clinical condition. Performed By: #### 3 6127, 496, 7600 #### [facility] [address], [address] [place] [address] Pumping Station Engineer: Francisco J Gonzales MD #### [id number], [id number] #### [facility] [address] Pumping Station Engineer: Staci Trivedi MCV (RBC) [Entitic vol] 86.2 fL Normal 80.0-100.0 [facility] Comment on above: Performed By: #### 3 6127, 496, 7600 #### [facility] [place] [address] Pumping Station Engineer: Francisco J Gonzales MD #### [id number], [id number] #### [facility] [address] Pumping Station Engineer: Staci Trivedi Monocytes (Bld) [#/Vol] 0.644 10*3/uL Normal 200-950 [facility] Comment on above: Performed By: #### 3 6127, 496, 7600 #### [facility] [address], [address] [place] [address] Pumping Station Engineer: Francisco J Gonzales MD #### [id number], [id number] #### [facility] [address] [place] [phone] Pumping Station Engineer: Staci Trivedi Monocytes/100 WBC (Bld) 11.5 % Normal [facility] Comment on above: Performed By: #### 3 6127, 496, 7600 #### [facility] [address] , [address] [place], [place] [id number] Pumping Station Engineer: Francisco J Gonzales MD #### [id number], [id number] #### [place] [address] Pumping Station Engineer: Staci Trivedi Neutrophils (Bld) [#/Vol] 3.5 10*3/uL Normal 5796-1589 [facility] Comment on above: Performed By: #### 3 6127, 496, 7600 #### [facility] [address], [address] [place] [address] Pumping Station Engineer: Francisco J Gonzales MD #### [id number], [id number] #### [place] [address] Pumping Station Engineer: Staci Trivedi Neutrophils/100 WBC (Bld) 62.5 % Normal [facility] Comment on above: Performed By: #### 3 6127, 496, 7600 #### [facility] [address], [address] [place], [place] [id number] Pumping Station Engineer: Francisco J Gonzales MD #### [id number], [id number] #### [facility] [id number] Pumping Station Engineer: Staci Trivedi Platelet mean volume (Bld) [Entitic vol] 8.8 fL Normal 7.5-12.5 [facility] Comment on above: Performed By: #### 3 6127, 496, 7600 #### [facility] [address] , [address] [place] [address] Pumping Station Engineer: Francisco J Gonzales MD #### [id number], [id number] #### [facility] [address] Pumping Station Engineer: Staci Trivedi Platelets (Bld) [#/Vol] 271 10*3/uL Normal 140-400 [facility] Comment on above: Performed By: #### 3 6127, 496, 7600 #### [facility] [address], [address] [place] [address] Pumping Station Engineer: Francisco J Gonzales MD #### [id number], [id number] #### [facility] [address] Pumping Station Engineer: Staci Trivedi RBC (Bld) [#/Vol] 5.01 10*6/uL Normal 3.80-5.10 [facility] Comment on above: Performed By: #### 3 6127, 496, 7600 #### [facility] [address], [address] [place] [address] Pumping Station Engineer: Francisco J Gonzales MD #### [id number], 6399 #### [facility] [address] Pumping Station Engineer: Staci Trivedi WBC (Bld) [#/Vol] 5.6 10*3/uL Normal 3.8-10.8 [facility] Comment on above: Performed By: #### 3 6127, 496, 7600 #### [facility] [address], [address] [place] [address] Pumping Station Engineer: Francisco J Gonzales MD #### [id number], [id number] #### [facility] [address] Pumping Station Engineer: Staci Trivedi [facility] 01-13-2025 Albumin [Mass/Vol] 4.6 g/dL Normal 3.6-5.1 [facility] Comment on above: Performed By: #### 3 6127, 496, 7600 #### [facility] [address] , [address] [place] [address] Pumping Station Engineer: Francisco J Gonzales MD #### [id number], 6399 #### [facility] [address] Pumping Station Engineer: Staci Trivedi Albumin/Globulin [Mass ratio] 1.7 {ratio} Normal 1.0-2.5 [facility] Comment on above: Performed By: #### 3 6127, 496, 7600 #### [facility] [address], [address] [place] [address] Pumping Station Engineer: Francisco J Gonzales MD #### [id number], 6399 #### [facility] Pumping Station Engineer: Staci Trivedi ALP [Catalytic activity/Vol] 58 U/L Normal 37-153 [facility] Comment on above: Performed By: #### 3 6127, 496, 7600 #### [facility] [address], [address] [place] [address] Pumping Station Engineer: Francisco J Gonzales MD #### [id number], 6399 #### [facility] Pumping Station Engineer: Staci Trivedi ALT [Catalytic activity/Vol] 24 U/L Normal 6-29 [facility] Comment on above: Performed By: #### 3 6127, 496, 7600 #### [facility] [address], [address] [place] [address] Pumping Station Engineer: Francisco J Gonzales MD #### [id number], 6399 #### [place] [address] Pumping Station Engineer: Staci Trivedi AST [Catalytic activity/Vol] 20 U/L Normal 10-35 [facility] Comment on above: Performed By: #### 3 6127, 496, 7600 #### [facility] [address] [place] [address], [address] [place] [address] Pumping Station Engineer: Francisco J Gonzales MD #### [id number], 6399 #### [place] [address] Pumping Station Engineer: Staci Trivedi Bilirubin [Mass/Vol] 0.8 mg/dL Normal 0.2-1.2 [facility] Comment on above: Performed By: #### 3 6127, 496, 7600 #### [facility] [address], [address] [place] [address] Pumping Station Engineer: Francisco J Gonzales MD #### 61029, 6399 #### [facility] Pumping Station Engineer: Staci Trivedi BUN/CREATININE RATIO SEE NOTE: Normal 6-22 [facility] Comment on above: Result Comment: Not Reported: BUN and Creatinine are within reference range. Performed By: #### 3 6127, 496, 7600 #### [facility] [address], [address] [place] [address] Pumping Station Engineer: Francisco J Gonzales MD #### [id number], 6399 #### [facility] [address] Pumping Station Engineer: Staci Rooneyi Calcium [Mass/Vol] 9.8 mg/dL Normal 8.6-10.4 [facility] Comment on above: Performed By: #### 3 6127, 496, 7935 #### [facility] [address], [address] [place] [address] Pumping Station Engineer: Francisco J Gonzales MD #### [id number], 6399 #### [facility] Pumping Station Engineer: Staci Vicente Flati Chloride [Moles/Vol] 94 mmol/L Low 98-110 [facility] Comment on above: Performed By: #### 3 6127, 496, 7600 #### [facility] [address], [address] [place] [address] Pumping Station Engineer: Francisco J Gonzales MD #### [id number], 6399 #### [facility] [address] [place], [place] [id number] Pumping Station Engineer: Staci Vicente Flati CO2 [Moles/Vol] 30 mmol/L Normal 20-32 [facility] Comment on above: Performed By: #### 3 6127, 496, 7606 #### [facility] [address], [address] [place] [address] Pumping Station Engineer: Francisco J Gonzales MD #### 50426, 6399 #### [facility] [address] [place] [address] Pumping Station Engineer: Staci Trivedi Creatinine [Mass/Vol] 0.87 mg/dL Normal 0.50-1.03 [facility] Comment on above: Performed By: #### 3 6127, 496, 7600 #### [facility] [address], [address] [place] [address] Pumping Station Engineer: Francisco J Gonzales MD #### [id number], 6399 #### [facility] [address] Pumping Station Engineer: Staci Trivedi GFR/1.73 sq M.predicted among non-blacks MDRD (S/P/Bld) [Vol rate/Area] 77 mL/min/{1.73_m2} Normal > OR = 60 [facility] Comment on above: Performed By: #### 3 6127, 496, 9310 #### [facility] [address], [address] [place] [address] Pumping Station Engineer: Francisco J Gonzales MD #### [id number], 6399 #### [facility] Pumping Station Engineer: Staci Trivedi Globulin (S) [Mass/Vol] 2.7 g/dL Normal 1.9-3.7 [facility] Comment on above: Performed By: #### 3 6127, 496, 2960 #### [facility] [address], [address] [place] [address] Pumping Station Engineer: Francisco J Gonzales MD #### [id number], 6399 #### [place] [address] Pumping Station Engineer: Staci Trivedi Glucose [Mass/Vol] 101 mg/dL High 65-99 [facility] Comment on above: Result Comment: Fasting reference interval For someone without known diabetes, a glucose value between 100 and 125 mg/dL is consistent with prediabetes and should be confirmed with a follow-up test. Performed By: #### 3 6127, 496, 7600 #### [facility] [place] [address] Pumping Station Engineer: Francisco J Gonzales MD #### [id number], 6399 #### [facility] Pumping Station Engineer: Staci Trivedi Potassium [Moles/Vol] 4.5 mmol/L Normal 3.5-5.3 [facility] Comment on above: Performed By: #### 3 6127, 496, 3930 #### [facility] [place] [address] Pumping Station Engineer: Francisco J Gonzales MD #### [id number], 6399 #### [facility] [address] Pumping Station Engineer: Staci Trivedi Protein [Mass/Vol] 7.3 g/dL Normal 6.1-8.1 [facility] Comment on above: Performed By: #### 3 6127, 496, 7600 #### [facility] [place] [address] Pumping Station Engineer: Francisco J Gonzales MD #### 18987, 6399 #### [facility] [address] Pumping Station Engineer: Staci Trivedi Sodium [Moles/Vol] 130 mmol/L Low 135-146 [facility] Comment on above: Performed By: #### 3 6127, 496, 7600 #### [facility] [place] [address] Pumping Station Engineer: Francisco J Gonzales MD #### 86535, 6399 #### [facility] [id number] Pumping Station Engineer: Staci Trivedi Urea nitrogen [Mass/Vol] 12 mg/dL Normal 7-25 [facility] Comment on above: Performed By: #### 3 6127, 496, 7600 #### [facility] [address], [address] [place] [address] Pumping Station Engineer: Francisco J Gonzales MD #### [id number], 5290 #### [facility] [address] [place] [phone] Pumping Station Engineer: Staci Trivedi HEMOGLOBIN A1con 01-13-2025 HEMOGLOBIN A1c 5.2 % of total Hgb Normal <5.7 [facility] Comment on above: Result Comment: For the purpose of screening for the presence of diabetes: <5.7% Consistent with the absence of diabetes 5.7-6.4% Consistent with increased risk for diabetes (prediabetes) > or =6.5% Consistent with diabetes This assay result is consistent with a decreased risk of diabetes. Currently, no consensus exists regarding use of hemoglobin A1c for diagnosis of diabetes in children. According to [place] [employer] (ADA) guidelines, hemoglobin A1c <7.0% represents optimal control in non- diabetic patients. Different metrics may apply to specific patient populations. Standards of Medical Care in Diabetes(ADA). Performed By: #### 3 6127, 496, 3970 #### [facility] [address], [address] [place] [address] Pumping Station Engineer: Francisco J Gonzales MD #### [id number], 6399 #### [facility] [address] [place] [phone] Pumping Station Engineer: Staci Trivedi LIPID PANEL, STANDARDon 01-03 Cholesterol [Mass/Vol] 111 mg/dL Normal <200 [facility] Comment on above: Order Comment: FASTI NG:YES FASTING: YES Performed By: #### 3 6127, 496, 7600 #### [facility] [address], [address] [place] [address] Pumping Station Engineer: Francisco J Gonzales MD #### [id number], 0499 #### [facility] [address] [place] [phone] Pumping Station Engineer: Staci R Flati Cholesterol in HDL [Mass/Vol] 41 mg/dL Low > OR = 50 [facility] Comment on above: Order Comment: FASTI NG:YES FASTING: YES Performed By: #### 3 3483, 578, 7597 #### [facility] [address], [address] [place] [address] Pumping Station Engineer: Francisco J Gonzales MD #### 15780, 2107 #### [facility] [address] [place] [phone] Pumping Station Engineer: Staci Trivedi Cholesterol in LDL [Mass/Vol] 50 mg/dL Normal [facility] Comment on above: Order Comment: FASTI NG:YES FASTING: YES Result Comment: Refe rence range: <100 Desirable range <100 mg/dL for primary prevention; <70 mg/dL for patients with CHD or diabetic patients with > or = 2 CHD risk factors. LDL-C is now calculated using the Dmitriy calculation, which is a validated novel method providing better accuracy than the Friedewald equation in the estimation of LDL-C. Lopez WHITFIELD et al. SHERMAN. 2013;310(19): 3750-3077 (http://education.[employer]/faq/OOH273) Performed By: #### 3 1955, 916, 8652 #### [facility] [address], [address] [place] [address] Pumping Station Engineer: Francisco J Gonzales MD #### [id number], 2429 #### [facility] [address] [place] [phone] Pumping Station Engineer: Staci Trivedi Cholesterol.total/C holesterol in HDL [Mass ratio] 2.7 {ratio} Normal <5.0 [facility] Comment on above: Order Comment: FASTI NG:YES FASTING: YES Performed By: #### 3 0543, 973, 0593 #### [facility] [address], [address] [place] [phone] Pumping Station Engineer: Francisco J Gonzales MD #### 51801, 1107 #### [facility] [address] [place] [phone] Pumping Station Engineer: Staci Trivedi NON HDL CHOLESTEROL 70 mg/dL (calc) Normal <130 [facility] Comment on above: Order Comment: FASTI NG:YES FASTING: YES Result Comment: For patients with diabetes plus 1 major ASCVD risk factor, treating to a non-HDL-C goal of <100 mg/dL (LDL-C of <70 mg/dL) is considered a therapeutic option. Performed By: #### 3 6127, 496, 7600 #### [facility] [address], [address] [place] [address] Pumping Station Engineer: Francisco J Gonzales MD #### 47399, 6399 #### [facility] [address] Pumping Station Engineer: Staci Trivedi Triglyceride [Mass/Vol] 113 mg/dL Normal <150 [facility] Comment on above: Order Comment: FASTI NG:YES FASTING: YES Performed By: #### 3 6127, 496, 1790 #### [facility] [address], [address] [place] [address] Pumping Station Engineer: Francisco J Gonzales MD #### 68859, 6399 #### [employer] [address] Pumping Station Engineer: Staci Trivedi TSH W/REFLEX TO FT4on 2024 TSH W/REFLEX TO FT4 2.76 mIU/L Normal 0.40-4.50 [facility] Comment on above: Performed By: #### 3 6127, 496, 0440 #### [facility] [address], [address] [place] [address] Pumping Station Engineer: Francisco J Gonzales MD #### 69987, 6399 #### [employer] [address] Pumping Station Engineer: Staci Trivedi VITAMIN B12on 01-13-2025 Cobalamin (Vitamin B12) [Mass/Vol] 384 pg/mL Normal 200-1100 [facility] Comment on above: Result Comment: Please Note: Although the reference range for vitamin B12 is 200-1100 pg/mL, it has been reported that between 5 and 10% of patients with values between 200 and 400 pg/mL may experience neuropsychiatric and hematologic abnormalities due to occult B12 deficiency; less than 1% of patients with values above 400 pg/mL will have symptoms. Performed By: #### 3 6127, 496, 7600 #### [facility] [address], [address] [place] [address] Pumping Station Engineer: Francisco J Gonzales MD #### 56735, 6399 #### [facility] [address] [place] [address] Pumping Station Engineer: Staci Trivedi Celiacon 10-03-2024 Deamidated Gliadin Abs, IgA 55 High 0-19 [facility] Comment on above: Result Comment: Nega tive 0 - 19 Weak Positive 20 - 30 Moderate to Strong Positive >30 Performed By: #### C ELIAC #### [facility] , Deamidated Gliadin Abs, IgG 112 High 0-19 [facility] Comment on above: Result Comment: Nega tive 0 - 19 Weak Positive 20 - 30 Moderate to Strong Positive >30 Performed By: #### C ELIAC #### [facility] , Endomysial Antibody IgA Positive Critically abnormal Negative [facility] Comment on above: Performed By: #### C ELIAC #### [facility] , Immunoglobulin A, Qn, Serum 180 mg/dL Normal 87-352 [facility] Comment on above: Result Comment: Perf ormed at: CB - [facility] [address] [id number] Telecommunicator: Alex Nickerson PhD, Phone: [phone] PERFORMED BY: [facility] [address] [place] [address] PATHOLOGIST DRAFTER LANDSCAPE ANDREA CRAWFORD M.D. Performed By: #### C ELIAC #### [facility] , T-Transglutaminase (tTG) IgA 8 High 0-3 [facility] Comment on above: Result Comment: Nega tive 0 - 3 Weak Positive 4 - 10 Positive >10 Tissue Transglutaminase (tTG) has been identified as the endomysial antigen. Studies have demonstr- ated that endomysial IgA antibodies have over 99% specificity for gluten sensitive enteropathy. Performed By: #### C ELIAC #### [facility] , T-Transglutaminase (tTG) IgG <2 Normal 0-5 [facility] Comment on above: Result Comment: Nega tive 0 - 5 Weak Positive 6 - 9 Positive >9 Performed By: #### C ELIAC #### [facility] , [place]an 09-11-2024 L -- ---- Specimen: [id number] Received: 09/11/24 Status: GURMEET Mims Num: [id number] Spec Type: Surgical Subm Dr: Bre Lopez MD Tissues: A Colon Biopsy (DUODENUM BX R/O CELIAC) B GASTRIC FOR HP (GASTRIC BX R/O H PYLORI) Procedures: HE/4, Gross/Micro L4/2, H PYLORI ---- Age/ Patient Sex Location Account Attending Physician ---- Jenni Kapadia 59/F [id number] Bre Lopez MD ---- SPEC NUM: [id number] RECD: 09/11/24 STATUS: GURMEET MIMS NUM: [id number] SOFIA: 09/11/[address] [facility] [address]: Bre Lopez MD ENTERED: 09/11/[address] [facility] [address]: TAMEKA TYPE: Surgical DEPT: S ENTERED BY: [id number] RECV BY: [id number] ORDERED: HE/4, Gross/Micro L4/2, H PYLORI ORDERED: HE/4, Gross/Micro L4/2, H PYLORI Pathological Diagnosis A. Duodenal biopsy chronic duodenitis, mild involving lamina propria. The duodenal villi are shortened and blunted with histologic changes consistent with celiac disease.. B. 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 Note: IHC stains are negative for Helicobacter pylori. Appropriate reactive control are performed and reviewed.. Clinical Information Epigastric pain black stools Gross Description A. Received in formalin labeled duodenal BX is a villagomez-martin, focally erythematous, friable, 0.3 cm soft tissue bit. The specimen is entirely submitted in a single cassette. (1, ns, [id number]) JG B. Received in formalin labeled gastric BX are 2 villagomez-martin, focally erythematous, friable, 0.3 and 0.5 cm soft tissue bits. The specimen is entirely submitted in a single cassette. (1, ns, [id number]) JG ---- Specimen: [id number] Received: 09/11/24 Status: GURMEET Mims Num: [id number] Spec Type: Surgical Subm Dr: Bre Lopez MD Tissues: A Colon Biopsy (DUODENUM BX R/O CELIAC) B GASTRIC FOR HP (GASTRIC BX R/O H PYLORI) Procedures: HE/4, Gross/Micro L4/2, H PYLORI ---- Patient: Jenni Kapadia [id number] (Continued) ---- Specimen: [id number] Received: 09/11/24 (Continued) Signed (signature on file) Yinka Ennis MD 09/12/24 1206 ---- Specimen: [id number] Received: 09/11/24 Status: GURMEET Mims Num: [id number] Spec Type: Surgical Subm Dr: Bre Lopez MD Tissues: A Colon Biopsy (DUODENUM BX R/O CELIAC) B GASTRIC FOR HP (GASTRIC BX R/O H PYLORI) Procedures: HE/4, Gross/Micro L4/2, H PYLORI ---- Patient: Jenni Kapadia [id number] (Continued) ---- Specimen: [id number] Received: 09/11/24 (Continued) CPT Codes 88 305 x 2 80 8342 x 1 ---- ---- Specimen: [id number] Received: 09/11/24 Status: GURMEET Mims Num: [id number] Spec Type: Surgical Subm Dr: Bre Lopez MD Tissues: A Colon Biopsy (DUODENUM BX R/O CELIAC) B GASTRIC FOR HP (GASTRIC BX R/O H PYLORI) Procedures: HE/4, Gross/Micro L4/2, H PYLORI ---- Patient: BillJenni Ruby [id number] (Continued) ---- Signed (signature on file) Yinka Ennis MD 09/12/24 1206 Normal [facility] ALL CBC WITH AUTO DIFFon BASOPHILS ABSOLUTE AUTO 0 [facility] Basophils/100 WBC (Bld) 0.5 % 0.2 - 2.0 % [facility] Eosinophils/100 WBC (Bld) 0.7 % Low 0.9 - 7.0 % [facility] Erythrocyte distribution width (RBC) [Ratio] 13.2 % 11.0 - 15.0 % [facility] Hematocrit (Bld) [Volume fraction] 45.4 % 36.0 - 48.0 % [facility] Hemoglobin (Bld) [Mass/Vol] 15.4 g/dL 12.0 - 16.0 g/dL [facility] IMMATURE GRANULOCYTES ABS AUTO 0.01 [facility] Immature granulocytes/100 WBC (Bld) 0.2 % 0.0 - 0.5 % [facility] Interpretation and review of laboratory results Abnormal [facility] LYMPHOCYTES ABSOLUTE AUTO 1.4 [facility] Lymphocytes/100 WBC (Bld) 23.4 % 20.5 - 60.0 % [facility] MCH (RBC) [Entitic mass] 28.4 pg 26.7 - 34.0 pg [facility] MCHC (RBC) [Mass/Vol] 33.9 g/dL 29.9 - 35.2 g/dL [facility] MCV (RBC) [Entitic vol] 83.6 fL 81.0 - 99.0 fL [facility] MONOCYTES ABSOLUTE AUTO 0.6 [facility] Monocytes/100 WBC (Bld) 10 % 1.7 - 12.0 % [facility] NEUTROPHILS ABSOLUTE AUTO 3.9 [facility] Neutrophils/100 WBC (Bld) 65.2 % 43.0 - 75.0 % [facility] Platelet mean volume (Bld) [Entitic vol] 8.4 fL Low 9.5 - 13.5 fL [facility]H EO # 0 [facility] PLT 249 [facility] RBC 5.43 High [facility] WBC 5.9 [facility] ACT Diatomaceous earth induc ed (Bld)on 03-03-2024 [facility] CLOT TIME LR >400 High 89-169 [facility] Comment on above: Performed By: #### 8 0658-8 #### [facility] ([id number]) [address] [place] [address] HMCHRN CLOT TIME LR 276 sec High 89-169 [facility] Comment on above: Performed By: #### 8 0658-8 #### [facility] ([id number]) [address] [place] [address] BASIC METABOLIC PANLon 02-27 Anion gap [Moles/Vol] 10 mmol/L Normal 5-15 [facility] Comment on above: Performed By: #### B MP, CBCA #### [facility] ([id number]) [address] [facility], [address] [place] [address] Calcium [Mass/Vol] 9.0 mg/dL Normal 8.5-10.5 [facility] Comment on above: Performed By: #### B DONNY TIMMONS #### [facility] ([id number]) [address], [address] [place] [address] Chloride [Moles/Vol] 103 mmol/L Normal 98-109 [facility] Comment on above: Performed By: #### B SHANELLE CBCA #### [facility] ([id number]) [address], [address] [place] [address] CO2 [Moles/Vol] 24 mmol/L Normal 22-32 [facility] Comment on above: Performed By: #### B DONNY TIMMONS #### [facility] ([id number]) [address], [address] [place] [address] Creatinine [Mass/Vol] 0.70 mg/dL Normal 0.40-1.00 [facility] Comment on above: Result Comment: METH OD TRACEABLE TO IDMS STANDARD Performed By: #### B DONNY TIMMONS #### [facility] ([id number]) [address], [address] [place] [address] eGFR (CKD-EPI) NON-RACE DEPENDENT >90 Normal >59 [facility] Comment on above: Result Comment: Reported eGFR is based on the CKD-EPI 2021 equation that does not use a race coefficient. Performed By: #### B DONNY TIMMONS #### [facility] ([id number]) [address], [address] [place] [address] Glucose [Mass/Vol] 118 mg/dL High 65-99 [facility] Comment on above: Performed By: #### B DONNY TIMMONS #### [facility] ([id number]) [address], [address] [place] [address] Potassium [Moles/Vol] 4.5 mmol/L Normal 3.5-5.0 [facility] Comment on above: Performed By: #### Espinoza TIMMONS CBCA #### [facility] ([id number]) [address], [address] [place] [address] Sodium [Moles/Vol] 137 mmol/L Normal 134-146 [facility] Comment on above: Performed By: #### B MP, CBCA #### [facility] ([id number]) [address], [address] [place] [address] Urea nitrogen [Mass/Vol] 9 mg/dL Normal 5-23 [facility] Comment on above: Performed By: #### B MP, CBCA #### [facility] ([id number]) [address], [address] [place] [address] CBC AND AUTO DIFFon 02-28-20 24 ABSOLUTE BASOPHIL 0.0 X10E9/L Normal 0.0-0.2 [facility] Comment on above: Performed By: #### B MP, CBCA #### [facility] ([id number]) [address], [address] [place] [address] ABSOLUTE NEUTROPHIL 3.5 X10E9/L Normal 1.5-6.6 [facility] Comment on above: Performed By: #### B MP, CBCA #### [facility] ([id number]) [address], [address] [place] [address] Basophils/100 WBC (Bld) 0.4 % Normal [facility] Comment on above: Performed By: #### B MP, CBCA #### [facility] ([id number]) [address] [address] [place] [address] Eosinophils (Bld) [#/Vol] 0.1 10*3/uL Normal 0.0-0.4 [facility] Comment on above: Performed By: #### B MP, CBCA #### [facility] ([id number]) [address], [address] [place] [address] Eosinophils/100 WBC (Bld) 1.0 % Normal [facility] Comment on above: Performed By: #### B MP, CBCA #### [facility] ([id number]) [address] [address] [place] [address] Erythrocyte distribution width (RBC) [Ratio] 13.7 % Normal 11.5-15.0 [facility] Comment on above: Performed By: #### B MP, CBCA #### [facility] ([id number]) [address], [address] [place] [address] Hematocrit (Bld) [Volume fraction] 38.2 % Normal 35-47 [facility] Comment on above: Performed By: #### B MP, CBCA #### [facility] ([id number]) [address] [address] [place] [address] Hemoglobin (Bld) [Mass/Vol] 12.9 g/dL Normal 11.7-15.5 [facility] Comment on above: Performed By: #### B MP, CBCA #### [facility] ([id number]) [address], [facility] [address] [place] [address] Lymphocytes (Bld) [#/Vol] 1.1 10*3/uL Normal 1.0-3.5 [facility] Comment on above: Performed By: #### B MP, CBCA #### [facility] ([id number]) [address], [address] [place] [address] Lymphocytes/100 WBC (Bld) 20.2 % Normal [facility] Comment on above: Performed By: #### B MP, CBCA #### [facility] ([id number]) [address] [address] [place] [address] MCH (RBC) [Entitic mass] 30.6 pg Normal 27-34 [facility] Comment on above: Performed By: #### B MP, CBCA #### [facility] ([id number]) [address], [address] [place] [address] MCHC (RBC) [Mass/Vol] 33.8 g/dL Normal 32-36 [facility] Comment on above: Performed By: #### B MP, CBCA #### [facility] ([id number]) [address], [address] [place] [address] MCV (RBC) [Entitic vol] 91 fL Normal 80-100 [facility] Comment on above: Performed By: #### B MP, CBCA #### [facility] ([id number]) [address] [facility] [address] [place] [address] Monocytes (Bld) [#/Vol] 0.8 10*3/uL Normal 0-0.9 [facility] Comment on above: Performed By: #### B MP, CBCA #### [facility] ([id number]) [address], [address] [place] [address] Monocytes/100 WBC (Bld) 15.0 % Normal [facility] Comment on above: Performed By: #### B MP, CBCA #### [facility] ([id number]) [address], [address] [place] [address] Neutrophils/100 WBC (Bld) 63.4 % Normal [facility] Comment on above: Performed By: #### B MP, CBCA #### [facility] ([id number]) [address], [address] [place] [address] Platelet mean volume (Bld) [Entitic vol] 7.0 fL Normal 7-12 [facility] Comment on above: Performed By: #### B MP, CBCA #### [facility] ([id number]) [address] [address] [place] [address] Platelets (Bld) [#/Vol] 247 10*3/uL Normal 150-450 [facility] Comment on above: Performed By: #### B MP, CBCA #### [facility] ([id number]) [address], [address] [place] [address] RBC COUNT 4.21 X10E12/L Normal 3.80-5.20 [facility] Comment on above: Performed By: #### B MP, CBCA #### [facility] ([id number]) [address], [address] [place] [address] WBC (Bld) [#/Vol] 5.6 10*3/uL Normal 4.0-11.0 [facility] Comment on above: Performed By: #### B MP, CBCA #### [facility] ([id number]) [address] [facility] [place] [address] POCT EKGOrdered By: Ruby Brown on 02-08-2024 [facility] Follow-Upon 08-29-2023 Follow-Up [id number] Jenni Kapadia 1965 Date Provider Department Center 08/29/2023 421-ALICIA GREEN MP ORTHO MPORTHO Family History Problem Relation Age of Onset Anesthesia problems Mother Diabetes Mother Hypertension Mother Hyperlipidemia Mother Diabetes Father Hyperlipidemia Father Hypertension Father Family Status - Relation Status Age at Mother Alive Father Alive Level of Service:78931 AR OFFICE/OUTPATIENT ESTABLISHED LOW MDM 20-29 MIN (GC) Reason for Visit and Comments: Follow-up [048349] Normal [facility] Orders Onlyon 05-28-2023 Orders Only [id number] Jenni Kapadia 1965 Date Provider Department Center 05/28/202353098-EFBGEBLCBENJAMIN MACHADO MP ORTHO MPORTHO Family History Problem Relation Age of Onset Anesthesia problems Mother Diabetes Mother Hypertension Mother Hyperlipidemia Mother Diabetes Father Hyperlipidemia Father Hypertension Father Family Status - Relation Status Age at Mother Alive Father Alive Normal [facility] 36on 05-25-2023 36 Patient called in wanting to know if pain med can be sent in for her. Patient using [facility] [place] She is requesting gabapentin or tylenol 3 pain Normal [facility] Follow-Upon 05-25-2023 Follow-Up [id number] Jenni Kapadia 1965 Date Provider Department Center 05/25/2023 ALICIA ROOT MP Family History Problem Relation Age of Onset Anesthesia problems Mother Diabetes Mother Hypertension Mother Hyperlipidemia Mother Diabetes Father Hyperlipidemia Father Hypertension Father Family Status - Relation Status Age at Mother Alive Father Alive Level of Service:47200 AR OFFICE/OUTPATIENT ESTABLISHED LOW MDM 20-29 MIN () Reason for Visit and Comments: Follow-up [549921] Normal [facility] Telephoneon 05-25-2023 Telephone [id number] Jenni Kapadia 1965 Date Provider Department Center 05/25/2023 ALICIA ROOT MP Family History Problem Relation Age of Onset Anesthesia problems Mother Diabetes Mother Hypertension Mother Hyperlipidemia Mother Diabetes Father Hyperlipidemia Father Hypertension Father Family Status - Relation Status Age at Mother Alive Father Alive Normal [facility] OSMOLALITYon 04-03-2023 Osmolality [Osmolality] 274 mosm/kg Critically low 275-295 [facility] Comment on above: Performed By: #### O SMO #### [facility] [address] [place] [address] Dr. Celena Schroeder OSMOLALITY URINEon Osmolality, Urine 525 mOsmol/kg Normal [facility] Comment on above: Result Comment: 24 h r : 300 - 900 Random: 50 - 1400 After 12hr fluid restriction: >850 Performed By: #### O SMOU #### [facility] [address] [address] [address] Celena Schroeder CREATININEon 03-28-2023 Creatinine [Mass/Vol] 0.99 mg/dL Normal 0.55-1.02 [facility] Comment on above: Performed By: #### C CON, NA #### [facility] [address] [place] [address] Dr. Celena Schroeder EGFR-AF GEORGIAN >60 Normal >=60 [facility] Comment on above: Performed By: #### C CON, NA #### [facility] [address] [place] [address] Dr. Celena Schroeder EGFR-NON AF GEORGIAN 58 mL/min/1.73m2 Critically low >=60 [facility] Comment on above: Performed By: #### C CON, NA #### [facility] [address] [place] [address] Dr. Celena Schroeder CREATININE URINEon 3 URINE CREAT 109.39 mg/dL Normal 20.00-300.00 [facility] Comment on above: Performed By: #### C MARSHALL #### [facility] [address] [place] [address] Dr. Celena Schroeder NAon 03-28-2023 Sodium [Moles/Vol] 133 mmol/L Critically low 136-145 [facility] Comment on above: Performed By: #### C CON, NA #### [facility] [address] [place] [address] Dr. Celena Schroeder SODIUM RANDOM URINEon 2022 Sodium (U) [Moles/Vol] 51 mmol/L Normal 30-90 [facility] Comment on above: Performed By: #### N AU #### [facility] [address] [place] [address] Dr. Celena Schroeder Office Visiton 03-23-2023 Follow-up visit [id number] Jenni Kapadia 1965 Provider Department Center 03/23/2023 ALICIA ROOT MP ORTHO MPORTHO Family History Problem Relation Age of Onset Anesthesia problems Mother Diabetes Mother Hypertension Mother Hyperlipidemia Mother Diabetes Father Hyperlipidemia Father Hypertension Father Family Status - Relation Status Age at Mother Alive Father Alive Level of Service:03546 AR POSTOP FOLLOW UP VISIT RELATED TO ORIGINAL PX (GC) Reason for Visit and Comments: Follow-up [855918] Normal [facility] 36on 03-19-2023 36 Patient wants a refi ll just to last her until her appt Sunday. [facility] [facility] Orders Onlyon 03-19-2023 Orders Only [id number] Jenni Kapadia 1965 Date Provider Department Center 03/19/2023 [id number]-MHHCXBNORMA WEAVER MP ORTHO MPORTHO Family History Problem Relation Age of Onset Anesthesia problems Mother Diabetes Mother Hypertension Mother Hyperlipidemia Mother Diabetes Father Hyperlipidemia Father Hypertension Father Family Status - Relation Status Age at Mother Alive Father Alive Normal [facility] Orders Onlyon 03-07-2023 Orders Only [id number] Bill,Jenni S 1965 Date Provider Department Center 03/07/2023 ALICIA ROOT [facility] ORTHO [facility] Family History Problem Relation Age of Onset Anesthesia problems Mother Diabetes Mother Hypertension Mother Hyperlipidemia Mother Diabetes Father Hyperlipidemia Father Hypertension Father Family Status - Relation Status Age at Mother Alive Father Alive Normal [facility] Telephoneon 03-07-2023 Telephone [id number] Bill,Jenni S 1965 Date Provider Department Center 03/07/2023 NISH AMAYA MP ORTHO MPORTHO Family History Problem Relation Age of Onset Anesthesia problems Mother Diabetes Mother Hypertension Mother Hyperlipidemia Mother Diabetes Father Hyperlipidemia Father Hypertension Father Family Status - Relation Status Age at Mother Alive Father Alive Reason for Visit and Comments: Follow-up [[id number]] - Patient called in wanting refill of norco. [facility] [place], [place]. Normal [facility] Orders Onlyon 02-28-2023 Orders Only [id number] Bill,Jenni S 1965 Date Provider Department Center 02/28/2023 Rony-ALEXIS PATHAK [facility] Family History Problem Relation Age of Onset Anesthesia problems Mother Diabetes Mother Hypertension Mother Hyperlipidemia Mother Diabetes Father Hyperlipidemia Father Hypertension Father Family Status - Relation Status Age at Mother Alive Father Alive Normal [facility] Orders Onlyon 02-26-2023 Orders Only [id number] Bill,Jenni S 1965 Date Provider Department Center 02/26/2023 ALICIA ROOT [facility] ORTHO [facility] [facility] Family History Problem Relation Age of Onset Anesthesia problems Mother Diabetes Mother Hypertension Mother Hyperlipidemia Mother Diabetes Father Hyperlipidemia Father Hypertension Father Family Status - Relation Status Age at Mother Alive Father Alive Normal [facility] Telephoneon 02-26-2023 Telephone [id number] Bill,Jenni S 1965 Date Provider Department Center 02/26/2023 ALICIA ROOT ORTHO MPORTHO Family History Problem Relation Age of Onset Anesthesia problems Mother Diabetes Mother Hypertension Mother Hyperlipidemia Mother Diabetes Father Hyperlipidemia Father Hypertension Father Family Status - Relation Status Age at Mother Alive Father Alive Reason for Visit and Comments: Med Refill [[id number]] - Pt is requesting a refill on [place]. Pharmacy is [facility] in [facility] [phone] [facility] Office Visiton 02-23-2023 Follow-up visit [id number] Jenni Kapadia 1965 F Date Provider Department Center 02/23/2023 421-ALICAI GREEN MP ORTHO MPORTHO Family History Problem Relation Age of Onset Anesthesia problems Mother Diabetes Mother Hypertension Mother Hyperlipidemia Mother Diabetes Father Hyperlipidemia Father Hypertension Father Family Status - Relation Status Age at Mother Alive Father Alive Level of Service:[id number] AR POSTOP FOLLOW UP VISIT RELATED TO ORIGINAL PX (GC) Reason for Visit and Comments: Follow-up [608367] [facility] 36on 02-21-2023 36 Resident called in. [facility] Orders Onlyon 02-21-2023 Orders Only [id number] Jenni Kapadia 1965 F Date Provider Department Center 02/21/2023 [id number]-PAIXZJNORMA WEAVER MP ORTHO MPORTHO Family History Problem Relation Age of Onset Anesthesia problems Mother Diabetes Mother Hypertension Mother Hyperlipidemia Mother Diabetes Father Hyperlipidemia Father Hypertension Father Family Status - Relation Status Age at Mother Alive Father Alive [facility] 36on 02-20-2023 36 Patient called into the office requesting pain meds . [facility] 29on 02-12-2023 29 Addendum created 02/12/23 1421 by Tova Tam MD Review and Sign - Signed [facility] HPon 02-12-2023 History Of Present Illness Jenni Kapadia is [...] Problems. Patellar nonunion repair with autograft. 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 Priority Lab ID 1 Patella Bone TISSUE CULTURE AND ANAEROBIC CULTURE Alicia Green MD 02/12/23 0825 Routine [id number], [id number] Description: NON-UNION SITE Implants Type Name Action Serial No. Plate ADAPT-PLATE,2.7M,12 HOLE,97M - [id number] Implanted Screw SCREW,CORTEX,2.7M,T8,2 2M - [id number] Implanted Screw SCREW,2.7M,T8,48M - [id number] Implanted Screw SCREW,LOCKING,2.7M,16M - [id number] Implanted Screw SCREW,SLF-TPNG,CORTEX, 2.7M,10M - [id number] Implanted Staff: Hospice Fellow: Ruby Lovelace RN Scrub Person: Ann Jamil [...] miguel angel (more content not included)... Normal [facility] POCT GLUCOSE METER UNSOLICIT ED RESULTSon 02-12-2023 Glucose [Mass/Vol] 156 mg/dL High 70-105 [facility] Comment on above: Result Comment: [email or web address] Performed By: #### L [id number] ####[facility] ([facility])[address] [place] [address] Glucose [Mass/Vol] 97 mg/dL Normal 70-105 [facility] Comment on above: Result Comment: [email or web address] Performed By: #### L [id number] ####[facility] ([facility])[address] [place] [address] TISSUE CULTUREon 02-12-2023 Bacteria identified Cx Nom (Unsp spec) No growth at 5 days Normal [facility] Comment on above: Order Comment: Pre-o p diagnosis:s82.042k Performed By: #### L [id number] ####[facility] ([facility])[address] [place] [address] GRAM STAIN RESULT Normal [facility] Comment on above: Order Comment: Pre-o p diagnosis:s82.042k Result Comment: No p olymorphonuclear leukocytes seen No organisms seen Performed By: #### L [id number] ####[facility] ([facility])[address] [place] [address] MRSA NARES #1on 02-11-2023 MRSA NARES #1 Isolate 1 Staphylococcus aureus (MSSA) Light growth of ORGANISM 1 Staphylococcus aureus (MSSA) ANTIBIOTIC M.I.C RX STATUS Oxacillin <=0.25 S F Normal [facility] Comment on above: Performed By: #### M [id number] #### [facility] [address] [place] [address] Dr. Celena Schroeder 36on 02-07-2023 36 LVM to call let patient know that she needs it and the order was in the chart. [facility] 36on 01-22-2023 36 Patient agreed. She will repeat MRSA swab at [facility] before the surgery. [facility] Telephoneon 01-22-2023 Telephone [id number] BillJenni S 1965 F Date Provider Department Center 01/22/2023 ALICIA ROOT MP ORTHO [facility] Family History Problem Relation Age of Onset Anesthesia problems Mother Diabetes Mother Hypertension Mother Hyperlipidemia Mother Diabetes Father Hyperlipidemia Father Hypertension Father Family Status - Relation Status Age at Mother Alive Father Alive [facility] 36on 01-19-2023 36 Patient left a messa ge she needs to reschedule her surgery at least one week out because her daughter is having a surgery and she needs to be able to help with the baby. I told her I would get a new date from you Sunday when you are back in town. [facility] Anesthesiaon 01-08-2023 Anesthesia [id number] Vu Kapadiaa S 1965 F Date Provider Department Center 01/08/2023 BRANNON CARIAS [facility] OR NE Medical C Family History Problem Relation Age of Onset Anesthesia problems Mother Diabetes Mother Hypertension Mother Hyperlipidemia Mother Diabetes Father Hyperlipidemia Father Hypertension Father Family Status - Relation Status Age at Mother Alive Father Alive [facility] 36on 01-05-[address] Rosado's (anesiology) patient's surgery will be post poned for now due to recent lab testing and chest XR. Patient verbalized understanding. [facility] Orders Onlyon 01-02-2023 Orders Only [id number] Vu Kapadiaa S 1965 F Date Provider Department Center 01/02/2023 Rony-ALEXIS PATHAK [facility] PAT NE Medical C Family History Problem Relation Age of Onset Anesthesia problems Mother Diabetes Mother Hypertension Mother Hyperlipidemia Mother Diabetes Father Hyperlipidemia Father Hypertension Father Family Status - Relation Status Age at Mother Alive Father Alive [facility] RESPIRATORY PANEL PLUSon Adenovirus Not detected Normal NOT DETECTED [facility] Comment on above: Performed By: #### R SPLUS #### [facility] [address] [place] [address] Dr. Celena Doran. Parapertusis Not detected Normal NOT DETECTED [facility] Comment on above: Performed By: #### R SPLUS #### [facility] [address] [place] [address] Dr. Celena Doran. Pertussis Not detected Normal NOT DETECTED [facility] Comment on above: Performed By: #### R SPLUS #### [facility] [address] [place] [address] Dr. Celena Schroeder Chlamydia Pneumoniae Not detected Normal NOT DETECTED [facility] Comment on above: Performed By: #### R SPLUS #### [facility] [address] [place] [address] Dr. Celena Schroeder Coronavirus 229E Not detected Normal NOT DETECTED [facility] Comment on above: Performed By: #### R SPLUS #### [facility] [address] [place] [address] Dr. Celena Schroeder Coronavirus HKU1 Not detected Normal NOT DETECTED [facility] Comment on above: Performed By: #### R SPLUS #### [facility] [address] [place] [address] Dr. Celena Schroeder Coronavirus NL63 Not detected Normal NOT DETECTED [facility] Comment on above: Performed By: #### R SPLUS #### [facility] [address] [place] [address] Dr. Celena Schroeder Coronavirus OC43 Not detected Normal NOT DETECTED [facility] Comment on above: Performed By: #### R SPLUS #### [facility] [address] [place] [address] Dr. Celena Schroeder Influenza A H1 Not detected Normal NOT DETECTED [facility] Comment on above: Performed By: #### R SPLUS #### [facility] [address] [place] [address] Dr. Celena Schroeder Influenza A H1 2009 Not detected Normal NOT DETECTED [facility] Comment on above: Performed By: #### R SPLUS #### [facility] [address] [place] [address] Dr. Celena Schroeder Influenza A H3 Not detected Normal NOT DETECTED [facility] Comment on above: Performed By: #### R SPLUS #### [facility] [address] [place] [address] Dr. Celena Schroeder Influenza B Not detected Normal NOT DETECTED [facility] Comment on above: Performed By: #### R SPLUS #### [facility] [address] [place] [address] Dr. Celena Schroeder Metapneumovirus Detected Abnormal NOT DETECTED [facility] Comment on above: Performed By: #### R SPLUS #### [facility] [address] [place] [address] Dr. Celena Schroeder Mycoplas. Pneumoniae Not detected Normal NOT DETECTED [facility] Comment on above: Performed By: #### R SPLUS #### [facility] [address] [place] [address] Dr. Celena Schroeder Parainfluenza 1 Not detected Normal NOT DETECTED [facility] Comment on above: Performed By: #### R SPLUS #### [facility] [address] [place] [address] Dr. Celena Schroeder Parainfluenza 2 Not detected Normal NOT DETECTED [facility] Comment on above: Performed By: #### R SPLUS #### [facility] [address] [place] [address] Dr. Celena Schroeder Parainfluenza 3 Not detected Normal NOT DETECTED [facility] Comment on above: Performed By: #### R SPLUS #### [facility] [address] [place] [address] Dr. Celena Schroeder Parainfluenza 4 Not detected Normal NOT DETECTED [facility] Comment on above: Performed By: #### R SPLUS #### [facility] [address] [place] [address] Dr. Celena Schroeder Rhino/Enterovirus Not detected Normal NOT DETECTED [facility] Comment on above: Performed By: #### R SPLUS #### [facility] [address] [place] [address] Dr. Celena Schroeder RP2 Header 1 RESPIRATORY PANEL: VIRUSES Normal [facility] Comment on above: Performed By: #### R SPLUS #### [facility] [address] [address] [address] Celena Schroeder RP2 Header 2 RESPIRATORY PANEL: BACTERIA Normal [facility] Comment on above: Performed By: #### R SPLUS #### [facility] [address] [address] [address] Celena Schroeder RSV Not detected Normal NOT DETECTED [facility] Comment on above: Performed By: #### R SPLUS #### [facility] [address] [address] [address] Celena Schroeder SARS-CoV-2 (COVID-19) RNA AUTUMN+probe Ql (Unsp spec) Not detected Normal NOT DETECTED [facility] Comment on above: Performed By: #### R SPLUS #### [facility] [address] [place] [address] Dr. Celena Schroeder XR CHEST 2 Von [...] by: TRUPTI REEVES Date: 2023-01-01 14:56 Normal [facility] 36on 12-29-2022 36 c Normal [facility] C-REACTIVE PROTEINon 023 C REACTIVE PROTEIN (MG/L) IN SER/PLAS 2.6 mg/L Normal 0.0-7.0 [facility] Comment on above: Performed By: #### L [id number] ####[facility] ([facility])[address] [place] [address] CBC WITH AUTO DIFFERENTIALon 12-22-2022 Basophils (Bld) [#/Vol] 0.04 10*3/uL Normal 0.00-0.20 [facility] Comment on above: Performed By: #### L [id number] ####[facility] ([facility])[address] [place] [address] Basophils/100 WBC (Bld) 0.6 % Normal 0.0-1.0 [facility] Comment on above: Performed By: #### L [id number] ####[facility] ([facility])[address] [place] [address] Eosinophils (Bld) [#/Vol] 0.08 10*3/uL Normal 0.00-0.50 [facility] Comment on above: Performed By: #### L [id number] ####[facility] ([facility])[address] [place] [address] Eosinophils/100 WBC (Bld) 1.2 % Normal 0.0-6.0 [facility] Comment on above: Performed By: #### L [id number] ####[facility] ([facility])[address] [place] [address] Erythrocyte distribution width (RBC) [Ratio] 13.5 % Normal 11.5-15.0 [facility] Comment on above: Performed By: #### L [id number] ####[facility] ([facility])[address] [place] [address] ERYTHROCYTE MEAN CORPUSCULAR HEMOGLOBIN CONCENTRATION (G/DL) BY AUTOMATED 34.0 g/dL Normal 32.0-35.0 [facility] Comment on above: Performed By: #### L [id number] ####[facility] ([facility])[address] [place] [address] Hematocrit (Bld) [Volume fraction] 43.2 % Normal 36.0-48.0 [facility] Comment on above: Performed By: #### L [id number] ####[facility] ([facility])[address] [place] [address] Hemoglobin (Bld) [Mass/Vol] 14.7 g/dL Normal 12.0-15.0 [facility] Comment on above: Performed By: #### L [id number] ####[facility] ([facility])[address] [place] [address] Immature granulocytes (Bld) [#/Vol] 0.02 10*3/uL Normal 0.00-0.20 [facility] Comment on above: Performed By: #### L [id number] ####[facility] ([facility])[address] [place] [address] Immature granulocytes/100 WBC (Bld) 0.3 % Normal 0.0-1.0 [facility] Comment on above: Performed By: #### L [id number] ####[facility] ([facility])[address] [place] [address] Lymphocytes (Bld) [#/Vol] 1.53 10*3/uL Normal 1.20-4.00 [facility] Comment on above: Performed By: #### L [id number] ####[facility] ([facility])[address] [place] [address] Lymphocytes/100 WBC (Bld) 23.8 % Normal 20.0-45.0 [facility] Comment on above: Performed By: #### L [id number] ####[facility] ([facility])[address] [place] [address] MCH (RBC) [Entitic mass] 30.3 pg Normal 27.0-33.0 [facility] Comment on above: Performed By: #### L [id number] ####[facility] [place] [address] MCV (RBC) [Entitic vol] 89.1 fL Normal 82.0-98.0 [facility] Comment on above: Performed By: #### L [id number] ####[facility] ([facility])[address] [place] [address] Monocytes (Bld) [#/Vol] 0.74 10*3/uL Normal 0.10-1.00 [facility] Comment on above: Performed By: #### L [id number] ####[facility] [place] [address] Monocytes/100 WBC (Bld) 11.5 % Normal 5.0-12.0 [facility] Comment on above: Performed By: #### L [id number] ####[facility] [place] [address] Neutrophils (Bld) [#/Vol] 4.03 10*3/uL Normal 1.60-7.60 [facility] Comment on above: Performed By: #### L [id number] ####[facility] ([facility])[address] [place], [place] [address] Neutrophils/100 WBC (Bld) 62.6 % Normal 40.0-72.0 [facility] Comment on above: Performed By: #### L [id number] ####[facility] ([facility])[address] [place], [place] [address] NRBC (PER 100 WBCS) BY AUTOMATED COUNT 0.0 % Normal 0.0-0.0 [facility] Comment on above: Performed By: #### L [id number] ####[facility] ([facility])[address] [place], [place] [address] PLATELETS (10*3/UL) IN BLOOD AUTOMATED COUNT 278 10*3/uL Normal 150-400 [facility] Comment on above: Performed By: #### L [id number] ####[facility] [place] [address] RBC (Bld) [#/Vol] 4.85 10*6/uL Normal 3.80-5.00 [facility] Comment on above: Performed By: #### L [id number] ####[facility] [place] [address] WBC (Bld) [#/Vol] 6.44 10*3/uL Normal 4.00-10.60 [facility] Comment on above: Performed By: #### L [id number] ####[facility] ([facility])[address] [place] [address] COMPREHENSIVE METABOLIC PANE Beltran 12-22-2022 Albumin [Mass/Vol] 4.3 g/dL Normal 3.5-5.7 [facility] Comment on above: Performed By: #### L [id number] ####[facility] ([facility])[address] [place] [address] ALP [Catalytic activity/Vol] 66 U/L Normal 34-104 [facility] Comment on above: Performed By: #### L [id number] ####[facility] ([facility])[address] [place] [address] ALT [Catalytic activity/Vol] 47 U/L Normal 7-52 [facility] Comment on above: Performed By: #### L [id number] ####[facility] [place] [address] Anion gap [Moles/Vol] 10 mmol/L Normal 7-20 [facility] Comment on above: Performed By: #### L [id number] ####[facility] ([facility])[address] [place] [address] AST [Catalytic activity/Vol] 30 U/L Normal 13-39 [facility] Comment on above: Performed By: #### L [id number] ####[facility] ([facility])[address] [place] [address] Bilirubin [Mass/Vol] 0.3 mg/dL Normal 0.3-1.0 [facility] Comment on above: Performed By: #### L [id number] ####[facility] [place] [address] Calcium [Mass/Vol] 8.8 mg/dL Normal 8.6-10.3 [facility] Comment on above: Performed By: #### L [id number] ####[facility] ([facility])[address] [place] [address] Chloride [Moles/Vol] 105 mmol/L Normal 98-107 [facility] Comment on above: Performed By: #### L [id number] ####[facility] ([facility])[address] [place] [address] CO2 [Moles/Vol] 26 mmol/L Normal 21-31 [facility] Comment on above: Performed By: #### L [id number] ####[facility] ([facility])[address] [place] [address] Creatinine [Mass/Vol] 0.82 mg/dL Normal 0.60-1.20 [facility] Comment on above: Performed By: #### L [id number] ####[facility] ([facility])[address] [place] [address] GLOMERULAR FILTRATION RATE ML/MIN/1.73 SQ M.PREDICTED 80.2 mL/min/1.73m*2 Normal >60.0 [facility] Comment on above: Result Comment: [facility]???s estimated glomerular filtration rate (eGFR) [...] of individuals. Performed By: #### L [id number] ####[facility] ([facility])[address] [place] [address] Glucose [Mass/Vol] 92 mg/dL Normal 70-100 [facility] Comment on above: Performed By: #### L AB17 ####[facility] ([facility] [place] [address] Potassium [Moles/Vol] 4.8 mmol/L Normal 3.5-5.1 [facility] Comment on above: Performed By: #### L AB17 ####[facility] ([facility] [place] [address] Protein [Mass/Vol] 7.4 g/dL Normal 6.0-8.3 [facility] Comment on above: Performed By: #### L AB17 ####[facility] ([facility])[address] [place] [address] Sodium [Moles/Vol] 136 mmol/L Normal 136-145 [facility] Comment on above: Performed By: #### L AB17 ####[facility] ([facility])[address] [place] [address] Urea nitrogen [Mass/Vol] 20 mg/dL Normal 7-25 [facility] Comment on above: Performed By: #### L AB17 ####[facility] ([facility])[address] [place] [address] UREA NITROGEN/CREATININE (MASS RATIO) IN SER/PLAS 24.39 Normal [facility] Comment on above: Performed By: #### L AB17 ####[facility] ([facility])[address] [place] [address] Follow-Upon 12-22-2022 Follow-Up [id number] Bill,Jenni S 1965 F Date Provider Department Center 12/22/2022 Wendie-ALICIA GREEN MP ORTHO MPORTHO Family History Problem Relation Age of Onset Anesthesia problems Mother Diabetes Mother Hypertension Mother Hyperlipidemia Mother Diabetes Father Hyperlipidemia Father Hypertension Father Family Status - Relation Status Age at Mother Alive Father Alive Level of Service:90392 AR OFFICE/OUTPATIENT ESTABLISHED MOD MDM 30-39 MIN (57,GC) Reason for Visit and Comments: Follow-up [513455] Normal [facility] Labon 12-22-2022 Lab [id number] Jenni Kapadia S 1965 F Date Provider Department Center 12/22/2022 2244-[facility] MP LAB RESOURCE MP DRAW Medical Pavi Family History Problem Relation Age of Onset Anesthesia problems Mother Diabetes Mother Hypertension Mother Hyperlipidemia Mother Diabetes Father Hyperlipidemia Father Hypertension Father Family Status - Relation Status Age at Mother Alive Father Alive Normal [facility] MRSA/MSSA DNA NASALon 2022 MRSA DNA Negative Normal Negative, Invalid [facility] Comment on above: Performed By: #### L [id number] ####[facility] [place] [address] MSSA DNA Positive Abnormal Negative, Invalid [facility] Comment on above: Performed By: #### L [id number] ####[facility] [place] [address] SEDIMENTATION RATEon 023 SEDIMENTATION RATE, ERYTHROCYTE 7 mm/hr Normal <=20 [facility] Comment on above: Performed By: #### L [id number] ####[facility] [place] [address] VITAMIN D 25 HYDROXYon 12-22 CALCIDIOL (25 [place] VITAMIN D3) (NG/ML) IN SER/PLAS 30.9 ng/mL Normal 30.0-80.0 [facility] Comment on above: Result Comment: >80. 0 Toxicity possible Performed By: #### L [id number] ####[facility] ([facility])[address] [place] [address] CT KNEE LEFT WO IV CONTRASTo n [...] of findings Electronically signed: Dianne Lopez. Normal [facility] Office Visiton 11-24-2022 Follow-up visit [id number] Jenni Kapadia 1965 F Date Provider Department Center 11/24/2022 490-CHRIS SOLANO MP ORTHO MPORTHO No family history on file Level of Service:31143 AR OFFICE/OUTPATIENT ESTABLISHED LOW MDM 20-29 MIN Reason for Visit and Comments: Follow-up [072213] - Left knee with xr Normal [facility] MG MAMM SCREEN 3D MALCOM CADon 10-26-2022 MG MAMM SCREEN 3D MALCOM CAD Patient: JENNI KAPADIA. Exam Date: 10/26/2022 : 1965 Gender:F Ordering : DR MISTY LANDRUM PA Admission #: [id number] Family : Order #: [id number] CLICK HERE TO VIEW EXAM RADIOLOGY REPORT [...] liver cancer at age 67. LOCATION: [facility] BREAST COMPOSITION: Scattered areas fibroglandular density. [...] Reeves M.D. on 10/26/2022 at 15:34 Normal [facility] Follow-Upon 09-19-2022 Follow-Up [id number] Jenni Kapadia 1965 F Date Provider Department Center 09/19/2022 CHRIS MARLEY MP ORTHO MPORTHO No family history on file Level of Service:62971 AR OFFICE/OUTPATIENT ESTABLISHED LOW MDM 20-29 MIN Reason for Visit and Comments: Follow-up [117509] - Left knee follow up with review of xray Normal [facility] Orders Onlyon 09-18-2022 Orders Only [id number] Jenni Kapadia 1965 Date Provider Department Center 09/18/2022 Anaya-SHIRIN JACKSON MP ORTHO MPORTHO No family history on file Normal [facility] KNEE LEFT 1 OR 2 VWSon 06-19 KNEE LEFT 1 OR 2 VWS [facility] Department of Radiology [address] [place] [id number] ======== Patient Name: JENNI KAPADIA : 1965 Sex: F Age: Race: White Pt. Location: Patient Status: O Ordered Date: 06/19/2022 10:00:00 AM Completed Date: 06/19/2022 10:09 AM Requesting Provider: LELE FORREST Attending Provider: LELE FORREST Report Copy To: Signs & Symptoms: Z48.89 Encounter for other specified surgical aftercare I10 History: Cecilia Comments: evauate Exam: KNEE LEFT 1 OR 2 S ======== KNEE LEFT 1 OR 2 VWS 06/19/2022 [...] fracture.. Electronically signed: Chepe Eldridge. Transcribed by: [email or web address], User Resident: Electronically Signed by: CHEPE ELDRIDGE @ 06/19/2022 03:06 PM Normal [facility] Comment on above: Order Comment: johnny magdaleno *ANAEROBIC CULTUREon 022 *ANAEROBIC CULTURE Clinical Report: (D) Specimen/Source: TISSUE/INTRAOP SPEC Collected: 06/07/2022 12:47 Status: Final Last Updated: 06/12/2022 08:57 (1) #1 LEFT PATELLA NONUNION CULT RES (Final) No Anaerobes Isolated 5 Days Normal [facility] Comment on above: Order Comment: #1 LE FT PATELLA NONUNION Performed By: #### 3 0312 #### [facility] [address] *TISSUE CULTUREon 06-07-2022 *TISSUE CULTURE Clinical Report: (D) Specimen/Source: TISSUE/INTRAOP SPEC Collected: 06/07/2022 12:47 Status: Final Last Updated: 06/12/2022 07:58 (1) #1 LEFT PATELLA NONUNION GRAM (Final) Rare Polys No Bacteria Seen CULT RES (Final) No Growth Day 5 Normal [facility] Comment on above: Order Comment: #1 LE FT PATELLA NONUNION Performed By: #### 3 0338 #### [facility] [address] BASIC METABOLIC PANELon 08-0 3-2022 Calcium [Mass/Vol] 8.6 mg/dL Normal 8.6-10.3 [facility] Comment on above: Order Comment: No: D o not add to previous draw Performed By: #### 0 0071 ####[facility] [facility] [place] [address], [facility] Chloride [Moles/Vol] 105 mmol/L Normal 98-107 [facility] Comment on above: Order Comment: No: D o not add to previous draw Performed By: #### 0 0071 ####[facility] [place] [address], [facility] CO2 [Moles/Vol] 23 mmol/L Normal 21-31 [facility] Comment on above: Order Comment: No: D o not add to previous draw Performed By: #### 0 0071 ####[facility] Creatinine [Mass/Vol] 0.72 mg/dL Normal 0.60-1.20 [facility] Comment on above: Order Comment: No: D o not add to previous draw Performed By: #### 0 0071 ####[facility] GFR/1.73 sq M.predicted among non-blacks MDRD (S/P/Bld) [Vol rate/Area] mL/min/{1.73_m2} Normal >60 [facility] Comment on above: Order Comment: No: D o not add to previous draw Result Comment: [facility]'s estimated glomerular filtration rate (eGFR) [...] of individuals. Performed By: #### 0 0071 ####[facility] [facility] [place] [address], [facility] Glucose [Mass/Vol] 104 mg/dL High 70-100 [facility] Comment on above: Order Comment: No: D o not add to previous draw Performed By: #### 0 0071 ####[facility] [facility] [place] [address], [facility] Potassium [Moles/Vol] 4.3 mmol/L Normal 3.5-5.1 [facility] Comment on above: Order Comment: No: D o not add to previous draw Performed By: #### 0 0071 ####[facility] [facility] [place] [address], [facility] Sodium [Moles/Vol] 134 mmol/L Low 136-145 [facility] Comment on above: Order Comment: No: D o not add to previous draw Performed By: #### 0 0071 ####[facility] [facility] [place] [address], [facility] Urea nitrogen [Mass/Vol] 11 mg/dL Normal 7-25 [facility] Comment on above: Order Comment: No: D o not add to previous draw Performed By: #### 0 0071 ####[address] [address], [facility] KNEE LEFT 1 OR 2 VWSon 06-07 KNEE LEFT 1 OR 2 VWS [facility] Department of Radiology [address] [place] [address] ======== Patient Name: JENNI KAPADIA : 1965 Sex: F Age: Race: White Pt. Location: OUTP Patient Status: O Ordered Date: 06/06/2022 7:20:00 AM Completed Date: 06/07/2022 02:17 PM Requesting Provider: LELE FORREST Attending Provider: LELE FORREST Report Copy To: Signs & Symptoms: REVISION ORIF LT PATELLA History: Comments: REVISION ORIF LT PATELLA Exam: KNEE LEFT 1 OR 2 VWS ======== KNEE LEFT 1 OR 2 VWS 06/07/2022 [...] service Electronically signed: Dianne Lopez. Transcribed by: [email or web address], User Resident: Electronically Signed by: DIANNE LOPEZ @ 06/08/2022 09:14 AM Normal [facility] Comment on above: Order Comment: IRINA ION ORIF LT PATELLA Operative Reporton Operative Report MR#: [id number] [facility] Pt. Name: Jenni Kapadia Room #: 6AB [id number] Discharge Date: Birthdate: 1965 OPERATIVE REPORT DATE [...] obtaining the distal femoral bone graft and Exec bone graft harvest system was used, and [...] as (more content not included)... Normal [facility] TYPE AND SCREENon 06-07-2022 ABO INTERPRETATION A Normal [facility] Comment on above: Performed By: #### 6 2586 #### [facility] [address] [place] [address], [place] RH INTERPRETATION Positive Normal [facility] Comment on above: Performed By: #### 6 2586 #### [facility] [address] [place] [address], [place] BASIC METABOLIC PANELon 08-0 Calcium [Mass/Vol] 8.7 mg/dL Normal 8.6-10.3 [facility] Comment on above: Order Comment: No: D o not add to previous draw Performed By: #### 0 0071 ####[facility] [place] [address], [facility] Chloride [Moles/Vol] 103 mmol/L Normal 98-107 [facility] Comment on above: Order Comment: No: D o not add to previous draw Performed By: #### 0 0071 ####[facility] [place] [address], [place] CO2 [Moles/Vol] 23 mmol/L Normal 21-31 [facility] Comment on above: Order Comment: No: D o not add to previous draw Performed By: #### 0 0071 ####[facility] [place] [address], [place] Creatinine [Mass/Vol] 0.80 mg/dL Normal 0.60-1.20 [facility] Comment on above: Order Comment: No: D o not add to previous draw Performed By: #### 0 0071 ####[facility] [place] [address], [place] GFR/1.73 sq M.predicted among non-blacks MDRD (S/P/Bld) [Vol rate/Area] mL/min/{1.73_m2} Normal >60 [facility] Comment on above: Order Comment: No: D o not add to previous draw Result Comment: [facility]'s estimated glomerular filtration rate (eGFR) [...] of individuals. Performed By: #### 0 0071 ####[facility] [place] [address], [facility] Glucose [Mass/Vol] 83 mg/dL Normal 70-100 [facility] Comment on above: Order Comment: No: D o not add to previous draw Performed By: #### 0 0071 ####[facility] [place] [address], [facility] Potassium [Moles/Vol] 5.1 mmol/L Normal 3.5-5.1 [facility] Comment on above: Order Comment: No: D o not add to previous draw Performed By: #### 0 0071 ####[facility] [facility] [place] [address], [facility] Sodium [Moles/Vol] 132 mmol/L Low 136-145 [facility] Comment on above: Order Comment: No: D o not add to previous draw Performed By: #### 0 0071 ####[facility] [place] [address], [facility] Urea nitrogen [Mass/Vol] 13 mg/dL Normal 7-25 [facility] Comment on above: Order Comment: No: D o not add to previous draw Performed By: #### 0 0071 ####[facility] [place] [address], [facility] CBC COMPLETE BLOOD COUNTon 0 - Erythrocyte distribution width (RBC) [Ratio] 13.6 % Normal 11.5-15.0 [facility] Comment on above: Order Comment: No: D o not add to previous draw Performed By: #### 5 0608 #### [facility] [address] [place] [id number], [facility] Hematocrit (Bld) [Volume fraction] 40.0 % Normal 36.0-45.0 [facility] Comment on above: Order Comment: No: D o not add to previous draw Performed By: #### 5 0608 #### [facility] [address] [place] [address], [facility] Hemoglobin (Bld) [Mass/Vol] 13.7 g/dL Normal 12.0-15.0 [facility] Comment on above: Order Comment: No: D o not add to previous draw Performed By: #### 5 0608 #### [facility] [address] [place] [address], [facility] MCH (RBC) [Entitic mass] 30.2 pg Normal 27.0-33.0 [facility] Comment on above: Order Comment: No: D o not add to previous draw Performed By: #### 5 0608 #### [facility] [address] [place] [address], [facility] MCHC (RBC) [Mass/Vol] 34.3 g/dL Normal 32.0-35.0 [facility] Comment on above: Order Comment: No: D o not add to previous draw Performed By: #### 5 0608 #### [facility] [address] [place] [address], [facility] MCV (RBC) [Entitic vol] 88.1 fL Normal 82.0-98.0 [facility] Comment on above: Order Comment: No: D o not add to previous draw Performed By: #### 5 0608 #### [facility] [address] [place] [address], [facility] Nucleated RBC/100 WBC (Bld) [Ratio] 0 % Normal 0-0 [facility] Comment on above: Order Comment: No: D o not add to previous draw Performed By: #### 5 0608 #### [facility] [address] [place] [address], [facility] PLAT CNT 254 10*3/uL Normal 150-400 [facility] Comment on above: Order Comment: No: D o not add to previous draw Performed By: #### 5 0608 #### [facility] [address] RBC (Bld) [#/Vol] 4.54 10*6/uL Normal 3.80-5.00 [facility] Comment on above: Order Comment: No: D o not add to previous draw Performed By: #### 5 0608 #### [facility] [address] [place] [address], [facility] WBC (Bld) [#/Vol] 6.22 10*3/uL Normal 4.00-10.60 [facility] Comment on above: Order Comment: No: D o not add to previous draw Performed By: #### 5 0608 #### [facility] [address] *MRSA/MSSA DNA NASALon 06-05 *MRSA/MSSA DNA NASAL Clinical Report: (D) Specimen: NASAL SWAB Collected: 06/05/2022 11:22 Status: Final Last Updated: 06/05/2022 20:26 MSSA DNA (Final) Methicillin Susceptible Staphylococcus aureus DNA Detected MRSA DNA (Final) Negative Normal [facility] Comment on above: Performed By: #### 3 1595 #### [facility] [address] APTTon 06-05-2022 aPTT Coag (Bld) [Time] 30.3 s Normal 25.0-35.0 [facility] Comment on above: Result Comment: [...] THIS PURPOSE. Performed By: #### 5 6101, [address] ####[facility] BASIC METABOLIC PANELon 08-0 Calcium [Mass/Vol] 8.4 mg/dL Low 8.6-10.3 [facility] Comment on above: Performed By: #### 0 007, [id number] ####[facility] [facility] [place] [address], [facility] Chloride [Moles/Vol] 101 mmol/L Normal 98-107 [facility] Comment on above: Performed By: #### 0 70, [address]14 ####[facility] [facility] [place] [address], [facility] CO2 [Moles/Vol] 22 mmol/L Normal 21-31 [facility] Comment on above: Performed By: #### 0 007, [address] ####[place] [address] [facility] [place] [address], [facility] Creatinine [Mass/Vol] 0.81 mg/dL Normal 0.60-1.20 [facility] Comment on above: Performed By: #### 0 0071, [address] ####[place] [address] [place] [address], [facility] GFR/1.73 sq M.predicted among non-blacks MDRD (S/P/Bld) [Vol rate/Area] mL/min/{1.73_m2} Normal >60 [facility] Comment on above: Result Comment: [facility]'s estimated glomerular filtration rate (eGFR) [...] of individuals. Performed By: #### 0 70, [address]94 ####[facility] Glucose [Mass/Vol] 104 mg/dL High 70-100 [facility] Comment on above: Performed By: #### 0 70, ####[facility] Potassium [Moles/Vol] 4.8 mmol/L Normal 3.5-5.1 [facility] Comment on above: Performed By: #### 0 70, [address]1942 ####[facility] Sodium [Moles/Vol] 129 mmol/L Low 136-145 [facility] Comment on above: Performed By: #### 0 70, [address] ####[facility] Urea nitrogen [Mass/Vol] 13 mg/dL Normal 7-25 [facility] Comment on above: Performed By: #### 0 70, [address] ####[facility] CBC W/DIFFon 06-05-2022 ABS IMM GRANS 0.0 10*3/uL Normal 0.0-0.2 [facility] Comment on above: Performed By: #### 5 0103 #### [facility] [address] [place] [address], [facility] ABS NEUTROPHILS 4.9 10*3/uL Normal 1.6-7.6 [facility] Comment on above: Performed By: #### 5 0103 #### [facility] [address] [place] [address], [facility] Basophils (Bld) [#/Vol] 0.0 10*3/uL Normal 0.0-0.2 [facility] Comment on above: Performed By: #### 5 0103 #### [facility] [address] [place] [address], [facility] Basophils/100 WBC (Bld) 0.3 % Normal 0.0-1.0 [facility] Comment on above: Performed By: #### 5 0103 #### [facility] [address] [place] [address], [facility] Eosinophils (Bld) [#/Vol] 0.1 10*3/uL Normal 0.0-0.5 [facility] Comment on above: Performed By: #### 5 0103 #### [facility] [address] [place] [address], [facility] Eosinophils/100 WBC (Bld) 1.0 % Normal 0.0-6.0 [facility] Comment on above: Performed By: #### 5 0103 #### [facility] [address] [place] [address], [facility] Erythrocyte distribution width (RBC) [Ratio] 13.2 % Normal 11.5-15.0 [facility] Comment on above: Performed By: #### 5 3 #### [facility] [address] [place] [address], [facility] Hematocrit (Bld) [Volume fraction] 41.0 % Normal 36.0-45.0 [facility] Comment on above: Performed By: #### 5 3 #### [facility] [address] [place] [address], [facility] Hemoglobin (Bld) [Mass/Vol] 13.6 g/dL Normal 12.0-15.0 [facility] Comment on above: Performed By: #### 5 0103 #### [facility] [address] [place] [address], [facility] IMMATURE GRANS 0.4 % Normal 0.0-1.0 [facility] Comment on above: Performed By: #### 5 0103 #### [facility] [address] [place] [address], [facility] Lymphocytes (Bld) [#/Vol] 1.3 10*3/uL Normal 1.2-4.0 [facility] Comment on above: Performed By: #### 5 0103 #### [facility] [address] Lymphocytes/100 WBC (Bld) 18.7 % Low 20.0-45.0 [facility] Comment on above: Performed By: #### 5 0103 #### [facility] [address] [place] [address], [facility] MCH (RBC) [Entitic mass] 29.5 pg Normal 27.0-33.0 [facility] Comment on above: Performed By: #### 5 0103 #### [facility] [address] MCHC (RBC) [Mass/Vol] 33.2 g/dL Normal 32.0-35.0 [facility] Comment on above: Performed By: #### 5 0103 #### [facility] [address] [place] [address], [facility] MCV (RBC) [Entitic vol] 88.9 fL Normal 82.0-98.0 [facility] Comment on above: Performed By: #### 5 3 #### [facility] [address] [place] [address], [facility] Monocytes (Bld) [#/Vol] 0.7 10*3/uL Normal 0.1-1.0 [facility] Comment on above: Performed By: #### 5 0103 #### [facility] [address] [place] [address], [facility] [facility] 9.7 % Normal 5.0-12.0 [facility] Comment on above: Performed By: #### 5 0103 #### [facility] [address] Neutrophils/100 WBC (Bld) 69.9 % Normal 40.0-72.0 [facility] Comment on above: Performed By: #### 5 0103 #### [facility] [address] Nucleated RBC/100 WBC (Bld) [Ratio] 0 % Normal 0-0 [facility] Comment on above: Performed By: #### 5 0103 #### [facility] [address] PLAT CNT 263 10*3/uL Normal 150-400 [facility] Comment on above: Performed By: #### 5 0103 #### [facility] [address] RBC (Bld) [#/Vol] 4.61 10*6/uL Normal 3.80-5.00 [facility] Comment on above: Performed By: #### 5 0103 #### [facility] [address] WBC (Bld) [#/Vol] 6.99 10*3/uL Normal 4.00-10.60 [facility] Comment on above: Performed By: #### 5 0103 #### [facility] [address] POC SARS COV2 IDon 2 SARS-CoV-2 (COVID-19) RNA AUTUMN+probe Ql (Unsp spec) Negative Normal NEGATIVE [facility] Comment on above: Result Comment: RAKESH Ray OW COVID-19 assay performed on the ID [...] Accreditation. Performed By: #### 3 1921 #### [facility] [address] [facility] PROTHROMBIN TIMEon 2 INR Coag (PPP) [Relative time] 0.97 {INR} Normal 0.91-1.16 [facility] Comment on above: Result Comment: ACCC P RECOMMENDED INR FOR WARFARIN THERAPY ------ ------- CONDITION INR PROPHYLAXIS OF VENOUS THROMBOSIS 2-3 (HIGH-RISK SURGERY) TREATMENT OF VENOUS THROMBOSIS 2-3 TREATMENT OF PULMONARY EMBOLISM 2-3 PREVENTION OF SYSTEMIC EMBOLISM: 2-3 ACUTE MYOCARDIAL INFARCTION TISSUE HEART VALVES VALVULAR HEART DISEASE ATRIAL FIBRILLATION RECURRENT SYSTEMIC EMBOLISM MECHANICAL HEART VALVE 2.5-3.5 FROM: ORAL ANTICOAGULANTS. MECHANISM OF ACTION, CLINICAL EFFECTIVENESS, AND OPTIMAL THERAPEUTIC RANGE. CHEST 1995;108:231S-246S. Performed By: #### 5 6101, [id number] ####[facility] [address] PT Coag (PPP) [Time] 12.9 s Normal 12.3-14.8 [facility] Comment on above: Result Comment: ALL RESULTS MUST BE INTERPRETED WITH RESPECT TO BLOOD DRAWING ARTIFACT OR DILUTION ERROR OF ANTICOAGULANT AT THE TIME OF SAMPLING. Performed By: #### 5 6101, [id number] ####[facility] [address] VITAMIN D 25-HYDROXYon 06-05 VITAMIN D 25-OH 23.9 ng/mL Low 30.0-80.0 [facility] Comment on above: Result Comment: >80. 0 Toxicity possible Performed By: #### 0 0071, [id number] ####[address] KNEE LEFT 1 OR 2 VWSon 04-26 KNEE LEFT 1 OR 2 VWS [facility] Department of Radiology [address] [place] [address] ======== Patient Name: JENNI KAPADIA : 1965 Sex: F Age: Race: White Pt. Location: Patient Status: O Ordered Date: 04/26/2022 9:55:00 AM Completed Date: 04/26/2022 10:24 AM Requesting Provider: LELE FORREST Attending Provider: LELE FORREST Report Copy To: NITO JEONG Signs & Symptoms: Z48.89 Encounter for other specified surgical aftercare I10 History: Cecilia Comments: Exam: KNEE LEFT 1 OR 2 VWS ======== KNEE LEFT 1 OR 2 VWS 04/26/2022 [...] seen Electronically signed: Dianne Lopez. Transcribed by: [email or web address], User Resident: Electronically Signed by: DIANNE LOPEZ @ 04/26/2022 04:24 PM Normal [facility] Operative Reporton 2 Operative Report MR#: [id number] [facility] Pt. Name: Jenni Kapadia Room [...] P/Randy Torres MD Date Trans: 04/16/2022 11:01 P/mmo [id number] cc: Nito Jeong M.D. [address] [place] [id number] Normal [facility] KNEE LEFT 1 OR 2 VWSon 04-14 KNEE LEFT 1 OR 2 VWS [facility] Department of Radiology [address] [place] [id number] ======== Patient Name: JENNI KAPADIA : 1965 Sex: F Age: Race: White Pt. Location: OUTP Patient Status: D Ordered Date: 04/14/2022 11:00:00 AM Completed Date: 04/14/2022 03:28 PM Requesting Provider: LELE FORREST Attending Provider: LELE FORREST Report Copy To: Signs & Symptoms: ORIF LEFT PATELLA History: Comments: ORIF LEFT PATELLA Exam: KNEE LEFT 1 OR 2 VWS ======== KNEE LEFT 1 OR 2 VWS CLINICAL INFORMATION: left knee patellar ORIF with Dr. Forrest. Fluoro time:47.1s Dose:2.63mGy 8 Images sent. ORIF LEFT PATELLA. COMPARISON: None. IMPRESSION: * Intraoperative fluoroscopy provided to the clinical service. Electronically signed: Nic Allred. Transcribed by: [email or web address], User Resident: Electronically Signed by: NIC ALLRED @ 04/16/2022 06:51 PM Normal [facility] Comment on above: Order Comment: ORIF LEFT PATELLA POC GLUCOSE LABon 04-14-2022 Glucose [Mass/Vol] 87 mg/dL Normal 70-100 [facility] Comment on above: Performed By: #### 8 [id number] #### [facility] [address] [place] [address], [facility] Comprehensive Metabolic Pane beltran 11-15-2021 Albumin [Mass/Vol] 4.8 g/dL Normal 3.6-5.1 [facility] Level Vial Inspector Comment on above: Performed By: #### L IPD, CMP #### [facility] [address] [place], [place] [id number] Albumin/Globulin [Mass ratio] 1.9 {ratio} Normal 1.0-2.5 [facility] Level Vial Inspector Comment on above: Performed By: #### L IPD, CMP #### [facility] [address] [place], [place] [id number] ALP [Catalytic activity/Vol] 135 U/L High 35-119 [facility] Level Vial Inspector Comment on above: Performed By: #### L IPD, CMP #### [facility] [address] [place], [place] [id number] ALT [Catalytic activity/Vol] 38 U/L High 6-33 [facility] Level Vial Inspector Comment on above: Result Comment: 10/05 Female reference range changed. Performed By: #### L IPD, CMP #### [facility] [address] [place], [place] [id number] Anion gap [Moles/Vol] 20 mmol/L Normal 12-20 [facility] Level Vial Inspector Comment on above: Result Comment: Effe ctive 11/10/2019 reference range changed. Performed By: #### L IPD, CMP #### [facility] [address] [place], [place] [id number] AST [Catalytic activity/Vol] 20 U/L Normal 9-34 [facility] Comment on above: Performed By: #### L IPD, CMP #### [facility] [address] [place], [place] [id number] Bilirubin [Mass/Vol] 0.44 mg/dL Normal 0.30-1.20 [facility] Specialist Comment on above: Performed By: #### L IPD, CMP #### [facility] [address] [place], [place] [id number] BUN/CREA 23 Ratio High 6-22 [facility] Comment on above: Performed By: #### L IPD, CMP #### [facility] [address] [place], [place] [id number] Calcium [Mass/Vol] 9.4 mg/dL Normal 8.6-10.2 [facility] Comment on above: Performed By: #### L IPD, CMP #### [facility] [address] [place], [place] [id number] Chloride [Moles/Vol] 100 mmol/L Normal 98-107 [facility] Comment on above: Performed By: #### L IPD, CMP #### [facility] [address] [place], [place] [id number] CO2 [Moles/Vol] 18 mmol/L Low 20-31 [facility] Comment on above: Performed By: #### L IPD, CMP #### [facility] [address] [place], [place] [id number] Creatinine [Mass/Vol] 0.9 mg/dL Normal 0.6-1.4 [facility] Comment on above: Performed By: #### L IPD, CMP #### [facility] [address] [place], [place] [id number] eGFRAA 79 mL/min/1.73m2 Normal >60 [facility] Specialist Comment on above: Performed By: #### L IPD, CMP #### [facility] [address] [place], [place] [id number] eGFRNAA 65 mL/min/1.73m2 Normal >60 [facility] Specialist Comment on above: Performed By: #### L IPD, CMP #### [facility] [address] [place], [place] [id number] Globulin (S) [Mass/Vol] 2.5 g/dL Normal 1.9-3.7 [facility] Level Vial Inspector Comment on above: Performed By: #### L IPD, CMP #### [facility] [address] [place], [place] [id number] Glucose [Mass/Vol] 126 mg/dL High 65-99 [facility] Level Vial Inspector Comment on above: Result Comment: For FASTING Glucose --- ADA reference ranges: Normal 65-99 mg/dl Prediabetes 100-125 Diabetes >/= 126 Performed By: #### L IPD, CMP #### [facility] [address] [place], [place] [id number] Potassium [Moles/Vol] 5.2 mmol/L Normal 3.5-5.5 [facility] Level Vial Inspector Comment on above: Performed By: #### L IPD, CMP #### [facility] [address] [place], [place] [id number] Protein [Mass/Vol] 7.3 g/dL Normal 6.1-8.1 [facility] Level Vial Inspector Comment on above: Performed By: #### L IPD, CMP #### [facility] [address] [place], [place] [id number] Sodium [Moles/Vol] 133 mmol/L Low 135-146 [facility] Level Vial Inspector Comment on above: Performed By: #### L IPD, CMP #### [facility] [address] [place], [place] [id number] Urea nitrogen [Mass/Vol] 21 mg/dL Normal 7-25 [facility] Level Vial Inspector Comment on above: Performed By: #### L IPD, CMP #### [facility] [address] [place], [place] [id number] Lipid Panelon 11-15-2021 Cholesterol [Mass/Vol] 150 mg/dL Normal 125-200 [facility] Level Vial Inspector Comment on above: Result Comment: Low risk < 200mg/dL Borderline risk 201-239 mg/dl High risk > or equal to 240 Performed By: #### L IPD, CMP #### [facility] [address] [place], [place] [id number] Cholesterol in HDL [Mass/Vol] 37 mg/dL Low >40 [facility] Level Vial Inspector Comment on above: Result Comment: High Cardiovascular Risk HDL <40 mg/dL Low Cardiovascular Risk HDL > or equal to 60 mg/dl Performed By: #### L IPD, CMP #### [facility] [address] [place], [place] [id number] Cholesterol in LDL [Mass/Vol] 66 mg/dL Normal [facility] Specialist Comment on above: Result Comment: LDL ATP III CLASSIFICATION LDL less than 100 mg/dl Optimal LDL 100-129 mg/dl Near or above optimal LDL 130-159 Borderline high LDL 160-189 High LDL greater than 189 mg/dl Very High Performed By: #### L IPD, CMP #### [facility] [address] [place], [place] [id number] Cholesterol in VLDL [Mass/Vol] 47 mg/dL Normal [facility] Level Vial Inspector Comment on above: Performed By: #### L IPD, CMP #### [facility] [address] [place], [place] [id number] Cholesterol.total/C holesterol in HDL [Mass ratio] 4 {ratio} Normal [facility] Specialist Comment on above: Performed By: #### L IPD, CMP #### [facility] [address] [place], [place] [id number] Triglyceride [Mass/Vol] 237 mg/dL High 30-150 [facility] Level Vial Inspector Comment on above: Result Comment: TRIG ATPIII CLASSIFICATIONS TRIG less than 150 mg/dl Normal TRIG 150-199 mg/dl Borderline High TRIG 200-500 mg/dl High TRIG greather than 500 mg/dl Very High Performed By: #### L IPD, CMP #### [facility] [address] [place], [place] [id number] Vital Signs Date Time Vital Sign Value Performing Clinician Harpreet franklin 02-13-2025 09:40-0400 Body height 165.1 cm [facility] 02-13-2025 09:40-0400 Body mass index (BMI) [Ratio] 33.7 kg/m2 [facility] 02-13-2025 09:40-0400 Body weight 92.07 kg [facility] 02-13-2025 09:40-0400 Diastolic blood pressure 84 mm[Hg] [facility] 02-13-2025 09:40-0400 Heart rate 95 /min [facility] 02-13-2025 09:40-0400 Systolic blood pressure 155 mm[Hg] [facility] 01-06-2025 08:40-0500 Body height 165.1 cm Misty Hemmer PA Work Phone: [facility] 01-06-2025 08:40-0500 Body mass index (BMI) [Ratio] 35.51 kg/m2 Misty Hemmer PA Work Phone: [facility] 01-06-2025 08:40-0500 Body temperature 97.81 [degF] Misty Hemmer PA Work Phone: [facility] 01-06-2025 08:40-0500 Body weight 96.8 kg Misty Hemmer PA Work Phone: [facility] 01-06-2025 08:40-0500 Diastolic blood pressure 94 mm[Hg] Misty Hemmer PA Work Phone: [facility] 01-06-2025 08:40-0500 Heart rate 91 /min Misty Hemmer PA Work Phone: [facility] 01-06-2025 08:40-0500 Respiratory rate 16 /min Misty Hemmer PA Work Phone: [facility] 01-06-2025 08:40-0500 SaO2% (BldA) [Mass fraction] 97 % Misty Hemmer PA Work Phone: [facility] 01-06-2025 08:40-0500 Systolic blood pressure 168 mm[Hg] Misty Hemmer PA Work Phone: [facility] 10-14-2024 08:10-0500 Body height 165.1 cm Misty Hemmer PA Work Phone: [facility] 10-14-2024 08:10-0500 Body mass index (BMI) [Ratio] 36.94 kg/m2 Misty Hemmer PA Work Phone: [facility] 10-14-2024 08:10-0500 Body weight 100.7 kg Misty Hemmer PA Work Phone: [facility] 10-14-2024 08:10-0500 Diastolic blood pressure 84 mm[Hg] Misty Hemmer PA Work Phone: [facility] 10-14-2024 08:10-0500 Heart rate 74 /min Misty Hemmer PA Work Phone: [facility] 10-14-2024 08:10-0500 Respiratory rate 16 /min Misty Hemmer PA Work Phone: [facility] 10-14-2024 08:10-0500 SaO2% (BldA) [Mass fraction] 99 % Misty Hemmer PA Work Phone: [facility] 10-14-2024 08:10-0500 Systolic blood pressure 124 mm[Hg] Misty Hemmer PA Work Phone: [facility] 09-05-2024 12:12-0400 Body height 165.1 cm Misty Hemmer PA Work Phone: [facility] 09-05-2024 12:12-0400 Body mass index (BMI) [Ratio] 38.37 kg/m2 Misty Hemmer PA Work Phone: [facility] 09-05-2024 12:12-0400 Body weight 104.6 kg Misty Hemmer PA Work Phone: [facility] 09-05-2024 12:12-0400 Diastolic blood pressure 88 mm[Hg] Misty Hemmer PA Work Phone: [facility] 09-05-2024 12:12-0400 Heart rate 77 /min Misty Hemmer PA Work Phone: [facility] 09-05-2024 12:12-0400 Respiratory rate 16 /min Misty Hemmer PA Work Phone: [facility] 09-05-2024 12:12-0400 SaO2% (BldA) [Mass fraction] 99 % Misty Hemmer PA Work Phone: [facility] 09-05-2024 12:12-0400 Systolic blood pressure 148 mm[Hg] Misty Hemmer PA Work Phone: [facility] 08-14-2024 09:01-0400 Diastolic blood pressure 92 mm[Hg] Misty Hemmer PA Work Phone: [facility] 08-14-2024 09:01-0400 Systolic blood pressure 160 mm[Hg] Misty Hemmer PA Work Phone: [facility] 08-14-2024 08:17-0400 Body height 165.1 cm Misty Hemmer PA Work Phone: [facility] 08-14-2024 08:17-0400 Body mass index (BMI) [Ratio] 40 kg/m2 Misty Hemmer PA Work Phone: [facility] 08-14-2024 08:17-0400 Body temperature 97.3 [degF] Misty Hemmer PA Work Phone: [facility] 08-14-2024 08:17-0400 Body weight 109.05 kg Misty Hemmer PA Work Phone: [facility] 08-14-2024 08:17-0400 Heart rate 80 /min Misty Hemmer PA Work Phone: [facility] 08-14-2024 08:17-0400 Respiratory rate 16 /min Misty Hemmer PA Work Phone: [facility] 08-14-2024 08:17-0400 SaO2% (BldA) [Mass fraction] 99 % Misty Hemmer PA Work Phone: [facility] 07-15-2024 08:24-0400 Diastolic blood pressure 88 mm[Hg] Misty Hemmer PA Work Phone: [facility] 07-15-2024 08:24-0400 Systolic blood pressure 130 mm[Hg] Misty Hemmer PA Work Phone: [facility] 07-15-2024 08:06-0400 Body mass index (BMI) [Ratio] 40.14 kg/m2 Misty Hemmer PA Work Phone: [facility] 07-15-2024 08:06-0400 Body weight 109.41 kg Misty Hemmer PA Work Phone: [facility] 07-15-2024 08:06-0400 Heart rate 85 /min Misty Hemmer PA Work Phone: [facility] 07-15-2024 08:06-0400 Respiratory rate 17 /min Misty Hemmer PA Work Phone: [facility] 07-15-2024 08:06-0400 SaO2% (BldA) [Mass fraction] 96 % Misty Hemmer PA Work Phone: [facility] 03-27-2024 13:52-0400 Body height 165.1 cm Jag Mayberry MD Work Phone: [facility] 03-27-2024 13:52-0400 Body mass index (BMI) [Ratio] 40.44 kg/m2 Jag Mayberry MD Work Phone: [facility] 03-27-2024 13:52-0400 Body weight 110.22 kg Jag Mayberry MD Work Phone: [facility] 03-27-2024 13:52-0400 Diastolic blood pressure 76 mm[Hg] Jag Mayberry MD Work Phone: [facility] 03-27-2024 13:52-0400 Heart rate 60 /min Jag Mayberry MD Work Phone: [facility] 03-27-2024 13:52-0400 SaO2% (BldA) [Mass fraction] 99 % Jag Mayberry MD Work Phone: [facility] 03-27-2024 13:52-0400 Systolic blood pressure 138 mm[Hg] Jag Mayberry MD Work Phone: [facility] 03-10-2024 09:45-0400 Diastolic blood pressure 84 mm[Hg] [facility] Nurse [facility] 03-10-2024 09:45-0400 Heart rate 70 /min [facility] Nurse [facility] 03-10-2024 09:45-0400 Systolic blood pressure 124 mm[Hg] [facility] Nurse [facility] 02-08-2024 10:16-0400 Body height 165.1 cm Maddy Trujillo MD Work Phone: [facility] 02-08-2024 10:16-0400 Body mass index (BMI) [Ratio] 41.27 kg/m2 Maddy Trujillo MD Work Phone: [facility] 02-08-2024 10:16-0400 Body weight 112.49 kg Maddy Trujillo MD Work Phone: [facility] 02-08-2024 10:16-0400 Diastolic blood pressure 78 mm[Hg] Maddy Trujillo MD Work Phone: [facility] 02-08-2024 10:16-0400 Heart rate 60 /min Maddy Trujillo MD Work Phone: [facility] 02-08-2024 10:16-0400 SaO2% (BldA) [Mass fraction] 99 % Maddy Trujillo MD Work Phone: [facility] 02-08-2024 10:16-0400 Systolic blood pressure 148 mm[Hg] Maddy Trujillo MD Work Phone: [facility] 12-12-2023 09:36-0500 Body mass index (BMI) [Ratio] 39.9 kg/m2 Misty Hemmary PA Work Phone: [facility] 12-12-2023 09:36-0500 Body weight 108.77 kg Misty Hemmer PA Work Phone: [facility] 12-12-2023 09:36-0500 Diastolic blood pressure 94 mm[Hg] Misty Hemmer PA Work Phone: [facility] 12-12-2023 09:36-0500 Heart rate 78 /min Misty Hemmer PA Work Phone: [facility] 12-12-2023 09:36-0500 Respiratory rate 16 /min Misty WILKERSON Work Phone: [facility] 12-12-2023 09:36-0500 SaO2% (BldA) [Mass fraction] 99 % Misty Landrum PA Work Phone: [facility] 12-12-2023 09:36-0500 Systolic blood pressure 162 mm[Hg] Misty WILKERSON Work Phone: [facility] Encounters Encounter Date Encounter Type Care Provider Facility Start: 02-13-2025 End: 02-13-2025 ambulatory [facility] Work Phone: Start: 02-13-2025 End: 02-13-2025 Patient encounter procedure 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; Other chronic pain Start: 02-10-2025 End: 02-11-2025 Refill Lilliana Shook RN [facility] Comment on above: Med Refill Start: 02-09-2025 End: 02-09-2025 Refill Alejandra Velasco 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 Work Phone: [facility] Comment on above: Med Refill Start: 02-04-2025 End: 02-04-2025 Refill Misty Landrum PA Work Phone: [facility] Comment on above: Other chronic pain Start: 01-13-2025 End: 01-13-2025 Orders Only Misty Landrum PA Work Phone: [facility] Comment on above: Hyponatremia (Primar y Dx) Start: 01-12-2025 End: 01-12-2025 Refill Misty Landrum PA Work Phone: [facility] Comment on above: Primary insomnia Start: 01-06-2025 End: 01-06-2025 Bamboo flowsheet Misty M Hemmer PA Work Phone: [facility] Start: 01-06-2025 End: 01-06-2025 Bamboo flowsheet Misty WILKERSON Work Phone: [facility] Start: 01-06-2025 End: 01-06-2025 Office outpatient visit 15 minutes Misty WILKERSON Work Phone: [facility] Comment on above: Acute non-recurrent frontal sinusitis (Primary Dx); Essential hypertension (CMS/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; Other chronic pain Start: 12-09-2024 End: 12-09-2024 Telephone encounter Micaela Wise LPN Work Phone: [facility] Start: 12-04-2024 End: 12-04-2024 Refill Misty WILKERSON Work Phone: [facility] Comment on above: Other chronic pain Start: 11-14-2024 End: 11-14-2024 Refill Nery Lucas LPN [facility] Comment on above: 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; Other chronic pain Start: 10-14-2024 End: 10-14-2024 Bamboo flowsheet Misty WILKERSON Work Phone: [facility] Start: 10-14-2024 End: 10-14-2024 Bamboo flowsheet Misty WILKERSON Work Phone: [facility] Start: 10-14-2024 End: 10-14-2024 Office outpatient visit 25 minutes Misty WILKERSON Work Phone: [facility] Comment on above: Essential hypertensi on (CMS/HCC) (Primary Dx); Osteoarthritis of lumbosacral spine with radiculopathy; Other chronic pain; Primary insomnia; Celiac disease (CMS/HCC); Duodenitis; Chronic gastritis without bleeding, unspecified gastritis type Start: 10-14-2024 End: 10-14-2024 ambulatory MISTY LANDRUM Not Available Start: 10-03-2024 End: 10-03-2024 ambulatory Imad Asaad Facility:[facility] Start: 09-18-2024 End: 09-18-2024 Refill Nery Lucas LPN [facility] Comment on above: Other chronic pain; Osteoarthritis of lumbosacral spine with radiculopathy Start: 09-17-2024 End: 09-18-2024 Refill Misty Landrum PA Work Phone: [facility] Comment on above: Other chronic pain; Osteoarthritis of lumbosacral spine with radiculopathy Start: 09-11-2024 End: 09-11-2024 Refill Misty Landrum PA Work Phone: [facility] Comment on above: Gastroesophageal ref lux disease without esophagitis Start: 09-11-2024 End: 09-11-2024 ambulatory Imad Asaad Facility:[facility] Start: 09-08-2024 End: 09-08-2024 Telephone encounter Misty WILKERSON Work Phone: [facility] Start: 09-05-2024 End: 09-05-2024 Clinisync Result Encounter Misty WILKERSON Work Phone: [facility] Unsolicited Start: 09-05-2024 End: 09-05-2024 Clinisync Result Encounter Misty WILKERSON Work Phone: [facility] Unsolicited Start: 09-05-2024 End: 09-05-2024 ambulatory MISTY LANDRUM Not Available Start: 09-05-2024 End: 09-05-2024 Office outpatient visit 25 minutes Misty Landrum PA Work Phone: [facility] Comment on above: Essential hypertensi on (CMS/HCC) (Primary Dx); Traumatic arthritis of left knee; Encounter for screening mammogram for malignant neoplasm of breast; Class 2 severe obesity due to excess calories with serious comorbidity and body mass index (BMI) of 38.0 to 38.9 in adult (CMS/HCC); Other chronic pain; Osteoarthritis of lumbosacral spine with radiculopathy; Chronic daily headache; Abnormality of red blood cells; Hyponatremia; Acquired hypothyroidism (CMS/HCC); Chronic fatigue Start: 08-21-2024 End: 08-22-2024 Refill Misty Landrum [...] spine with radiculopathy; Coronary artery disease involving [place] coronary artery of [place] heart without angina pectoris (CMS/HCC); New persistent daily headache; Morbid (severe) obesity due to excess calories (CMS/HCC); Body mass index (BMI) 40.0-44.9, adult (CMS/HCC) Start: 08-12-2024 End: 08-12-2024 Telephone encounter Misty WILKERSON Work Phone: [facility] Start: 07-25-2024 End: 07-25-2024 Refill Misty Landrum PA Work Phone: [facility] Comment on above: Lumbar radiculopathy Start: 07-15-2024 End: 07-15-2024 Bamboo flowsheet Misty Landrum PA Work Phone: [facility] Start: 07-15-2024 End: 07-15-2024 Bamboo flowsheet Misty Landrum PA Work Phone: [facility] Start: 07-15-2024 End: 07-15-2024 Office outpatient visit 15 minutes Misty Landrum PA Work Phone: [facility] Comment on above: Lumbar radiculopathy (Primary Dx); Essential hypertension (CMS/HCC); Primary insomnia; Class 3 severe obesity with serious comorbidity and body mass index (BMI) of 40.0 to 44.9 in adult, unspecified obesity type (CMS/HCC) Start: 07-15-2024 End: 07-15-2024 ambulatory MISTY LANDRUM Not Available Start: 07-10-2024 End: 07-10-2024 Refill Nery Lucas LPN [facility] Comment on above: Insomnia, unspecifie d; Primary insomnia Insomnia, unspecifie d Primary insomnia; Restless legs syndrome (RLS); Other chronic pain Start: 06-29-2024 End: 06-30-2024 Refill Misty Landrum PA Work Phone: [facility] Comment on above: Lumbar radiculopathy Start: 04-14-2024 End: 04-14-2024 ambulatory MISTY LANDRUM Not Available Start: 03-27-2024 End: 03-27-2024 ambulatory JAG MAYBERRY [facility] Start: 03-27-2024 End: 03-27-2024 Office outpatient visit 15 minutes Jag Mayberry MD Work Phone: [facility] Comment on above: Primary hypertension (Primary Dx); LBBB (left bundle branch block); Shortness of breath; Dyslipidemia; 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 Start: 03-26-2024 End: 03-26-2024 Telephone encounter Ruby Brown CMA [facility] Start: 03-10-2024 End: 03-10-2024 ambulatory MISTY LANDRUM [facility] Start: 03-10-2024 End: 03-10-2024 Clinical Support Pm Ppc Nurse [facility] Comment on above: Coronary artery dise ase involving [place] coronary artery of [place] heart with angina pectoris ([facility]) (Primary Dx) Start: 03-07-2024 End: 03-07-2024 Telephone encounter Ruby Brown CMA [facility] Start: 03-03-2024 End: 03-03-2024 ambulatory [facility] Start: 02-29-2024 End: 03-01-2024 ambulatory [facility] Start: 02-28-2024 End: 02-29-2024 ambulatory URIEL Raza SUKHI [facility] Start: 02-21-2024 End: 02-21-2024 Telephone encounter Georgina Marti RN [facility] Comment on above: Cardiac Cath Start: 02-19-2024 End: 02-20-2024 ambulatory [facility] Start: 02-19-2024 End: 02-19-2024 ambulatory [facility] Start: 02-08-2024 End: 02-08-2024 ambulatory [facility] Start: 02-08-2024 End: 02-08-2024 Office consultation new/estab patient 60 min Maddy Trujillo MD Work Phone: [facility] Comment on above: Uncontrolled hyperte nsion (Primary Dx); Shortness of breath; LBBB (left bundle branch block); Primary hypertension; Dyslipidemia; Family history of premature CAD; Abnormal EKG; Precordial pain; Cardiac murmur Start: 02-07-2024 Telephone encounter [facility] Start: 02-04-2024 Chart abstracting Maddy sumner MD Work Phone: [facility] Start: 01-08-2024 Telephone encounter [facility] Start: 01-07-2024 [facility] Start: 01-02-2024 Telephone encounter [facility] Start: 12-13-2023 Telephone encounter Micaela whitfield DOOR [employer]OSER MECH[employer]IC Work Phone: [facility] Comment on above: Med Refill Start: 12-12-2023 End: 12-12-2023 Office outpatient visit 25 minutes Misty WILKERSON Work Phone: [facility] Comment on above: Uncontrolled hyperte nsion (CMS/HCC) (Primary Dx); Need for immunization against influenza; Essential hypertension (CMS/HCC); Chest pain, unspecified type; Lumbar radiculopathy; Primary insomnia; Daytime somnolence Start: 08-29-2023 End: 08-30-2023 ambulatory [facility] Start: 05-25-2023 End: 05-26-2023 ambulatory [facility] Start: 03-28-2023 End: 03-29-2023 ambulatory MISTY LANDRUM Facility: Start: 03-23-2023 End: 03-24-2023 ambulatory [facility] Start: 02-23-2023 End: 02-24-2023 ambulatory [facility] Start: 02-17-2023 Encounter for [facility]procedural [facility] Start: 02-12-2023 ambulatory [facility] Start: 02-12-2023 End: 02-13-2023 ambulatory [facility] Start: 02-12-2023 End: 02-12-2023 ambulatory [facility] Start: 02-12-2023 End: 02-12-2023 Encounter for preprocedural laboratory examination [facility] Start: 02-08-2023 End: 02-09-[address] DOCTOR BUSTILLO Facility:[facility] Start: 02-08-2023 End: 02-09-2023 Encounter for preprocedural laboratory examination DR DOCTOR BUSTILLO Facility:[facility] Start: 01-01-2023 End: 01-02-2023 ambulatory MISTY LANDRUM Facility: Start: 12-22-2022 ambulatory [facility] Start: 12-22-2022 ambulatory [facility] Start: 12-20-2022 End: 12-21-2022 ambulatory MISTY LANDRUM Facility: Start: 12-11-2022 End: 12-12-2022 ambulatory [facility] Start: 11-24-2022 End: 11-25-2022 ambulatory [facility] Start: 10-26-2022 End: 10-27-2022 ambulatory MISTY LANDRUM Facility: Start: 09-19-2022 End: 09-20-2022 ambulatory [facility] Start: 06-06-2022 End: 06-09-2022 ambulatory NITO JEONG Facility:[facility] Start: 05-12-2022 ambulatory Facility:[facility]NA[facility] Start: 05-11-2022 ambulatory Facility:[facility] FERNANDES Start: 04-26-2022 End: 05-01-2022 ambulatory LELE FORREST Facility:[facility] Start: 04-14-2022 End: 04-15-2022 ambulatory LELE FORREST Facility:[facility] Procedures Date Procedure Procedure Detail Performing Clinician Start: 11-14-2024 Mammography Misty WILKERSON Work Phone: Start: 09-05-2024 ALL CBC WITH AUTO DIFF Misty WILKERSON Work Phone: Start: 03-27-2024 Follow-up visit Follow-up JAG Brandon FATOU Start: 02-08-2024 Ecg routine ecg w/le ast 12 lds w/i&r Maddy Trujillo MD Work Phone: Start: 10-31-2023 Mammography Misty WILKERSON Work Phone: Start: 05-14-2023 H/O: hysterectomy History of hystere ctomy Misty WILKERSON Work Phone: Start: 06-07-2022 Antibody screen NITO RACHNA Comment on above: Performed By: #### 6 [id number] #### [address] Start: 11-18-2019 Colonoscopy Misty WILKERSON Work Phone: Plan of Treatment Date Care Activity Detail Author Start: 07-15-2034 DTaP,Tdap and Td Vaccines (2 - Td or Tdap) DTaP,Tdap and Td Vaccines (2 - Td or Tdap) [facility] Start: 11-18-2029 Screening for malignant neoplasm of colon [facility] Start: 01-12-2026 Medicare Annual Wellness (AWV) Medicare Annual Wellness (AWV) [facility] Start: 11-14-2025 Screening for malignant neoplasm of breast Mammogram [facility] Start: 07-06-2025 Influenza vaccination Influenza Vaccine [facility] Start: 04-14-2025 End: 04-14-2025 Patient encounter procedure 04/14/2025 8:30 AM EDT Office Visit [facility] [address] [place] [address] Misty Landrum PA [address] [place] [address] [facility] Start: 03-27-2025 Adult BMI Screening Adult BMI Screening [facility] Start: 03-27-2025 Tobacco Screening Tobacco Screening [facility] Start: 03-09-2025 End: 02-10-2026 CBC W Auto Differential panel - Blood CBC auto differential Lab Routine Coronary artery disease involving [place] coronary artery of [place] heart without angina pectoris Primary hypertension Dyslipidemia Shortness of breath Expected: 03/09/2025 (Approximate), [facility] Comment on above: Expected: 03/09/2025 (Approximate), Expi res: 02/10/2026 Start: 03-09-2025 End: 02-10-2026 Comprehensive metabolic 2000 panel - Serum or Plasma Comprehensive metabolic panel Lab Routine Coronary artery disease involving [place] coronary artery of [place] heart without angina pectoris Primary hypertension Dyslipidemia Shortness of breath Expected: 03/09/2025 (Approximate), Expires: 02/10/2026 [employer] Phone: Comment on above: Expected: 03/09/2025 (Approximate), Expi res: 02/10/2026 Start: 03-09-2025 End: 02-10-2026 Lipid 1996 panel - Serum or Plasma Lipid profile Lab Routine Coronary artery disease involving [place] coronary artery of [place] heart without angina pectoris Primary hypertension Dyslipidemia Shortness of breath Expected: 03/09/2025 (Approximate), Expires: 02/10/2026 [facility] Comment on above: Expected: 03/09/2025 (Approximate), Expi res: 02/10/2026 Start: 03-09-2025 End: 02-10-2026 Magnesium [Mass/volume] in Serum or Plasma Magnesium Lab Routine Coronary artery disease involving [place] coronary artery of [place] heart without angina pectoris Primary hypertension Dyslipidemia Shortness of breath Expected: 03/09/2025 (Approximate), Expires: 02/10/2026 [facility] Comment on above: Expected: 03/09/2025 (Approximate), Expi res: 02/10/2026 Start: 03-03-2025 Adult BMI Screening Adult BMI Screening [facility] Start: 03-03-2025 Tobacco Screening Tobacco Screening [facility] Start: 02-18-2025 Adult BMI Screening Adult BMI Screening [facility] Start: 02-18-2025 Tobacco Screening Tobacco Screening [facility] Start: 02-07-2025 Adult BMI Screening Adult BMI Screening [facility] Start: 02-07-2025 Tobacco Screening Tobacco Screening [facility] Start: 01-20-2025 End: 01-13-2026 Basic metabolic 1998 panel - Serum or Plasma Basic metabolic panel Lab Routine Hyponatremia Expected: 01/20/2025 (Approximate), Expires: 01/13/2026 [facility] Work Phone: Comment on above: Expected: 01/20/2025 (Approximate), Expi res: 01/13/2026 Start: 01-12-2025 End: 01-12-2025 Patient encounter procedure 01/12/2025 8:30 AM EDT Office Visit [facility] [address] [place] [address] Misty Landrum PA [address] [place] [address] [facility] Start: 01-09-2025 Medicare Annual Wellness (AWV) Medicare Annual Wellness (AWV) [facility] Start: 01-06-2025 End: 01-06-2025 Patient encounter procedure 01/06/2025 8:30 AM EST Office Visit [facility] [address] [place] [address] Misty Landrum, PA [address] [place] [address] Arrived [facility] Comment on above: Arrived Start: 10-31-2024 End: 11-05-2025 DBT Breast - bilateral screening Bilateral screening mammogram with tomosynthesis Imaging Routine Encounter for screening mammogram for malignant neoplasm of breast Expected: 10/31/2024, Expires: 11/05/2025 [facility] Work Phone: Comment on above: Expected: 10/31/2024, Expires: Start: 10-31-2024 Screening for malignant neoplasm of breast Mammogram [facility] Start: 10-14-2024 End: 10-14-2024 Patient encounter procedure [facility] Comment on above: Arrived Start: 09-26-2024 End: 09-26-2024 Patient encounter procedure 09/26/2024 8:30 AM EST Office Visit [facility] [address] [place] [address] Jag Mayberry MD [address] [place] [address] [facility] Start: 09-25-2024 Administration of varicella zoster vaccine Zoster (Shingles) Vaccine (2 of 2) [facility] Start: 09-05-2024 End: 09-05-2025 Basic metabolic 1998 panel - Serum or Plasma Basic metabolic panel Lab Routine Essential hypertension (CMS/HCC) Hyponatremia Expected: 09/05/2024 (Approximate), Expires: 09/05/2025 [facility] Comment on above: Expected: 09/05/2024 (Approximate), Expi res: 09/05/2025 Start: 09-05-2024 End: 09-05-2025 CBC W Auto Differential panel - Blood CBC and differential Lab Routine Abnormality of red blood cells Chronic fatigue Expected: 09/05/2024 (Approximate), Expires: 09/05/2025 [facility] Comment on above: Expected: 09/05/2024 (Approximate), Expi res: 09/05/2025 Start: 09-05-2024 End: 09-05-2025 Iron + transferrin + TIBC Iron + transferrin + TIBC Lab Routine Abnormality of red blood cells Chronic fatigue Expected: 09/05/2024 (Approximate), Expires: 09/05/2025 [facility] Comment on above: Expected: 09/05/2024 (Approximate), Expi res: 09/05/2025 Start: 09-05-2024 End: 09-05-2025 TSH W/REFLEX TO FT4 TSH W/REFLEX TO FT4 Lab Routine Acquired hypothyroidism (CMS/HCC) Chronic fatigue Expected: 09/05/2024 (Approximate), Expires: 09/05/2025 [facility] Comment on above: Expected: 09/05/2024 (Approximate), Expi res: 09/05/2025 Start: 09-05-2024 End: 09-05-2025 XR Knee - left 4 Views XR knee 4+ views left Imaging Routine Traumatic arthritis of left knee Expected: 09/05/2024, Expires: 09/05/2025 [facility] Comment on above: Expected: 09/05/2024, Expires: Start: 07-15-2024 End: 07-15-2024 Patient encounter procedure [facility] Comment on above: Arrived Start: 07-06-2024 COVID-19 Vaccine () COVID-19 Vaccine () [facility] Start: 07-06-2024 Influenza vaccination [facility] Start: 05-19-2024 End: 05-19-2024 Patient encounter procedure 05/19/2024 11:15 AM EDT Office Visit [facility] [address] [place] [phone] Jag Mayberry MD [address] [place] [address] [facility] Start: 03-27-2024 End: 03-27-2024 Patient encounter procedure 03/27/2024 2:00 PM EDT Office Visit [facility] [address] [place] [phone] Jag Mayberry MD [address] [place] [address] [facility] Start: 03-10-2024 End: 03-10-2024 Clinical Support 03/10/2024 9:30 AM EDT Clinical Support [facility] [address] [place] [address] [facility] Start: 03-03-2024 End: 03-03-2024 Admission to same day surgery center 03/03/2024 9:30 AM EDT - 03/03/2024 10:30 AM EDT Surgery [facility] - Cardiac Cath [address] [place] [address] Deena Hunt MD [address] [place] [address] [facility] Comment on above: Cardiac Invasive Start: 03-03-2024 Subsequent hospital visit by physician 03/03/2024 9:30 AM EDT Hospital Encounter [facility] Cardiac Cath [address] [place] [address] Deena Hunt MD [address] [place] [address] Abnormal stress test; Chest pain [facility] Comment on above: Abnormal stress test; Chest pain Start: 02-29-2024 End: 02-29-2024 Patient encounter procedure [facility] Start: 02-19-2024 End: 02-19-2024 Patient encounter procedure [facility] Start: 02-19-2024 End: 02-19-2024 Patient encounter procedure 02/19/2024 7:15 AM EDT Appointment [facility] [address] [place] [address] Maddy Trujillo MD [address] [place] [address] [facility] Start: 02-19-2024 Subsequent hospital visit by physician 02/19/2024 7:00 AM EDT Hospital Encounter [facility] [address] [place] [address] Maddy Trujillo MD [address] [place] [address] [facility] Start: 02-08-2024 End: 02-07-2025 Echo complete W/O contrast Echo complete W/O contrast Echocardiography Routine Shortness of breath Abnormal EKG Expected: 02/08/2024, Expires: 02/07/2025 [employer] Work Phone: Comment on above: Expected: 02/08/2024, Expires: Start: 02-08-2024 End: 02-07-2025 NM Heart Perfusion W stress and W radionuclide IV Nuc stress [facility] Routine Shortness of breath Precordial pain Expected: 02/08/2024, Expires: 02/07/2025 [facility] Comment on above: Expected: 02/08/2024, Expires: Start: 02-08-2024 End: 02-07-2025 US.doppler Renal vessels - bilateral Vas renal artery duplex complete Vascular Ultrasound Routine Uncontrolled hypertension Expected: 02/08/2024, Expires: 02/07/2025 [facility] Comment on above: Expected: 02/08/2024, Expires: Start: 02-08-2024 End: 02-08-2024 Patient encounter procedure 02/08/2024 10:30 AM EDT Office Visit [facility] [address] [facility] [address] [place] [phone] Maddy Trujillo MD [address] [place] [address] [facility] Start: 01-10-2024 End: 01-10-2024 Patient encounter procedure 01/10/2024 8:00 AM EST Office Visit [facility] [address] [facility] [address] [place] [phone] Misty Landrum PA [address] [place] [address] [facility] Start: 12-19-2023 End: 12-12-2024 Basic metabolic 1998 panel - Serum or Plasma Basic metabolic panel Lab Routine Uncontrolled hypertension (CMS/HCC) Expected: 12/19/2023 (Approximate), Expires: 12/12/2024 [facility] Comment on above: Expected: 12/19/2023 (Approximate), Expi res: 12/12/2024 Start: 12-14-2023 Medicare Annual Wellness (AWV) Medicare Annual Wellness (AWV) [facility] Start: 12-12-2023 End: 12-12-2024 US.doppler Renal artery Vascular US renal artery duplex complete Imaging Routine Uncontrolled hypertension (CMS/HCC) Expected: 12/12/2023, Expires: 12/12/2024 [facility] Work Phone: Comment on above: Expected: 12/12/2023, Expires: Start: 07-06-2023 COVID-19 Vaccine () COVID-19 Vaccine () [facility] Start: 07-06-2023 Influenza vaccination Influenza Vaccine [facility] Start: 07-26-2022 Screening for malignant neoplasm of colon FIT-DNA [facility] Start: 02-26-2016 Administration of varicella zoster vaccine Zoster (Shingles) Vaccine (1 of 2) [facility] Start: 1987 Screening for malignant neoplasm of cervix Pap Smear [facility] Start: 1985 DTaP,Tdap and Td Vaccines (1 - Tdap) DTaP,Tdap and Td Vaccines (1 - Tdap) [facility] Start: 02-26-1984 Adult BMI Follow Up Plan Adult BMI Follow Up Plan [facility] Start: 02-26-1984 Adult BMI Screening Adult BMI Screening [facility] Start: 1978 Depression Screening Depression Screening [facility] Start: 1978 Tobacco Screening Tobacco Screening [facility] Start: 1966 Screening for malignant neoplasm of colon [facility] End: 09-27-2024 Ambulatory referral to Cardiac Rehab Ambulatory referral to Cardiac Rehab Card Rehab Routine 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 1 Occurrences starting 03/27/2024 until 09/27/2024 [facility] Work Phone: Comment on above: 1 Occurrences starting 03/27/2024 until 09/27/2024 Immunizations Immunization Date Immunization Notes Care Provider Clarisa bazan 10-07-2024 zoster vaccine recombinant Misty Hemmer PA Work Phone: [facility] 07-31-2024 zoster vaccine recombinant Misty Hemmer PA Work Phone: [facility] 07-31-2024 zoster vaccine, unspecified formulation Mischell Rod 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 Work Phone: [facility] 07-15-2024 influenza, injectabl e, madin lawson canine kidney, preservative free Misty Hemmer PA Work Phone: [facility] 07-15-2024 tetanus toxoid, reduced diphtheria toxoid, and acellular pertussis vaccine, adsorbed Misty Hemmer PA Work Phone: [facility] 07-15-2024 influenza virus vaccine, unspecified formulation Mischell Rod [employer] 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 Work Phone: [facility] 12-12-2023 influenza, injectabl e, quadrivalent, preservative free Misty Hemmer PA Work Phone: [facility] 12-12-2023 influenza virus vaccine, unspecified formulation Maddy Trujillo MD Work Phone: [facility] 10-18-2022 influenza, injectabl e, quadrivalent, preservative free Misty Hemmer PA Work Phone: [facility] 09-05-2021 influenza, injectabl e, quadrivalent, contains preservative Misty Hemmer PA Work Phone: [facility] Payers Date Payer Category Payer Self-pay 2022 Medicare (Managed Care) [facility] [id number] 2022 Unknown [id number] 2020 Medicare [id number] 2015 Medicare [employer]NA MEDICARE [place] [id number] 2015-Present [phone] [address] [address] [place] [address] [id number] [id number] 1966 Unknown [id number] 2.16.840.1.195778.3.579. 2.594 1966 Unknown [id number] 2.16.840.1.781138.3.579. 2.594 1966 Unknown [id number] 2.16.840.1.989192.3.579. 2.647 1966 Unknown [id number] 2.16.840.1.649964.3.579. 2.647 1966 Unknown [id number] 2.16.840.1.351563.3.579. 2.647 1966 Unknown [id number] 2.16.840.1.262492.3.579. 2.593 1966 Unknown [id number] 2.16.840.1.336794.3.579. 2.593 1966 Unknown [id number] 2.16.840.1.549203.3.579. 2.593 1966 Unknown [id number] 2.16.840.1.165201.3.579. 2.593 1966 Unknown [id number] 2.16.840.1.214490.3.579. 2.593 1966 Unknown [id number] 2.16.840.1.989344.3.579. 2.1286 1966 Unknown [id number] 2.16.840.1.548413.3.579. 2.1285 1966 Unknown [id number] 2.16.840.1.160649.3.579. 2.1285 1966 Unknown [id number] 2.16.840.1.042931.3.579. 2.1285 1966 Unknown [id number] 2.16.840.1.865597.3.579. 2.1285 1966 Unknown [id number] 2.16.840.1.372462.3.579. 2.1285 1966 Unknown [id number] 2.16840.1.185733.3.579. 2.1285 1966 Unknown [id number] 2.16.840.1.409685.3.579. 2.1285 1966 Unknown [id number] 2.16840.1.118188.3.579. 2.1285 1966 Unknown [id number] 2.16.840.1.819744.3.579. 2.1285 1966 Unknown [id number] 2.16.840.1.277946.3.579. 2.1285 1966 Unknown [id number] 2.16.840.1.043233.3.579. 2.1285 1966 Unknown [id number] 2.16.840.1.515807.3.579. 2.1258 1966 Unknown [id number] 2.16.840.1.835797.3.579. 2.1258 1966 Unknown [id number] 2.16.840.1.363068.3.579. 2.1258 1966 Unknown [id number] 2.16.840.1.215658.3.579. 2.1258 1966 Unknown [id number] 2.16.840.1.967759.3.579. 2.1259 1966 Unknown [id number] 2.16.840.1.805365.3.579. 2.1259 1966 Unknown [id number] 2.16.840.1.363243.3.579. 2.1259 Medicare [facility] [id number] [id number] Private Health Insurance [employer] [facility] M [id number] [id number] Unknown [id number] 2.16.840.1.485383.3.579. 2.531 Unknown [id number] 2.16.840.1.699654.3.579. 2.531 Social History Date Type Detail Facility Start: 04-04-2023 End: 02-08-2024 Tobacco smoking status NHIS Never smoked tobacco [facility] Start: 04-04-2023 End: 02-08-2024 Tobacco use and exposure Smokeless tobacco non-user [facility] Start: 12-12-2023 End: 01-12-2025 Alcohol intake Lifetime non-drinker (finding) [facility] [...] Assigned At Not on file [facility] (I/We) worried wheth er (my/our) food would run out before (I/we) got money to buy more. Never true [facility] Tobacco smoking stat [facility] Tobacco smoking consumption unknown [facility] Start: 06-10-2015 End: 02-13-2025 Sex Female (finding) [facility] Start: 09-11-2024 Tobacco smoking status DEIS Ex-smoker (finding) [facility] Start: 1965 Sex Assigned At Female [facility] Medical Equipment Procedure Code Equipment Code Equipment Origin al Text Equipment Identifier Dates System Cor Stnt 3.0mm X 15mm 145cm Xience [employer] Mt[employer] Dank - [id number] [facility] Start: 03-03-2024 Clinical Notes 09-18-2022 to 02-11-2025 Telephone Encounter - ROCK Horn - 02/11/2025 1:40 PM EDTTelephone Encounter - ROCK Horn - 02/11/2025 1:40 PM EDTTelephone Encounter - Ruby Brown CMA - 02/10/2025 3:01 PM EDT Note Date & Type Note Facility 02-11-2025 Telephone encounter Note OARRS reviewed, Rx sent into patient's pharmacy. [facility] 02-11-2025 Miscellaneous Notes OARRS reviewed, Rx sent into patient's pharmacy. documented in this encounter [facility] 02-10-2025 Miscellaneous Notes Phoned pt and lm on vm to call office to sched fu for any further refills. documented in this encounter [facility] 02-10-2025 Telephone encounter Note Phoned pt and lm on vm to call office to sched fu for any further refills. [facility] 02-04-2025 Telephone encounter Note OARRS reviewed, Rx sent into patient's pharmacy. [facility] 02-04-2025 Miscellaneous Notes OARRS reviewed, Rx sent into patient's pharmacy. documented in this encounter [facility] 01-13-2025 History of Presen t illness Narrative BMP order documented in this encounter [facility] 01-12-2025 Telephone encounter Note OARRS reviewed, Rx sent into patient's pharmacy. [facility] 01-12-2025 Miscellaneous Notes OARRS reviewed, Rx sent into patient's pharmacy. documented in this encounter [facility] 01-06-2025 Telephone encounter Note Zofran sent [facility] 01-06-2025 Miscellaneous Notes Zofran sent documented in this encounter [facility] 01-06-2025 History of Presen t illness Narrative Images from the original note were not included. Subjective Patient ID: Jenni Kapadia is a 59 y.o. female who presents for URI. Jenni is present today for URI. Admits sinus pressure/pain, headache, nasal congestion, post nasal drainage, sore throat, hoarseness, cough with green phlegm, body aches, chills, temp 100.1. She has been sick since Sunday and has been doing salt water gargles for her throat. She is afraid to take anything OTC d/t all the meds she is on. She feels all her symptoms are worse at night. Current Outpatient Medications on File Prior to Visit Medication Sig Dispense Refill ibuprofen 800 MG tablet Take 800 mg by mouth in the morning and 800 mg in the evening and 800 mg before bedtime. alendronate (Fosamax) 70 MG tablet Take 1 tablet (70 mg) by mouth every 7 (seven) days Take in the morning with a full glass of water, on an empty stomach, and do not take anything else by mouth or lie down for the next 30 min. 12 tablet 3 amLODIPine (Norvasc) 10 MG tablet Take 1 tablet (10 mg) by mouth in the morning. 100 tablet 3 aspirin (Aspirin Low Dose) 81 MG EC tablet Take 1 tablet (81 mg) by mouth in the morning. 90 tablet 3 B-12, Methylcobalamin, [address] 1 tablet under the tongue Daily 90 tablet 3 calcium carbonate (Os-Kristal) 1250 (500 Ca) MG tablet Take 1,250 [...] same time 100 tablet 3 cloNIDine (Catapres) 0.2 MG tablet TAKE 1 TABLET BY MOUTH IN THE MORNING AND BEFORE BEDTIME 180 tablet 1 clopidogrel (Plavix) 75 MG tablet Take 75 mg by mouth in the morning. famotidine (Pepcid) 20 MG tablet Take 1 tablet (20 mg) by mouth Daily 90 tablet 3 ferrous sulfate (FeroSul) 325 (65 Fe) MG tablet Take 1 tablet (325 mg) by mouth in the morning. 180 tablet 1 folic acid (Folvite) 1 MG tablet Take 1 tablet (1,000 mcg) by mouth Daily 80 tablet 1 HYDROcodone-acetaminophen ([place]vue) 7.5-325 MG tablet Take 1 tablet by mouth every 6 (six) hours if needed for severe pain 120 tablet 0 levothyroxine (Synthroid) 200 MCG tablet Take 1 tablet (200 mcg) by mouth Daily 30 tablet 1 nitroglycerin (Nitrostat) 0.[address] 1 tablet (0.4 mg) under the tongue every 5 (five) minutes if needed for chest pain ER if no resolution after third dose 25 tablet 3 olmesartan-hydroCHLOROthiazide (BENIcar HCT) 40-25 MG tablet Take 1 tablet by mouth in the morning. 100 tablet 3 ondansetron ODT (Zofran-ODT) 4 MG disintegrating tablet TAKE 1 TABLET (4 MG) BY MOUTH EVERY 8 HOURS NEEDED FOR NAUSEA AND VOMITING 21 tablet 0 pantoprazole (Protonix) 40 MG EC tablet Take 1 tablet (40 mg) by mouth in the morning and 1 tablet (40 mg) before bedtime. Do not crush, chew, or split.. pregabalin (Lyrica) 150 MG capsule Take 1 capsule (150 mg) by mouth in the morning and 1 capsule (150 mg) before bedtime. 60 capsule 1 rosuvastatin (Crestor) 20 MG tablet Take 1 tablet (20 mg) by mouth Daily 100 tablet 3 tiZANidine (Zanaflex) 4 MG tablet Take 1 tablet (4 mg) by mouth in the morning and 1 tablet (4 mg) in the evening and 1 tablet (4 mg) before bedtime. 360 tablet 3 venlafaxine XR (Effexor XR) 150 MG 24 hr capsule Take 2 capsules (300 mg) by mouth Daily 180 capsule 3 zolpidem CR (Ambien CR) 12.5 MG ER tablet Take 1 tablet (12.5 mg) by mouth as needed at bedtime for sleep Do not crush, chew, or split. 30 tablet 5 [DISCONTINUED] ondansetron ODT (Zofran-ODT) 4 MG disintegrating tablet Take 1 tablet (4 mg) by mouth every 8 (eight) hours if needed for nausea or vomiting 21 tablet 0 No current facility-administered medications on [...] Date CARDIAC SURGERY 02/2024 stent placement CHOLECYSTECTOMY 2008 COLONOSCOPY 2017 ESOPHAGOGASTRODUODENOSCOPY 09/11/2024 With Biopsies FOOT SURGERY Left 2004 HYSTERECTOMY 2009 KNEE [...] replacement oh hardware Visit Vitals BP (!) 168/94 Pulse 91 Temp 97.8 F Resp 16 Ht 5' 5 Wt 213 lb 6.4 oz SpO2 97% BMI 35.51 kg/m Smoking Status Never BSA 2.11 m Review of Systems Constitutional: Positive for chills, fatigue and fever. HENT: Positive for congestion, postnasal drip, rhinorrhea, sinus pressure, sinus pain, sore throat and voice change. Negative for ear pain. Respiratory: Positive for cough. Negative for shortness of breath and wheezing. Cardiovascular: Negative for chest pain, palpitations and leg swelling. Gastrointestinal: Negative for abdominal pain, constipation, diarrhea, nausea and vomiting. Musculoskeletal: Positive for myalgias. Neurological: Positive for headaches. Objective Physical Exam Constitutional: General: She is not in acute distress. Appearance: She is well-developed. She is obese. She is ill-appearing (Mildly). HENT: Head: Normocephalic and atraumatic. Right Ear: Tympanic membrane and ear canal normal. Left Ear: Tympanic membrane and ear canal normal. Nose: Congestion present. Right Turbinates: Swollen. Left Turbinates: Swollen. Right Sinus: Frontal sinus tenderness present. Left Sinus: Frontal sinus tenderness present. Mouth/Throat: Mouth: Mucous membranes are moist. Pharynx: Posterior oropharyngeal erythema (Mild) and postnasal drip present. Eyes: General: No scleral icterus. Conjunctiva/sclera: Conjunctivae normal. Cardiovascular: Rate and Rhythm: Normal rate and regular rhythm. Heart sounds: Normal heart sounds. No murmur heard. Pulmonary: Effort: Pulmonary effort is normal. No respiratory distress. Breath sounds: Normal breath sounds. No wheezing, rhonchi or rales. Lymphadenopathy: Cervical: Cervical adenopathy (Mild submandibular) present. Skin: General: Skin is warm and dry. Neurological: General: No focal deficit present. Mental Status: She is alert and oriented to person, place, and time. Psychiatric: Mood and Affect: Mood normal. Behavior: Behavior normal. Assessment/Plan Diagnoses and all orders for this visit: Acute non-recurrent frontal sinusitis - amoxicillin-clavulanate (Augmentin) 875-125 MG tablet; Take 1 tablet (875 mg) by mouth in the morning and 1 tablet (875 mg) in the evening. Take with meals. Do all this for 7 days. Start the above as directed. Reviewed potential s/e with patient. Encouraged probiotic while on antibiotic. Increase water intake, get plenty of rest. Can take OTC Coricidin HBP for symptomatic relief. Essential hypertension (CMS/HCC) BP is elevated today. Likely due to current illness as her last BP was well controlled. Continue current medications, will continue to monitor. Class 2 severe obesity due to excess calories with serious comorbidity and body mass index (BMI) of 35.0 to 35.9 in adult (CMS/HCC) Pt has lost 9 pounds since her last appointment. Encouraged continue portion control, decrease simple sugars and carbohydrates, gradually increase activity level. Aim for continued gradual steady weight loss. Follow up for Appointment As Scheduled. documented in this encounter [facility] 12-15-2024 Telephone encounter Note OARRS reviewed, Rx sent into patient's pharmacy. [facility] 12-15-2024 Miscellaneous Notes OARRS reviewed, Rx sent into patient's pharmacy. documented in this encounter [facility] 12-09-2024 Telephone encounter Note Pt is having nausea and the zofran that was sent in yesterday is not helping her. She is asking if phenergan can be sent in instead. [facility] 12-09-2024 Miscellaneous Notes Pt is having nausea and the zofran that was sent in yesterday is not helping her. She is asking if phenergan can be sent in instead. documented in this encounter [facility] 12-04-2024 Telephone encounter Note OARRS reviewed, Rx sent into patient's pharmacy. [facility] 12-04-2024 Miscellaneous Notes OARRS reviewed, Rx sent into patient's pharmacy. documented in this encounter [facility] 11-14-2024 Telephone encounter Note Requested Prescriptions Signed Prescriptions Disp Refills HYDROcodone-acetaminophen (B[place]vue) 7.5-325 MG tablet 120 tablet 0 Sig: Take 1 tablet by mouth every 6 (six) hours if needed for severe pain Authorizing Provider: ANDRA BENAVIDES [facility] 11-14-2024 Miscellaneous Notes Requested Prescriptions Signed Prescriptions Disp Refills HYDROcodone-acetaminophen (B[place]vue) 7.5-325 MG tablet 120 tablet 0 Sig: Take 1 tablet by mouth every 6 (six) hours if needed for severe pain Authorizing Provider: ANDRA BENAVIDES documented in this encounter [facility] 10-14-2024 History of Presen t illness Narrative Images from the original note were not included. HPI Insomnia Additional comments: She is currently on Ambien as needed andis working well for her. She states she does not take it very often d/t it really does not help her with her sleep. Last edited by Micaela Wise LPN on 10/14/2024 8:10 AM. Subjective Patient ID: Jenni Kapadia is a 59 y.o. female who presents for back pain. Jenni is present today for follow up lumbar radiculopathy. She is currently on Hydrocodone as needed and is working well for her. She did have an EGD and was diagnosed with celiac disease. Current Outpatient Medications on File Prior to Visit Medication Sig Dispense Refill [DISCONTINUED] pantoprazole (Protonix) 40 MG EC tablet Take 1 tablet (40 mg) by mouth in the morning. Take before meals. Do not crush, chew, or split.. (Patient taking differently: Take 40 mg by mouth in the morning and 40 mg before bedtime. Do not crush, chew, or split..) 90 tablet 3 alendronate (Fosamax) 70 MG tablet Take 1 tablet (70 mg) by mouth every 7 (seven) days Take in the morning with a full glass of water, on an empty stomach, and do not take anything else by mouth or lie down for the next 30 min. 12 tablet 3 amLODIPine (Norvasc) 10 MG tablet Take 1 tablet (10 mg) by mouth in the morning. 100 tablet 3 aspirin (Aspirin Low Dose) 81 MG EC tablet Take 1 tablet (81 mg) by mouth in the morning. 90 tablet 3 B-12, Methylcobalamin, [address] 1 tablet under the tongue Daily 90 tablet 3 calcium carbonate (Os-Kristal) 1250 (500 Ca) MG tablet Take 1,250 [...] same time 100 tablet 3 cloNIDine (Catapres) 0.2 MG tablet TAKE 1 TABLET BY MOUTH IN THE MORNING AND BEFORE BEDTIME 180 tablet 1 clopidogrel (Plavix) 75 MG tablet Take 75 mg by mouth in the morning. famotidine (Pepcid) 20 MG tablet Take 1 tablet (20 mg) by mouth Daily 90 tablet 3 ferrous sulfate (FeroSul) 325 (65 Fe) MG [...] ondansetron ODT (Zofran-ODT) 4 MG disintegrating tablet TAKE 1 TABLET BY MOUTH EVERY 8 HOURS NEEDED FOR NAUSEA OR FOR VOMITING FOR UP TO 7 DAYS 21 tablet 0 ondansetron ODT (Zofran-ODT) 4 MG disintegrating tablet TAKE 1 TABLET (4 MG) BY MOUTH EVERY 8 HOURS NEEDED FOR NAUSEA AND VOMITING 21 tablet 0 pregabalin (Lyrica) 150 MG [...] EVERY DAY WITH FOOD 180 capsule 3 [DISCONTINUED] HYDROcodone-acetaminophen (B[place]vue) 7.5-325 MG tablet Take 1 tablet by mouth every 6 (six) hours if needed for severe pain 120 tablet 0 [DISCONTINUED] zolpidem (Ambien) 10 MG tablet Take 1 tablet (10 mg) by mouth as needed at bedtime for sleep 30 tablet 2 No current facility-administered medications on file prior [...] Date CARDIAC SURGERY 02/2024 stent placement CHOLECYSTECTOMY 2008 COLONOSCOPY 2017 ESOPHAGOGASTRODUODENOSCOPY 09/11/2024 With Biopsies FOOT SURGERY Left 2004 HYSTERECTOMY 2009 KNEE [...] and replacement oh hardware Visit Vitals BP 124/84 Pulse 74 Resp 16 Ht 5' 5 Wt 222 lb SpO2 99% BMI 36.94 kg/m Smoking Status Never BSA 2.15 m Review of Systems Constitutional: Positive for unexpected weight change (Loss). Negative for chills, fatigue and fever. Respiratory: Negative for cough, shortness of breath and wheezing. Cardiovascular: Negative for chest pain, palpitations and leg swelling. Gastrointestinal: Positive for abdominal pain and nausea. Negative for constipation, diarrhea and vomiting. Musculoskeletal: Positive for arthralgias and back pain. Skin: Negative for rash. Objective Physical Exam Constitutional: General: She is [...] Diagnoses and all orders for this visit: Essential hypertension (CMS/HCC) Patient's blood pressure is currently much improved. Continue with current medications and I will continue to monitor. Goal BP remains less than 130/80. Osteoarthritis of lumbosacral spine with radiculopathy Medication choice and dosage is appropriate for [...] OARRS Report was reviewed for this patient. Other chronic pain Stable at this time with current medication. Will continue to monitor. Refill provided today. Primary insomnia - zolpidem CR (Ambien CR) 12.5 MG ER tablet; Take 1 tablet (12.5 mg) by mouth as needed at bedtime for sleep Do not crush, chew, or split. Patient did not perceive benefit from the 10 mg dosage. Will provide her with the 12.5 mg CR dosage. Advised when she first takes it do not plan to drive the next morning until she knows how the medication will affect her. Will continue to monitor. Celiac disease (CMS/HCC) The patient is seeing a quality engineer medical device for this condition, treatment is deferred to that specialist. Correspondence from that specialist and any available testing were reviewed during today's visit. Reviewed some gluten free foods. Duodenitis The patient is seeing a quality engineer medical device for this condition, treatment is deferred to that specialist. Correspondence from that specialist and any available testing were reviewed during today's visit. Chronic gastritis without bleeding, unspecified gastritis type - pantoprazole (Protonix) 40 MG EC tablet; Take 1 tablet (40 mg) by mouth in the morning and 1 tablet (40 mg) before bedtime. Do not crush, chew, or split.. The patient is seeing a quality engineer medical device for this condition, treatment is deferred to that specialist. Correspondence from that specialist and any available testing were reviewed during today's visit. Follow up in about 3 months (around 01/12/2025) for Medicare Wellness Visit, Medication Follow Up. documented in this encounter [facility] 09-18-2024 Telephone encounter Note Medication resent. [facility] 09-18-2024 Miscellaneous Notes Medication resent. Refill was sent to [facility]-- they are currently out of the medication and will not be able to get it in for at least a few days pt states [facility] has med in stock and requesting rx be sent there instead documented in this encounter [facility] 09-18-2024 Telephone encounter Note Ref[facility] to [facility]-- they are currently out of the medication and will not be able to get it in for at least a few days pt states [facility] has med in stock and requesting rx be sent there instead [facility] 09-18-2024 Telephone encounter Note OARRS reviewed, Rx sent into patient's pharmacy. [facility] 09-18-2024 Miscellaneous Notes OARRS reviewed, Rx sent into patient's pharmacy. documented in this encounter [facility] 09-11-2024 Telephone encounter Note Famotidine sent [facility] 09-11-2024 Miscellaneous Notes Famotidine sent documented in this encounter [facility] 09-08-2024 Telephone encounter Note TE created in error. [facility] 09-08-2024 Miscellaneous Notes TE created in error. documented in this encounter [facility] 09-05-2024 History of Presen t illness Narrative Images from the original note were not included. HPI Knee Pain Additional comments: Fell a few months ago in the shower and hurt her left knee. 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 Uses roll on icy hot which helps some. Last edited by ROCK Horn on 09/05/2024 12:32 PM. Subjective Patient ID: Jenni Kapadia is a 59 y.o. female who presents for fatigue. Jenni is present today for evaluation of fatigue. Admits she has also been getting headaches for the past year and had gotten worse over the past month. She feels may be due to not being able to take her Ibuprofen. She is having an EGD done on . Having a really hard time eating, everything seems to make her sick. Headaches are constant in front of her head and feels like someone is sitting on her head . She cannot take tylenol or ibuprofen d/t Misty stopped it d/t her stomach issues. Current Outpatient Medications on File Prior to Visit Medication Sig Dispense Refill [DISCONTINUED] ibuprofen 800 MG tablet Take 800 mg by mouth in the morning and 800 mg in the evening and 800 mg before bedtime. alendronate (Fosamax) 70 MG tablet TAKE 1 [...] tongue Daily 90 tablet 3 calcium carbonate (Os-Kristal) 1250 (500 Ca) MG tablet Take 1,250 [...] at the same time 100 tablet 3 clopidogrel (Plavix) 75 MG tablet Take 75 mg by mouth in the morning. famotidine (Pepcid) 20 MG tablet Take 1 tablet (20 mg) by mouth Daily 30 tablet 1 ferrous sulfate (FeroSul) 325 (65 Fe) MG [...] ondansetron ODT (Zofran-ODT) 4 MG disintegrating tablet TAKE 1 TABLET BY MOUTH EVERY 8 HOURS NEEDED FOR NAUSEA OR FOR VOMITING FOR UP TO 7 DAYS 21 tablet 0 pantoprazole (Protonix) 40 MG EC tablet Take 1 tablet (40 mg) by mouth in the morning. Take before meals. Do not crush, chew, or split.. 90 tablet 3 pregabalin (Lyrica) 150 MG capsule Take 1 [...] bedtime for sleep 30 tablet 2 [DISCONTINUED] cloNIDine (Catapres) 0.1 MG tablet Take 1 tablet (0.1 mg) by mouth in the morning and 1 tablet (0.1 mg) before bedtime. 180 tablet 3 [DISCONTINUED] HYDROcodone-acetaminophen ([place]vue) 5-325 MG tablet Take 1 tablet by mouth every 6 (six) hours if needed for severe pain 120 tablet 0 [DISCONTINUED] ondansetron ODT (Zofran-ODT) 4 MG disintegrating tablet Take 1 tablet (4 mg) by mouth every 8 (eight) hours if needed for nausea or vomiting for up to 7 days 21 tablet 0 No current facility-administered medications on [...] Date CARDIAC SURGERY 02/2024 stent placement CHOLECYSTECTOMY 2008 COLONOSCOPY 2017 FOOT SURGERY Left [...] and replacement oh hardware Visit Vitals BP 148/88 Pulse 77 Resp 16 Ht 5' 5 Wt 230 lb 9.6 oz SpO2 99% BMI 38.37 kg/m Smoking Status Never BSA 2.19 m Review of Systems Constitutional: Positive for fatigue. Negative for chills and fever. Respiratory: Negative for cough, shortness of breath and wheezing. Cardiovascular: Negative for chest pain, palpitations and leg swelling. Gastrointestinal: Positive for abdominal pain. Negative for constipation, diarrhea, nausea and vomiting. Musculoskeletal: Positive for arthralgias and gait problem. Skin: Negative for rash. Neurological: Positive for headaches. Hematological: Bruises/bleeds easily. Objective Physical Exam Constitutional: Appearance: She is well-developed. She is obese. Comments: In discomfort, changing positions frequently HENT: Head: Normocephalic and atraumatic. Eyes: General: No scleral icterus. Conjunctiva/sclera: Conjunctivae normal. Cardiovascular: Rate and Rhythm: Normal rate and regular rhythm. Heart sounds: Normal heart sounds. No murmur heard. Pulmonary: Effort: Pulmonary effort is normal. No respiratory distress. Breath sounds: Normal breath sounds. No wheezing, rhonchi or rales. Musculoskeletal: Comments: Left knee to 5 degrees extension and 30 degrees of flexion with significant pain, tender anterior joint around patella Skin: General: Skin is warm and dry. Findings: Bruising (BUE) present. Neurological: General: No focal deficit present. Mental Status: She is alert and oriented to person, place, and time. Psychiatric: Mood and Affect: Mood normal. Behavior: Behavior normal. Assessment/Plan Diagnoses and all orders for this visit: Essential hypertension (CMS/HCC) - cloNIDine (Catapres) 0.2 MG tablet; Take 1 tablet (0.2 mg) by mouth in the morning and 1 tablet (0.2 mg) before bedtime. - Basic metabolic panel; Future BP may be elevated, at least in part, due to her current pain. Will increase the Clonidine to 0.2 mg BID. Will continue to monitor. She will also be following up with Cardiology in September. Traumatic arthritis of left knee - XR knee 4+ views left; Future Ordered updated X-rays of her left knee due to recent worsening of pain. She will have these done at [facility] today. Will notify her of the results once received. Dr. Green at [place] did her most recent two surgeries, Dr. Forrest did her first. States Dr. Green told her it is not healing. They may need to do more surgery. She will reach out to their office for follow up appointment. Encounter for screening mammogram for malignant neoplasm of breast - Bilateral screening mammogram with tomosynthesis; Future Provided patient with an order for an updated Mammogram. If results are negative/normal, will plan to continue with routine yearly screenings. Class 2 severe obesity due to excess calories with serious comorbidity and body mass index (BMI) of 38.0 to 38.9 in adult ([facility]) Has lost 10 pounds since her last appt. She is not eating much due to her stomach discomfort. Encouraged her to try to continue to eat at least bland foods in small amounts. Other chronic pain - HYDROcodone-acetaminophen ([place]) 7.5-325 MG tablet; Take 1 tablet by mouth every 6 (six) hours if needed for severe pain When pt is due for a refill, will provide her with the 7.5 mg dosage. The goal is for this to be a temporary increase. OARRS report generated and reviewed. Osteoarthritis of lumbosacral spine with radiculopathy - HYDROcodone-acetaminophen ([place]vue) 7.5-325 MG tablet; Take 1 tablet by mouth every 6 (six) hours if needed for severe pain See above. Chronic daily headache Encouraged pt to stay hydrated, sip clear fluids frequently throughout the day. She admits she is not good at drinking water and doesn't like electrolyte solutions. Abnormality of red blood cells - CBC and differential; Future - Iron + transferrin + TIBC; Future Will recheck due to current symptoms. Will notify pt of the results once received. Hyponatremia - Basic metabolic panel; Future Will recheck due to current symptoms. Will notify pt of the results once received. Acquired hypothyroidism ([facility]) - TSH W/REFLEX TO FT4; Future Will recheck due to current symptoms. Will notify pt of the results once received. Chronic fatigue - CBC and differential; Future - Iron + transferrin + TIBC; Future - TSH W/REFLEX TO FT4; Future Will recheck due to current symptoms. Will notify pt of the results once received. Follow up for Appointment As Scheduled. documented in this encounter [facility] 08-22-2024 Telephone encounter Note Zofran sent [facility] 08-22-2024 Miscellaneous Notes Zofran sent documented in this encounter [facility] 08-19-2024 Telephone encounter Note OARRS reviewed, Rx sent into patient's pharmacy. [facility] 08-19-2024 Miscellaneous Notes OARRS reviewed, Rx sent into patient's pharmacy. documented in this encounter [facility] 08-19-2024 Telephone encounter Note Clonidine sent. [facility] 08-19-2024 Miscellaneous Notes Clonidine sent. documented in this encounter [facility] 08-14-2024 History of Presen t illness Narrative [...] tongue Daily 90 tablet 3 calcium carbonate (Os-Kristal) 1250 (500 Ca) MG tablet Take 1,250 [...] of lumbosacral spine with radiculopathy - HYDROcodone-acetaminophen ([place]vue) 5-325 MG tablet; Take 1 tablet by mouth every 6 (six) hours if needed for severe pain for up to 5 days Tramadol was ineffective for patient. Will have her try Bellevue at this time. Reviewed potential s/e. OARRS report generated and reviewed. Will continue to monitor routinely in the office. Coronary artery disease involving [place] coronary artery of [place] heart without angina pectoris (CMS/HCC) Patient will [...] Appointment As Scheduled. documented in this encounter [facility] 08-12-2024 Telephone encounter Note Annefran sent in for pt. [facility] 08-12-2024 Miscellaneous Notes Zofran sent in for pt. Pt called wanting to find out if something could be called into the pharm for her for nausea and vomiting documented in this encounter [facility] 08-12-2024 Telephone encounter Note Pt called wanting to find out if something could be called into the pharm for her for nausea and vomiting [facility] 07-15-2024 History of Presen t illness Narrative Images from the original note were not included. Subjective Patient ID: Jenni Kapadia is a 59 y.o. female who presents for a medication follow up. Jenni is in today for a medication follow up on her tramdol and Effexor, states they are working well. Enjoys watching her great grand kids, they keep her active. Current Outpatient Medications on File Prior to Visit Medication Sig Dispense Refill alendronate (Fosamax) 70 MG tablet TAKE 1 TABLET BY MOUTH 30 MINUTES BEFORE first meal once a week 12 tablet 3 amLODIPine (Norvasc) 10 MG tablet take 1 tablet by mouth every morning 100 tablet 3 aspirin (Aspirin Low Dose) 81 MG EC tablet Take 1 tablet (81 mg) by mouth in the morning. 90 tablet 3 B-12, Methylcobalamin, 1000 MCG sublingual tablet DISSOLVE 1 (ONE) TABLET UNDER THE TONGUE ONCE DAILY 90 tablet 3 calcium carbonate (Os-Kristal) 1250 (500 Ca) MG tablet Take 1,250 mg by mouth every 12 (twelve) hours. 1 tablet with meals twice daily. carvedilol (Coreg) 25 MG tablet take 1 tablet by mouth every morning and evening with meals 200 tablet 3 cholecalciferol (Vitamin D3) 25 MCG (1000 UT) tablet Take 1,000 Units by mouth 1 (one) time each day at the same time. cloNIDine (Catapres) 0.1 MG tablet take 1 tablet by mouth twice a day 60 tablet 2 clopidogrel (Plavix) 75 MG tablet Take 75 mg by mouth in the morning. ferrous sulfate (FeroSul) 325 (65 Fe) MG tablet take 1 tablet by mouth every morning 180 tablet 1 folic acid (Folvite) 1 MG tablet take 1 tablet by mouth once daily 80 tablet 1 ibuprofen 800 MG tablet Take 1 tablet (800 mg) by mouth in the morning and 1 tablet (800 mg) in the evening and 1 tablet (800 mg) before bedtime. 270 tablet 3 nitroglycerin (Nitrostat) 0.[address] 0.4 mg under the tongue every 5 (five) minutes if needed for chest pain ER if no resolution after third dose olmesartan-hydroCHLOROthiazide (BENIcar HCT) 40-25 MG tablet Take 1 tablet by mouth in the morning. omeprazole (PriLOSEC) [address] capsule Take 1 capsule (40 mg) by mouth Daily Do not crush or chew. 90 capsule 3 pregabalin (Lyrica) 150 MG capsule Take 1 [...] (4 mg) before bedtime. 360 tablet 3 traMADol (Ultram) 50 MG tablet Take 2 tablets (100 mg) by mouth every 6 (six) hours if needed for moderate pain 240 tablet 0 venlafaxine XR (Effexor XR) 150 MG 24 hr capsule TAKE 2 CAPSULES BY MOUTH EVERY DAY WITH FOOD 180 capsule 3 zolpidem (Ambien) 10 MG tablet Take 1 tablet (10 mg) by mouth as needed at bedtime for sleep 30 tablet 2 levothyroxine (Synthroid) 200 MCG tablet Take 1 tablet (200 mcg) by mouth Daily 30 tablet 1 [DISCONTINUED] pregabalin (Lyrica) 150 MG capsule Take 150 mg by mouth in the morning and 150 mg in the evening. [DISCONTINUED] tiZANidine (Zanaflex) 4 MG tablet take 1 tablet by mouth three times a day 360 tablet 3 [DISCONTINUED] zolpidem (Ambien) 10 MG tablet Take 1 tablet (10 mg) by mouth as needed at bedtime for sleep 30 tablet 2 No current facility-administered medications on file prior [...] and replacement oh hardware Visit Vitals BP 130/88 (BP Location: Left arm) Pulse 85 Resp 17 Wt 241 lb 3.2 oz SpO2 96% BMI 40.14 kg/m Smoking Status Never BSA 2.24 m Review of Systems Constitutional: Negative for chills, fatigue and fever. Respiratory: Negative for cough, shortness of breath and wheezing. Cardiovascular: Negative for chest pain, palpitations and leg swelling. Gastrointestinal: Negative for abdominal pain, constipation, diarrhea, nausea and vomiting. Skin: Negative for rash. Objective Physical Exam Constitutional: General: She is not in acute distress. Appearance: She is well-developed. She is obese. Comments: Very pleasant HENT: Head: Normocephalic and atraumatic. Eyes: General: No scleral icterus. Conjunctiva/sclera: Conjunctivae normal. Cardiovascular: Rate and Rhythm: Normal rate and regular rhythm. Heart sounds: Murmur heard. Systolic murmur is present with a grade of 1/6. Pulmonary: Effort: Pulmonary effort is normal. No respiratory distress. Breath sounds: Normal breath sounds. No wheezing, rhonchi or rales. Skin: General: Skin is warm and dry. Neurological: General: No focal deficit present. Mental Status: She is alert and oriented to person, place, and time. Psychiatric: Mood and Affect: Mood normal. Behavior: Behavior normal. Assessment/Plan Diagnoses and all orders for this visit: Lumbar radiculopathy Medication choice and dosage is appropriate for [...] OARRS Report was reviewed for this patient. Essential hypertension (CMS/HCC) Patient's blood pressure is currently well controlled. Continue with current medications and I will continue to monitor. Primary insomnia This is a chronic medical condition that is stable since last assessment. No changes in treatment are suggested at this time. Class 3 severe obesity with serious comorbidity and body mass index (BMI) of 40.0 to 44.9 in adult, unspecified obesity type (CMS/HCC) Pt has lost 6 pounds since her last appt. Encouraged portion control, decrease simple sugars and carbohydrates, gradually increase activity level. Aim for continued gradual steady weight loss. Follow up in about 3 months (around 10/14/2024) for Medication Follow Up. documented in this encounter [facility] 07-10-2024 Telephone encounter Note Duplicate Rx request [facility] 07-10-2024 Miscellaneous Notes Duplicate Rx request documented in this encounter [facility] 07-10-2024 Telephone encounter Note OARRS reviewed, Rx sent into patient's pharmacy. [facility] 07-10-2024 Miscellaneous Notes OARRS reviewed, Rx sent into patient's pharmacy. documented in this encounter [facility] 07-10-2024 Telephone encounter Note OARRS reviewed, Rx sent into patient's pharmacy. [facility] 07-10-2024 Miscellaneous Notes OARRS reviewed, Rx sent into patient's pharmacy. documented in this encounter [facility] 06-30-2024 Telephone encounter Note OARRS reviewed, Rx sent into patient's pharmacy. [facility] 06-30-2024 Miscellaneous Notes OARRS reviewed, Rx sent into patient's pharmacy. documented in this encounter [facility] 03-27-2024 History of Presen t illness Narrative Jenni Kapadia Date of visit: 03/27/2024 Date of : 1965 Age: 59 y.o. Patient Active Problem List Diagnosis Primary hypertension LBBB (left bundle branch block) Shortness of breath Dyslipidemia Family history of premature CAD Abnormal EKG Precordial pain Chest pain Coronary artery disease involving [place] coronary artery without angina pectoris No Known Allergies Current Outpatient Medications Medication Sig Dispense Refill amLODIPine (NORVASC) 10 mg tablet Take 1 tablet (10 mg total) by mouth in the morning. aspirin 81 mg Take 1 tablet (81 mg total) by mouth in the morning. 30 tablet 11 calcium carbonate (OS-KRISTAL) 600 mg elemental (1,500 mg) tablet Take 1 tablet (600 mg total) by mouth daily with breakfast. carvediloL (COREG) 25 mg tablet Take 1 tablet (25 mg total) by mouth in the morning and 1 tablet (25 mg total) in the evening. Take with meals. cholecalciferol 1,000 units tablet Take 1 tablet (1,000 Units total) by mouth in the morning. cloNIDine (CATAPRES) 0.1 mg tablet Take 1 tablet (0.1 mg total) by mouth in the morning and 1 tablet (0.1 mg total) before bedtime. clopidogreL (PLAVIX) 75 mg tablet Take 1 tablet (75 mg total) by mouth in the morning. 30 tablet 11 ferrous sulfate 325 (65 FE) mg EC tablet Take 1 tablet (325 mg total) by mouth daily with breakfast. folic acid (FOLVITE) 1 mg tablet Take 1 tablet (1 mg total) by mouth in the morning. levothyroxine (SYNTHROID, LEVOTHROID) 175 MCG tablet Take 1 tablet (175 mcg total) by mouth in the morning. olmesartan-hydroCHLOROthiazide (BENICAR HCT) 40-25 mg per tablet Take 1 tablet by mouth in the morning. omeprazole (PriLOSEC) 40 mg capsule Take 1 capsule (40 mg total) by mouth in the morning. pregabalin (LYRICA) 150 mg capsule Take 1 capsule (150 mg total) by mouth in the morning and 1 capsule (150 mg total) before bedtime. rosuvastatin (CRESTOR) 20 mg tablet Take 1 tablet (20 mg total) by mouth in the morning. tiZANidine (ZANAFLEX) 4 mg tablet Take 1 tablet (4 mg total) by mouth every 8 (eight) hours as needed for muscle spasms. traMADoL (ULTRAM) 50 mg tablet Take 2 tablets (100 mg total) by mouth every 6 (six) hours as needed for pain. venlafaxine XR (EFFEXOR-XR) 150 mg 24 hr capsule Take 2 capsules (300 mg total) by mouth in the morning. zolpidem (AMBIEN) 10 mg tablet Take 1 tablet (10 mg total) by mouth nightly as needed for sleep. nitroglycerin (NITROSTAT) 0.4 MG SL tablet 1 under the tongue as needed for angina, may repeat q5mins for up three doses 25 tablet 3 No current facility-administered medications for this visit. Chief Complaint Patient presents with Follow-up EST PT F/U CATH TTH SCHED W/ PT History of Present Illness I would the opportunity to meet this 59-year-old. She recently completed cardiac catheterization with placement of a drug-eluting stent x1. She has not had recurrence of her chest pain since that time. Sublingual nitroglycerin prescribed in case she does have angina and to use described She denies worsening shortness of breath, syncope or palpitations She does not work outside the home. She is unaccompanied today CV TESTING HISTORY: ECHO: Echo complete W/ contrast Result Date: 02/19/2024 Left Ventricle: Left ventricle appears normal in size. There is borderline increased wall thickness/hypertrophy. Systolic function is low normal to mildly decreased with an ejection fraction of 50-55%. See wall score diagram for wall motion abnormalities. Aortic Valve: There is trace regurgitation. There is no evidence of aortic valve stenosis. STRESS: Nuc stress Lexiscan Result Date: 02/19/2024 Abnormal myocardial perfusion with Lexiscan with large anterior wall infarction from base to apex with mild annelise-infrarct ischemia in the distal may near the apex. No evidence of ischemic electrocardiographic changes with pharmacological stress. Abnormal baseline EKG Normal wall motion with normal LV systolic function. Calculated ejection fraction of 61 %. TID: 0.98 Risk stratification: intermediate risk study. HOLTER: No results found. CARDIAC CATH: No results found. CAROTID: No results found. CXR: No results found. Lipid Profile: Past Medical History: Diagnosis Date Anxiety Arthritis GERD (gastroesophageal reflux disease) Hypertension IFG (impaired fasting glucose) Mixed hyperlipidemia Obesity DOYLE (obstructive sleep apnea) Peripheral neuropathy Past Surgical History: Procedure Laterality Date Cardiac Invasive N/A 03/03/2024 Performed by Deena Hunt MD at [facility] CARDIAC CATH LABS CHOLECYSTECTOMY COLONOSCOPY Coronary angiogram and left ventricular gram/pressure N/A 03/03/2024 Performed by Deena Hunt MD at [facility] CARDIAC CATH LABS HYSTERECTOMY Intravascular ultrasound initial vessel N/A 03/03/2024 Performed by Deena Hunt MD at [facility] CARDIAC CATH LABS KNEE SURGERY LUMBAR SPINE SURGERY Stent drug-eluting left anterior descending N/A 03/03/2024 Performed by Deena Hunt MD at [facility] CARDIAC CATH LABS Family History Problem Relation Age of Onset Diabetes Mother Hypertension Mother Diabetes Father Hypertension Father Social History Socioeconomic History Marital status: Single Spouse name: Not on file Number of children: Not on file Years of education: Not on file Highest education level: Not on file Occupational History Not on file Tobacco Use Smoking status: Never Smokeless tobacco: Never Vaping Use Vaping status: Never Used Substance and Sexual Activity Alcohol use: Never Drug use: Never Sexual activity: Defer Other Topics Concern Caffeine Use Yes Social History Narrative Not on file Social Determinants of Health Financial Resource Strain: Low Risk (07/15/2023) Received from [facility] Overall Financial Resource Strain (CARDIA) Difficulty of Paying Living Expenses: Not very hard Food Insecurity: No Food Insecurity (03/27/2024) Hunger Screening Food Insecurity - Worry: Never True Food Insecurity - Inability: Never True Transportation Needs: No Transportation Needs (07/15/2023) Received from [facility] PRAPARE - Transportation Lack of Transportation (Medical): No Lack of Transportation (Non-Medical): No Physical Activity: Insufficiently Active (07/15/2023) Received from [facility] Exercise Vital Sign Days of Exercise per Week: 3 days Minutes of Exercise per Session: 20 min Stress: Stress Concern Present (07/15/2023) Received from [facility] [place] of Occupational Health - Occupational Stress Questionnaire Feeling of Stress : To some extent Social Connections: Socially Isolated (07/15/2023) Received from [facility] Social Connection and Isolation Panel [NHANES] Frequency of Communication with Friends and Family: More than three times a week Frequency of Social Gatherings with Friends and Family: Twice a week Attends Buddhist Services: Never Active Member of Clubs or Organizations: No Attends Club or Organization Meetings: Never Marital Status: Interpersonal Safety: Unknown (12/27/2023) [facility] [place] Safety & Environment Fear of Current or Ex-Partner: Not on file Emotionally Abused: Not on file Physically Abused: Not on file Sexually Abused: Not on file Physically or Sexually Abused: Not on file Housing Instability: Unknown (07/15/2023) [facility] Housing Stability Vital Sign Unable to Pay for Housing in the Last Year: No Number of Places Lived in the Last Year: Not on file In the last 12 months, was there a time when you did not have a steady place to sleep or slept in a care home (including now)?: No Review of Systems Review of Systems Constitutional: Negative. HENT: Positive for nosebleeds. Eyes: Positive for blurred vision and double vision. Cardiovascular: Positive for chest pain. Vascular: Negative. Respiratory: Negative. Endocrine: Negative. Hematologic/Lymphatic: Bruises/bleeds easily. Skin: Negative. Musculoskeletal: Positive for back pain, joint swelling and muscle weakness. Gastrointestinal: Negative. Genitourinary: Negative. Neurological: Positive for dizziness, headaches and light-headedness. Psychiatric/Behavioral: Positive for depression. The patient is nervous/anxious. Allergic/Immunologic: Negative. CARDIOVASCULAR: Please review HPI. Physical Examination General appearance: Alert, oriented and cooperative. In no acute distress. Skin: Warm and dry to touch. Respiratory: Clear to auscultation bilaterally, no use of accessory muscles. Cardiovascular: RRR with normal S1 and S2 with no murmurs. Musculoskeletal: No peripheral edema. Right wrist without hematoma or bleeding VITAL SIGNS: BP 138/76 (BP Site: Left Arm, BP Postition: Sitting) Pulse 60 Ht 165.1 cm (5' 5 ) Wt 110.2 kg (243 lb) SpO2 99% BMI 40.44 kg/m Orders Placed or Reconciled This Encounter Medications nitroglycerin (NITROSTAT) 0.4 MG SL tablet Si under the tongue as needed for angina, may repeat q5mins for up three doses Dispense: 25 tablet Refill: 3 There are no discontinued medications. IMPRESSIONS/PLAN 1. Primary hypertension 2. LBBB (left bundle branch block) 3. Shortness of breath 4. Dyslipidemia 5. 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 - Ambulatory referral to Cardiac Rehab; Future 1. ASCVD -left heart catheterization 03/03/2024 with 80% lad, treated with drug-eluting stent x1 Dual antiplatelet therapy 2. Chronic left bundle-branch block 3. Normal left ventricular systolic function on echocardiogram 02/2024 5. Primary hypertension 6. Hyperlipidemia -- rosuvastatin 7. Obstructive sleep apnea 8. Hypothyroid -on Synthroid 9.Family history of premature ASCVD in brother and mother 10. BMI greater than 40 Discussed the importance of continued risk factor modification including diet and exercise. Cardiac rehabilitation is recommended. Patient does not feel that she is the time to start immediately but I recommended that she consider how she might be able to participate Nitroglycerin prescribed and use discussed TODAYS ORDERS Orders Placed This Encounter Procedures Ambulatory referral to Cardiac Rehab FOLLOW UP Return in about 6 months (around 09/27/2024) for JOCELYNE Ok. PCP: ROCK RECINOS Referring Physician: ROCK Recinos [address] [place] [address] [facility] Miscellaneous Notes Called patient to remind them to bring their most current copy of their medication list with them to their appt. Patient verbalizes understanding. [facility] Telephone encounter Note Called patient to remind them to bring their most current copy of their medication list with them to their appt. Patient verbalizes understanding. [facility] 03-10-2024 History of Presen t illness Narrative Patient presents to [place] office for post cardiac catheterization site evaluation. Patient underwent cardiac catheterization on 03/03/24 via Rt Radial approach. Catheterization site is clean dry and intact without any signs or symptoms of infection or hematoma. No eccyomosis noted. No pulsatile mass. No bruit. Distal pulses are palpable. Patient will follow up with provider as scheduled on 03/27/24. Patient will call the office sooner with any questions or concerns prior to that appointment. documented in this encounter [facility] 03-07-2024 Miscellaneous Notes Called patient to remind them to bring their most current copy of their medication list with them to their appt. Patient verbalizes understanding. documented in this encounter [facility] 03-07-2024 Telephone encounter Note Called patient to remind them to bring their most current copy of their medication list with them to their appt. Patient verbalizes understanding. [facility] 02-21-2024 Miscellaneous Notes Received order from Rosaura at the [place] office. Patient scheduled for cath on 03/03/24 at 09:30 am at [facility] with PKR. Notified Rosaura. No Covid test required at this time. Pt notified date time and all instructions for cath. Will have labs done today or tomorrow. Instructions mailed to pt as well. documented in this encounter [facility] 02-21-2024 Telephone encounter Note Received order from Rosaura at the [place] office. Patient scheduled for cath on 03/03/24 at 09:30 am at [facility] with PKR. Notified Rosaura. No Covid test required at this time. [facility] 02-21-2024 Telephone encounter Note Pt notified date time and all instructions for cath. Will have labs done today or tomorrow. Instructions mailed to pt as well. [facility] 02-08-2024 History of Presen t illness Narrative Jenni Kapadia Date of visit: 02/08/2024 Date of : 1965 Age: 58 y.o. Patient Active Problem List Diagnosis Primary hypertension LBBB (left bundle branch block) Shortness of breath Dyslipidemia Family history of premature CAD Abnormal EKG Precordial pain Cardiac murmur No Known Allergies Current Outpatient Medications Medication Sig Dispense Refill amLODIPine (NORVASC) 10 mg tablet Take 1 tablet (10 mg total) by mouth in the morning. calcium carbonate (OS-KRISTAL) 600 mg elemental (1,500 mg) tablet Take 1 tablet (600 mg total) by mouth daily with breakfast. carvediloL (COREG) 25 mg tablet Take 1 tablet (25 mg total) by mouth in the morning and 1 tablet (25 mg total) in the evening. Take with meals. cholecalciferol 1,000 units tablet Take 1 tablet (1,000 Units total) by mouth in the morning. cloNIDine (CATAPRES) 0.1 mg tablet Take 1 tablet (0.1 mg total) by mouth in the morning and 1 tablet (0.1 mg total) before bedtime. ferrous sulfate 325 (65 FE) mg EC tablet Take 1 tablet (325 mg total) by mouth daily with breakfast. folic acid (FOLVITE) 1 mg tablet Take 1 tablet (1 mg total) by mouth in the morning. ibuprofen (MOTRIN) 800 mg tablet Take 1 tablet (800 mg total) by mouth every 8 (eight) hours as needed for pain. levothyroxine (SYNTHROID, LEVOTHROID) 175 MCG tablet Take 1 tablet (175 mcg total) by mouth in the morning. olmesartan-hydroCHLOROthiazide (BENICAR HCT) 40-25 mg per tablet Take 1 tablet by mouth in the morning. omeprazole (PriLOSEC) 40 mg capsule Take 1 capsule (40 mg total) by mouth in the morning. pregabalin (LYRICA) 150 mg capsule Take 1 capsule (150 mg total) by mouth in the morning and 1 capsule (150 mg total) before bedtime. rosuvastatin (CRESTOR) 20 mg tablet Take 1 tablet (20 mg total) by mouth in the morning. tiZANidine (ZANAFLEX) 4 mg tablet Take 1 tablet (4 mg total) by mouth every 8 (eight) hours as needed for muscle spasms. traMADoL (ULTRAM) 50 mg tablet Take 2 tablets (100 mg total) by mouth every 6 (six) hours as needed for pain. venlafaxine XR (EFFEXOR-XR) 150 mg 24 hr capsule Take 2 capsules (300 mg total) by mouth in the morning. zolpidem (AMBIEN) 10 mg tablet Take 1 tablet (10 mg total) by mouth nightly as needed for sleep. No current facility-administered medications for this visit. Chief Complaint Patient presents with New Patient [employer]ELOPMENT [employer] [facility], [facility] History of Present Illness 58-year-old female who has a strong family history of premature CAD brother had stents and mother also had open heart surgery who recently was having trouble with high blood pressure but it has now settled down since being put on Catapres amlodipine and carvedilol and olmesartan Blood pressure has come down. She does have occasional chest pressure and heaviness not related to exertion and notes some exertional shortness of breath Today's EKG was abnormal with a left bundle branch block Past Medical History: Diagnosis Date Anxiety Arthritis GERD (gastroesophageal reflux disease) Hypertension IFG (impaired fasting glucose) Mixed hyperlipidemia Obesity DOYLE (obstructive sleep apnea) Peripheral neuropathy No data recorded No data recorded No data recorded Past Surgical History: Procedure Laterality Date CHOLECYSTECTOMY COLONOSCOPY HYSTERECTOMY KNEE SURGERY LUMBAR SPINE SURGERY Family History Problem Relation Age of Onset Diabetes Mother Hypertension Mother Diabetes Father Hypertension Father Social History Socioeconomic History Marital status: Single Spouse name: Not on file Number of children: Not on file Years of education: Not on file Highest education level: Not on file Occupational History Not on file Tobacco Use Smoking status: Never Smokeless tobacco: Never Vaping Use Vaping Use: Never used Substance and Sexual Activity Alcohol use: Never Drug use: Never Sexual activity: Defer Other Topics Concern Caffeine Use Yes Social History Narrative Not on file Social Determinants of Health Financial Resource Strain: Not on file Food Insecurity: No Food Insecurity (02/08/2024) Hunger Screening Food Insecurity - Worry: Never True Food Insecurity - Inability: Never True Transportation Needs: Not on file Physical Activity: Not on file Stress: Not on file Social Connections: Not on file Interpersonal Safety: Not on file Housing Instability: Not on file Review of Systems Review of Systems Constitutional: Negative. HENT: Positive for nosebleeds. Eyes: Negative. Cardiovascular: Positive for chest pain. Respiratory: Negative. Endocrine: Negative. Hematologic/Lymphatic: Bruises/bleeds easily. Skin: Negative. Musculoskeletal: Positive for back pain, joint swelling and muscle weakness. Gastrointestinal: Negative. Genitourinary: Negative. Neurological: Positive for headaches and light-headedness. Psychiatric/Behavioral: Positive for depression. The patient is nervous/anxious. Allergic/Immunologic: Negative. Vascular: Negative. CARDIOVASCULAR: Please review HPI. Physical Examination General appearance: Alert, oriented and cooperative. In no acute distress. Skin: Warm and dry to touch. Head: Normocephalic, without obvious abnormality, atraumatic. Eyes: Conjunctivae unremarkable, EOM intact. Neck: No JVD, No carotid bruit. Neck supple, trachea midline. Respiratory: Clear to auscultation bilaterally, no use of accessory muscles. Cardiovascular: RRR with normal S1 and S2 with 2/6 systolic murmur crescendo/decrescrendo Gastrointestinal: Soft, non-tender. Bowel sounds normal. Musculoskeletal: No peripheral edema. Neurologic: Oriented to time, person and place, affect appropriate. No focal/major motor defects noted. Psychiatric: Appropriate mood, memory and judgement. VITAL SIGNS: BP 148/78 (BP Site: Left Arm, BP Postition: Sitting) Pulse 60 Ht 165.1 cm (5' 5 ) Wt 112.5 kg (248 lb) SpO2 99% BMI 41.27 kg/m Orders Placed or Reconciled This Encounter Medications cloNIDine (CATAPRES) 0.1 mg tablet Sig: Take 1 tablet (0.1 mg total) by mouth in the morning and 1 tablet (0.1 mg total) before bedtime. olmesartan-hydroCHLOROthiazide (BENICAR HCT) 40-25 mg per tablet Sig: Take 1 tablet by mouth in the morning. carvediloL (COREG) 25 mg tablet Sig: Take 1 tablet (25 mg total) by mouth in the morning and 1 tablet (25 mg total) in the evening. Take with meals. amLODIPine (NORVASC) 10 mg tablet Sig: Take 1 tablet (10 mg total) by mouth in the morning. levothyroxine (SYNTHROID, LEVOTHROID) 175 MCG tablet Sig: Take 1 tablet (175 mcg total) by mouth in the morning. ibuprofen (MOTRIN) 800 mg tablet Sig: Take 1 tablet (800 mg total) by mouth every 8 (eight) hours as needed for pain. traMADoL (ULTRAM) 50 mg tablet Sig: Take 2 tablets (100 mg total) by mouth every 6 (six) hours as needed for pain. venlafaxine XR (EFFEXOR-XR) 150 mg 24 hr capsule Sig: Take 2 capsules (300 mg total) by mouth in the morning. omeprazole (PriLOSEC) 40 mg capsule Sig: Take 1 capsule (40 mg total) by mouth in the morning. rosuvastatin (CRESTOR) 20 mg tablet Sig: Take 1 tablet (20 mg total) by mouth in the morning. tiZANidine (ZANAFLEX) 4 mg tablet Sig: Take 1 tablet (4 mg total) by mouth every 8 (eight) hours as needed for muscle spasms. cholecalciferol 1,000 units tablet Sig: Take 1 tablet (1,000 Units total) by mouth in the morning. calcium carbonate (OS-KRISTAL) 600 mg elemental (1,500 mg) tablet Sig: Take 1 tablet (600 mg total) by mouth daily with breakfast. folic acid (FOLVITE) 1 mg tablet Sig: Take 1 tablet (1 mg total) by mouth in the morning. ferrous sulfate 325 (65 FE) mg EC tablet Sig: Take 1 tablet (325 mg total) by mouth daily with breakfast. zolpidem (AMBIEN) 10 mg tablet Sig: Take 1 tablet (10 mg total) by mouth nightly as needed for sleep. pregabalin (LYRICA) 150 mg capsule Sig: Take 1 capsule (150 mg total) by mouth in the morning and 1 capsule (150 mg total) before bedtime. There are no discontinued medications. IMPRESSIONS/PLAN 1. Shortness of breath - Echo complete W/O contrast; Future - Nuc stress Lexiscan; Future 2. LBBB (left bundle branch block) 3. Uncontrolled hypertension - Ambulatory referral to Cardiology ([facility]) - POCT EKG - Vas renal artery duplex complete; Future 4. Primary hypertension 5. Dyslipidemia 6. Family history of premature CAD 7. Abnormal EKG - Echo complete W/O contrast; Future 8. Precordial pain - Nuc stress Lexiscan; Future 9. Cardiac murmur 1. Shortness of breath/precordial chest pain/LBBB/family history of premature CAD -I would start with a Lexiscan Cardiolite to evaluate her symptoms has a murmur sounds like it could be aortic stenosis I would obtain an echocardiogram -will also determine if there is any significant hypertensive heart disease 2. Cardiac murmur -sounds like it could be aortic stenosis, obtain echo could explain some shortness of breath but shortness of breath could be due to deconditioning 3. Resistant hypertension -on 4 medications -we should at least start out with a renal arterial duplex -can hold off on aggressive changes at this point since blood pressure has improved but let us see what blood pressure is when she comes back still a little bit elevated -would like to make sure there has no renal artery stenosis will start at least with the Doppler TODAYS ORDERS Orders Placed This Encounter Procedures Nuc stress Lexiscan POCT EKG Echo complete W/O contrast FOLLOW UP Return in about 3 months (around 05/09/2024). PCP: ROCK RECINOS Referring Physician: ROCK Recinos [address] [place] [address] documented in this encounter [facility] 02-07-2024 Miscellaneous Notes Left message for patient to remind them to bring their most current medication list with them to their appointment. documented in this encounter [facility] 02-07-2024 Telephone encounter Note Left message for patient to remind them to bring their most current medication list with them to their appointment. [facility] 01-08-2024 Miscellaneous Notes T/C to PCP office, spoke with Nery letting them know we have been unsuccessful in reaching the patient after four attempts and mailed a letter requesting she call to schedule her PPC appt. documented in this encounter [facility] 01-08-2024 Telephone encounter Note T/C to PCP office, spoke with Nery letting them know we have been unsuccessful in reaching the patient after four attempts and mailed a letter requesting she call to schedule her PPC appt. [facility] 01-07-2024 Miscellaneous Notes TC to pt to schedule [facility] TECHNICAL LEAD PPC appt. Phone just rings and then goes to a busy signal. documented in this encounter [facility] 01-07-2024 Telephone encounter Note TC to pt to schedule [facility]ELOPMENT TECHNICAL LEAD PPC appt. Phone just rings and then goes to a busy signal. [facility] 01-02-2024 Miscellaneous Notes Referral received from Misty Landrum to schedule pt for a DEVELOPMENT TECHNICAL LEAD referral, phoned pt and phone just rings and then goes busy. documented in this encounter [facility] 01-02-2024 Telephone encounter Note Referral received from Misty Landrum to schedule pt for a DEVELOPMENT TECHNICAL LEAD referral, phoned pt and phone just rings and then goes busy. [facility] 12-13-2023 Telephone encounter Note Abi sent. [facility] 12-13-2023 Miscellaneous Notes Abi sent. Pt is requesting a refill of her nausea meds. I do not see that she was ever on any meds for nausea. documented in this encounter [facility] 12-13-2023 Telephone encounter Note Pt is requesting a refill of her nausea meds. I do not see that she was ever on any meds for nausea. [facility] 12-12-2023 History of Presen t [...] ONCE DAILY 90 tablet 3 calcium carbonate (Os-Kristal) 1250 (500 Ca) MG tablet Take 1,250 [...] influenza - influenza, injectable, quadrivalent, PF free ([id number]) (Fluzone / Fluarix / Alluria / Flulaval [...] to consider alternative medication. Daytime somnolence Called [facility] to request results of previous sleep study. If pt has sleep apnea that is uncontrolled, likely contributing to her elevated BP. Follow up in about 4 weeks (around 01/09/2024) for Hypertension. documented in this encounter [facility] 08-29-2023 Note Orthopedic Surgery Subjective LEFT patella [...] depending on her activity level. She takes [place] as needed. Denies any numbness and tingling. [...] to his/her satisfa (more content not included)... [facility] 05-25-2023 Note Orthopedic Surgery Subjective [...] depending on her activity level. She takes [place] as needed. Denies any numbness and tingling. [...] non-union. Facundo Nino MD Orthopaedic Surgery PGY-2 [facility] 05/25/23 11:00 AM [facility] 03-23-2023 Note Orthopedic Surgery Subjective [...] depending on her activity level. She takes [place] as needed. Denies any numbness and tingling. [...] be an additional personal documentation from me. [facility] 02-23-2023 Note Orthopedic Surgery Subjective 02/12/2023 Patellar revision ORIF, with patellar plating - Left, Removal, Hardware, Patella - Left, and Proximal tibia bone graft - Left 02/23/23 Jenni presents today for first postoperative visit, she states that she has had some trouble with pain since surgery and has been taking [place]vue with mild relief. Denies any wound concerns [...] be an additional personal documentation from me. [facility] 02-12-2023 Note Patient: Jenni jonas Procedure Summary Date: 02/12/23 Room / Location: [facility] OPERATING ROOM 05 / [facility] Operating Room Anesthesia Start: 738 Anesthesia Stop: [...] discharge from PACU No notable events documented. [facility] 02-12-2023 Note Peripheral Block Patient location during procedure: pre-op Start time: 02/12/2023 7:14 AM End time: 02/12/2023 7:30 AM Reason for block: at surgeon's request and post-op pain management Staffing Performed: anesthesiologist and resident/CERTIFIED DETENTION DEPUTY/CAA Anesthesiologist: Tova Tam MD Resident/CERTIFIED DETENTION DEPUTY: Brannon Mooney MD Preanesthetic Checklist Completed: patient [...] rate change: no Slow fractionated injection: yes [facility] 02-12-2023 Note Airway Date/Time: 02/12/2023 7:44 AM Urgency: elective General Information and Staff Patient location during procedure: OR Anesthesiologist: Tova Tam MD Resident/CERTIFIED DETENTION DEPUTY/CAA: Brannon Mooney MD Performed: other anesthesia staff [...] 1 Number of other approaches attempted: 0 [facility] 02-12-2023 Note Subjective Pain about [...] proximal tibia bone graft NPO Consented Marked [facility] 02-12-2023 Note Patient: Jenni jonas Procedure Information Date/Time: 02/12/23729 Procedures: Patellar revision ORIF, with patellar plating (Left: Knee) Removal, Hardware, Patella (Left: Knee) Proximal tibia bone graft (Left: Knee) - C-ARM / 2.5 hours / [facility] / [employer]ynthe[employer] MINI NON LOCKING SET, NOTIFIED 02/08 ARACELI, ARTHREX PLATE AND SCREWS IN, NEED T10 SCREWDRIVER, HAVE CANNULATED SCREWS AVAILABLE Location: [facility] OPERATING ROOM 05 / [facility] Operating Room Surgeons: Alicia Green [...] Plan discussed with attending. Additional Equipment Requests [facility] 12-22-2022 Note Subjective 12/22/22 Jenni [...] block prior to procedure Gareth Palomo, MS3 [facility] 11-24-2022 Note Date of Surgery: ENOC [...] fracture F/U with Dr Green after CT [facility] 09-19-2022 Note Date of Surgery: ENOC E OF SURGERY: 06/07/2022 SURGEON: Lele Forrest M.D. ASSISTANTS: 1. Randy Torres M.D. 2. Ronald M. Lily, M.D. PREOPERATIVE DIAGNOSIS: Left patella fracture with [...] for WBAT F/U 6 wks repeat xrays [facility] 09-18-2022 Note Left Xr left knee [facility] Evaluation note Diagnosis Uncontrolled hypertension [...] spine with radiculopathy Coronary artery disease involving [place] coronary artery of [place] heart without angina pectoris (CMS/HCC) New persistent daily headache New daily persistent headache Morbid (severe) obesity due to excess calories (CMS/HCC) Body mass index (BMI) 40.0-44.9, adult ([facility]) [facility] [...] spine with radiculopathy [facility]* Diagnosis Essential hypertension (CMS/HCC)- Primary Unspecified essential hypertension Primary insomnia Persistent disorder of initiating or maintaining sleep Lumbar radiculopathy Thoracic or lumbosacral neuritis or radiculitis, unspecified Nonrheumatic aortic valve insufficiency Nausea and vomiting, unspecified vomiting type [facility]* Diagnosis Essential hypertension (CMS/HCC)- Primary Unspecified essential hypertension Primary insomnia Persistent disorder of initiating or maintaining sleep Lumbar radiculopathy Thoracic or lumbosacral neuritis or radiculitis, unspecified Nonrheumatic aortic valve insufficiency Essential hypertension (CMS/HCC)- Primary Unspecified essential hypertension Traumatic arthritis of left knee Encounter for screening mammogram for malignant neoplasm of breast Class 2 severe obesity due to excess calories with serious comorbidity and body mass index (BMI) of 38.0 to 38.9 in adult (CMS/[facility]) Other chronic pain Osteoarthritis of lumbosacral spine with radiculopathy Chronic daily headache Headache Abnormality of red blood cells Hyponatremia Hyposmolality and/or hyponatremia Acquired hypothyroidism ([facility]) Unspecified hypothyroidism Chronic fatigue Other malaise and fatigue [facility]* Diagnosis Essential hypertension (CMS/HCC)- Primary Unspecified essential hypertension Primary insomnia Persistent disorder of initiating or maintaining sleep Lumbar radiculopathy Thoracic or lumbosacral neuritis or radiculitis, unspecified Nonrheumatic aortic valve insufficiency Gastroesophageal reflux disease without esophagitis Esophageal reflux [facility]* Diagnosis Essential hypertension (CMS/HCC)- Primary Unspecified essential hypertension Primary insomnia Persistent disorder of initiating or maintaining sleep Lumbar radiculopathy Thoracic or lumbosacral neuritis or radiculitis, unspecified Nonrheumatic aortic valve insufficiency Other chronic pain Osteoarthritis of lumbosacral spine with radiculopathy [facility]* Diagnosis Essential hypertension (CMS/HCC)- Primary Unspecified essential hypertension Primary insomnia Persistent disorder of initiating or maintaining sleep Lumbar radiculopathy Thoracic or lumbosacral neuritis or radiculitis, unspecified Nonrheumatic aortic valve insufficiency Other chronic pain Osteoarthritis of lumbosacral spine with radiculopathy [facility]* Diagnosis Essential hypertension (CMS/HCC)- Primary Unspecified essential hypertension Primary insomnia Persistent disorder of initiating or maintaining sleep Lumbar radiculopathy Thoracic or lumbosacral neuritis or radiculitis, unspecified Nonrheumatic aortic valve insufficiency Essential hypertension (CMS/HCC)- Primary Unspecified essential hypertension Osteoarthritis of lumbosacral spine with radiculopathy Other chronic pain Primary insomnia Persistent disorder of initiating or maintaining sleep Celiac disease (CMS/HCC) Celiac disease Duodenitis Chronic gastritis without bleeding, unspecified gastritis type documented [facility]* Diagnosis Lumbar radiculopathy Thoracic or lumbosacral neuritis or radiculitis, unspecified [facility]* Diagnosis Insomnia, unspecified Primary insomnia Persistent disorder of initiating or maintaining sleep documented [facility]* Diagnosis Insomnia, unspecified [facility]* Diagnosis Primary insomnia Persistent disorder of initiating or maintaining sleep Restless legs syndrome (RLS) Other chronic pain documented [facility]* Diagnosis Lumbar radiculopathy- Primary Thoracic or lumbosacral neuritis or radiculitis, unspecified Essential hypertension (CMS/HCC) Unspecified essential hypertension Primary insomnia Persistent disorder of initiating or maintaining sleep Class 3 severe obesity with serious comorbidity and body mass index (BMI) of 40.0 to 44.9 in adult, unspecified obesity type (CMS/HCC) [facility]* Diagnosis Lumbar radiculopathy Thoracic or lumbosacral neuritis or radiculitis, unspecified [facility]* Diagnosis Essential hypertension (CMS/HCC)- Primary Unspecified essential hypertension Primary insomnia Persistent disorder of initiating or maintaining sleep Lumbar radiculopathy Thoracic or lumbosacral neuritis or radiculitis, unspecified Nonrheumatic aortic valve insufficiency Osteoarthritis of lumbosacral spine with radiculopathy Other chronic pain documented [facility]* Diagnosis Essential hypertension (CMS/HCC)- Primary Unspecified essential hypertension Primary insomnia Persistent disorder of initiating or maintaining sleep Lumbar radiculopathy Thoracic or lumbosacral neuritis or radiculitis, unspecified Nonrheumatic aortic valve insufficiency Other chronic pain documented [facility]* Diagnosis Essential hypertension (CMS/HCC)- Primary Unspecified essential hypertension Primary insomnia Persistent disorder of initiating or maintaining sleep Lumbar radiculopathy Thoracic or lumbosacral neuritis or radiculitis, unspecified Nonrheumatic aortic valve insufficiency Nausea and vomiting, unspecified vomiting type- Primary [facility]* Diagnosis Coronary artery disease involving [place] coronary artery of [place] heart with angina pectoris (CMS-HCC)- Primary [facility] Diagnosis Essential hypertension (CMS/HCC)- Primary Unspecified essential hypertension Primary insomnia Persistent disorder of initiating or maintaining sleep Lumbar radiculopathy Thoracic or lumbosacral neuritis or radiculitis, unspecified Nonrheumatic aortic valve insufficiency Osteoarthritis of lumbosacral spine with radiculopathy Other chronic pain documented [facility]* Diagnosis Primary hypertension- Primary Unspecified essential hypertension LBBB (left bundle branch block) Other left bundle branch block Shortness of breath Dyslipidemia Other and unspecified hyperlipidemia 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 [facility] Diagnosis Uncontrolled hypertension- Primary Shortness of breath LBBB (left bundle branch block) Other left bundle branch block Primary hypertension Unspecified essential hypertension Dyslipidemia Other and unspecified hyperlipidemia Family history of premature CAD Family history of ischemic heart disease Abnormal EKG Nonspecific abnormal electrocardiogram (ECG) (EKG) Precordial pain Cardiac murmur Undiagnosed cardiac murmurs documented in this encounter [facility]* Diagnosis Essential hypertension (CMS/HCC)- Primary Unspecified essential hypertension Primary insomnia Persistent disorder of initiating or maintaining sleep Lumbar radiculopathy Thoracic or lumbosacral neuritis or radiculitis, unspecified Nonrheumatic aortic valve insufficiency Acute non-recurrent frontal sinusitis- Primary Essential hypertension (CMS/HCC) Unspecified essential hypertension Class 2 severe obesity due to excess calories with serious comorbidity and body mass index (BMI) of 35.0 to 35.9 in adult (CMS/HCC) [facility]* Diagnosis Essential hypertension (CMS/HCC)- Primary Unspecified essential hypertension Primary insomnia Persistent disorder of initiating or maintaining sleep Lumbar radiculopathy Thoracic or lumbosacral neuritis or radiculitis, unspecified Nonrheumatic aortic valve insufficiency Nausea and vomiting, unspecified vomiting type documented [facility]* Diagnosis Essential hypertension (CMS/HCC)- Primary Unspecified essential hypertension Primary insomnia Persistent disorder of initiating or maintaining sleep Lumbar radiculopathy Thoracic or lumbosacral neuritis or radiculitis, unspecified Nonrheumatic aortic valve insufficiency Primary insomnia Persistent disorder of initiating or maintaining sleep documented [facility]* Diagnosis Essential hypertension (CMS/HCC)- Primary Unspecified essential hypertension Primary insomnia Persistent disorder of initiating or maintaining sleep Lumbar radiculopathy Thoracic or lumbosacral neuritis or radiculitis, unspecified Nonrheumatic aortic valve insufficiency Hyponatremia- Primary Hyposmolality and/or hyponatremia [facility]* Diagnosis Essential hypertension (CMS/HCC)- Primary Unspecified essential hypertension Primary insomnia Persistent disorder of initiating or maintaining sleep Lumbar radiculopathy Thoracic or lumbosacral neuritis or radiculitis, unspecified Nonrheumatic aortic valve insufficiency Other chronic pain [facility]* Diagnosis Coronary artery disease involving [place] coronary artery of [place] heart without angina pectoris- Primary Primary hypertension Unspecified essential hypertension Dyslipidemia Other and unspecified hyperlipidemia Shortness of breath [facility] Diagnosis Essential hypertension (CMS/HCC)- Primary Unspecified essential hypertension Primary insomnia Persistent disorder of initiating or maintaining sleep Lumbar radiculopathy Thoracic or lumbosacral neuritis or radiculitis, unspecified Nonrheumatic aortic valve insufficiency Osteoarthritis of lumbosacral spine with radiculopathy Other chronic pain documented in this encounter [facility]* Diagnosis Onset Date Resolution Status Admit Date Celiac disease acute February 9:33am GERD (gastroesophageal reflu x disease) acute February 13, 2025 9:33am Nausea acute February 13 9:33am [facility] Work Phone: InstructionsNot on filedocumented in this encounter [facility] filedocumented in this [facility] filedocumented in this [facility] on filedocumented in this encounter [facility] on filedocumented in this [facility] on filedocumented in this [facility] on filedocumented in this [facility]ructionsNot on filedocumented in this [facility] (narrative)* Consultation (Routine) - Pending Review Specialty Diagnoses / Procedures Referred By Marley blanco Referred To Contact Cardiology Diagnoses Uncontrolled hypertension (CMS/HCC) Chest pain, unspecified type Procedures AR OFFICE/OUTPATIENT NEW HIGH MDM 60 MINUTES Misty Landrum PA [address] [facility] [address] [place] [address] Saw Billings MD [facility] [place] [address] Referral ID Status Reason Start Date Expiration Date Visits Requested Visits Authorized [id number] Pending Review Specialty Services Required 12/12/2023 06/09/2024 1 1 AMOS [place] for referral (narrative)* Consultation (Routine) - Pending Review Specialty Diagnoses / Procedures Referred By Contac t Referred To Contact Gastroenterology Diagnoses Dark stools Epigastric pain Procedures AR OFFICE/OUTPATIENT NEW HIGH MDM 60 MINUTES Misty Landrum PA [address] [place] [address] Referral ID Status Reason Start Date Expiration Date Visits Requested Visits Authorized [id number] Pending Review Specialty Services Required 02/10/2025 1 1 [facility] [place] for referral (narrative)* Consultation (Routine) - Pending Review Specialty Diagnoses / Procedures Referred By Contac t Referred To Contact Cardiac Rehabilitation Diagnoses 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 Procedures Ambulatory referral to Cardiac Rehab Jag Mayberry MD [address] [place] [address] [facility] [address] [place] [address] Referral ID Status Reason Start Date Expiration Date Visits Requested Visits Authorized [id number] Pending Review Specialty Services Required 03/27/2024 03/27/2025 1 1 [facility] Summary Purpose Family History Relationship Condition Age at Onset Recorded Date/T moraima father Diabetes mellitus Unknown Malignant neoplasm of lung Unknown mother Diabetes mellitus Unknown brother Heart disease Unknown Hypertension Unknown sister Malignant neoplasm of breast Unknown Advance Directives Advance Directive Response Recorded Date/ Time Advance Directives No December 3:25pm Reason for Referral Specialty Diagnoses / Procedures Referred By Contac t Referred To Contact Diagnoses Nausea Misty Landrum PA [address] [place] [address] Referral ID Status Reason Start Date Expiration Date Visits Re quested Visits Authorized [id number] Closed 1 1 Specialty Diagnoses / Procedures Referred By Contac t Referred To Contact Diagnoses Nausea and vomiting, unspecified vomiting type Misty Landrum PA [address] [address] Referral ID Status Reason Start Date Expiration Date V isits Requested Visits Authorized [id number] Pending Review 1 1 Specialty Diagnoses / Procedures Referred By Contac t Referred To Contact Diagnoses Other chronic pain Misty Landrum PA [address] [address] Referral ID Status Reason Start Date Expiration Date V isits Requested Visits Authorized [id number] Pending Review 07/10/2024 01/06/2025 1 1 Specialty Diagnoses / Procedures Referred By Contac t Referred To Contact Diagnoses Uncontrolled hypertension Procedures Vas renal artery duplex complete Maddy Trujillo MD [address] [place] [address] Referral ID Status Reason Start Date Expiration Date V isits Requested Visits Authorized [id number] Pending Review 02/08/2024 02/07/2025 1 1 Specialty Diagnoses / Procedures Referred By Contac t Referred To Contact Diagnoses Shortness of breath Precordial pain Procedures Nuc stress Lexiscan Maddy Trujillo MD [address] [place] [address] [facility] [address] [place] [address] Phone: [phone] Referral ID Status Reason Start Date Expiration Date V isits Requested Visits Authorized [id number] Authorized 02/08/2024 02/07/2025 5 5 Specialty Diagnoses / Procedures Referred By Contac t Referred To Contact Diagnoses Shortness of breath Abnormal EKG Procedures Echo complete W/O contrast Maddy Trujillo MD [address] [place] [address] [facility] [address] [place] [address] Phone: [phone] Referral ID Status Reason Start Date Expiration Date V isits Requested Visits Authorized [id number] Authorized 02/08/2024 02/07/2025 1 1 Chief Complaint and Reason for Visit Chief Complaint Admit Date f/u celiac disease February 13, 2025 9:3 3am Reason for Visit Admit Date Celiac disease February 13, 2025 9:3 3am GERD (gastroesophageal reflux disease) A pril 2024 9:33am Nausea February 13, 2025 9:3 3am Additional Source Comments INFORMATION SOURCE (unrecogn ized section and content) DATE CREATED AUTHOR 11/16/2021 [facility]ical Specialist DATE CREATED AUTHOR AUTHOR'S ORGANIZ ATION 05/23/2022 [facility] DATE CREATED AUTHOR AUTHOR'S ORGANIZ ATION 06/29/2022 [facility] DATE CREATED AUTHOR AUTHOR'S ORGANIZ ATION 04/13/2023 [facility] DATE CREATED AUTHOR AUTHOR'S ORGANIZ ATION 08/31/2023 [facility] DATE CREATED AUTHOR AUTHOR'S ORGANIZ ATION 03/07/2024 [facility] DATE CREATED AUTHOR AUTHOR'S ORGANIZ ATION 03/29/2024 [facility] DATE CREATED AUTHOR AUTHOR'S ORGANIZ ATION 10/09/2024 [facility] DATE CREATED AUTHOR AUTHOR'S ORGANIZ ATION 01/13/2025 [facility]ists [facility] DATE CREATED AUTHOR AUTHOR'S ORGANIZ ATION 01/16/2025 [facility] Care Teams (unrecognized sec tion and content) Chemical Dependency Counselor Relationship Specialty Start Date End Date Nito Jeong MD [address] [place] [address] PCP - Devoted 11/05/21 Nito Jeong MD [address] [place] [address] PCP - General Internal Medicine 05/14/23 Chemical Dependency Counselor Relationship Specialty Start Date End Date Nito Jeong MD [address] [place] [address] PCP - Devoted 11/05/21 Nito Jeong MD [address] [place] [address] PCP - General Internal Medicine 05/14/23 Chemical Dependency Counselor Relationship Specialty Start Date End Date Nito Jeong MD [address] [place] [address] PCP - Devoted 11/05/21 Nito Jeong MD [address] [place] [address] PCP - General Internal Medicine 05/14/23 Chemical Dependency Counselor Relationship Specialty Start Date End Date Nito Jeong MD [address] [place] [address] PCP - Devoted 11/05/21 Nito Jeong MD [address] [place] [address] PCP - General Internal Medicine 05/14/23 Chemical Dependency Counselor Relationship Specialty Start Date End Date Nito Jeong MD [address] [place] [address] PCP - Devoted 11/05/21 Nito Jeong MD [address] [place] [address] PCP - General Internal Medicine 05/14/23 Chemical Dependency Counselor Relationship Specialty Start Date End Date Nito Jeong MD [address] [place] [address] PCP - Devoted 11/05/21 Nito Jeong MD [address] [place] [address] PCP - General Internal Medicine 05/14/23 Chemical Dependency Counselor Relationship Specialty Start Date End Date Nito Jeong MD [address] [place] [address] PCP - Devoted 11/05/21 Nito Jeong MD [address] [place] [address] PCP - General Internal Medicine 05/14/23 Chemical Dependency Counselor Relationship Specialty Start Date End Date Nito Jeong MD [address] [place] [address] PCP - Devoted 11/05/21 Nito Jeong MD [address] [place] [address] PCP - General Internal Medicine 05/14/23 Chemical Dependency Counselor Relationship Specialty Start Date End Date Nito Jenog MD [address] [place] [address] PCP - Devoted 11/05/21 Nito Jeong MD [address] [place] [address] PCP - General Internal Medicine 05/14/23 Chemical Dependency Counselor Relationship Specialty Start Date End Date Nito Jeong MD [address] [place] [address] PCP - Devoted 11/05/21 Nito Jeong MD [address] [place] [address] PCP - General Internal Medicine 05/14/23 Chemical Dependency Counselor Relationship Specialty Start Date End Date Nito Jeong MD [address] [place] [address] PCP - Devoted 11/05/21 Nito Jeong MD [address] [place] [address] PCP - General Internal Medicine 05/14/23 Chemical Dependency Counselor Relationship Specialty Start Date End Date Nito Jeong MD [address] [place] [address] PCP - Devoted 11/05/21 Nito Jeong MD [address] [place] [address] PCP - General Internal Medicine 05/14/23 Chemical Dependency Counselor Relationship Specialty Start Date End Date Nito Jeong MD [address] [place] [address] PCP - Devoted 11/05/21 Nito Jeong MD [address] [place] [address] PCP - General Internal Medicine 05/14/23 Chemical Dependency Counselor Relationship Specialty Start Date End Date Nito Jeong MD [address] [place] [address] PCP - Devoted 11/05/21 Nito Jeong MD [address] [place] [address] PCP - General Internal Medicine 05/14/23 Chemical Dependency Counselor Relationship Specialty Start Date End Date Nito Jeong MD [address] [place] [address] PCP - Devoted 11/05/21 Nito Jeong MD [address] [place] [address] PCP - General Internal Medicine 05/14/23 Chemical Dependency Counselor Relationship Specialty Start Date End Date Nito Jeong MD [address] [place] [address] PCP - Devoted 11/05/21 Nito Jeong MD [address] [place] [address] PCP - General Internal Medicine 05/14/23 Chemical Dependency Counselor Relationship Specialty Start Date End Date Nito Jeong MD [address] [place] [address] PCP - Devoted 11/05/21 Nito Jeong MD [address] [place] [address] PCP - General Internal Medicine 05/14/23 Chemical Dependency Counselor Relationship Specialty Start Date End Date Nito Jeong MD [address] [place] [address] PCP - Devoted 11/05/21 Nito Jeong MD [address] [place] [address] PCP - General Internal Medicine 05/14/23 Chemical Dependency Counselor Relationship Specialty Start Date End Date Nito Jeong MD [address] [place] [address] PCP - Devoted 11/05/21 Nito Jeong MD [address] [place] [address] PCP - General Internal Medicine 05/14/23 Chemical Dependency Counselor Relationship Specialty Start Date End Date Nito Jeong MD [address] [place] [address] PCP - Devoted 11/05/21 Nito Jeong MD [address] [place] [address] PCP - General Internal Medicine 05/14/23 Chemical Dependency Counselor Relationship Specialty Start Date End Date Nito Jeong MD [address] [place] [address] PCP - Devoted 11/05/21 Nito Jeong MD [address] [place] [address] PCP - General Internal Medicine 05/14/23 Chemical Dependency Counselor Relationship Specialty Start Date End Date Nito Jeong MD [address] [place] [address] PCP - Devoted 11/05/21 Nito Jeong MD [address] [place] [address] PCP - General Internal Medicine 05/14/23 Chemical Dependency Counselor Relationship Specialty Start Date End Date Misty Landrum PA [address] [place] [address] PCP - General Physician Dictaphone Technician 01/08/24 Chemical Dependency Counselor Relationship Specialty Start Date End Date Misty Landrum PA [address] [place] [address] PCP - General Physician Dictaphone Technician 01/08/24 Chemical Dependency Counselor Relationship Specialty Start Date End Date Misty Landrum PA [address] [place] [address] PCP - General Physician Dictaphone Technician 01/08/24 Chemical Dependency Counselor Relationship Specialty Start Date End Date Nito Jeong MD [address] [place] [address] PCP - Devoted 11/05/21 Nito Jeong MD [address] [place] [address] PCP - General Internal Medicine 05/14/23 Chemical Dependency Counselor Relationship Specialty Start Date End Date Misty Landrum PA [address] [place] [address] PCP - General Physician Dictaphone Technician 01/08/24 Chemical Dependency Counselor Relationship Specialty Start Date End Date Misty Landrum PA [address] [place] [address] PCP - General Physician Dictaphone Technician 01/08/24 Chemical Dependency Counselor Relationship Specialty Start Date End Date Misty Landrum PA [address] [place] [address] PCP - General Physician Dictaphone Technician 01/08/24 Chemical Dependency Counselor Relationship Specialty Start Date End Date Misty Landrum PA [address] [place] [address] PCP - General Physician Dictaphone Technician 01/08/24 Chemical Dependency Counselor Relationship Specialty Start Date End Date Misty Landrum PA [address] [place] [address] PCP - General Physician Dictaphone Technician 01/08/24 Chemical Dependency Counselor Relationship Specialty Start Date End Date Misty Landrum PA [address] [place] [address] PCP - General Physician Dictaphone Technician 01/08/24 Chemical Dependency Counselor Relationship Specialty Start Date End Date Nito Jeong MD [address] [place] [address] PCP - Devoted 11/05/21 Nito Jeong MD [address] [place] [address] PCP - General Internal Medicine 05/14/23 Chemical Dependency Counselor Relationship Specialty Start Date End Date Nito Jeong MD [address] [place] [address] PCP - Devoted 11/05/21 Nito Jeong MD [address] [place] [address] PCP - General Internal Medicine 05/14/23 Chemical Dependency Counselor Relationship Specialty Start Date End Date Misty Landrum PA [address] [place] [address] PCP - General Physician Dictaphone Technician 01/08/24 Team Status: Active Member Role Status Dates Nito Jeong II MD Primary Care Provider Active Team Status: Inactive Member Role Status Dates Nito Jeong II MD Primary Care Provider Active Start: February 13, 2025 End: February 13, 2025 Felice Marshall APRN Attending Provider Active Start: February 13, 2025 End: February 13, 2025 Reason for Visit (unrecogniz ed section and [...] Reason Onset Date Comments Med Refill 08/21/2024 Reason Comments Knee Pain Fell a few months ag o in the shower and hurt her left knee. 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 Uses roll on icy hot which helps some. Reason Onset Date Comments Med Refill 09/17/2024 Reason Onset Date Comments Med Refill 09/18/2024 Reason Comments Insomnia She is currently on Ambien as needed andis working well for her. She states she does not take it very often d/t it really does not help her with her sleep. Reason Onset Date Comments Med Refill 06/29/2024 Reason Onset Date Comments Med Refill 07/10/2024 Reason Onset Date Comments Med Refill 07/10/2024 Reason Onset Date Comments Med Refill 07/25/2024 Reason Onset Date Comments Med Refill 11/14/2024 Reason Comments Med Refill Reason Onset Date Comments Cardiac Cath 02/21/2024 Reason Comments Wound Check S/P cath 03/03/24 Reason Onset Date Comments Med Refill 12/13/2024 Reason Comments Follow-up EST PT F/U CATH TTH SCHED W/ PT Reason Comments New Patient DEVELOPMENT [employer] [facility], [facility] Specialty Diagnoses / Procedures Referred By Marley blanco Referred To Contact Cardiology Diagnoses Uncontrolled hypertension Misty Landrum PA [address] [place] [address] [facility] [address] [address] Referral ID Status Reason Start Date Expiration Date Visits Requested Visits Authorized [id number] Pending Review Specialty Services Required 12/28/2023 12/27/2024 1 1 Reason Onset Date Comments Med Refill 01/06/2025 Reason Onset Date Comments Med Refill 01/12/2025 Reason Onset Date Comments Med Refill 02/10/2025 Reason Onset Date Comments Med Refill 02/11/2025 Goals (unrecognized section and content) Goals may be documented in a n alternate section FOR RECORDS PERTAINING TO PATIENTS WHO ARE [...] BE BASED ON THE PRIMARY CLINICAL RECORDS. [employer] provides no warranty or guarantee of the accuracy or completeness of information in this document.
--- NOTE | 2025-02-19 09:39 | XR_ITS ---
The [address] [address] Patient Name: TERRANCE KAPADIA MRN: [id number] date: 1965 Sex: F Assigned Patient Location: ER Current Patient Location: ER Accession/Order Number: [id number] Exam Date: 02/19/2025 10:13 Report Date: 02/19/2025 10:20 At the request of: MAYTE BURRIS MD Procedure: XR foot LT min 3V CLINICAL HISTORY: Patient fell yesterday and has pain and bruising at the left foot and elbow. LEFT ELBOW - 3 VIEWS COMPARISON: None AP, lateral and oblique views were obtained. There is no evidence of fracture or dislocation. There is an enthesophyte at the posterior olecranon at the insertion of the triceps tendon. No elbow effusion is seen. Subcutaneous edema is noted medially. XR/XR elbow LT min 3V IMPRESSION: NO ACUTE BONY INJURY. LEFT FOOT - 3 views COMPARISON: None AP, lateral and oblique views were obtained. Oblique fracture is visualized at the mid to distal shaft of the fifth metatarsal. There is minimal overriding however no angulation. There is no additional fracture or dislocation. Small calcaneal spurs are seen. IMPRESSION: FIFTH METATARSAL FRACTURE Impression dictated by: Misty Torres M.D.02/19/2025 10:20 AM Dictation Location: [place] [address] Electronically authenticated by: [id number] Y Date: 02/19/2025 10:20
--- NOTE | 2025-02-19 09:43 | XR_ITS ---
The [address] [address] Patient Name: TERRANCE KAPADIA MRN: [id number] date: 1965 Sex: F Assigned Patient Location: ER Current Patient Location: ER Accession/Order Number: [id number] Exam Date: 02/19/2025 10:13 Report Date: 02/19/2025 10:20 At the request of: MAYTE BURRIS MD Procedure: XR foot LT min 3V CLINICAL HISTORY: Patient fell yesterday and has pain and bruising at the left foot and elbow. LEFT ELBOW - 3 VIEWS COMPARISON: None AP, lateral and oblique views were obtained. There is no evidence of fracture or dislocation. There is an enthesophyte at the posterior olecranon at the insertion of the triceps tendon. No elbow effusion is seen. Subcutaneous edema is noted medially. XR/XR foot LT min 3V IMPRESSION: NO ACUTE BONY INJURY. LEFT FOOT - 3 views COMPARISON: None AP, lateral and oblique views were obtained. Oblique fracture is visualized at the mid to distal shaft of the fifth metatarsal. There is minimal overriding however no angulation. There is no additional fracture or dislocation. Small calcaneal spurs are seen. IMPRESSION: FIFTH METATARSAL FRACTURE Impression dictated by: Misty Torres M.D.02/19/2025 10:20 AM Dictation Location: [place] [address] Electronically authenticated by: [id number] Y Date: 02/19/2025 10:20
--- NOTE | 2025-02-19 09:44 | ED_ITS ---
HPI HPI - General Adult General Chief complaint: Fall Stated complaint: FALL Time Seen by Provider: 02/19/25 09:34 Source: patient Mode of arrival: walk-in Limitations: no limitations History of Present Illness HPI narrative: 59-year-old female presents for left elbow and left foot pain. She fell a few days ago when she missed a step. She did not hit her head. She hit her left elbow and her left foot. She also has some bruising on her left buttock area but she has been able to ambulate without any difficulty. She also sustained some small bruises on the right duval area as well anteriorly. No chest pain or abdominal pain or neck pain. Related Data Home Medications ?Medication ?Instructions ?Recorded ?Confirmed alendronate 70 mg tablet 70 mg PO .weekly 07/17/23 07/17/23 amlodipine 5 mg tablet 5 mg PO DAILY 07/17/23 07/17/23 aspirin 325 mg tablet 325 mg PO DAILY 07/17/23 07/17/23 cholecalciferol (vitamin D3) 125 5,000 unit PO DAILY 07/17/23 07/17/23 mcg (5,000 unit) capsule clonidine HCl 0.1 mg tablet 0.3 mg PO Q8H 07/17/23 07/17/23 ferrous sulfate 325 mg (65 mg 325 mg PO DAILY 07/17/23 07/17/23 iron) tablet (FeroSul) folic acid 1 mg tablet 1 mg PO DAILY 07/17/23 07/17/23 hydrocodone 5 mg-acetaminophen 325 1 tab PO Q6H PRN pain 07/17/23 07/17/23 mg tablet levothyroxine 150 mcg tablet 150 mcg PO DAILY 07/17/23 07/17/23 losartan 100 mg tablet 100 mg PO DAILY 07/17/23 07/17/23 mecobalamin (vitamin B12) 1,000 1,000 mcg PO DAILY 07/17/23 07/17/23 mcg disintegrating tablet,sublingual omeprazole 40 mg capsule,delayed 40 mg PO DAILY 07/17/23 07/17/23 release oxycodone-acetaminophen 5 mg-325 1 tab PO Q6H PRN pain 07/17/23 07/17/23 mg tablet rosuvastatin 20 mg tablet 20 mg PO DAILY 07/17/23 07/17/23 tizanidine 4 mg tablet 4 mg PO Q8H 07/17/23 07/17/23 triamterene 37.5 1 tab PO DAILY 07/17/23 07/17/23 mg-hydrochlorothiazide 25 mg tablet venlafaxine 150 mg 150 mg PO DAILY 07/17/23 07/17/23 capsule,extended release 24 hr zolpidem 10 mg tablet 10 mg PO DAILY 07/17/23 07/17/23 Previous Rx's ?Medication ?Instructions ?Recorded ketorolac 10 mg tablet 10 mg PO TID PRN pain #6 tabs 07/17/23 ondansetron 4 mg disintegrating 4 mg PO Q6H PRN nausea and 07/17/23 tablet vomiting #12 tabs ibuprofen 800 mg tablet 800 mg PO Q8H PRN pain #20 tabs 02/19/25 Allergies Allergy/AdvReac Type Severity Reaction Status Date / Time No Known Drug Allergies Allergy Verified 02/19/25 09:26 Opioid HPI Opioid Management Most Recent Opioid Data: No Data to Display Review of Systems ROS Narrative A ten point review of systems is negative except as noted above. PFSH PFS Social History Smoking status: Former smoker Little interest or pleasure in doing things: not at all Feeling down, depressed, or hopeless: not at all Exam Narrative Exam Narrative: Nurses note and vital signs reviewed and patient is not hypoxic. General: The patient appears in no apparent distress. Patient is resting comfortably on cart. Skin: Warm, dry, no pallor noted. There is no rash noted. Head: Normocephalic, atraumatic Eye: Normal conjunctiva, no drainage Ears, Nose, Mouth, and Throat: oral mucosa is moist. Nares patent. Cardiovascular: Regular Rate and Rhythm Respiratory: Patient is in no distress, no accessory muscle use, lungs are clear to auscultation, no wheezing, rales or rhonchi Back: Cervical, thoracic, and lumbar spines are nontender. She has some bruising on her left buttock. Left hip has full range of motion. GI: Soft and nontender Musculoskeletal: There is bruising on the dorsum of her left foot laterally, and distal; she has significant bruising and swelling in the left elbow region with small abrasions. Left elbow has full range of motion. Left shoulder and wrist are nontender, radial pulse 2+. Shoulder and wrist have full range of motion. Small bruises present on the right anterior tibia region with full range of motion and no tenderness at the knee and the ankle. Neurological: A&O, normal speech Psychiatric: Cooperative Constitutional Vital Signs, click to edit/add: Last Vital Signs Temp 97.8 F 02/19/25 09:26 Pulse 61 02/19/25 09:26 Resp 18 02/19/25 09:26 BP 119/60 02/19/25 09:26 Pulse Ox 99 02/19/25 09:26 O2 Del Method Room Air 02/19/25 09:26 Course Vital Signs Vital signs: Vital Signs Temperature 97.8 F 02/19/25 09:26 Pulse Rate 61 02/19/25 09:26 Respiratory Rate 18 02/19/25 09:26 Blood Pressure 119/60 02/19/25 09:26 Pulse Oximetry 99 02/19/25 09:26 Oxygen Delivery Method Room Air 02/19/25 09:26 Temperature 97.8 F 02/19/25 09:26 Pulse Rate 61 02/19/25 09:26 Respiratory Rate 18 02/19/25 09:26 Blood Pressure 119/60 02/19/25 09:26 Pulse Oximetry 99 02/19/25 09:26 Oxygen Delivery Method Room Air 02/19/25 09:26 Medical Decision Making MDM Narrative Medical decision making narrative: Elbow x-ray is negative and foot x-ray reveals left fifth metatarsal fracture. She is placed in a walking boot, application checked by me and found to be appropriate, she is neurovascularly intact. She will follow-up with podiatry. She is already on chronic Manson and she will take that but was also prescribed ibuprofen by me. Treatment diagnosis and follow-up were discussed with the patient. Differential Diagnosis Differential Diagnosis: Fracture, contusion Imaging Data Elbow, foot: Radiologist's impression: ITS Impressions Elbow X-Ray 02/19/25 09:39 IMPRESSION: NO ACUTE BONY INJURY. LEFT FOOT - 3 views COMPARISON: None AP, lateral and oblique views were obtained. Oblique fracture is visualized at the mid to distal shaft of the fifth metatarsal. There is minimal overriding however no angulation. There is no additional fracture or dislocation. Small calcaneal spurs are seen. IMPRESSION: FIFTH METATARSAL FRACTURE Impression dictated by: Misty Torres M.D.02/19/2025 10:20 AM Dictation Location: [employer] Electronically authenticated by: [id number] Y Date: 02/19/2025 10:20 Foot X-Ray 02/19/25 09:43 IMPRESSION: NO ACUTE BONY INJURY. LEFT FOOT - 3 views COMPARISON: None AP, lateral and oblique views were obtained. Oblique fracture is visualized at the mid to distal shaft of the fifth metatarsal. There is minimal overriding however no angulation. There is no additional fracture or dislocation. Small calcaneal spurs are seen. IMPRESSION: FIFTH METATARSAL FRACTURE Impression dictated by: Misty Torres M.D.02/19/2025 10:20 AM Dictation Location: [employer] Electronically authenticated by: [id number] Y Date: 02/19/2025 10:20 Discharge Plan Discharge Chief Complaint: Fall Clinical Impression: Fracture of fifth metatarsal bone of left foot Patient Disposition: Home, Self-Care Time of Disposition Decision: 10:27 Condition: Good Mode of Transportation: Private Vehicle Prescriptions / Home Meds: New ibuprofen 800 mg tablet 800 mg PO Q8H PRN (Reason: pain) Qty: 20 0RF No Action alendronate 70 mg tablet 70 mg PO .weekly Rx Instructions: 30 min. before first meal amlodipine 5 mg tablet 5 mg PO DAILY aspirin 325 mg tablet 325 mg PO DAILY cholecalciferol (vitamin D3) 125 mcg (5,000 unit) capsule 5,000 unit PO DAILY clonidine HCl 0.1 mg tablet 0.3 mg PO Q8H ferrous sulfate [FeroSul] 325 mg (65 mg iron) tablet 325 mg PO DAILY folic acid 1 mg tablet 1 mg PO DAILY hydrocodone-acetaminophen 5-325 mg tablet 1 tab PO Q6H PRN (Reason: pain) levothyroxine 150 mcg tablet 150 mcg PO DAILY losartan 100 mg tablet 100 mg PO DAILY mecobalamin (vitamin B12) 1,000 mcg tablet,disintegrating 1,000 mcg PO DAILY omeprazole 40 mg capsule,delayed release(DR/EC) 40 mg PO DAILY oxycodone-acetaminophen 5-325 mg tablet 1 tab PO Q6H PRN (Reason: pain) rosuvastatin 20 mg tablet 20 mg PO DAILY tizanidine 4 mg tablet 4 mg PO Q8H triamterene-hydrochlorothiazid 37.5-25 mg tablet 1 tab PO DAILY zolpidem 10 mg tablet 10 mg PO DAILY venlafaxine 150 mg capsule,extended release 24hr 150 mg PO DAILY ketorolac 10 mg tablet 10 mg PO TID PRN (Reason: pain) Qty: 6 0RF ondansetron 4 mg tablet,disintegrating 4 mg PO Q6H PRN (Reason: nausea and vomiting) Qty: 12 0RF Print Language: Croatian Instructions: Foot Fracture in Adults (ED) Referrals: MISTY LANDRUM [Primary Care Provider] - 1 week Paul Stein DPM [Physician] - 1 week
[2025-02-19] MEDS: ADACEL DIPH,PERTUSS(ACELL),TET VAC/PF 0.5 ML ADULT SYRINGE IM (10:38)
== END 2025-02-19 10:49 | disposition home or self-care (01) ==
PROVIDERS: Emergency Provider Emergency Medicine; PCP Physician Assistant
DX: S92.352A Displaced fracture of fifth metatarsal bone, left foot, initial encounter for closed fracture (principal); W10.9XXA Fall (on) (from) unspecified stairs and steps, initial encounter; S50.312A Abrasion of left elbow, initial encounter; M25.522 Pain in left elbow; Z87.891 Personal history of nicotine dependence; Z23 Encounter for immunization
CPT/HCPCS: 73080; 73630; 90471; 90715; 99284

== ENCOUNTER 2025-02-25 12:22 | Outpatient (OUT) | payer OTHER, SELFPAY ==
--- NOTE | 2025-02-25 12:32 | XR_ITS ---
The [address] [address] Patient Name: TERRANCE KAPADIA MRN: [id number] date: 1965 Sex: F Assigned Patient Location: [facility] Current Patient Location: [facility] Accession/Order Number: [id number] Exam Date: 02/25/2025 13:42 Report Date: 02/25/2025 13:44 At the request of: MAKENZIE LANDRUM Procedure: XR hip LT min 2V 2 views left hip plain film COMPARISON: None HISTORY: Left hip injury. Continued pain. ACUTE FINDINGS: None DEGENERATIVE CHANGE: Unremarkable SOFT TISSUE FINDINGS: Unremarkable JOINT EFFUSION: None POSTOP CHANGES: None BONY MINERALIZATION: Adequate XR/XR hip LT min 2V IMPRESSION: No acute displaced fracture. Impression dictated by: Nilo Cook M.D.02/25/2025 1:44 PM Dictation Location: [place] [address] Electronically authenticated by: [id number] Y Date: 02/25/2025 13:44
== END 2025-02-25 12:23 | disposition home or self-care (01) ==
LOC: RAD 12:25
PROVIDERS: PCP Physician Assistant; Visit Provider Physician Assistant
DX: M25.552 Pain in left hip (principal); W19.XXXD Unspecified fall, subsequent encounter
CPT/HCPCS: 73502

== ENCOUNTER 2025-03-02 11:21 | Outpatient (OUT) | payer OTHER, SELFPAY ==
--- NOTE | 2025-03-02 | XR_ITS ---
The [address] [address] Patient Name: TERRANCE KAPADIA MRN: [id number] date: 1965 Sex: F Assigned Patient Location: Current Patient Location: Accession/Order Number: [id number] Exam Date: 03/02/2025 15:54 Report Date: 03/02/2025 15:55 At the request of: TRUPTI OWENS MD Procedure: XR foot LT min 3V LEFT FOOT - 3 views CLINICAL HISTORY: S92.355A nondisplaced fx fifth metatarsal bone of left foot COMPARISON: Left foot series 02/19/2025 FINDINGS: Fifth metatarsal fracture grossly unchanged alignment and healing compared to the prior study. XR/XR foot LT min 3V IMPRESSION: NO SIGNIFICANT CHANGE IN FRACTURE FINDINGS. Impression dictated by: Imtiaz Brice Jr., D.O. 03/02/2025 3:55 PM Dictation Location: [place] [address] Electronically authenticated by: [id number] Y Date: 03/02/2025 15:55
== END 2025-03-02 11:22 | disposition home or self-care (01) ==
LOC: EC 11:21
PROVIDERS: PCP Physician Assistant; Visit Provider Orthopaedic Surgery
DX: S92.355D Nondisplaced fracture of fifth metatarsal bone, left foot, subsequent encounter for fracture with routine healing (principal)
CPT/HCPCS: 73630